=== PATIENT | female | born 1965 | race Caucasian/White ===

== ENCOUNTER → 2018-02-07 19:22 | Outpatient (CLI) | payer OTHER, MEDICAID, SELFPAY ==
--- NOTE | 2018-02-07 19:27 | DI.RAD.S_ITS ---
PROCEDURE: XR ANKLE LT MIN 3V INDICATIONS: Left ankle pain TECHNIQUE: 3 views of the ankle were acquired. COMPARISON: None. FINDINGS: Bones: No fractures or dislocations. Ankle mortise is normally aligned. No suspicious bony lesions. Soft tissues: No tibiotalar joint effusion. Achilles tendon appears normal. IMPRESSION: No acute trauma found, source of current pain is not seen.. Dictated by: Dallas Baeza M.D. on 02/08/2018 at 8:51 Approved by: Dallas Baeza M.D. on 02/08/2018 at 8:54
== END ==
PROVIDERS: Family Provider Physician Assistant; PCP Physician Assistant; Visit Provider Physician Assistant
DX: M25.572 Pain in left ankle and joints of left foot (principal)
CPT/HCPCS: 73610

== ENCOUNTER → 2018-03-05 06:56 | Outpatient (CLI) | payer OTHER, MEDICAID, SELFPAY ==
[2018-03-05 08:00] LABS: Alanine Aminotransferase 38 IU/L (9-52); Albumin 4.6 g/dL (3.5-5.0); Albumin Globulin Ratio 1.5 (1.0-2.8); Alkaline Phosphatase 72 U/L (38-126); Aspartate Aminotransferase 34 IU/L (14-36); Bilirubin Total 0.7 mg/dL (0.2-1.3); Blood Urea Nitrogen 15 mg/dL (7-17); Calcium 9.9 mg/dL (8.4-10.2); Carbon Dioxide 30 mmol/L (22-32); Chloride 103 mmol/L (98-107); Cholesterol 208 mg/dL (140-199); Estimated Glomerular Filt Rate > 60.0 mL/min (>60); Glucose 88 mg/dL (70-100); HDL Cholesterol 68 mg/dL (40-60); HEMOLYSIS < 15 (0-50); LDL Cholesterol Calculated 129 mg/dL (<100); Potassium 4.7 mmol/L (3.4-5.1); Sodium 142 mmol/L (137-145); Total Protein 7.6 g/dL (6.3-8.2); Triglycerides 55 mg/dL (35-150)
[2018-03-05 09:22] LABS: Thyroid Stimulating Hormone 2.01 uIU/mL (0.47-4.68)
[2018-03-07 15:52] LABS: Progesterone < 0.5 ng/mL
== END ==
PROVIDERS: Family Provider Physician Assistant; PCP Physician Assistant; Visit Provider Physician Assistant
DX: E78.5 Hyperlipidemia, unspecified (principal); N91.2 Amenorrhea, unspecified
CPT/HCPCS: 36415; 80053; 80061; 82672; 83001; 84144; 84443

== ENCOUNTER 2018-05-30 11:15 | Outpatient (RCR) | payer OTHER, MEDICAID, SELFPAY ==
--- NOTE | 2018-03-07 17:30 | PT.OPPOC ---
Current Diagnoses Pain in left ankle and joints of left foot (03/07/18) Stiffness of left ankle, not elsewhere classified (03/07/18) Muscle weakness (generalized) (03/07/18) Sprain of other ligament of left ankle, subsequent encounter (03/07/18) Provider Visit Care Team Role Provider Type Mirian Feliciano PA-C Attending Provider Advanced Crew Clerk Family Provider Primary Care Provider Specialty: Medical Address: [address] [place] [address], [facility] Email: [email or web address] Plan Of Care PT-OP-T Assessment and Plan Start: 03/09/18 13:00 Freq: Status: Active Protocol: Document 03/07/18 17:30 [facility] (Rec: 03/09/18 13:41 [facility] [email or web address]) Physical Therapy Assessment Rehab Potential Rehabilitation Potential Good Evaluation Complexity Number of Personal Factors/Comorbidities 0 Number of Body Systems Impaired 3 Clinical Presentation at Evaluation Stable Impairments Impairments Activity Tolerance Gait Pain ROM Strength Other Impairments Recreational activities: hiking. Goals Four Impairment LE weakness Lining Printer Goal (LTG) with manual muscle testing: Left hip flexion and ER to at least 4+/5, ankle inversion and eversion to 5/5 LTG Duration 8 weeks Three Impairment Inability to hike. Longterm Goal (LTG) Return to prior level of hiking ability without increased L ankle pain prior to d/c. LTG Duration 8 weeks Two Impairment Impaired L ankle ROM Longterm Goal (LTG) L ankle AROM: DF 10 deg, PF 55 deg, inversion 30 deg, eversion 20 deg. LTG Duration 8 weeks One Impairment L ankle pain 7/10 Short Term Goal (STG) 5/10 L ankle pain STG Duration 4 weeks Longterm Goal (LTG) 2/10 or less L ankle pain LTG Duration 8 weeks Assessment Summary Assessment Pt presents with tenderness to palpation in the anterior talofibular and calcaneofibular ligaments on the L ankle, with positive anterior drawer testing of the L ankle but negative talar tilt testing. This indicates that pt has instability of the L ankle, possibly mild tear of the anterior talofibular ligament, however, although tender to palpation, the calcaneofibular ligament appears to be intact. Pt would greatly benefit from outpatient physical therapy to progress her L ankle ROM, improve her LE strength, decrease pain in the L ankle, and return to prior level recreational activities including hiking without restrictions. Pt may benefit from aquatic therapy as well, and progression of a home exercise program to continue to stabilize her L ankle. Physical Therapy Plan Frequency and Duration Frequency of Treatment 2x/Week Duration of Treatment 8 weeks Plan of Care Start Date 03/07/18 Plan of Care End Date 05/02/18 Therapeutic Interventions Therapeutic Interventions Aquatic Therapy Gait Training Home Exercise Program Joint Mobilizations Manual Therapy Neuromuscular Re-education Patient/Caregiver Education Self-Care/Home Management Sensory Integration Soft Tissue Mobilization Taping Therapeutic Activities Therapeutic Exercises Modalities Cold Pack/Ice Massage Electric Stimulation Hot Packs Infrared Therapy Ultrasound Next Visit Focus/Plan Next Note Type Treatment Note Next Visit Plan L ankle resisted strengthening , SL balance, toe curls, BAPS board. Plan of Care Dates Plan of Care Start Date 03/07/18 Plan of Care End Date 05/02/18 Please Sign and Return: I have reviewed this Plan of Care and certify that the skilled therapy services above are required to meet the patient?s needs. Physician Signature Date Printed Name and Credentials Clinical Instructor Signature Printed Name and Credentials
--- NOTE | 2018-03-07 17:30 | PT.OIE ---
Current Diagnoses Pain in left ankle and joints of left foot (03/07/18) Stiffness of left ankle, not elsewhere classified (03/07/18) Muscle weakness (generalized) (03/07/18) Sprain of other ligament of left ankle, subsequent encounter (03/07/18) Past Medical History (Last Reviewed 02/26/18 @ 21:55 by Mary Ellen Epstein PA-C) Spinal stenosis, lumbar region without neurogenic claudication (Chronic) DDD (degenerative disc disease), lumbosacral (Chronic) Lumbar back pain (Chronic) Low back pain (Chronic Unknown) Spinal stenosis of lumbar region (Chronic Unknown) Varicose veins of both lower extremities (Chronic Unknown) Vitamin D deficiency (Chronic ~2013) Cysts (Resolved Unknown) Past Surgical History (Last Reviewed 02/26/18 @ 21:55 by Mary Ellen Epstein PA-C) History of surgical removal of ganglion cyst (Resolved 07/2017) Hx of tonsillectomy (Resolved Unknown) Status post endovenous radiofrequency ablation of saphenous vein (Resolved 2007) Provider Visit Care Team Role Provider Type Mirian Feliciano PA-C Attending Provider Advanced Primer Assembler Family Provider Primary Care Provider Specialty: Medical Address: [address] [place] [address], [facility] Email: [email or web address] Physical Therapy Initial Evaluation PT-OP-A Visit Information Start: 03/09/18 13:00 Freq: Status: Active Protocol: Document 03/07/18 17:30 RCC (Rec: 03/09/18 13:41 RCC [email or web address]) Out-Patient Physical Therapy Visit Information Visit Information Visit Type Initial Evaluation Visit Note 22 total visits for 2018. Visit Start Time 16:45 Visit Stop Time 17:30 Total Visit Minutes 45 Visit Number 1 Number of SENIOR MARKET INTELLIGENCE CONSULTANT Visits 0 Evaluation Information Evaluation Date 03/07/18 PT-OP-B Current Condition Start: 03/09/18 13:00 Freq: Status: Active Protocol: Document 03/07/18 17:30 RCC (Rec: 03/09/18 13:41 RCC [email or web address]) Current Condition History of Current Condition Onset Date 02/04/18 Current Complaints L lateral ankle pain History of Current Condition Pt is a 52 y/o female presenting to physical therapy with a c/o L lateral ankle pain. Onset date: 02/04/2018 stepping off of a curb and landing on a small street cone , causing inversion of the L ankle. Pt notes swelling initially, no excessive bruising. Pain is decreased with cryotherapy and wearing a brace (OTC strapped brace). Pain is increased with hiking, prolonged walking. 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 Radiographs of the L ankle were negative for fracture. Pt notes that it feels better when she wears her brace but she is still having pain and is well below her functional ability. Treatment Goals Patient/Caregiver Goals Return to hiking without restrictions. Prior Functional Status Baseline Function- ADL's Independent Baseline Function- Mobility Independent Baseline Function- Recreation/Hobbies Hiking multiple times per week . Current Functional Impairments (Reported) Functional Limitations- Recreation/ Unable to hike without Hobbies increased pain and difficulty. PT-OP-C Subjective Start: 03/09/18 13:00 Freq: Status: Active Protocol: Document 03/07/18 17:30 [facility] (Rec: 03/09/18 13:41 [facility] [email or web address]) OP-PT Subjective Patient Comments Patient Comments Pt is unable to take clients on hikes due to increased pain in L ankle. Patient Questionnaires Lower Extremity Functional Scale LEFS Score 71.25 OP-PT Pain Assessment Location Left Lateral Ankle Intensity 7 Scale Used Numeric (1 - 10) Pain Aggravating Factors Activity Walking Pain Alleviating Factors Cold PT-OP-D Balance Start: 03/09/18 13:00 Freq: Status: Active Protocol: Document 03/07/18 17:30 RCC (Rec: 03/09/18 13:41 [facility] [email or web address]) OP-PT Balance Assessment Standing Balance Static Standing Balance Ability Good Dynamic Standing Balance Ability Good Carroll Fall Scale Copyright Permission Carly EASTON, Carly RM, Jonas S[place]. Development of a scale to identify the fall- prone patient. Can J Aging 1989;8;366-7. Jolie Carroll (2009). Preventing patient falls. (2nd ed). [place]: Veras. PT-OP-F Manual Assessment Start: 03/09/18 13:00 Freq: Status: Active Protocol: Document 03/07/18 17:30 [facility] (Rec: 03/09/18 13:41 RCC [email or web address]) Manual Assessments Soft Tissue Assessment Soft Tissue Mobility Assessment TTP: L anterior talofibular and calcaneofibular ligaments. PT-OP-G Mobility & Gait Start: 03/09/18 13:00 Freq: Status: Active Protocol: Document 03/07/18 17:30 RCC (Rec: 03/09/18 13:41 [facility] [email or web address]) OP Gait Assessment Gait Gait Assistance Required: Independent Assistive Devices Assistive Device None Comments Gait Comments Mild decreased step length on the R, slight ER of the L foot during stance phase PT-OP-H Neuro Start: 03/09/18 13:00 Freq: Status: Active Protocol: Document 03/07/18 17:30 RCC (Rec: 03/09/18 13:41 [facility] [email or web address]) Sensation Evaluation Gross Sensation Gross Sensation WNL PT-OP-K Range of Motion Start: 03/09/18 13:00 Freq: Status: Active Protocol: Document 03/07/18 17:30 [facility] (Rec: 03/09/18 13:41 [facility] [email or web address]) Ankle and Foot Goniometric Range of Motion Ankle and Foot Measured in Degrees Left Active Testing Position Supine Dorsiflexion with Knee Extended 6 Plantarflexion 48 Inversion 25 Eversion 12 Right Active Testing Position Supine Dorsiflexion with Knee Extended 8 Plantarflexion 60 Inversion 30 Eversion 20 PT-OP-L Special Tests Start: 03/09/18 13:00 Freq: Status: Active Protocol: Document 03/07/18 17:30 RCC (Rec: 03/09/18 13:41 [facility] [email or web address]) Special Tests Foot/Ankle Special Tests Syndesmosis squeeze test Test Results Negative bilaterally Baumann Test Results Negative bilaterally Talor Tilt Test Results Negative bilaterally Anterior Draw Test Results Positive Left, negative Right PT-OP-M Strength Start: 03/09/18 13:00 Freq: Status: Active Protocol: Document 03/07/18 17:30 RCC (Rec: 03/09/18 13:41 RCC [email or web address]) Hip Strength Hip Manual Muscle Testing Left Flexion (L2) 4 Good Adduction 5 Normal External Rotation 4 Good Internal Rotation 4+ Good+ Right Flexion (L2) 4+ Good+ Adduction 5 Normal External Rotation 4+ Good+ Internal Rotation 4+ Good+ Knee Strength Knee Manual Muscle Testing Left Flexion (S2) 5 Normal Extension (L3) 5 Normal Right Flexion (S2) 5 Normal Extension (L3) 5 Normal Ankle/Foot Strength Ankle and Foot Manual Muscle Testing Left Dorsiflexion (L4) 5 Normal Plantarflexion (S1) 5 Normal Inversion 4+ Good+ Eversion (S1) 4+ Good+ Comments 25 reps SL heel raise Right Dorsiflexion (L4) 5 Normal Plantarflexion (S1) 5 Normal Inversion 5 Normal Eversion (S1) 5 Normal Comments 25 reps SL heel raise PT-OP-Q Treatments Start: 03/09/18 13:00 Freq: Status: Active Protocol: Document 03/07/18 17:30 [facility] (Rec: 03/09/18 13:41 [facility] [email or web address]) Therapeutic Exercises Sitting Exercises 1 Sitting Exercise Name ankle eversion Side left Resistance L2 band Reps/Minutes 1x12 Standing Exercises 1 Standing Exercise Name SL heel raise Side left Reps/Minutes 1x10 Manual Therapy Treatment Taping 1 Body Location L ankle Type of Tape Kinesio Tape Skin Inspection clean Comments Y strip lateral forefoot to lower leg around lateral malleolus, I strip arch support. PT-OP-R Modalities Start: 03/09/18 13:00 Freq: Status: Active Protocol: Document 03/07/18 17:30 [facility] (Rec: 03/09/18 13:41 [facility] [email or web address]) Ultrasound Therapy Treatment Left Lateral Ankle Treatment Duration (minutes) 8 Patient Position Sidelying Coupling Medium Ultrasound Gel Applicator Size (cm2) 2 Frequency Setting (mHz) 1 Mode Setting Continuous Intensity Setting (w/cm2) 1.0 PT-OP-T Assessment and Plan Start: 03/09/18 13:00 Freq: Status: Active Protocol: Document 03/07/18 17:30 [facility] (Rec: 03/09/18 13:41 [facility] [email or web address]) Physical Therapy Assessment Rehab Potential Rehabilitation Potential Good Evaluation Complexity Number of Personal Factors/Comorbidities 0 Number of Body Systems Impaired 3 Clinical Presentation at Evaluation Stable Impairments Impairments Activity Tolerance Gait Pain ROM Strength Other Impairments Recreational activities: hiking. Goals Four Impairment LE weakness Residential Goal (LTG) with manual muscle testing: Left hip flexion and ER to at least 4+/5, ankle inversion and eversion to 5/5 LTG Duration 8 weeks Three Impairment Inability to hike. Washroom Cleaner Goal (LTG) Return to prior level of hiking ability without increased L ankle pain prior to d/c. LTG Duration 8 weeks Two Impairment Impaired L ankle ROM Washroom Cleaner Goal (LTG) L ankle AROM: DF 10 deg, PF 55 deg, inversion 30 deg, eversion 20 deg. LTG Duration 8 weeks One Impairment L ankle pain 7/10 Short Term Goal (STG) 5/10 L ankle pain STG Duration 4 weeks Washroom Cleaner Goal (LTG) 2/10 or less L ankle pain LTG Duration 8 weeks Assessment Summary Assessment Pt presents with tenderness to palpation in the anterior talofibular and calcaneofibular ligaments on the L ankle, with positive anterior drawer testing of the L ankle but negative talar tilt testing. This indicates that pt has instability of the L ankle, possibly mild tear of the anterior talofibular ligament, however, although tender to palpation, the calcaneofibular ligament appears to be intact. Pt would greatly benefit from outpatient physical therapy to progress her L ankle ROM, improve her LE strength, decrease pain in the L ankle, and return to prior level recreational activities including hiking without restrictions. Pt may benefit from aquatic therapy as well, and progression of a home exercise program to continue to stabilize her L ankle. Physical Therapy Plan Frequency and Duration Frequency of Treatment 2x/Week Duration of Treatment 8 weeks Plan of Care Start Date 03/07/18 Plan of Care End Date 05/02/18 Therapeutic Interventions Therapeutic Interventions Aquatic Therapy Gait Training Home Exercise Program Joint Mobilizations Manual Therapy Neuromuscular Re-education Patient/Caregiver Education Self-Care/Home Management Sensory Integration Soft Tissue Mobilization Taping Therapeutic Activities Therapeutic Exercises Modalities Cold Pack/Ice Massage Electric Stimulation Hot Packs Infrared Therapy Ultrasound Next Visit Focus/Plan Next Note Type Treatment Note Next Visit Plan L ankle resisted strengthening , SL balance, toe curls, BAPS board.
--- NOTE | 2018-03-15 16:35 | PT.OTN ---
Current Diagnoses Sprain of other ligament of left ankle, subsequent encounter (03/15/18) Physical Therapy Treatment Note PT-OP-A Visit Information Start: 03/09/18 13:00 Freq: Status: Active Protocol: Document 03/15/18 16:35 RCC (Rec: 03/15/18 16:46 [facility] [email or web address]) Out-Patient Physical Therapy Visit Information Visit Information Visit Type Treatment Note Visit Start Time 15:55 Visit Stop Time 16:35 Total Visit Minutes 40 Visit Number 2 Number of RENEWABLE ENERGY TRADER Visits 0 Evaluation Information Evaluation Date 03/07/18 PT-OP-B Current Condition Start: 03/09/18 13:00 Freq: Status: Active Protocol: Document 03/07/18 17:30 [facility] (Rec: 03/09/18 13:41 RCC [email or web address]) Current Condition History of Current Condition Onset Date 02/04/18 Current Complaints L lateral ankle pain History of Current Condition Pt is a 52 y/o female presenting to physical therapy with a c/o L lateral ankle pain. Onset date: 02/04/2018 stepping off of a curb and landing on a small street cone , causing inversion of the L ankle. Pt notes swelling initially, no excessive bruising. Pain is decreased with cryotherapy and wearing a brace (OTC strapped brace). Pain is increased with hiking, prolonged walking. 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 Radiographs of the L ankle were negative for fracture. Pt notes that it feels better when she wears her brace but she is still having pain and is well below her functional ability. Treatment Goals Patient/Caregiver Goals Return to hiking without restrictions. Prior Functional Status Baseline Function- ADL's Independent Baseline Function- Mobility Independent Baseline Function- Recreation/Hobbies Hiking multiple times per week . Current Functional Impairments (Reported) Functional Limitations- Recreation/ Unable to hike without Hobbies increased pain and difficulty. PT-OP-C Subjective Start: 03/09/18 13:00 Freq: Status: Active Protocol: Document 03/15/18 16:35 RCC (Rec: 03/15/18 16:46 RCC [email or web address]) OP-PT Subjective Patient Comments Patient Comments Pt notes that her L ankle feels better, she did not go hiking this past week. PT-OP-D Balance Start: 03/09/18 13:00 Freq: Status: Active Protocol: Document 03/07/18 17:30 RCC (Rec: 03/09/18 13:41 RCC [email or web address]) OP-PT Balance Assessment Standing Balance Static Standing Balance Ability Good Dynamic Standing Balance Ability Good Carroll Fall Scale Copyright Permission Carly EASTON, Carly RM, Jonas SJ. Development of a scale to identify the fall- prone patient. Can J Aging 1989;8;366-7. Jolie Carroll (2009). Preventing patient falls. (2nd ed). [place]: Veras. PT-OP-F Manual Assessment Start: 03/09/18 13:00 Freq: Status: Active Protocol: Document 03/07/18 17:30 [facility] (Rec: 03/09/18 13:41 RCC [email or web address]) Manual Assessments Soft Tissue Assessment Soft Tissue Mobility Assessment TTP: L anterior talofibular and calcaneofibular ligaments. PT-OP-G Mobility & Gait Start: 03/09/18 13:00 Freq: Status: Active Protocol: Document 03/07/18 17:30 [facility] (Rec: 03/09/18 13:41 [facility] [email or web address]) OP Gait Assessment Gait Gait Assistance Required: Independent Assistive Devices Assistive Device None Comments Gait Comments Mild decreased step length on the R, slight ER of the L foot during stance phase PT-OP-H Neuro Start: 03/09/18 13:00 Freq: Status: Active Protocol: Document 03/07/18 17:30 [facility] (Rec: 03/09/18 13:41 [facility] [email or web address]) Sensation Evaluation Gross Sensation Gross Sensation WNL PT-OP-K Range of Motion Start: 03/09/18 13:00 Freq: Status: Active Protocol: Document 03/07/18 17:30 [facility] (Rec: 03/09/18 13:41 [facility] [email or web address]) Ankle and Foot Goniometric Range of Motion Ankle and Foot Measured in Degrees Left Active Testing Position Supine Dorsiflexion with Knee Extended 6 Plantarflexion 48 Inversion 25 Eversion 12 Right Active Testing Position Supine Dorsiflexion with Knee Extended 8 Plantarflexion 60 Inversion 30 Eversion 20 PT-OP-L Special Tests Start: 03/09/18 13:00 Freq: Status: Active Protocol: Document 03/07/18 17:30 RCC (Rec: 03/09/18 13:41 [facility] [email or web address]) Special Tests Foot/Ankle Special Tests Syndesmosis squeeze test Test Results Negative bilaterally Baumann Test Results Negative bilaterally Talor Tilt Test Results Negative bilaterally Anterior Draw Test Results Positive Left, negative Right PT-OP-M Strength Start: 03/09/18 13:00 Freq: Status: Active Protocol: Document 03/07/18 17:30 RCC (Rec: 03/09/18 13:41 RCC [email or web address]) Hip Strength Hip Manual Muscle Testing Left Flexion (L2) 4 Good Adduction 5 Normal External Rotation 4 Good Internal Rotation 4+ Good+ Right Flexion (L2) 4+ Good+ Adduction 5 Normal External Rotation 4+ Good+ Internal Rotation 4+ Good+ Knee Strength Knee Manual Muscle Testing Left Flexion (S2) 5 Normal Extension (L3) 5 Normal Right Flexion (S2) 5 Normal Extension (L3) 5 Normal Ankle/Foot Strength Ankle and Foot Manual Muscle Testing Left Dorsiflexion (L4) 5 Normal Plantarflexion (S1) 5 Normal Inversion 4+ Good+ Eversion (S1) 4+ Good+ Comments 25 reps SL heel raise Right Dorsiflexion (L4) 5 Normal Plantarflexion (S1) 5 Normal Inversion 5 Normal Eversion (S1) 5 Normal Comments 25 reps SL heel raise PT-OP-Q Treatments Start: 03/09/18 13:00 Freq: Status: Active Protocol: Document 03/15/18 16:35 [facility] (Rec: 03/15/18 16:46 [facility] [email or web address]) Manual Therapy Treatment Soft Tissue Mobilization 1 Body Location L peroneals Mobilization Type Myofascial Release Intensity/Depth Moderate Body Position Supine Joint Mobilizations 1 Joint L talocrural Direction AP, PA Grade III Body Position Supine Taping 1 Body Location L ankle Type of Tape Kinesio Tape Skin Inspection clean Comments Y strip lateral forefoot to lower leg around lateral malleolus, I strip arch support. Neuro Re-Education Treatment Balance Activities 1 Details SL balance (left) Surface firm, unstable (black Tband pod) Other Activities 1 Details BAPS Comments Level 4- AP, Lateral, CW, CCW PT-OP-R Modalities Start: 03/09/18 13:00 Freq: Status: Active Protocol: Document 03/15/18 16:35 RCC (Rec: 03/15/18 16:46 RCC [email or web address]) Ultrasound Therapy Treatment Left Lateral Ankle Treatment Duration (minutes) 8 Patient Position Sidelying Coupling Medium Ultrasound Gel Applicator Size (cm2) 2 Frequency Setting (mHz) 1 Mode Setting Continuous Intensity Setting (w/cm2) 1.0 PT-OP-T Assessment and Plan Start: 03/09/18 13:00 Freq: Status: Active Protocol: Document 03/15/18 16:35 [facility] (Rec: 03/15/18 16:46 RCC [email or web address]) Physical Therapy Assessment Assessment Summary Assessment Pt likely improved condition due to not stressing the L ankle with hiking over the past week. Pt appears to have some joint hypomobility of the talocrural joint. Pt tolerated increased ROM of L ankle without pain. Physical Therapy Plan Frequency and Duration Frequency of Treatment 2x/Week Duration of Treatment 8 weeks Plan of Care Start Date 03/07/18 Plan of Care End Date 05/02/18 Next Visit Focus/Plan Next Note Type Treatment Note Next Visit Plan L ankle resisted strengthening , toe curls
--- NOTE | 2018-03-20 17:33 | PT.OTN ---
Current Diagnoses Sprain of other ligament of left ankle, subsequent encounter (03/20/18) Physical Therapy Treatment Note PT-OP-A Visit Information Start: 03/09/18 13:00 Freq: Status: Active Protocol: Document 03/20/18 17:33 RCC (Rec: 03/20/18 17:43 [facility] [email or web address]) Out-Patient Physical Therapy Visit Information Visit Information Visit Type Treatment Note Visit Start Time 16:45 Visit Stop Time 17:33 Total Visit Minutes 48 Visit Number 3 Number of PROCESS CAMERA OPERATOR Visits 0 Evaluation Information Evaluation Date 03/07/18 PT-OP-B Current Condition Start: 03/09/18 13:00 Freq: Status: Active Protocol: Document 03/07/18 17:30 RCC (Rec: 03/09/18 13:41 RCC [email or web address]) Current Condition History of Current Condition Onset Date 02/04/18 Current Complaints L lateral ankle pain History of Current Condition Pt is a 52 y/o female presenting to physical therapy with a c/o L lateral ankle pain. Onset date: 02/04/2018 stepping off of a curb and landing on a small street cone , causing inversion of the L ankle. Pt notes swelling initially, no excessive bruising. Pain is decreased with cryotherapy and wearing a brace (OTC strapped brace). Pain is increased with hiking, prolonged walking. 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 Radiographs of the L ankle were negative for fracture. Pt notes that it feels better when she wears her brace but she is still having pain and is well below her functional ability. Treatment Goals Patient/Caregiver Goals Return to hiking without restrictions. Prior Functional Status Baseline Function- ADL's Independent Baseline Function- Mobility Independent Baseline Function- Recreation/Hobbies Hiking multiple times per week . Current Functional Impairments (Reported) Functional Limitations- Recreation/ Unable to hike without Hobbies increased pain and difficulty. PT-OP-C Subjective Start: 03/09/18 13:00 Freq: Status: Active Protocol: Document 03/20/18 17:33 RCC (Rec: 03/20/18 17:43 RCC [email or web address]) OP-PT Subjective Patient Comments Patient Comments Pt notes that she mildly re- injured her L ankle with a flat hike on a rock. No increased pain but looks a little more swollen. PT-OP-D Balance Start: 03/09/18 13:00 Freq: Status: Active Protocol: Document 03/07/18 17:30 RCC (Rec: 03/09/18 13:41 RCC [email or web address]) OP-PT Balance Assessment Standing Balance Static Standing Balance Ability Good Dynamic Standing Balance Ability Good Carroll Fall Scale Copyright Permission Carly EASTON, Carly RM, Jonas SJ. Development of a scale to identify the fall- prone patient. Can J Aging 1989;8;366-7. Jolie Carroll (2009). Preventing patient falls. (2nd ed). [place]: [place]. PT-OP-F Manual Assessment Start: 03/09/18 13:00 Freq: Status: Active Protocol: Document 03/07/18 17:30 RCC (Rec: 03/09/18 13:41 RCC [email or web address]) Manual Assessments Soft Tissue Assessment Soft Tissue Mobility Assessment TTP: L anterior talofibular and calcaneofibular ligaments. PT-OP-G Mobility & Gait Start: 03/09/18 13:00 Freq: Status: Active Protocol: Document 03/07/18 17:30 RCC (Rec: 03/09/18 13:41 RCC [email or web address]) OP Gait Assessment Gait Gait Assistance Required: Independent Assistive Devices Assistive Device None Comments Gait Comments Mild decreased step length on the R, slight ER of the L foot during stance phase PT-OP-H Neuro Start: 03/09/18 13:00 Freq: Status: Active Protocol: Document 03/07/18 17:30 RCC (Rec: 03/09/18 13:41 RCC [email or web address]) Sensation Evaluation Gross Sensation Gross Sensation WNL PT-OP-K Range of Motion Start: 03/09/18 13:00 Freq: Status: Active Protocol: Document 03/07/18 17:30 RCC (Rec: 03/09/18 13:41 RCC [email or web address]) Ankle and Foot Goniometric Range of Motion Ankle and Foot Measured in Degrees Left Active Testing Position Supine Dorsiflexion with Knee Extended 6 Plantarflexion 48 Inversion 25 Eversion 12 Right Active Testing Position Supine Dorsiflexion with Knee Extended 8 Plantarflexion 60 Inversion 30 Eversion 20 PT-OP-L Special Tests Start: 03/09/18 13:00 Freq: Status: Active Protocol: Document 03/07/18 17:30 RCC (Rec: 03/09/18 13:41 RCC [email or web address]) Special Tests Foot/Ankle Special Tests Syndesmosis squeeze test Test Results Negative bilaterally Baumann Test Results Negative bilaterally Talor Tilt Test Results Negative bilaterally Anterior Draw Test Results Positive Left, negative Right PT-OP-M Strength Start: 03/09/18 13:00 Freq: Status: Active Protocol: Document 03/07/18 17:30 RCC (Rec: 03/09/18 13:41 RCC [email or web address]) Hip Strength Hip Manual Muscle Testing Left Flexion (L2) 4 Good Adduction 5 Normal External Rotation 4 Good Internal Rotation 4+ Good+ Right Flexion (L2) 4+ Good+ Adduction 5 Normal External Rotation 4+ Good+ Internal Rotation 4+ Good+ Knee Strength Knee Manual Muscle Testing Left Flexion (S2) 5 Normal Extension (L3) 5 Normal Right Flexion (S2) 5 Normal Extension (L3) 5 Normal Ankle/Foot Strength Ankle and Foot Manual Muscle Testing Left Dorsiflexion (L4) 5 Normal Plantarflexion (S1) 5 Normal Inversion 4+ Good+ Eversion (S1) 4+ Good+ Comments 25 reps SL heel raise Right Dorsiflexion (L4) 5 Normal Plantarflexion (S1) 5 Normal Inversion 5 Normal Eversion (S1) 5 Normal Comments 25 reps SL heel raise PT-OP-Q Treatments Start: 03/09/18 13:00 Freq: Status: Active Protocol: Document 03/20/18 17:33 [facility] (Rec: 03/20/18 17:43 [facility] [email or web address]) Therapeutic Exercises Sitting Exercises 2 Sitting Exercise Name toe scrunches Side left Equipment Used towel Reps/Minutes 2x30 1 Sitting Exercise Name ankle eversion and inversion Side left Resistance L2 band Reps/Minutes 3x10 Manual Therapy Treatment Soft Tissue Mobilization 1 Body Location L peroneals Mobilization Type Myofascial Release Intensity/Depth Moderate Body Position Supine Joint Mobilizations 1 Joint L talocrural Direction AP, PA Grade III Body Position Supine Neuro Re-Education Treatment Other Activities 1 Details BAPS Comments Level 4- AP, Lateral, CW, CCW PT-OP-R Modalities Start: 03/09/18 13:00 Freq: Status: Active Protocol: Document 03/20/18 17:33 RCC (Rec: 03/20/18 17:43 RCC [email or web address]) Hot Pack/Cold Pack Treatment Cold Pack Location L ankle Patient Position Hooklying Treatment Duration (minutes) 10 Patient Tolerance Good Ultrasound Therapy Treatment Left Lateral Ankle Treatment Duration (minutes) 8 Patient Position Sidelying Coupling Medium Ultrasound Gel Applicator Size (cm2) 2 Frequency Setting (mHz) 1 Mode Setting Continuous Intensity Setting (w/cm2) 1.0 PT-OP-T Assessment and Plan Start: 03/09/18 13:00 Freq: Status: Active Protocol: Document 03/20/18 17:33 RCC (Rec: 03/20/18 17:43 RCC [email or web address]) Physical Therapy Assessment Assessment Summary Assessment Pt with mild increase in swelling, but responded well to ultrasound and no pain in anterior gutter with joint mobilizations. Physical Therapy Plan Frequency and Duration Frequency of Treatment 2x/Week Duration of Treatment 8 weeks Plan of Care Start Date 03/07/18 Plan of Care End Date 05/02/18 Next Visit Focus/Plan Next Note Type Treatment Note Next Visit Plan cont. to progress strength, ROM of L ankle.
--- NOTE | 2018-03-27 16:45 | PT.OTN ---
Current Diagnoses Sprain of other ligament of left ankle, subsequent encounter (03/27/18) Physical Therapy Treatment Note PT-OP-A Visit Information Start: 03/09/18 13:00 Freq: Status: Active Protocol: Document 03/27/18 16:45 RCC (Rec: 03/27/18 17:49 RCC [email or web address]) Out-Patient Physical Therapy Visit Information Visit Information Visit Type Treatment Note Visit Start Time 16:00 Visit Stop Time 16:46 Total Visit Minutes 46 Visit Number 4 Number of CONTINUOUS ABSORPTION PROCESS OPERATOR Visits 0 Evaluation Information Evaluation Date 03/07/18 PT-OP-B Current Condition Start: 03/09/18 13:00 Freq: Status: Active Protocol: Document 03/07/18 17:30 RCC (Rec: 03/09/18 13:41 RCC [email or web address]) Current Condition History of Current Condition Onset Date 02/04/18 Current Complaints L lateral ankle pain History of Current Condition Pt is a 52 y/o female presenting to physical therapy with a c/o L lateral ankle pain. Onset date: 02/04/2018 stepping off of a curb and landing on a small street cone , causing inversion of the L ankle. Pt notes swelling initially, no excessive bruising. Pain is decreased with cryotherapy and wearing a brace (OTC strapped brace). Pain is increased with hiking, prolonged walking. 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 Radiographs of the L ankle were negative for fracture. Pt notes that it feels better when she wears her brace but she is still having pain and is well below her functional ability. Treatment Goals Patient/Caregiver Goals Return to hiking without restrictions. Prior Functional Status Baseline Function- ADL's Independent Baseline Function- Mobility Independent Baseline Function- Recreation/Hobbies Hiking multiple times per week . Current Functional Impairments (Reported) Functional Limitations- Recreation/ Unable to hike without Hobbies increased pain and difficulty. PT-OP-C Subjective Start: 03/09/18 13:00 Freq: Status: Active Protocol: Document 03/27/18 16:45 RCC (Rec: 03/27/18 17:49 RCC [email or web address]) OP-PT Subjective Patient Comments Patient Comments Pt was able to hike for 2.5 miles without pain 2 days ago. She noted she had some increased swelling today, she spent a lot of the day sitting on the computer. PT-OP-D Balance Start: 03/09/18 13:00 Freq: Status: Active Protocol: Document 03/07/18 17:30 RCC (Rec: 03/09/18 13:41 RCC [email or web address]) OP-PT Balance Assessment Standing Balance Static Standing Balance Ability Good Dynamic Standing Balance Ability Good Carroll Fall Scale Copyright Permission Carly JM, Carly RM, Jonas SJ. Development of a scale to identify the fall- prone patient. Can J Aging 1989;8;366-7. Jolie Carroll (2009). Preventing patient falls. (2nd ed). [place]: Veras. PT-OP-F Manual Assessment Start: 03/09/18 13:00 Freq: Status: Active Protocol: Document 03/07/18 17:30 RCC (Rec: 03/09/18 13:41 RCC [email or web address]) Manual Assessments Soft Tissue Assessment Soft Tissue Mobility Assessment TTP: L anterior talofibular and calcaneofibular ligaments. PT-OP-G Mobility & Gait Start: 03/09/18 13:00 Freq: Status: Active Protocol: Document 03/07/18 17:30 RCC (Rec: 03/09/18 13:41 RCC [email or web address]) OP Gait Assessment Gait Gait Assistance Required: Independent Assistive Devices Assistive Device None Comments Gait Comments Mild decreased step length on the R, slight ER of the L foot during stance phase PT-OP-H Neuro Start: 03/09/18 13:00 Freq: Status: Active Protocol: Document 03/07/18 17:30 RCC (Rec: 03/09/18 13:41 RCC [email or web address]) Sensation Evaluation Gross Sensation Gross Sensation WNL PT-OP-J Posture/Palpation/Skin Start: 03/09/18 13:00 Freq: Status: Active Protocol: Document 03/27/18 16:45 RCC (Rec: 03/27/18 17:49 RCC [email or web address]) Skin Assessment Edema Assessment Left Ankle Comments mild edema lateral L ankle. PT-OP-K Range of Motion Start: 03/09/18 13:00 Freq: Status: Active Protocol: Document 03/07/18 17:30 RCC (Rec: 03/09/18 13:41 RCC [email or web address]) Ankle and Foot Goniometric Range of Motion Ankle and Foot Measured in Degrees Left Active Testing Position Supine Dorsiflexion with Knee Extended 6 Plantarflexion 48 Inversion 25 Eversion 12 Right Active Testing Position Supine Dorsiflexion with Knee Extended 8 Plantarflexion 60 Inversion 30 Eversion 20 PT-OP-L Special Tests Start: 03/09/18 13:00 Freq: Status: Active Protocol: Document 03/07/18 17:30 RCC (Rec: 03/09/18 13:41 RCC [email or web address]) Special Tests Foot/Ankle Special Tests Syndesmosis squeeze test Test Results Negative bilaterally Baumann Test Results Negative bilaterally Talor Tilt Test Results Negative bilaterally Anterior Draw Test Results Positive Left, negative Right PT-OP-M Strength Start: 03/09/18 13:00 Freq: Status: Active Protocol: Document 03/07/18 17:30 RCC (Rec: 03/09/18 13:41 RCC [email or web address]) Hip Strength Hip Manual Muscle Testing Left Flexion (L2) 4 Good Adduction 5 Normal External Rotation 4 Good Internal Rotation 4+ Good+ Right Flexion (L2) 4+ Good+ Adduction 5 Normal External Rotation 4+ Good+ Internal Rotation 4+ Good+ Knee Strength Knee Manual Muscle Testing Left Flexion (S2) 5 Normal Extension (L3) 5 Normal Right Flexion (S2) 5 Normal Extension (L3) 5 Normal Ankle/Foot Strength Ankle and Foot Manual Muscle Testing Left Dorsiflexion (L4) 5 Normal Plantarflexion (S1) 5 Normal Inversion 4+ Good+ Eversion (S1) 4+ Good+ Comments 25 reps SL heel raise Right Dorsiflexion (L4) 5 Normal Plantarflexion (S1) 5 Normal Inversion 5 Normal Eversion (S1) 5 Normal Comments 25 reps SL heel raise PT-OP-Q Treatments Start: 03/09/18 13:00 Freq: Status: Active Protocol: Document 03/27/18 16:45 RCC (Rec: 03/27/18 17:49 RCC [email or web address]) Manual Therapy Treatment Soft Tissue Mobilization 1 Body Location L peroneals Mobilization Type Myofascial Release Intensity/Depth Moderate Body Position Supine Joint Mobilizations 2 Joint L subtalar joint Direction inversion, eversion Grade III Body Position Supine 1 Joint L talocrural Direction AP, PA Grade III Body Position Supine Other Other Manual Treatments manual stretch into eversion, inversion, PF, and DF of the L ankle- 8 min. Neuro Re-Education Treatment Other Activities 1 Details BAPS Comments Level 4- AP, Lateral, CW, CCW PT-OP-R Modalities Start: 03/09/18 13:00 Freq: Status: Active Protocol: Document 03/27/18 16:45 RCC (Rec: 03/27/18 17:49 RCC [email or web address]) Hot Pack/Cold Pack Treatment Cold Pack Location L ankle Patient Position Hooklying Treatment Duration (minutes) 10 Patient Tolerance Good Ultrasound Therapy Treatment Left Lateral Ankle Treatment Duration (minutes) 8 Patient Position Sidelying Coupling Medium Ultrasound Gel Applicator Size (cm2) 2 Frequency Setting (mHz) 1 Mode Setting Continuous Intensity Setting (w/cm2) 1.0 PT-OP-T Assessment and Plan Start: 03/09/18 13:00 Freq: Status: Active Protocol: Document 03/27/18 16:45 [facility] (Rec: 03/27/18 17:49 RCC [email or web address]) Physical Therapy Assessment Assessment Summary Assessment Pt again with mild increase in swelling, likely a combination of increased hiking intensity and distance, as well as seated in dependent position for most of the day. Pt without anterior gutter pain with ROM this session, which demonstrates progression of joint mobility, although still stiff in all directions of subtalar and talocrural joint. Physical Therapy Plan Frequency and Duration Frequency of Treatment 2x/Week Duration of Treatment 8 weeks Plan of Care Start Date 03/07/18 Plan of Care End Date 05/02/18 Next Visit Focus/Plan Next Note Type Treatment Note Next Visit Plan prog. toward WB ankle ROM and proprioception activities.
--- NOTE | 2018-03-29 16:45 | PT.OTN ---
Current Diagnoses Sprain of other ligament of left ankle, subsequent encounter (03/29/18) Physical Therapy Treatment Note PT-OP-A Visit Information Start: 03/09/18 13:00 Freq: Status: Active Protocol: Document 03/29/18 16:45 RCC (Rec: 03/31/18 16:53 RCC [email or web address]) Out-Patient Physical Therapy Visit Information Visit Information Visit Type Treatment Note Visit Start Time 16:00 Visit Stop Time 16:45 Total Visit Minutes 45 Visit Number 5 Number of SOFTWARE VALIDATION TECHNICIAN Visits 0 Evaluation Information Evaluation Date 03/07/18 PT-OP-B Current Condition Start: 03/09/18 13:00 Freq: Status: Active Protocol: Document 03/07/18 17:30 RCC (Rec: 03/09/18 13:41 RCC [email or web address]) Current Condition History of Current Condition Onset Date 02/04/18 Current Complaints L lateral ankle pain History of Current Condition Pt is a 52 y/o female presenting to physical therapy with a c/o L lateral ankle pain. Onset date: 02/04/2018 stepping off of a curb and landing on a small street cone , causing inversion of the L ankle. Pt notes swelling initially, no excessive bruising. Pain is decreased with cryotherapy and wearing a brace (OTC strapped brace). Pain is increased with hiking, prolonged walking. 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 Radiographs of the L ankle were negative for fracture. Pt notes that it feels better when she wears her brace but she is still having pain and is well below her functional ability. Treatment Goals Patient/Caregiver Goals Return to hiking without restrictions. Prior Functional Status Baseline Function- ADL's Independent Baseline Function- Mobility Independent Baseline Function- Recreation/Hobbies Hiking multiple times per week . Current Functional Impairments (Reported) Functional Limitations- Recreation/ Unable to hike without Hobbies increased pain and difficulty. PT-OP-C Subjective Start: 03/09/18 13:00 Freq: Status: Active Protocol: Document 03/29/18 16:45 RCC (Rec: 03/31/18 16:53 RCC [email or web address]) OP-PT Subjective Patient Comments Patient Comments Pt notes swelling a little less today. PT-OP-D Balance Start: 03/09/18 13:00 Freq: Status: Active Protocol: Document 03/07/18 17:30 RCC (Rec: 03/09/18 13:41 RCC [email or web address]) OP-PT Balance Assessment Standing Balance Static Standing Balance Ability Good Dynamic Standing Balance Ability Good Carroll Fall Scale Copyright Permission Carly JM, Carly RM, Jonsa SJ. Development of a scale to identify the fall- prone patient. Can J Aging 1989;8;366-7. Jolie Carroll (2009). Preventing patient falls. (2nd ed). [place]: Veras. PT-OP-F Manual Assessment Start: 03/09/18 13:00 Freq: Status: Active Protocol: Document 03/07/18 17:30 RCC (Rec: 03/09/18 13:41 RCC [email or web address]) Manual Assessments Soft Tissue Assessment Soft Tissue Mobility Assessment TTP: L anterior talofibular and calcaneofibular ligaments. PT-OP-G Mobility & Gait Start: 03/09/18 13:00 Freq: Status: Active Protocol: Document 03/07/18 17:30 RCC (Rec: 03/09/18 13:41 RCC [email or web address]) OP Gait Assessment Gait Gait Assistance Required: Independent Assistive Devices Assistive Device None Comments Gait Comments Mild decreased step length on the R, slight ER of the L foot during stance phase PT-OP-H Neuro Start: 03/09/18 13:00 Freq: Status: Active Protocol: Document 03/07/18 17:30 RCC (Rec: 03/09/18 13:41 RCC [email or web address]) Sensation Evaluation Gross Sensation Gross Sensation WNL PT-OP-J Posture/Palpation/Skin Start: 03/09/18 13:00 Freq: Status: Active Protocol: Document 03/27/18 16:45 RCC (Rec: 03/27/18 17:49 RCC [email or web address]) Skin Assessment Edema Assessment Left Ankle Comments mild edema lateral L ankle. PT-OP-K Range of Motion Start: 03/09/18 13:00 Freq: Status: Active Protocol: Document 03/07/18 17:30 RCC (Rec: 03/09/18 13:41 RCC [email or web address]) Ankle and Foot Goniometric Range of Motion Ankle and Foot Measured in Degrees Left Active Testing Position Supine Dorsiflexion with Knee Extended 6 Plantarflexion 48 Inversion 25 Eversion 12 Right Active Testing Position Supine Dorsiflexion with Knee Extended 8 Plantarflexion 60 Inversion 30 Eversion 20 PT-OP-L Special Tests Start: 03/09/18 13:00 Freq: Status: Active Protocol: Document 03/07/18 17:30 RCC (Rec: 03/09/18 13:41 RCC [email or web address]) Special Tests Foot/Ankle Special Tests Syndesmosis squeeze test Test Results Negative bilaterally Baumann Test Results Negative bilaterally Talor Tilt Test Results Negative bilaterally Anterior Draw Test Results Positive Left, negative Right PT-OP-M Strength Start: 03/09/18 13:00 Freq: Status: Active Protocol: Document 03/07/18 17:30 RCC (Rec: 03/09/18 13:41 RCC [email or web address]) Hip Strength Hip Manual Muscle Testing Left Flexion (L2) 4 Good Adduction 5 Normal External Rotation 4 Good Internal Rotation 4+ Good+ Right Flexion (L2) 4+ Good+ Adduction 5 Normal External Rotation 4+ Good+ Internal Rotation 4+ Good+ Knee Strength Knee Manual Muscle Testing Left Flexion (S2) 5 Normal Extension (L3) 5 Normal Right Flexion (S2) 5 Normal Extension (L3) 5 Normal Ankle/Foot Strength Ankle and Foot Manual Muscle Testing Left Dorsiflexion (L4) 5 Normal Plantarflexion (S1) 5 Normal Inversion 4+ Good+ Eversion (S1) 4+ Good+ Comments 25 reps SL heel raise Right Dorsiflexion (L4) 5 Normal Plantarflexion (S1) 5 Normal Inversion 5 Normal Eversion (S1) 5 Normal Comments 25 reps SL heel raise PT-OP-Q Treatments Start: 03/09/18 13:00 Freq: Status: Active Protocol: Document 03/29/18 16:45 RCC (Rec: 03/31/18 16:53 RCC [email or web address]) Therapeutic Exercises Sitting Exercises 1 Sitting Exercise Name ankle eversion and inversion Side left Resistance L2 band Reps/Minutes 3x10 Manual Therapy Treatment Soft Tissue Mobilization 1 Body Location L peroneals Mobilization Type Myofascial Release Intensity/Depth Moderate Body Position Supine Joint Mobilizations 2 Joint L subtalar joint Direction inversion, eversion Grade IV Body Position Supine 1 Joint L talocrural Direction AP, PA Grade IV Body Position Supine PT-OP-R Modalities Start: 03/09/18 13:00 Freq: Status: Active Protocol: Document 03/29/18 16:45 RCC (Rec: 03/31/18 16:53 [facility] [email or web address]) Hot Pack/Cold Pack Treatment Cold Pack Location L ankle Patient Position Hooklying Treatment Duration (minutes) 10 Patient Tolerance Good PT-OP-T Assessment and Plan Start: 03/09/18 13:00 Freq: Status: Active Protocol: Document 03/29/18 16:45 [facility] (Rec: 03/31/18 16:53 [facility] [email or web address]) Physical Therapy Assessment Assessment Summary Assessment Pt tender in the peroneal region of the L ankle, but less swelling today compared to Sunday. Pt tolerated resisted training of the L ankle without pain. She is limited in all planes of motion, with joint hypomobility limiting her passive and active ROM of the L ankle and is not yet back to prior level of recreational activity tolerance. Physical Therapy Plan Frequency and Duration Frequency of Treatment 2x/Week Duration of Treatment 8 weeks Plan of Care Start Date 03/07/18 Plan of Care End Date 05/02/18 Next Visit Focus/Plan Next Note Type Treatment Note Next Visit Plan SL heel raise, Shuttle balance
--- NOTE | 2018-04-17 16:10 | PT.OTN ---
Current Diagnoses Sprain of other ligament of left ankle, subsequent encounter (04/17/18) Physical Therapy Treatment Note PT-OP-A Visit Information Start: 03/09/18 13:00 Freq: Status: Active Protocol: Document 04/17/18 16:10 [facility] (Rec: 04/17/18 16:15 [facility] [email or web address]) Out-Patient Physical Therapy Visit Information Visit Information Visit Type Treatment Note Visit Start Time 15:15 Visit Stop Time 16:10 Total Visit Minutes 55 Visit Number 6 Number of SOLAR ENERGY SALES SPECIALIST Visits 0 Evaluation Information Evaluation Date 03/07/18 PT-OP-B Current Condition Start: 03/09/18 13:00 Freq: Status: Active Protocol: Document 03/07/18 17:30 [facility] (Rec: 03/09/18 13:41 [facility] [email or web address]) Current Condition History of Current Condition Onset Date 02/04/18 Current Complaints L lateral ankle pain History of Current Condition Pt is a 52 y/o female presenting to physical therapy with a c/o L lateral ankle pain. Onset date: 02/04/2018 stepping off of a curb and landing on a small street cone , causing inversion of the L ankle. Pt notes swelling initially, no excessive bruising. Pain is decreased with cryotherapy and wearing a brace (OTC strapped brace). Pain is increased with hiking, prolonged walking. 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 Radiographs of the L ankle were negative for fracture. Pt notes that it feels better when she wears her brace but she is still having pain and is well below her functional ability. Treatment Goals Patient/Caregiver Goals Return to hiking without restrictions. Prior Functional Status Baseline Function- ADL's Independent Baseline Function- Mobility Independent Baseline Function- Recreation/Hobbies Hiking multiple times per week . Current Functional Impairments (Reported) Functional Limitations- Recreation/ Unable to hike without Hobbies increased pain and difficulty. PT-OP-C Subjective Start: 03/09/18 13:00 Freq: Status: Active Protocol: Document 04/17/18 16:10 [facility] (Rec: 04/17/18 16:15 [facility] [email or web address]) OP-PT Subjective Patient Comments Patient Comments Pt states that compression has helped her swelling after longer hikes, she was able to hike for 2 hrs on an easy trail without pain, but mild swelling 2 days post-hike. PT-OP-D Balance Start: 03/09/18 13:00 Freq: Status: Active Protocol: Document 03/07/18 17:30 [facility] (Rec: 03/09/18 13:41 [facility] [email or web address]) OP-PT Balance Assessment Standing Balance Static Standing Balance Ability Good Dynamic Standing Balance Ability Good Carroll Fall Scale Copyright Permission Carly JM, Carly RM, Jonas SJ. Development of a scale to identify the fall- prone patient. Can J Aging 1989;8;366-7. Jolie Carroll (2009). Preventing patient falls. (2nd ed). [place]: [place]. PT-OP-F Manual Assessment Start: 03/09/18 13:00 Freq: Status: Active Protocol: Document 03/07/18 17:30 [facility] (Rec: 03/09/18 13:41 [facility] [email or web address]) Manual Assessments Soft Tissue Assessment Soft Tissue Mobility Assessment TTP: L anterior talofibular and calcaneofibular ligaments. PT-OP-G Mobility & Gait Start: 03/09/18 13:00 Freq: Status: Active Protocol: Document 03/07/18 17:30 [facility] (Rec: 03/09/18 13:41 [facility] [email or web address]) OP Gait Assessment Gait Gait Assistance Required: Independent Assistive Devices Assistive Device None Comments Gait Comments Mild decreased step length on the R, slight ER of the L foot during stance phase PT-OP-H Neuro Start: 03/09/18 13:00 Freq: Status: Active Protocol: Document 03/07/18 17:30 [facility] (Rec: 03/09/18 13:41 [facility] [email or web address]) Sensation Evaluation Gross Sensation Gross Sensation WNL PT-OP-J Posture/Palpation/Skin Start: 03/09/18 13:00 Freq: Status: Active Protocol: Document 03/27/18 16:45 [facility] (Rec: 03/27/18 17:49 [facility] [email or web address]) Skin Assessment Edema Assessment Left Ankle Comments mild edema lateral L ankle. PT-OP-K Range of Motion Start: 03/09/18 13:00 Freq: Status: Active Protocol: Document 03/07/18 17:30 [facility] (Rec: 03/09/18 13:41 [facility] [email or web address]) Ankle and Foot Goniometric Range of Motion Ankle and Foot Measured in Degrees Left Active Testing Position Supine Dorsiflexion with Knee Extended 6 Plantarflexion 48 Inversion 25 Eversion 12 Right Active Testing Position Supine Dorsiflexion with Knee Extended 8 Plantarflexion 60 Inversion 30 Eversion 20 PT-OP-L Special Tests Start: 03/09/18 13:00 Freq: Status: Active Protocol: Document 03/07/18 17:30 [facility] (Rec: 03/09/18 13:41 RCC [email or web address]) Special Tests Foot/Ankle Special Tests Syndesmosis squeeze test Test Results Negative bilaterally Baumann Test Results Negative bilaterally Talor Tilt Test Results Negative bilaterally Anterior Draw Test Results Positive Left, negative Right PT-OP-M Strength Start: 03/09/18 13:00 Freq: Status: Active Protocol: Document 03/07/18 17:30 [facility] (Rec: 03/09/18 13:41 [facility] [email or web address]) Hip Strength Hip Manual Muscle Testing Left Flexion (L2) 4 Good Adduction 5 Normal External Rotation 4 Good Internal Rotation 4+ Good+ Right Flexion (L2) 4+ Good+ Adduction 5 Normal External Rotation 4+ Good+ Internal Rotation 4+ Good+ Knee Strength Knee Manual Muscle Testing Left Flexion (S2) 5 Normal Extension (L3) 5 Normal Right Flexion (S2) 5 Normal Extension (L3) 5 Normal Ankle/Foot Strength Ankle and Foot Manual Muscle Testing Left Dorsiflexion (L4) 5 Normal Plantarflexion (S1) 5 Normal Inversion 4+ Good+ Eversion (S1) 4+ Good+ Comments 25 reps SL heel raise Right Dorsiflexion (L4) 5 Normal Plantarflexion (S1) 5 Normal Inversion 5 Normal Eversion (S1) 5 Normal Comments 25 reps SL heel raise PT-OP-Q Treatments Start: 03/09/18 13:00 Freq: Status: Active Protocol: Document 04/17/18 16:10 [facility] (Rec: 04/17/18 16:17 RCC [email or web address]) Gym Equipment Shuttle Balance 1 Details DL A/P and lateral, SL A/P Reps/Duration 6 min Therapeutic Exercises Sitting Exercises 1 Sitting Exercise Name ankle eversion and inversion Side left Resistance L2 band Reps/Minutes 2x10 Standing Exercises 1 Standing Exercise Name gastroc/soleus stretch Side bilateral Equipment Used ORQUIDEA Manual Therapy Treatment Soft Tissue Mobilization 1 Body Location L peroneals Mobilization Type Myofascial Release Intensity/Depth Moderate Body Position Supine Joint Mobilizations 2 Joint L subtalar joint Direction inversion, eversion Grade IV Body Position Supine 1 Joint L talocrural Direction AP, PA Grade IV Body Position Supine PT-OP-R Modalities Start: 03/09/18 13:00 Freq: Status: Active Protocol: Document 04/17/18 16:10 [facility] (Rec: 04/17/18 16:15 RCC [email or web address]) Hot Pack/Cold Pack Treatment Cold Pack Location L ankle Patient Position Hooklying Treatment Duration (minutes) 10 Patient Tolerance Good Ultrasound Therapy Treatment Left Lateral Ankle Treatment Duration (minutes) 8 Patient Position Sidelying Coupling Medium Ultrasound Gel Applicator Size (cm2) 2 Frequency Setting (mHz) 1 Mode Setting Continuous Intensity Setting (w/cm2) 1.0 PT-OP-T Assessment and Plan Start: 03/09/18 13:00 Freq: Status: Active Protocol: Document 04/17/18 16:10 [facility] (Rec: 04/17/18 16:15 [facility] [email or web address]) Physical Therapy Assessment Assessment Summary Assessment Pt tolerated increased unstable surfaces this date without pain, and is progressing with strength and activity tolerance as expected post-inversion sprain of the L ankle. Physical Therapy Plan Frequency and Duration Frequency of Treatment 2x/Week Duration of Treatment 8 weeks Plan of Care Start Date 03/07/18 Plan of Care End Date 05/02/18 Next Visit Focus/Plan Next Note Type Progress Note Next Visit Plan SL heel raise, Shuttle balance
--- NOTE | 2018-04-24 15:15 | PT.OTN ---
Current Diagnoses Sprain of other ligament of left ankle, subsequent encounter (04/24/18) Physical Therapy Treatment Note PT-OP-A Visit Information Start: 03/09/18 13:00 Freq: Status: Active Protocol: Document 04/24/18 15:15 [facility] (Rec: 04/24/18 17:31 RCC [email or web address]) Out-Patient Physical Therapy Visit Information Visit Information Visit Type Treatment Note Visit Start Time 14:30 Visit Stop Time 15:20 Total Visit Minutes 50 Visit Number 7 Number of DEICER FINISHER Visits 0 Evaluation Information Evaluation Date 03/07/18 PT-OP-B Current Condition Start: 03/09/18 13:00 Freq: Status: Active Protocol: Document 03/07/18 17:30 [facility] (Rec: 03/09/18 13:41 RCC [email or web address]) Current Condition History of Current Condition Onset Date 02/04/18 Current Complaints L lateral ankle pain History of Current Condition Pt is a 52 y/o female presenting to physical therapy with a c/o L lateral ankle pain. Onset date: 02/04/2018 stepping off of a curb and landing on a small street cone , causing inversion of the L ankle. Pt notes swelling initially, no excessive bruising. Pain is decreased with cryotherapy and wearing a brace (OTC strapped brace). Pain is increased with hiking, prolonged walking. 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 Radiographs of the L ankle were negative for fracture. Pt notes that it feels better when she wears her brace but she is still having pain and is well below her functional ability. Treatment Goals Patient/Caregiver Goals Return to hiking without restrictions. Prior Functional Status Baseline Function- ADL's Independent Baseline Function- Mobility Independent Baseline Function- Recreation/Hobbies Hiking multiple times per week . Current Functional Impairments (Reported) Functional Limitations- Recreation/ Unable to hike without Hobbies increased pain and difficulty. PT-OP-C Subjective Start: 03/09/18 13:00 Freq: Status: Active Protocol: Document 04/24/18 15:15 [facility] (Rec: 04/24/18 17:31 RCC [email or web address]) OP-PT Subjective Patient Comments Patient Comments Pt notes that the L ankle still swells mildly, but pain has decreased. She is not yet able to hike as long or on difficult trails like she had before her L ankle injury. OP-PT Pain Assessment Location Left Lateral Ankle Intensity 5 Scale Used Numeric (1 - 10) Pain Aggravating Factors Activity Walking Pain Alleviating Factors Cold PT-OP-D Balance Start: 03/09/18 13:00 Freq: Status: Active Protocol: Document 03/07/18 17:30 [facility] (Rec: 03/09/18 13:41 RCC [email or web address]) OP-PT Balance Assessment Standing Balance Static Standing Balance Ability Good Dynamic Standing Balance Ability Good Carroll Fall Scale Copyright Permission Carly JM, Carly RM, Jonas SJ. Development of a scale to identify the fall- prone patient. Can J Aging 1989;8;366-7. Jolie Carroll (2009). Preventing patient falls. (2nd ed). [place]: [place]. PT-OP-F Manual Assessment Start: 03/09/18 13:00 Freq: Status: Active Protocol: Document 03/07/18 17:30 [facility] (Rec: 03/09/18 13:41 RCC [email or web address]) Manual Assessments Soft Tissue Assessment Soft Tissue Mobility Assessment TTP: L anterior talofibular and calcaneofibular ligaments. PT-OP-G Mobility & Gait Start: 03/09/18 13:00 Freq: Status: Active Protocol: Document 03/07/18 17:30 [facility] (Rec: 03/09/18 13:41 RCC [email or web address]) OP Gait Assessment Gait Gait Assistance Required: Independent Assistive Devices Assistive Device None Comments Gait Comments Mild decreased step length on the R, slight ER of the L foot during stance phase PT-OP-H Neuro Start: 03/09/18 13:00 Freq: Status: Active Protocol: Document 03/07/18 17:30 [facility] (Rec: 03/09/18 13:41 RCC [email or web address]) Sensation Evaluation Gross Sensation Gross Sensation WNL PT-OP-J Posture/Palpation/Skin Start: 03/09/18 13:00 Freq: Status: Active Protocol: Document 03/27/18 16:45 [facility] (Rec: 03/27/18 17:49 RCC [email or web address]) Skin Assessment Edema Assessment Left Ankle Comments mild edema lateral L ankle. PT-OP-K Range of Motion Start: 03/09/18 13:00 Freq: Status: Active Protocol: Document 08/22/18 15:15 [facility] (Rec: 04/24/18 17:31 RCC [email or web address]) Ankle and Foot Goniometric Range of Motion Ankle and Foot Measured in Degrees Left Active Testing Position Supine Dorsiflexion with Knee Extended 8 Plantarflexion 60 Inversion 35 Eversion 22 PT-OP-L Special Tests Start: 03/09/18 13:00 Freq: Status: Active Protocol: Document 03/07/18 17:30 [facility] (Rec: 03/09/18 13:41 RCC [email or web address]) Special Tests Foot/Ankle Special Tests Syndesmosis squeeze test Test Results Negative bilaterally Baumann Test Results Negative bilaterally Talor Tilt Test Results Negative bilaterally Anterior Draw Test Results Positive Left, negative Right PT-OP-M Strength Start: 03/09/18 13:00 Freq: Status: Active Protocol: Document 04/24/18 15:15 [facility] (Rec: 04/24/18 17:31 RCC [email or web address]) Ankle/Foot Strength Ankle and Foot Manual Muscle Testing Left Dorsiflexion (L4) 5 Normal Plantarflexion (S1) 5 Normal Inversion 5 Normal Eversion (S1) 4+ Good+ Comments 25 reps SL heel raise PT-OP-Q Treatments Start: 03/09/18 13:00 Freq: Status: Active Protocol: Document 04/24/18 15:15 [facility] (Rec: 04/24/18 17:31 RCC [email or web address]) Gym Equipment Shuttle Balance 1 Details DL A/P and lateral (WBOS), tandem stance A/P Reps/Duration 12 min Manual Therapy Treatment Soft Tissue Mobilization 1 Body Location L peroneals Mobilization Type Myofascial Release Intensity/Depth Moderate Body Position Supine Joint Mobilizations 2 Joint L subtalar joint Direction inversion, eversion Grade IV Body Position Supine 1 Joint L talocrural Direction AP, PA Grade IV Body Position Supine Manual Techniques 1 Type ROM and MMT- L ankle PT-OP-R Modalities Start: 03/09/18 13:00 Freq: Status: Active Protocol: Document 04/24/18 15:15 [facility] (Rec: 04/24/18 17:31 RCC [email or web address]) Hot Pack/Cold Pack Treatment Cold Pack Location L ankle Patient Position Hooklying Treatment Duration (minutes) 10 Patient Tolerance Good Ultrasound Therapy Treatment Left Lateral Ankle Treatment Duration (minutes) 8 Patient Position Sidelying Coupling Medium Ultrasound Gel Applicator Size (cm2) 2 Frequency Setting (mHz) 1 Mode Setting Continuous Intensity Setting (w/cm2) 1.0 PT-OP-T Assessment and Plan Start: 03/09/18 13:00 Freq: Status: Active Protocol: Document 04/24/18 15:15 [facility] (Rec: 04/24/18 17:31 RCC [email or web address]) Physical Therapy Assessment Goals Four Impairment LE weakness Valve Machine Operator Goal (LTG) with manual muscle testing: Left hip flexion and ER to at least 4+/5, ankle inversion and eversion to 5/5 LTG Duration 4 weeks Three Impairment Inability to hike. Valve Machine Operator Goal (LTG) Return to prior level of hiking ability without increased L ankle pain prior to d/c. LTG Duration 4 weeks Two Impairment Impaired L ankle ROM Valve Machine Operator Goal (LTG) L ankle AROM: DF 10 deg, PF 55 deg, inversion 30 deg, eversion 20 deg. LTG Duration 4 weeks One Impairment L ankle pain 7/10 Short Term Goal (STG) 5/10 L ankle pain *achieved 04/24/18 Valve Machine Operator Goal (LTG) 2/10 or less L ankle pain LTG Duration 4 weeks Progress Towards Goals Progress Towards Goals Progressing Toward Goals Progress Comments good progress Assessment Summary Assessment Pt is with pain 5/10 or less during activity, but not back to her prior level of hiking. Her ROM is improving but still <10 deg DF of the L ankle due to joint hypomobility and soft tissue restriction. Pt would greatly benefit from trial of performing HEP for the next 1-2 weeks, and then report back of her condition. Pt likely would need 4 more weeks of rehabilitation with 2 visits per week to improve with her ROM, strength, and stability of the L ankle to return to prior level of function. Physical Therapy Plan Frequency and Duration Frequency of Treatment 2x/Week Duration of Treatment 4 weeks Plan of Care Start Date 04/24/18 Plan of Care End Date 05/22/18 Therapeutic Interventions Therapeutic Interventions Aquatic Therapy Balance Training Gait Training Home Exercise Program Joint Mobilizations Manual Therapy Neuromuscular Re-education Patient/Caregiver Education Self-Care/Home Management Soft Tissue Mobilization Taping Therapeutic Activities Therapeutic Exercises Modalities Cold Pack/Ice Massage Electric Stimulation Hot Packs Ultrasound Next Visit Focus/Plan Next Note Type Treatment Note Next Visit Plan follow up in 1-2 weeks, if progressing well can discuss d /c with pt. If she is not improving, she would benefit from continued skilled physical therapy to skillfully progress HEP and eliminate impairments.
--- NOTE | 2018-04-24 15:15 | PT.OPPOC ---
Current Diagnoses Sprain of other ligament of left ankle, subsequent encounter (04/24/18) Provider Visit Care Team Role Provider Type Mirina Feliciano PA-C Attending Provider Advanced Tracing Lathe Set Up Operator Family Provider Primary Care Provider Specialty: Medical Address: [address] [place] [address], [id number] Email: [email or web address] Plan Of Care PT-OP-T Assessment and Plan Start: 03/09/18 13:00 Freq: Status: Active Protocol: Document 04/24/18 15:15 [facility] (Rec: 04/24/18 17:31 RCC [email or web address]) Physical Therapy Assessment Goals Four Impairment LE weakness Halfway Goal (LTG) with manual muscle testing: Left hip flexion and ER to at least 4+/5, ankle inversion and eversion to 5/5 LTG Duration 4 weeks Three Impairment Inability to hike. Halfway Goal (LTG) Return to prior level of hiking ability without increased L ankle pain prior to d/c. LTG Duration 4 weeks Two Impairment Impaired L ankle ROM Halfway Goal (LTG) L ankle AROM: DF 10 deg, PF 55 deg, inversion 30 deg, eversion 20 deg. LTG Duration 4 weeks One Impairment L ankle pain 7/10 Short Term Goal (STG) 5/10 L ankle pain *achieved 04/24/18 Swimming Pool Maintenance Supervisor Goal (LTG) 2/10 or less L ankle pain LTG Duration 4 weeks Progress Towards Goals Progress Towards Goals Progressing Toward Goals Progress Comments good progress Assessment Summary Assessment Pt is with pain 5/10 or less during activity, but not back to her prior level of hiking. Her ROM is improving but still <10 deg DF of the L ankle due to joint hypomobility and soft tissue restriction. Pt would greatly benefit from trial of performing HEP for the next 1-2 weeks, and then report back of her condition. Pt likely would need 4 more weeks of rehabilitation with 2 visits per week to improve with her ROM, strength, and stability of the L ankle to return to prior level of function. Physical Therapy Plan Frequency and Duration Frequency of Treatment 2x/Week Duration of Treatment 4 weeks Plan of Care Start Date 04/24/18 Plan of Care End Date 05/22/18 Therapeutic Interventions Therapeutic Interventions Aquatic Therapy Balance Training Gait Training Home Exercise Program Joint Mobilizations Manual Therapy Neuromuscular Re-education Patient/Caregiver Education Self-Care/Home Management Soft Tissue Mobilization Taping Therapeutic Activities Therapeutic Exercises Modalities Cold Pack/Ice Massage Electric Stimulation Hot Packs Ultrasound Next Visit Focus/Plan Next Note Type Treatment Note Next Visit Plan follow up in 1-2 weeks, if progressing well can discuss d /c with pt. If she is not improving, she would benefit from continued skilled physical therapy to skillfully progress HEP and eliminate impairments. Plan of Care Dates Plan of Care Start Date 04/24/18 Plan of Care End Date 05/22/18 Please Sign and Return: I have reviewed this Plan of Care and certify that the skilled therapy services above are required to meet the patient?s needs. Physician Signature Date Printed Name and Credentials Clinical Instructor Signature Printed Name and Credentials
--- NOTE | 2018-05-30 12:00 | PT.OTN ---
Current Diagnoses Sprain of other ligament of left ankle, subsequent encounter (05/30/18) Physical Therapy Treatment Note PT-OP-A Visit Information Start: 03/09/18 13:00 Freq: Status: Active Protocol: Document 05/30/18 12:00 RCC (Rec: 05/30/18 13:39 [facility] [email or web address]) Out-Patient Physical Therapy Visit Information Visit Information Visit Type Treatment Note Visit Start Time 11:17 Visit Stop Time 12:10 Total Visit Minutes 53 Visit Number 8 Number of SLEEVER Visits 0 Evaluation Information Evaluation Date 03/07/18 PT-OP-B Current Condition Start: 03/09/18 13:00 Freq: Status: Active Protocol: Document 03/07/18 17:30 RCC (Rec: 03/09/18 13:41 [facility] [email or web address]) Current Condition History of Current Condition Onset Date 02/04/18 Current Complaints L lateral ankle pain History of Current Condition Pt is a 52 y/o female presenting to physical therapy with a c/o L lateral ankle pain. Onset date: 02/04/2018 stepping off of a curb and landing on a small street cone , causing inversion of the L ankle. Pt notes swelling initially, no excessive bruising. Pain is decreased with cryotherapy and wearing a brace (OTC strapped brace). Pain is increased with hiking, prolonged walking. 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 Radiographs of the L ankle were negative for fracture. Pt notes that it feels better when she wears her brace but she is still having pain and is well below her functional ability. Treatment Goals Patient/Caregiver Goals Return to hiking without restrictions. Prior Functional Status Baseline Function- ADL's Independent Baseline Function- Mobility Independent Baseline Function- Recreation/Hobbies Hiking multiple times per week . Current Functional Impairments (Reported) Functional Limitations- Recreation/ Unable to hike without Hobbies increased pain and difficulty. PT-OP-C Subjective Start: 03/09/18 13:00 Freq: Status: Active Protocol: Document 05/30/18 12:00 RCC (Rec: 05/30/18 13:39 [facility] [email or web address]) OP-PT Subjective Patient Comments Patient Comments Pt states that her pain was lessening, going on short hikes when she rolled her ankle on a rock without her brace on the L ankle. She had some swelling and increased pain. Re-injury occured 10 days ago. OP-PT Pain Assessment Location Left Lateral Ankle Intensity 5 Scale Used Numeric (1 - 10) Other Pain Aggravating Factors inversion Pain Alleviating Factors Cold PT-OP-D Balance Start: 03/09/18 13:00 Freq: Status: Active Protocol: Document 05/30/18 12:00 RCC (Rec: 05/30/18 13:39 [facility] [email or web address]) Balance Tests Single Limb Standing Single Limb- Left 10 sec with increased sway PT-OP-F Manual Assessment Start: 03/09/18 13:00 Freq: Status: Active Protocol: Document 05/30/18 12:00 RCC (Rec: 05/30/18 13:39 [facility] [email or web address]) Manual Assessments Soft Tissue Assessment Soft Tissue Mobility Assessment TTP: L ATFL, peroneals PT-OP-G Mobility & Gait Start: 03/09/18 13:00 Freq: Status: Active Protocol: Document 03/07/18 17:30 RCC (Rec: 03/09/18 13:41 [facility] [email or web address]) OP Gait Assessment Gait Gait Assistance Required: Independent Assistive Devices Assistive Device None Comments Gait Comments Mild decreased step length on the R, slight ER of the L foot during stance phase PT-OP-H Neuro Start: 03/09/18 13:00 Freq: Status: Active Protocol: Document 03/07/18 17:30 RCC (Rec: 03/09/18 13:41 [facility] [email or web address]) Sensation Evaluation Gross Sensation Gross Sensation WNL PT-OP-J Posture/Palpation/Skin Start: 03/09/18 13:00 Freq: Status: Active Protocol: Document 05/30/18 12:00 RCC (Rec: 05/30/18 13:39 [facility] [email or web address]) Skin Assessment Edema Assessment Left Ankle Comments mild edema anterolateral L ankle. PT-OP-K Range of Motion Start: 03/09/18 13:00 Freq: Status: Active Protocol: Document 05/30/18 12:00 RCC (Rec: 05/30/18 13:39 [facility] [email or web address]) Ankle and Foot Goniometric Range of Motion Ankle and Foot Measured in Degrees Left Active Testing Position Supine Dorsiflexion with Knee Extended 6 Plantarflexion 60 Inversion 25 Eversion 20 PT-OP-L Special Tests Start: 03/09/18 13:00 Freq: Status: Active Protocol: Document 05/30/18 12:00 [facility] (Rec: 05/30/18 13:39 [facility] [email or web address]) Special Tests Foot/Ankle Special Tests Syndesmosis squeeze test Test Results negative Anterior Draw Test Results positive L PT-OP-M Strength Start: 03/09/18 13:00 Freq: Status: Active Protocol: Document 05/30/18 12:00 [facility] (Rec: 05/30/18 13:39 [facility] [email or web address]) Ankle/Foot Strength Ankle and Foot Manual Muscle Testing Left Dorsiflexion (L4) 5 Normal Inversion 5 Normal Eversion (S1) 4+ Good+ PT-OP-Q Treatments Start: 03/09/18 13:00 Freq: Status: Active Protocol: Document 05/30/18 12:00 RCC (Rec: 05/30/18 13:39 [facility] [email or web address]) Therapeutic Exercises Sitting Exercises ankle inversion Sitting Exercise Name isometric ankle inversion Side left Reps/Minutes 10 ABCs Sitting Exercise Name ABCs for ankle ROM Side left Standing Exercises 1 Standing Exercise Name gastroc/soleus stretch Side bilateral Equipment Used ORQUIDEA Manual Therapy Treatment Soft Tissue Mobilization 1 Body Location L peroneals Mobilization Type Myofascial Release Intensity/Depth Moderate Body Position Supine Joint Mobilizations 1 Joint L talocrural Direction AP, PA Grade II Body Position Supine Taping 1 Body Location L ankle Type of Tape Kinesio Tape Skin Inspection clean Comments Y strip lateral forefoot to lower leg around lateral malleolus, I strip arch support. PT-OP-R Modalities Start: 03/09/18 13:00 Freq: Status: Active Protocol: Document 05/30/18 12:00 [facility] (Rec: 05/30/18 13:39 [facility] [email or web address]) Ultrasound Therapy Treatment Left Lateral Ankle Treatment Duration (minutes) 8 Patient Position Sidelying Coupling Medium Ultrasound Gel Applicator Size (cm2) 2 Frequency Setting (mHz) 1 Mode Setting Pulsed Duty Cycle 50% Intensity Setting (w/cm2) 1.0 PT-OP-T Assessment and Plan Start: 03/09/18 13:00 Freq: Status: Active Protocol: Document 05/30/18 12:00 RCC (Rec: 05/30/18 13:39 [facility] [email or web address]) Physical Therapy Assessment Goals Four Impairment LE weakness [employer] Goal (LTG) with manual muscle testing: Left hip flexion and ER to at least 4+/5, ankle inversion and eversion to 5/5 LTG Duration 4 weeks Progress Towards Goals Progress Comments pain still at 5/10 but was less prior to re-injury. Ankle ROM still limited in DF and inversion, and not back to prior hiking level at this time. Assessment Summary Assessment Pt reportedly doing well but had a re-injury of L ankle when not bracing during a hike around a beach area. She still has increased sway with SL balance, and more restriction in ankle DF and inversion today compared to (last assessment). Pt would benefit from skilled physical therapy to progress strength of the L ankle, ROM, and improvements with balance and stability to tolerate uneven terrain and return to prior hiking level. Laxity noted in the L ATFL, but CFL appears to be stable and not painful to palpation. Physical Therapy Plan Frequency and Duration Frequency of Treatment 2x/Week Duration of Treatment 4 weeks Plan of Care Start Date 05/30/18 Plan of Care End Date 06/27/18 Therapeutic Interventions Therapeutic Interventions Aquatic Therapy Balance Training Gait Training Home Exercise Program Joint Mobilizations Manual Therapy Neuromuscular Re-education Patient/Caregiver Education Self-Care/Home Management Soft Tissue Mobilization Taping Therapeutic Activities Therapeutic Exercises Modalities Cold Pack/Ice Massage Electric Stimulation Hot Packs Ultrasound Next Visit Focus/Plan Next Note Type Treatment Note Next Visit Plan progress from isometric to isotonic inversion/eversion strengthening, LE balance and ROM of the L ankle.
--- NOTE | 2018-05-30 12:00 | PT.OPPOC ---
Current Diagnoses Sprain of other ligament of left ankle, subsequent encounter (05/30/18) Provider Visit Care Team Role Provider Type Mirian Feliciano PA-C Attending Provider Advanced Chemical Processing Supervisor Family Provider Primary Care Provider Specialty: Medical Address: [address] [place] [address], [id number] Email: [email or web address] Plan Of Care PT-OP-T Assessment and Plan Start: 03/09/18 13:00 Freq: Status: Active Protocol: Document 05/30/18 12:00 RCC (Rec: 05/30/18 13:39 [facility] [email or web address]) Physical Therapy Assessment Goals Four Impairment LE weakness [facility] Goal (LTG) with manual muscle testing: Left hip flexion and ER to at least 4+/5, ankle inversion and eversion to 5/5 LTG Duration 4 weeks Progress Towards Goals Progress Comments pain still at 5/10 but was less prior to re-injury. Ankle ROM still limited in DF and inversion, and not back to prior hiking level at this time. Assessment Summary Assessment Pt reportedly doing well but had a re-injury of L ankle when not bracing during a hike around a beach area. She still has increased sway with SL balance, and more restriction in ankle DF and inversion today compared to (last assessment). Pt would benefit from skilled physical therapy to progress strength of the L ankle, ROM, and improvements with balance and stability to tolerate uneven terrain and return to prior hiking level. Laxity noted in the L ATFL, but CFL appears to be stable and not painful to palpation. Physical Therapy Plan Frequency and Duration Frequency of Treatment 2x/Week Duration of Treatment 4 weeks Plan of Care Start Date 05/30/18 Plan of Care End Date 06/27/18 Therapeutic Interventions Therapeutic Interventions Aquatic Therapy Balance Training Gait Training Home Exercise Program Joint Mobilizations Manual Therapy Neuromuscular Re-education Patient/Caregiver Education Self-Care/Home Management Soft Tissue Mobilization Taping Therapeutic Activities Therapeutic Exercises Modalities Cold Pack/Ice Massage Electric Stimulation Hot Packs Ultrasound Next Visit Focus/Plan Next Note Type Treatment Note Next Visit Plan progress from isometric to isotonic inversion/eversion strengthening, LE balance and ROM of the L ankle. Plan of Care Dates Plan of Care Start Date 05/30/18 Plan of Care End Date 06/27/18 Please Sign and Return: I have reviewed this Plan of Care and certify that the skilled therapy services above are required to meet the patient?s needs. Physician Signature Date Printed Name and Credentials Clinical Instructor Signature Printed Name and Credentials
--- NOTE | 2018-10-16 09:59 | PT.OPDS ---
Current Diagnoses Sprain of other ligament of left ankle, subsequent encounter (05/30/18) Provider Visit Care Team Role Provider Type Mirian Feliciano PA-C Attending Provider Advanced Pit Clerk Family Provider Primary Care Provider Specialty: Medical Address: [address] [place] [address], [id number] Email: [email or web address] Visit Number Visit Number 8 Discharge Summary PT-OP-B Current Condition Start: 03/09/18 13:00 Freq: Status: Active Protocol: Document 03/07/18 17:30 RCC (Rec: 03/09/18 13:41 [facility] [email or web address]) Current Condition History of Current Condition Onset Date 02/04/18 Current Complaints L lateral ankle pain History of Current Condition Pt is a 52 y/o female presenting to physical therapy with a c/o L lateral ankle pain. Onset date: 02/04/2018 stepping off of a curb and landing on a small street cone , causing inversion of the L ankle. Pt notes swelling initially, no excessive bruising. Pain is decreased with cryotherapy and wearing a brace (C strapped brace). Pain is increased with hiking, prolonged walking. 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 Radiographs of the L ankle were negative for fracture. Pt notes that it feels better when she wears her brace but she is still having pain and is well below her functional ability. Treatment Goals Patient/Caregiver Goals Return to hiking without restrictions. Prior Functional Status Baseline Function- ADL's Independent Baseline Function- Mobility Independent Baseline Function- Recreation/Hobbies Hiking multiple times per week . Current Functional Impairments (Reported) Functional Limitations- Recreation/ Unable to hike without Hobbies increased pain and difficulty. PT-OP-C Subjective Start: 03/09/18 13:00 Freq: Status: Active Protocol: Document 10/16/18 09:55 RCC (Rec: 10/16/18 09:59 [facility] [email or web address]) OP-PT Subjective Patient Comments Patient Comments pt canceled her final 2 PT appointments, and did not schedule further sessions at time of this discharge summary . PT-OP-D Balance Start: 03/09/18 13:00 Freq: Status: Active Protocol: Document 05/30/18 12:00 RCC (Rec: 05/30/18 13:39 [facility] [email or web address]) Balance Tests Single Limb Standing Single Limb- Left 10 sec with increased sway PT-OP-F Manual Assessment Start: 03/09/18 13:00 Freq: Status: Active Protocol: Document 05/30/18 12:00 RCC (Rec: 05/30/18 13:39 [facility] [email or web address]) Manual Assessments Soft Tissue Assessment Soft Tissue Mobility Assessment TTP: L ATFL, peroneals PT-OP-G Mobility & Gait Start: 03/09/18 13:00 Freq: Status: Active Protocol: Document 03/07/18 17:30 RCC (Rec: 03/09/18 13:41 RCC [email or web address]) OP Gait Assessment Gait Gait Assistance Required: Independent Assistive Devices Assistive Device None Comments Gait Comments Mild decreased step length on the R, slight ER of the L foot during stance phase PT-OP-H Neuro Start: 03/09/18 13:00 Freq: Status: Active Protocol: Document 03/07/18 17:30 RCC (Rec: 03/09/18 13:41 [facility] [email or web address]) Sensation Evaluation Gross Sensation Gross Sensation WNL PT-OP-J Posture/Palpation/Skin Start: 03/09/18 13:00 Freq: Status: Active Protocol: Document 05/30/18 12:00 RCC (Rec: 05/30/18 13:39 [facility] [email or web address]) Skin Assessment Edema Assessment Left Ankle Comments mild edema anterolateral L ankle. PT-OP-K Range of Motion Start: 03/09/18 13:00 Freq: Status: Active Protocol: Document 05/30/18 12:00 [facility] (Rec: 05/30/18 13:39 [facility] [email or web address]) Ankle and Foot Goniometric Range of Motion Ankle and Foot Measured in Degrees Left Active Testing Position Supine Dorsiflexion with Knee Extended 6 Plantarflexion 60 Inversion 25 Eversion 20 PT-OP-L Special Tests Start: 03/09/18 13:00 Freq: Status: Active Protocol: Document 05/30/18 12:00 [facility] (Rec: 05/30/18 13:39 [facility] [email or web address]) Special Tests Foot/Ankle Special Tests Syndesmosis squeeze test Test Results negative Anterior Draw Test Results positive L PT-OP-M Strength Start: 03/09/18 13:00 Freq: Status: Active Protocol: Document 05/30/18 12:00 [facility] (Rec: 05/30/18 13:39 RCC [email or web address]) Ankle/Foot Strength Ankle and Foot Manual Muscle Testing Left Dorsiflexion (L4) 5 Normal Inversion 5 Normal Eversion (S1) 4+ Good+ PT-OP-T Assessment and Plan Start: 03/09/18 13:00 Freq: Status: Active Protocol: Document 10/16/18 09:55 [facility] (Rec: 10/16/18 09:59 [facility] [email or web address]) Physical Therapy Assessment Assessment Summary Assessment Upon the pt's final PT appointment, a new plan of care was established for the pt to continue PT at that time . However, the pt did not complete the most recent plan of care, and canceled her final 2 physical therapy sessions. Pt has an established HEP and was educated extensively on how to protect her ankle should re- aggravation occur. At this time due to the prolonged amount of time that has passed since the pt's past PT appointment, and she failed to complete her most recent plan of care, she will be d/c from outpatient PT services at this time. Objective measures updated on her previous session, but due to pt not returning, no goals could be updated at the time of this d/ c summary. Physical Therapy Plan Discharge Physical Therapy Discharge Reasons No Longer Attending PT Discharge Comments failure to complete most recent POC
== END 2018-11-19 12:47 ==
LOC: PHYS 11:15
PROVIDERS: Family Provider Physician Assistant; PCP Physician Assistant; Visit Provider Physician Assistant
DX: S93.492D Sprain of other ligament of left ankle, subsequent encounter (principal)
CPT/HCPCS: 97010; 97035; 97110; 97112; 97140; 97161

== ENCOUNTER → 2018-09-24 09:12 | Outpatient (CLI) | payer OTHER, MEDICAID, SELFPAY ==
[2018-09-26 18:17] LABS: Estrogen 77.3 pg/mL
[2018-09-26 19:35] LABS: Estradiol < 15 pg/mL
[2018-09-26 19:48] LABS: Progesterone < 0.5 ng/mL
== END ==
PROVIDERS: Family Provider Physician Assistant; PCP Physician Assistant; Visit Provider Physician Assistant
DX: N95.1 Menopausal and female climacteric states (principal)
CPT/HCPCS: 36415; 82670; 82672; 84144

== ENCOUNTER → 2018-10-11 16:57 | Outpatient (CLI) | payer OTHER, MEDICAID, SELFPAY | PROVIDERS: Family Provider Physician Assistant; PCP Physician Assistant; Visit Provider Physician Assistant | DX: R10.9 Unspecified abdominal pain (principal); R19.05 Periumbilic swelling, mass or lump; Z53.9 Procedure and treatment not carried out, unspecified reason ==

== ENCOUNTER → 2018-10-14 12:18 | Outpatient (CLI) | payer OTHER, MEDICAID, SELFPAY ==
--- NOTE | 2018-10-14 | DI.US.S_ITS ---
PROCEDURE: US ABDOMEN COMPLETE INDICATIONS: UNSPECIFIED ABDOMINAL PAIN TECHNIQUE: Real-time scanning was performed of the abdominal and retroperitoneal organs, with image documentation. COMPARISON: None. FINDINGS: Liver: Liver is normal in size and homogeneous in echotexture. Gallbladder: The gallbladder appears normal Biliary ducts: Intrahepatic bile ducts are non-dilated. Extrahepatic bile duct caliber measures 2.3 mm. Normal is 6-7 mm or less in diameter, or 10 mm or less post-cholecystectomy. Pancreas: Visualized portions of the pancreas are sonographically normal. Spleen: Spleen is normal in size and homogeneous in echotexture. Kidneys: Kidneys are normal in size and echotexture. Right kidney measures 10.9 cm long; left kidney measures 12.5 cm long. No hydronephrosis or nephrolithiasis. No solid masses. Aorta: Visualized aorta is normal in caliber at less than 3 cm. Iliacs: Proximal common iliac arteries are normal in caliber at less than 2.5 cm. IVC: Intrahepatic inferior vena cava is patent. Miscellaneous: No free abdominal fluid. IMPRESSION: In the area of current clinical concern in the left lower quadrant periumbilical region no hernia was found. Through the abdomen and pelvis visualized a source of intermittent postprandial periumbilical pain is not seen. Dictated by: Dallas Baeza M.D. on 10/14/2018 at 16:10 Approved by: Dallas Baeza M.D. on 10/14/2018 at 16:11
== END ==
PROVIDERS: Family Provider Physician Assistant; PCP Physician Assistant; Visit Provider Physician Assistant
DX: R10.32 Left lower quadrant pain (principal)
CPT/HCPCS: 76700

== ENCOUNTER → 2019-01-09 10:01 | Outpatient (CLI) | payer OTHER, MEDICAID, SELFPAY ==
--- NOTE | 2019-01-09 | DI.MG.S_ITS ---
BILATERAL DIGITAL SCREENING MAMMOGRAM 3D/2D WITH CAD: 01/09/2019 CLINICAL: Routine screening. Comparison is made to exams dated: 01/05/2018 mammogram, 12/25/2016 mammogram, 12/11/2016 mammogram, and 10/18/2015 mammogram - [facility]. The tissue of both breasts is extremely dense, which lowers the sensitivity of mammography. Current study was also evaluated with a Computer Aided Detection (CAD) system. There are benign calcifications in both breasts. No significant masses, calcifications, or other findings are seen in either breast. There has been no significant interval change. IMPRESSION: There is no mammographic evidence of malignancy. A 1 year screening mammogram is recommended. This exam was interpreted at Station ID: [id number]. NOTE: For mammograms, a report in lay terms will be sent to the patient. Approximately 15% of breast malignancies will not be visualized mammographically. In the management of a palpable breast mass, a negative mammogram must not discourage biopsy of a clinically suspicious lesion. Electronically Signed By: Carlitos guaman/loy:01/09/2019 10:31:47 letter sent: Normal Exam ACR BI-RADS Category 2: Benign Finding(s) 3342F
== END ==
PROVIDERS: Family Provider Physician Assistant; PCP Physician Assistant; Visit Provider Physician Assistant
DX: Z12.31 Encounter for screening mammogram for malignant neoplasm of breast (principal)
CPT/HCPCS: 77063; 77067

== ENCOUNTER → 2019-03-10 07:00 | Outpatient (CLI) | payer OTHER, MEDICAID, SELFPAY ==
[2019-03-10 08:23] LABS: Add Manual Diff / Slide Review NO; Basophils Absolute Auto 0 /uL (0-100); Basophils Percent Auto 0.7 % (0-2); Eosinophils Absolute Auto 100 /uL (0-450); Eosinophils Percent Auto 1.9 % (2-4); Hematocrit 44.2 % (36-46); Hemoglobin 14.6 g/dL (12.0-16.0); Lymphocytes Absolute Auto 3000 /uL (1100-4500); Lymphocytes Percent Auto 51.7 % (25-40); Mean Corpuscular Hemoglobin 30.4 PG (26-34); Monocytes Absolute Auto 500 /uL (0-900); Monocytes Percent Auto 7.9 % (3-14); Neutrophils Absolute Auto 2200 /uL (1500-7000); Neutrophils Percent Auto 37.8 % (50-75); Platelet Count 206 X10^3/uL (150-400); White Blood Cell Count 5.8 X10^3/uL (4.5-11.0)
[2019-03-10 08:44] LABS: Alanine Aminotransferase 36 IU/L (9-52); Albumin 4.3 g/dL (3.5-5.0); Albumin Globulin Ratio 1.7 (1.0-2.8); Alkaline Phosphatase 73 U/L (38-126); Aspartate Aminotransferase 23 IU/L (14-36); Bilirubin Total 0.4 mg/dL (0.2-1.3); Blood Urea Nitrogen 18 mg/dL (7-17); Calcium 9.9 mg/dL (8.4-10.2); Carbon Dioxide 31 mmol/L (22-32); Chloride 104 mmol/L (98-107); Cholesterol 220 mg/dL (140-199); Estimated Glomerular Filt Rate > 60.0 mL/min (>60); Globulin 2.5 g/dL (1.7-4.1); Glucose 87 mg/dL (70-100); HDL Cholesterol 69 mg/dL (40-60); HEMOLYSIS < 15 (0-50); LDL Cholesterol Calculated 139 mg/dL (<100); Sodium 141 mmol/L (137-145); Total Protein 6.8 g/dL (6.3-8.2); Triglycerides 59 mg/dL (35-150)
== END ==
PROVIDERS: PCP Physician Assistant; Visit Provider Physician Assistant
DX: N95.1 Menopausal and female climacteric states (principal); R53.83 Other fatigue; Z13.220 Encounter for screening for lipoid disorders; Z13.6 Encounter for screening for cardiovascular disorders
CPT/HCPCS: 36415; 80053; 80061; 85025

== ENCOUNTER → 2019-04-25 16:15 | Outpatient (CLI) | payer OTHER, MEDICAID, SELFPAY ==
--- NOTE | 2019-04-25 16:17 | DI.US.S_ITS ---
PROCEDURE: US PELVIC COMPLETE INDICATIONS: PELVIC PAIN TECHNIQUE: Real-time scanning was performed of the pelvic organs, with image documentation. Additional endovaginal scanning was necessary due to incomplete visualization of the adnexal and endometrial structures by transabdominal scanning. COMPARISON: None. FINDINGS: Transabdominal scanning: Limited scanning through the kidneys shows no hydronephrosis. No pathologic free abdominal or pelvic fluid. Endovaginal scanning: Uterus: Uterus is normal in size at 7.5 x 3.1 x 4.5 cm. The endometrium measures 1.9 mm in combined thickness. 1.8 x 1.5 x 2.0 cm midline intramural fibroid. Ovaries: Ovaries are normal bilaterally measuring 2.1 x 1.2 x 1.3 cm on the right and 2.2 x 0.9 x 1.6 cm on the left. IMPRESSION: Small intramural fibroid; otherwise no source for pelvic pain identified. Dictated by: Christopher BINGHAM Interpreted: Dallas Baeza MD on 04/25/2019 at 16:58 Approved by: Dallas Baeza M.D. on 04/28/2019 at 8:37
== END ==
PROVIDERS: PCP Physician Assistant; Visit Provider Physician Assistant
DX: D25.1 Intramural leiomyoma of uterus (principal)
CPT/HCPCS: 76830; 76856

== ENCOUNTER → 2019-05-01 10:01 | Outpatient (CLI) | payer OTHER, MEDICAID, SELFPAY ==
[2019-05-03 13:45] LABS: Fecal Immunochemical Test NOT DETECTED (NOT DETECTED)
== END ==
PROVIDERS: PCP Physician Assistant; Visit Provider Physician Assistant
DX: Z12.11 Encounter for screening for malignant neoplasm of colon (principal)
CPT/HCPCS: 82274

== ENCOUNTER → 2019-06-05 10:59 | Outpatient (CLI) | payer OTHER, MEDICAID, SELFPAY ==
--- NOTE | 2019-06-05 11:09 | DIET.PN ---
Dietary Progress Note Assessment: 54y F presenting c bloating, belching, and flatulence for past 2months. Bloating may be slightly better now that she is drinking mint tea. Has been eating broccoli bread for 6mo. 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 Usual intake: wakes: 6-7am 30-60am B: broccoli bread c caprese salad, warmed cold brew coffee c half and half, fermín, flaxseed meal, cinnamon, cardamom, cocoa nibs, coconut flakes or broccoli bread lox, or olive cibatta bread c brie and fig jam c salad Sn: mint tea L noon: while cooking snacks on berries, apple, celeriac root, sprouted walnuts sometimes a few brazil nuts eggs c veggie scramble, 1-2 crocker, turkey slices c cheese and salami c asparagus or green beans, canned lentils c kale, hot dogs, hibiscus and chacha tea or tamarind water Sn: coffee c half and half c cinnamon and cardamom, yam brownies, quinoa carrot muffin, lemon scones D: smoked conklin, kale, lettuce, lemon, balsamic, raw acv, baked salmon kohlrabi, 2 types of kale, spinach, quinoa, lemon and coconut aminos, or chicken c veggies HT: 64 WT: 147# BMI: 25.2 Labs: TC 220 (H), LDL 125 (H), HDL 69 (H) Nutrition Diagnosis: Excessive intake of fiber r/t experimenting with whole food based, low carb diet aeb pt consuming >40g fiber/d, experiencing bloating and gas, intake of high volume of raw cruciferous vegetables known to be gas causing. Interventions: Educated pt on role of fiber in diet, forms including soluble, insoluble, and retrograde starch. Collaborated c patient on ways to limit total fiber to 40g/d and exchanging some cruciferous veggies to other non-starchy versions. Educated on too high fiber diet causing reduced ability of body to absorb nutrients. Discussed role of probiotic foods in proper digestion. Pt will experiment with miso and refrigerated saurkraut. Monitoring/Evaluations: f/u before end of 2018 to see how pts sx are responding to dietary modifications
== END ==
PROVIDERS: PCP Physician Assistant; Visit Provider Physician Assistant
DX: R14.0 Abdominal distension (gaseous) (principal)
CPT/HCPCS: 97802

== ENCOUNTER → 2019-07-17 10:01 | Outpatient (CLI) | payer OTHER, MEDICAID, SELFPAY ==
[2019-07-17 11:17] LABS: Add Manual Diff / Slide Review NO; Basophils Absolute Auto 0 /uL (0-100); Basophils Percent Auto 0.4 % (0-2); Eosinophils Absolute Auto 100 /uL (0-450); Eosinophils Percent Auto 1.2 % (2-4); Hematocrit 42.7 % (36-46); Hemoglobin 14.5 g/dL (12.0-16.0); Lymphocytes Absolute Auto 2400 /uL (1100-4500); Lymphocytes Percent Auto 37.1 % (25-40); Mean Corpuscular HGB Conc 33.9 % (30-36); Mean Corpuscular Hemoglobin 30.9 PG (26-34); Monocytes Absolute Auto 500 /uL (0-900); Monocytes Percent Auto 7.9 % (3-14); Neutrophils Absolute Auto 3400 /uL (1500-7000); Neutrophils Percent Auto 53.4 % (50-75); Platelet Count 238 X10^3/uL (150-400); Red Blood Cell Count 4.69 X10^6/uL (4.0-5.2); White Blood Cell Count 6.4 X10^3/uL (4.5-11.0)
== END ==
PROVIDERS: PCP Physician Assistant; Visit Provider Physician Assistant
DX: R79.89 Other specified abnormal findings of blood chemistry (principal)
CPT/HCPCS: 36415; 85025

== ENCOUNTER → 2019-08-20 19:13 | Outpatient (CLI) | payer OTHER, MEDICAID, SELFPAY ==
--- NOTE | 2019-08-20 19:20 | DI.MRI.S_ITS ---
PROCEDURE: MR LUMBAR SPINE WO CON INDICATIONS: Persistant R buttock pain - worse at night TECHNIQUE: Noncontrast sagittal T1 spin echo and T2 fast echo, sagittal STIR, axial T1 and T2 fast spin echo through the lumbar spine. In cases with scoliosis, additional coronal T2 fast spin echo may be performed. COMPARISON: [facility], CR, L-SPINE 2-3 VIEWS, 11/29/2016, 12:47. [facility], MR, L-SPINE WITHOUT CONTRAST, 01/18/2016, 9:00. FINDINGS: Image quality: Excellent. Alignment and Curvature: 5 lumbar type vertebral bodies are present by plain film. There is mild grade 1 retrolisthesis of L2 on L3 and L4 on L5. Bone Marrow: Marrow is of normal overall signal. No acute vertebral body compression fractures. Mild reactive signal within the endplates adjacent to the L2-L3, L3-L4, and L4-L5 intervertebral discs. Spinal Cord: Conus medullaris terminates at the mid L1 level. Visualized cord demonstrates normal signal and size. Paraspinous Soft Tissues: No paravertebral masses. L1-L2: Normal appearance. L2-L3: Moderate disc height loss and desiccation. Moderate diffuse disc bulge. Mild facet and ligamentum flavum hypertrophy. Mild epidural lipomatosis. Mild canal stenosis. Mild bilateral foraminal stenosis. No change. L3-L4: Moderate disc height loss and desiccation. Mild diffuse disc bulge with superimposed broad-based right far lateral broad-based protrusion. Mild facet and ligament flavum hypertrophy. Mild epidural lipomatosis. Mild canal stenosis. Moderate right and mild left foraminal stenosis. No change. L4-L5: Moderate disc height loss and desiccation. Mild diffuse disc bulge with superimposed right posterolateral protrusion. Mild facet and ligamentum flavum hypertrophy. Mild canal stenosis. Mild right greater than left foraminal stenosis. No change. L5-S1: Mild disc height loss and desiccation. Mild diffuse disc bulge. Mild bilateral facet hypertrophy. No significant canal stenosis. There is increased, moderate to severe left foraminal stenosis. No change in mild right foraminal stenosis. Possible mild flattening deformity of the left L5 nerve root within the neural foramen. IMPRESSION: 1. Multilevel degenerative disc and facet disease, as well as ligamentum flavum hypertrophy and epidural lipomatosis. 2. Mild multilevel canal stenoses. 3. Multilevel foraminal stenoses, worse on the left L5-S1 where there is possible intraforaminal nerve root flattening. Recommend correlation with clinical symptoms to ascertain relevance of this finding. Dictated by: Juan Falcon M.D. on 08/21/2019 at 8:56 Approved by: Juan Falcon M.D. on 08/21/2019 at 9:06
== END ==
PROVIDERS: Family Provider Physician Assistant; PCP Physician Assistant; Visit Provider Physician Assistant
DX: M79.18 Myalgia, other site (principal); M51.16 Intervertebral disc disorders with radiculopathy, lumbar region; M51.17 Intervertebral disc disorders with radiculopathy, lumbosacral region; M48.061 Spinal stenosis, lumbar region without neurogenic claudication; M48.07 Spinal stenosis, lumbosacral region; E88.2 Lipomatosis, not elsewhere classified
CPT/HCPCS: 72148

== ENCOUNTER → 2019-09-22 13:50 | Outpatient (CLI) | payer OTHER, MEDICAID, SELFPAY ==
--- NOTE | 2019-09-22 15:04 | DIET.PN ---
Dietary Progress Note Assessment: 54y F f/u for HLD, overweight, and GERD/bloating. Pt reduced fiber in diet and has eliminated sx of GERD/bloating. Is having difficulty with weight loss and has new MRI showing epidural lipomatosis in spine. HT: 65 WT: 150# UBW: BMI: 25.6 desires 5# wt loss to start, feels like menopause is making this more difficult. 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 PA: 2hr zuly per week, 1 hike (hour long) per week 10 min arm exercises (2x/wk) Pt eats lower carb diet which is higher in fats and protein. She often feels like her stomach is not full enough so snacks on cheese and crackers in evening. Labs: 33.6% body fat Interventions: 1. Discussed increasing PA intensity with HIIT workout or increasing intensity of hike, also adding 2 days per week of weight training with light weights and high reps. 2. Pt will stop snacking on cheese and crackers, will choose hummus c cucumbers or half an avocado with salsa instead. 3. Pt will try 13hr intermittent fasting several days per week Monitoring/Evaluations: f/u in 3mo
== END ==
PROVIDERS: PCP Physician Assistant; Visit Provider Physician Assistant
DX: E78.5 Hyperlipidemia, unspecified (principal); K21.9 Gastro-esophageal reflux disease without esophagitis; E66.3 Overweight; Z68.25 Body mass index [BMI] 25.0-25.9, adult; Z71.3 Dietary counseling and surveillance
CPT/HCPCS: 97802

== ENCOUNTER → 2020-03-17 16:35 | Outpatient (CLI) | payer OTHER, MEDICAID, SELFPAY ==
--- NOTE | 2020-03-17 | DI.MG.S_ITS ---
BILATERAL DIGITAL SCREENING MAMMOGRAM 3D/2D WITH CAD: 03/17/2020 CLINICAL: Routine screening. Comparison is made to exams dated: 01/09/2019 mammogram, 01/05/2018 mammogram, 12/25/2016 mammogram, and 12/11/2016 mammogram - [facility]. The tissue of both breasts is heterogeneously dense. This may lower the sensitivity of mammography. Current study was also evaluated with a Computer Aided Detection (CAD) system. There are benign calcifications in both breasts. No significant masses, calcifications, or other findings are seen in either breast. There has been no significant interval change. IMPRESSION: There is no mammographic evidence of malignancy. A 1 year screening mammogram is recommended. This exam was interpreted at Station ID: [id number]. NOTE: For mammograms, a report in lay terms will be sent to the patient. Approximately 15% of breast malignancies will not be visualized mammographically. In the management of a palpable breast mass, a negative mammogram must not discourage biopsy of a clinically suspicious lesion. Electronically Signed By: Katiuska loaiza/loy:03/17/2020 17:54:08 letter sent: Normal Exam ACR BI-RADS Category 2: Benign Finding(s) 3342F
== END ==
PROVIDERS: PCP Nurse Practitioner Family; Referring Provider Nurse Practitioner Family; Visit Provider Nurse Practitioner Family
DX: Z12.31 Encounter for screening mammogram for malignant neoplasm of breast (principal)
CPT/HCPCS: 77063; 77067

== ENCOUNTER → 2020-04-13 14:19 | Outpatient (CLI) | payer OTHER, MEDICAID, SELFPAY ==
[2020-04-13 14:26] LABS: Bacteria Urine None Seen; RBC Urine None Seen (0-5/HPF)
[2020-04-13 15:19] LABS: Appearance Urine UA CLEAR; Bilirubin Urine UA NEGATIVE (NEGATIVE); Color Urine UA YELLOW; Glucose Urine UA NEGATIVE (Negative); Ketones Urine UA NEGATIVE (NEGATIVE); Leukocyte Esterase Urine UA NEGATIVE (NEGATIVE); Nitrite Urine UA NEGATIVE (Negative); Occult Blood Urine UA NEGATIVE (Negative); Protein Urine UA NEGATIVE (Negative); Specific Gravity Urine UA 1.015 (1.000-1.035); Urobilinogen Urine UA 0.2 E.U./dL (0.2)
[2020-04-13 15:21] LABS: Hemoglobin 14.3 g/dL (12.0-16.0); Mean Corpuscular HGB Conc 34.1 % (30-36); Mean Corpuscular Hemoglobin 31.6 PG (26-34); Mean Corpuscular Volume 92.7 fL (80-100); Platelet Count 220 X10^3/uL (150-400); Red Blood Cell Count 4.52 X10^6/uL (4.0-5.2); Red Cell Distribution Width 13.6 % (11.6-14.8)
[2020-04-13 15:29] LABS: Amorphous Sediment Urine 1+; Culture Indicated Urine Cult Not Indicated; Squamous Epithelial Cell Urine 0-1 /HPF (0-5/HPF); WBC Urine 0-1/HPF (0-5/HPF)
[2020-04-13 15:38] LABS: Alanine Aminotransferase 40 IU/L (<35); Albumin 4.6 g/dL (3.5-5.0); Albumin Globulin Ratio 1.6 (1.0-2.8); Alkaline Phosphatase 89 U/L (38-126); Aspartate Aminotransferase 32 IU/L (14-36); BUN Creatinine Ratio 36.8 (6-22); Bilirubin Total 0.5 mg/dL (0.2-1.3); Blood Urea Nitrogen 21 mg/dL (7-17); Carbon Dioxide 30 mmol/L (22-32); Chloride 104 mmol/L (98-107); Creatine Kinase 33 U/L (30-135); Estimated Glomerular Filt Rate > 60.0 mL/min (>60); Globulin 2.9 g/dL (1.7-4.1); Glucose 95 mg/dL (70-100); HEMOLYSIS < 15 (0-50); Potassium 3.9 mmol/L (3.4-5.1); Sodium 139 mmol/L (137-145); Total Protein 7.5 g/dL (6.3-8.2)
[2020-04-13 15:41] LABS: Erythrocyte Sedimentation Rate 2 MM/HR (0-20)
[2020-04-13 16:06] LABS: TSH w/ Reflex to FT4 1.14 uIU/mL (0.47-4.68)
[2020-04-13 16:43] LABS: Folate > 20.0 ng/mL (2.76-20.0); Vitamin B12 684 pg/mL (239-931)
== END ==
PROVIDERS: PCP Nurse Practitioner Family; Referring Provider Nurse Practitioner Family; Visit Provider Nurse Practitioner Family
DX: M79.10 Myalgia, unspecified site (principal); R53.83 Other fatigue
CPT/HCPCS: 36415; 80053; 81001; 82550; 82607; 82746; 84443; 85027; 85651

== ENCOUNTER → 2020-04-29 07:42 | Outpatient (CLI) | payer OTHER, MEDICAID, SELFPAY ==
[2020-04-29 09:07] LABS: Cholesterol 242 mg/dL (140-199); HDL Cholesterol 75 mg/dL (40-60); LDL Cholesterol Calculated 153 mg/dL (<100); Triglycerides 69 mg/dL (35-150)
[2020-04-30 14:36] LABS: Fecal Immunochemical Test Negative (Negative)
== END ==
PROVIDERS: PCP Registered Nurse Diabetes Educator; Referring Provider Registered Nurse Diabetes Educator; Visit Provider Registered Nurse Diabetes Educator
DX: Z00.00 Encounter for general adult medical examination without abnormal findings (principal)
CPT/HCPCS: 36415; 80061; 82274

== ENCOUNTER → 2020-05-17 09:07 | Outpatient (CLI) | payer OTHER, MEDICAID, SELFPAY ==
--- NOTE | 2020-05-17 09:08 | DI.MRI.S_ITS ---
PROCEDURE: MR HEAD/BRAIN WO/W CON INDICATIONS: 1 year hx facial paresthesias, bilateral TECHNIQUE: Noncontrast axial T1 spin echo, axial T2 fast spin echo, sagittal and axial FLAIR, coronal T2 fast spin echo, axial gradient echo, axial diffusion and ADC through the brain. After the administration of contrast, axial and coronal 3D VIBE or T1 spin echo with fat saturation through the brain. COMPARISON: None. FINDINGS: Image quality: Excellent. CSF Spaces: Basal cisterns are patent. No extra-axial fluid collections. Ventricles are normal in size and shape. Brain: No midline shift. No intracranial bleeds or masses. There are scattered subcentimeter bilateral white matter signal changes. No associated enhancement The brainstem appears normal. Diffusion-weighted images demonstrate no acute ischemic insults. No chronic ischemic insults. Normal intravascular flow voids are present. Skull and face: Calvarial marrow is normal in signal. Orbits appear normal. Sinuses: Sinuses and mastoids appear clear. IMPRESSION: Diffuse small white matter changes, which are technically nonspecific . Differential includes chronic microvascular ischemic disease, demyelination or other infectious, inflammatory, neurodegenerative etiology. No associated enhancement. Dictated by: Thang Hodges M.D. on 05/17/2020 at 10:23 Approved by: Thang Hodges M.D. on 05/17/2020 at 10:33
== END ==
PROVIDERS: PCP Registered Nurse Diabetes Educator; Referring Provider Registered Nurse Diabetes Educator; Visit Provider Registered Nurse Diabetes Educator
DX: R20.2 Paresthesia of skin (principal)
CPT/HCPCS: 70553

== ENCOUNTER 2020-06-21 11:15 | Outpatient (RCR) | payer OTHER, MEDICAID, SELFPAY ==
--- NOTE | 2020-06-09 17:06 | PT.OIE ---
Current Diagnoses Other chronic pain (06/09/20) Other muscle spasm (06/09/20) Abnormal posture (06/09/20) Weakness (06/09/20) Past Medical History (Last Reviewed 05/31/20 @ 15:27 by Papo Schofield MD) Cysts (Resolved Unknown) DDD (degenerative disc disease), lumbosacral (Chronic) Facial paresthesia (Acute) Fatigue (Acute) Low back pain (Chronic Unknown) Myalgia (Acute) Sebaceous hyperplasia (Acute) Spinal stenosis of lumbar region (Chronic Unknown) Spinal stenosis, lumbar region without neurogenic claudication (Chronic) Varicose veins of both lower extremities (Chronic Unknown) Vitamin D deficiency (Chronic ~2013) Past Surgical History (Last Reviewed 05/31/20 @ 15:27 by Papo Schofield MD) History of surgical removal of ganglion cyst (Resolved 07/2017) Hx of tonsillectomy (Resolved Unknown) Status post endovenous radiofrequency ablation of saphenous vein (Resolved 2007) Visit Care Team Role Provider Type EVONNE Rico Primary Care Provider Advanced Terrazzo Layer Helper Specialty: Medical Address: [address] [place] [address], [facility] Email: [email or web address] Papo Schofield MD Attending Provider Physician Referring Provider Specialty: Family Practice Address: [address] [place] [address], [facility] Email: [email or web address] Physical Therapy Initial Evaluation PT-OP-A Visit Information Start: 06/09/20 08:13 Freq: Status: Active Protocol: Document 06/09/20 14:35 SAK (Rec: 06/09/20 16:35 SAK [id number]) Out-Patient Physical Therapy Visit Information Visit Information Visit Type Initial Evaluation Visit Start Time 14:35 Visit Stop Time 15:40 Total Visit Minutes 65 Visit Number 1 Evaluation Information Evaluation Date 06/09/20 PT-OP-B Current Condition Start: 06/09/20 08:13 Freq: Status: Active Protocol: Document 06/09/20 14:35 SAK (Rec: 06/09/20 16:16 SAK [id number]) Current Condition History of Current Condition Onset Date 3 months Current Complaints Thinks she was carrying a clipboard and a phone too long History of Current Condition Also carrying bag working for the [employer]. Gradual onset of neck pain. Saw chiropractor 5x , not helpful. Massage therapy not helpful. Now trying physical therapy and accupuncture. Neck movements all hurt, as well as sleeping, comes and goes. Uses heat, especially in the am. Also has history of left sided face numbness. Patient is right handed. PT-OP-C Subjective Start: 06/09/20 08:13 Freq: Status: Active Protocol: Document 06/09/20 14:35 [facility] (Rec: 06/09/20 16:59 [facility] [id number]) Patient Questionnaires Neck Disability Index NDI Score 18% OP-PT Pain Assessment Pain Assessment Grid Paper Pain Assessment Grid Completed Yes Location Left Neck Description Aching,Tightness,With Movement Pain Aggravating Factors Changing Position Pain Alleviating Factors Inactivity Comments Pain Comments pain variable from -03/12 PT-OP-F Manual Assessment Start: 06/09/20 08:13 Freq: Status: Active Protocol: Document 06/09/20 14:35 [facility] (Rec: 06/09/20 16:59 [facility] [id number]) Manual Assessments Joint Mobility Assessment Joint Mobility Assessment decreased AP movement with pain C4-T1, hypomobile T1-T8 PT-OP-H Neuro Start: 06/09/20 08:13 Freq: Status: Active Protocol: Document 06/09/20 14:35 [facility] (Rec: 06/09/20 16:59 [facility] [id number]) Sensation Evaluation Gross Sensation Gross Sensation WNL PT-OP-J Posture/Palpation/Skin Start: 06/09/20 08:13 Freq: Status: Active Protocol: Document 06/09/20 14:35 [facility] (Rec: 06/09/20 16:59 [facility] [id number]) Posture Evaluation Position Sitting Head/C-Spine Posture Forward Head T-Spine Posture Flattened Shoulder Posture (L) Rounded,(R) Rounded Arm Posture (L) Internally Rotated,(R) Internally Rotated PT-OP-K Range of Motion Start: 06/09/20 08:13 Freq: Status: Active Protocol: Document 06/09/20 14:35 [facility] (Rec: 06/09/20 16:59 [facility] [id number]) Cervical Spine Range of Motion Cervical Spine Active Testing Position Sitting Flexion 54 Extension 51 Rotation Left 64 Rotation Right 54 Lateral Flexion Left 35 Lateral Flexion Right 32 ROM Limitations Pain PT-OP-L Special Tests Start: 06/09/20 08:13 Freq: Status: Active Protocol: Document 06/09/20 14:35 [facility] (Rec: 06/09/20 16:59 [facility] [id number]) Special Tests Cervical Spine Special Tests Passive Neck Flexion Test Results positive for pain Traction Test Results positive decrease pain Foraminal Compression Test Results negative PT-OP-M Strength Start: 06/09/20 08:13 Freq: Status: Active Protocol: Document 06/09/20 14:35 [facility]AK (Rec: 06/09/20 16:59 [facility] [id number]) Cervical Spine Strength Cervical Spine Manual Muscle Testing Testing Position Sitting Flexion (C1-2) 5 Normal Extension 5 Normal Rotation Left 5 Normal Rotation Right 5 Normal Lateral Flexion Left (C3) 4 Good Lateral Flexion Right (C3) 5 Normal PT-OP-Q Treatments Start: 06/09/20 08:13 Freq: Status: Active Protocol: Document 06/09/20 14:35 [facility] (Rec: 06/09/20 16:59 [facility] [id number]) Self-Care/Home Management Treatment Education Patient Education Home Exercise Program,Posture Other Education issued written instruction PT-OP-R Modalities Start: 06/09/20 08:13 Freq: Status: Active Protocol: Document 06/09/20 14:35 [facility] (Rec: 06/09/20 16:59 [facility] [id number]) Hot Pack/Cold Pack Treatment Hot Pack Location cervical spine Patient Position Hooklying Treatment Duration (minutes) 15 Patient Tolerance Good Ultrasound Therapy Treatment Left Neck Treatment Duration (minutes) 8 Patient Position Sitting Coupling Medium Ultrasound Gel Mode Setting Continuous Duty Cycle 100% Intensity Setting (w/cm2) 1.2 PT-OP-T Assessment and Plan Start: 06/09/20 08:13 Freq: Status: Active Protocol: Document 06/09/20 14:35 [facility] (Rec: 06/09/20 16:59 [facility] [id number]) Physical Therapy Assessment Rehab Potential Rehabilitation Potential Good Evaluation Complexity Number of Personal Factors/Comorbidities 1-2 Number of Body Systems Impaired 3 Clinical Presentation at Evaluation Evolving Impairments Impairments Pain,Posture,ROM,Strength Goals Four Impairment postural dysfunction Director Of Recruitment And Admissions Goal (LTG) Patient to demonstrate good understanding of neutral postural alignment and be able to self-correct independently . She will be independent with HEP to address postural dysfunction LTG Duration 06/30/20 Three Impairment weakness left cervical sidebending 4/5, and painful neck ROM Director Of Recruitment And Admissions Goal (LTG) improve cervical sidebending strength to 5/5, cervical ROM WNL with minimal to no pain. She will be independent with HEP to address weakness and ROM LTG Duration 06/30/20 Two Impairment Neck disability index score 18 % Director Of Recruitment And Admissions Goal (LTG) Decrease neck disability index score to no greater than 8%, with patient able to do all prior activities. 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 Has experienced minimal improvement with chiropractor and massage therapy. Patient impairments include postural dysfunction with forward head, rounded shoulders, decreased left cervical sidebending strength, tenderness with anterior/posterior mobilization C3-T1 as well as hypomobility throughout upper thoracic spine. With cervical extension she hinges at C5/C6 level. She would benefit from PT to improve her posture , strength, spinal mobility and help return her to her prior level of function. Physical Therapy Plan Frequency and Duration Frequency of Treatment 3x/Week Duration of Treatment 3 wks Plan of Care Start Date 06/09/20 Plan of Care End Date 06/30/20 Therapeutic Interventions Therapeutic Interventions Home Exercise Program,Joint Mobilizations,Manual Therapy, Neuromuscular Re-education, Patient/Caregiver Education, Self-Care/Home Management,Soft Tissue Mobilization,Taping, Therapeutic Activities, Therapeutic Exercises Modalities Electric Stimulation,Hot Packs ,Ultrasound Next Visit Focus/Plan Next Note Type Treatment Note Next Visit Plan Review HEP, gentle joint mobilization cervical spine and thoracic spine. Continue postural correction and strengthening exercises, cat/ cow for mobility. Consider kinesiotape for postural correction and pain management .
--- NOTE | 2020-06-09 17:06 | PT.OPPOC ---
Physical, Occupational & Speech Therapy At [facility] Current Diagnoses Other chronic pain (06/09/20) Other muscle spasm (06/09/20) Abnormal posture (06/09/20) Weakness (06/09/20) Visit Care Team Role Provider Type EVONNE Rico Primary Care Provider Advanced Area Director Of Home Health Sales Specialty: Medical Address: [address] [place] [address], [address] Email: [email or web address] Papo Schofield MD Attending Provider Physician Referring Provider Specialty: Family Practice Address: [address] [place] [address], [address] Email: [email or web address] Plan Of Care PT-OP-T Assessment and Plan Start: 06/09/20 08:13 Freq: Status: Active Protocol: Document 06/09/20 14:35 [facility]AK (Rec: 06/09/20 16:59 [facility] [id number]) Physical Therapy Assessment Rehab Potential Rehabilitation Potential Good Evaluation Complexity Number of Personal Factors/Comorbidities 1-2 Number of Body Systems Impaired 3 Clinical Presentation at Evaluation Evolving Impairments Impairments Pain,Posture,ROM,Strength Goals Four Impairment postural dysfunction Skilled Nursing Goal (LTG) Patient to demonstrate good understanding of neutral postural alignment and be able to self-correct independently . She will be independent with HEP to address postural dysfunction LTG Duration 06/30/20 Three Impairment weakness left cervical sidebending 4/5, and painful neck ROM Machine Design Teacher Goal (LTG) improve cervical sidebending strength to 5/5, cervical ROM WNL with minimal to no pain. She will be independent with HEP to address weakness and ROM LTG Duration 06/30/20 Two Impairment Neck disability index score 18 % Skilled Nursing Goal (LTG) Decrease neck disability index score to no greater than 8%, with patient able to do all prior activities. 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 Has experienced minimal improvement with chiropractor and massage therapy. Patient impairments include postural dysfunction with forward head, rounded shoulders, decreased left cervical sidebending strength, tenderness with anterior/posterior mobilization C3-T1 as well as hypomobility throughout upper thoracic spine. With cervical extension she hinges at C5/C6 level. She would benefit from PT to improve her posture , strength, spinal mobility and help return her to her prior level of function. Physical Therapy Plan Frequency and Duration Frequency of Treatment 3x/Week Duration of Treatment 3 wks Plan of Care Start Date 06/09/20 Plan of Care End Date 06/30/20 Therapeutic Interventions Therapeutic Interventions Home Exercise Program,Joint Mobilizations,Manual Therapy, Neuromuscular Re-education, Patient/Caregiver Education, Self-Care/Home Management,Soft Tissue Mobilization,Taping, Therapeutic Activities, Therapeutic Exercises Modalities Electric Stimulation,Hot Packs ,Ultrasound Next Visit Focus/Plan Next Note Type Treatment Note Next Visit Plan Review HEP, gentle joint mobilization cervical spine and thoracic spine. Continue postural correction and strengthening exercises, cat/ cow for mobility. Consider kinesiotape for postural correction and pain management . Plan of Care Dates Plan of Care Start Date 06/09/20 Plan of Care End Date 06/30/20 Electronically Signed by: Nimisha Winchester, PT 06/09/20 [id number] Please Sign and Return: I have reviewed this Plan of Care and certify that the skilled therapy services above are required to meet the patient?s needs. Physician Signature Date Printed Name and Credentials Clinical Instructor Signature Printed Name and Credentials
--- NOTE | 2020-06-10 16:34 | PT.OTN ---
Current Diagnoses Other chronic pain (06/10/20) Other muscle spasm (06/10/20) Abnormal posture (06/10/20) Weakness (06/10/20) Physical Therapy Treatment Note PT-OP-A Visit Information Start: 06/09/20 08:13 Freq: Status: Active Protocol: Document 06/10/20 15:16 SAK (Rec: 06/10/20 16:20 SAK [id number]) Out-Patient Physical Therapy Visit Information Visit Information Visit Type Treatment Note Visit Start Time 15:17 Visit Stop Time 16:20 Total Visit Minutes 63 Visit Number 2 Evaluation Information Evaluation Date 06/09/20 PT-OP-B Current Condition Start: 06/09/20 08:13 Freq: Status: Active Protocol: Document 06/09/20 14:35 SAK (Rec: 06/09/20 16:16 SAK [id number]) Current Condition History of Current Condition Onset Date 3 months Current Complaints Thinks she was carrying a clipboard and a phone too long History of Current Condition 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 Gradual onset of neck pain. Saw chiropractor 5x , not helpful. Massage therapy not helpful. Now trying physical therapy and accupuncture. Neck movements all hurt, as well as sleeping, comes and goes. Uses heat, especially in the am. Also has history of left sided face numbness. Patient is right handed. PT-OP-C Subjective Start: 06/09/20 08:13 Freq: Status: Active Protocol: Document 06/10/20 15:16 SAK (Rec: 06/10/20 16:20 SAK [id number]) OP-PT Subjective Patient Comments Patient Comments Thinks she feels a little better today, thinks ultrasound was helpful. Liked moist heat. Hasn't done any of her exercises; just seen in PT yesterday. PT-OP-F Manual Assessment Start: 06/09/20 08:13 Freq: Status: Active Protocol: Document 06/09/20 14:35 SAK (Rec: 06/09/20 16:59 SAK [id number]) Manual Assessments Joint Mobility Assessment Joint Mobility Assessment decreased AP movement with pain C4-T1, hypomobile T1-T8 PT-OP-H Neuro Start: 06/09/20 08:13 Freq: Status: Active Protocol: Document 06/09/20 14:35 SAK (Rec: 06/09/20 16:59 [facility] [id number]) Sensation Evaluation Gross Sensation Gross Sensation WNL PT-OP-J Posture/Palpation/Skin Start: 06/09/20 08:13 Freq: Status: Active Protocol: Document 06/09/20 14:35 [facility] (Rec: 06/09/20 16:59 [facility] [id number]) Posture Evaluation Position Sitting Head/C-Spine Posture Forward Head T-Spine Posture Flattened Shoulder Posture (L) Rounded,(R) Rounded Arm Posture (L) Internally Rotated,(R) Internally Rotated PT-OP-K Range of Motion Start: 06/09/20 08:13 Freq: Status: Active Protocol: Document 06/09/20 14:35 [facility] (Rec: 06/09/20 16:59 [facility] [id number]) Cervical Spine Range of Motion Cervical Spine Active Testing Position Sitting Flexion 54 Extension 51 Rotation Left 64 Rotation Right 54 Lateral Flexion Left 35 Lateral Flexion Right 32 ROM Limitations Pain PT-OP-L Special Tests Start: 06/09/20 08:13 Freq: Status: Active Protocol: Document 06/09/20 14:35 [facility] (Rec: 06/09/20 16:59 [facility] [id number]) Special Tests Cervical Spine Special Tests Passive Neck Flexion Test Results positive for pain Traction Test Results positive decrease pain Foraminal Compression Test Results negative PT-OP-M Strength Start: 06/09/20 08:13 Freq: Status: Active Protocol: Document 06/09/20 14:35 [facility] (Rec: 06/09/20 16:59 [facility] [id number]) Cervical Spine Strength Cervical Spine Manual Muscle Testing Testing Position Sitting Flexion (C1-2) 5 Normal Extension 5 Normal Rotation Left 5 Normal Rotation Right 5 Normal Lateral Flexion Left (C3) 4 Good Lateral Flexion Right (C3) 5 Normal PT-OP-Q Treatments Start: 06/09/20 08:13 Freq: Status: Active Protocol: Document 06/10/20 15:16 SAK (Rec: 06/10/20 16:20 [facility] [id number]) Cardio Equipment Upper Body Ergometer (UBE) Duration (Minutes) 4 RPM 90 Seat Position 7 Height 2 Other vertical towel roll at thoracic spine Therapeutic Exercises Sidelying Exercises open book Reps/Minutes 5x ea Comments verbal and manual cues for segmental movement Sitting Exercises shoulder rolls Reps/Minutes 5x Standing Exercises pec stretch Comments arms behind back shoulder extension Reps/Minutes 10x row Reps/Minutes 10x wall posture Reps/Minutes 5x chin tuck Reps/Minutes 5x Other Exercises cat/cow Reps/Minutes 10x Comments verbal and manual cues Manual Therapy Treatment Soft Tissue Mobilization c/s, UT, scalenes Mobilization Type Myofascial Release,Rolling, Sustained Pressure Intensity/Depth Moderate Body Position Hooklying Self-Care/Home Management Treatment Education Patient Education Home Exercise Program,Posture Other Education updated written handout need for stretching during rest breaks with road trip. shown [employer]ane for self- massage PT-OP-R Modalities Start: 06/09/20 08:13 Freq: Status: Active Protocol: Document 06/09/20 14:35 SAK (Rec: 06/09/20 16:59 SAK [id number]) Hot Pack/Cold Pack Treatment Hot Pack Location cervical spine Patient Position Hooklying Treatment Duration (minutes) 15 Patient Tolerance Good Ultrasound Therapy Treatment Left Neck Treatment Duration (minutes) 8 Patient Position Sitting Coupling Medium Ultrasound Gel Mode Setting Continuous Duty Cycle 100% Intensity Setting (w/cm2) 1.2 PT-OP-T Assessment and Plan Start: 06/09/20 08:13 Freq: Status: Active Protocol: Document 06/10/20 15:16 SAK (Rec: 06/10/20 16:20 SAK [id number]) Physical Therapy Assessment Goals Four Impairment postural dysfunction Intermediate Goal (LTG) Patient to demonstrate good understanding of neutral postural alignment and be able to self-correct independently . She will be independent with HEP to address postural dysfunction LTG Duration 06/30/20 Three Impairment weakness left cervical sidebending 4/5, and painful neck ROM Intermediate Goal (LTG) improve cervical sidebending strength to 5/5, cervical ROM WNL with minimal to no pain. She will be independent with HEP to address weakness and ROM LTG Duration 06/30/20 Two Impairment Neck disability index score 18 % Double Bottom Driver Goal (LTG) Decrease neck disability index score to no greater than 8%, with patient able to do all prior activities. LTG Duration 06/30/20 One Impairment pain left side of neck as high as 7/10 on pain scale Double Bottom Driver Goal (LTG) Decrease pain to no greater than 2/10 with all usual activities LTG Duration 06/30/20 Assessment Summary Assessment Pain decreased, improving postural awareness. Needed manual cues for thoracic rotation with open book, noted improved cervical rotation. Left first rib not elevated today. Physical Therapy Plan Frequency and Duration Frequency of Treatment 3x/Week Duration of Treatment 3 wks Plan of Care Start Date 06/09/20 Plan of Care End Date 06/30/20 Therapeutic Interventions Therapeutic Interventions Home Exercise Program,Joint Mobilizations,Manual Therapy, Neuromuscular Re-education, Patient/Caregiver Education, Self-Care/Home Management,Soft Tissue Mobilization,Taping, Therapeutic Activities, Therapeutic Exercises Modalities Electric Stimulation,Hot Packs ,Ultrasound Next Visit Focus/Plan Next Note Type Treatment Note Next Visit Plan Review HEP, emphasis on postural corection with all ther ex. Consider kinesiotape if appears needed. Continue ultrasound, manual therapy, and heat for symptom management as needed.
--- NOTE | 2020-06-14 17:11 | PT.OTN ---
Current Diagnoses Other chronic pain (06/14/20) Other muscle spasm (06/14/20) Abnormal posture (06/14/20) Weakness (06/14/20) Physical Therapy Treatment Note PT-OP-A Visit Information Start: 06/09/20 08:13 Freq: Status: Active Protocol: Document 06/14/20 16:00 MA (Rec: 06/14/20 17:11 MA [email or web address]) Out-Patient Physical Therapy Visit Information Visit Information Visit Type Treatment Note Visit Start Time 16:00 Visit Stop Time 17:05 Total Visit Minutes 65 Visit Number 3 Number of ACTIVITIES DIRECTOR Visits 1 PT-OP-B Current Condition Start: 06/09/20 08:13 Freq: Status: Active Protocol: Document 06/09/20 14:35 SAK (Rec: 06/09/20 16:16 SAK [id number]) Current Condition History of Current Condition Onset Date 3 months Current Complaints Thinks she was carrying a clipboard and a phone too long History of Current Condition 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 Gradual onset of neck pain. Saw chiropractor 5x , not helpful. Massage therapy not helpful. Now trying physical therapy and accupuncture. Neck movements all hurt, as well as sleeping, comes and goes. Uses heat, especially in the am. Also has history of left sided face numbness. Patient is right handed. PT-OP-C Subjective Start: 06/09/20 08:13 Freq: Status: Active Protocol: Document 06/14/20 16:00 MA (Rec: 06/14/20 17:11 MA [email or web address]) OP-PT Subjective Patient Comments Patient Comments Pt reports she has been doing her exercises. Still has pain 6/10 on left shoulder into her neck. says the ultrasound and hot pack worked well after last tx PT-OP-F Manual Assessment Start: 06/09/20 08:13 Freq: Status: Active Protocol: Document 06/09/20 14:35 SAK (Rec: 06/09/20 16:59 SAK [id number]) Manual Assessments Joint Mobility Assessment Joint Mobility Assessment decreased AP movement with pain C4-T1, hypomobile T1-T8 PT-OP-H Neuro Start: 06/09/20 08:13 Freq: Status: Active Protocol: Document 06/09/20 14:35 SAK (Rec: 06/09/20 16:59 SAK [id number]) Sensation Evaluation Gross Sensation Gross Sensation WNL PT-OP-J Posture/Palpation/Skin Start: 06/09/20 08:13 Freq: Status: Active Protocol: Document 06/09/20 14:35 [facility] (Rec: 06/09/20 16:59 [facility] [id number]) Posture Evaluation Position Sitting Head/C-Spine Posture Forward Head T-Spine Posture Flattened Shoulder Posture (L) Rounded,(R) Rounded Arm Posture (L) Internally Rotated,(R) Internally Rotated PT-OP-K Range of Motion Start: 06/09/20 08:13 Freq: Status: Active Protocol: Document 06/09/20 14:35 [facility] (Rec: 06/09/20 16:59 [facility] [id number]) Cervical Spine Range of Motion Cervical Spine Active Testing Position Sitting Flexion 54 Extension 51 Rotation Left 64 Rotation Right 54 Lateral Flexion Left 35 Lateral Flexion Right 32 ROM Limitations Pain PT-OP-L Special Tests Start: 06/09/20 08:13 Freq: Status: Active Protocol: Document 06/09/20 14:35 [facility] (Rec: 06/09/20 16:59 [facility] [id number]) Special Tests Cervical Spine Special Tests Passive Neck Flexion Test Results positive for pain Traction Test Results positive decrease pain Foraminal Compression Test Results negative PT-OP-M Strength Start: 06/09/20 08:13 Freq: Status: Active Protocol: Document 06/09/20 14:35 [facility] (Rec: 06/09/20 16:59 [facility] [id number]) Cervical Spine Strength Cervical Spine Manual Muscle Testing Testing Position Sitting Flexion (C1-2) 5 Normal Extension 5 Normal Rotation Left 5 Normal Rotation Right 5 Normal Lateral Flexion Left (C3) 4 Good Lateral Flexion Right (C3) 5 Normal PT-OP-Q Treatments Start: 06/09/20 08:13 Freq: Status: Active Protocol: Document 06/14/20 16:00 MA (Rec: 06/14/20 17:11 MA [email or web address]) Therapeutic Exercises Sidelying Exercises open book Reps/Minutes 10x each Comments VC for increased thoracic movement Sitting Exercises UT stretch Reps/Minutes 2x30 bilateral Standing Exercises shoulder extension Reps/Minutes 2x10 Comments vc to bring cervical spine to neutral row Reps/Minutes 2x10 Comments manual cues for shd retraction as pt fatigues wall posture Reps/Minutes 3x chin tuck Reps/Minutes 3x Other Exercises cat/cow Reps/Minutes 1x10 Comments verbal and manual cues to avoid shoulder shrug Manual Therapy Treatment Soft Tissue Mobilization c/s, UT, scalenes Body Location UT Mobilization Type Myofascial Release,Sustained Pressure Intensity/Depth Moderate Body Position Hooklying Comments UT STM while hooklying; UT raking with pt seated in chair PT-OP-R Modalities Start: 06/09/20 08:13 Freq: Status: Active Protocol: Document 06/14/20 16:00 MA (Rec: 06/14/20 17:11 MA [email or web address]) Hot Pack/Cold Pack Treatment Hot Pack Location cervical spine & posterior L shoulder Patient Position Hooklying Treatment Duration (minutes) 15 Patient Tolerance Good Ultrasound Therapy Treatment Left Neck Treatment Duration (minutes) 8 Patient Position Sitting Coupling Medium Ultrasound Gel Mode Setting Continuous Duty Cycle 100% Intensity Setting (w/cm2) 1.2 PT-OP-T Assessment and Plan Start: 06/09/20 08:13 Freq: Status: Active Protocol: Document 06/14/20 16:00 MA (Rec: 06/14/20 17:11 MA [email or web address]) Physical Therapy Assessment Goals Four Impairment postural dysfunction Fpc Goal (LTG) Patient to demonstrate good understanding of neutral postural alignment and be able to self-correct independently . She will be independent with HEP to address postural dysfunction LTG Duration 06/30/20 Three Impairment weakness left cervical sidebending 4/5, and painful neck ROM Fpc Goal (LTG) improve cervical sidebending strength to 5/5, cervical ROM WNL with minimal to no pain. She will be independent with HEP to address weakness and ROM LTG Duration 06/30/20 Two Impairment Neck disability index score 18 % Fpc Goal (LTG) Decrease neck disability index score to no greater than 8%, with patient able to do all prior activities. LTG Duration 06/30/20 One Impairment pain left side of neck as high as 7/10 on pain scale Fpc Goal (LTG) Decrease pain to no greater than 2/10 with all usual activities LTG Duration 06/30/20 Assessment Summary Assessment Pt showed good postural awareness during wall posture and needed minimal cues during standing exercises to maintain neutral spine. Pt still needing cues for thoracic rotation during open book exercise. Pain decreased at end of session Physical Therapy Plan Frequency and Duration Frequency of Treatment 3x/Week Duration of Treatment 3 wks Plan of Care Start Date 06/09/20 Plan of Care End Date 06/30/20 Next Visit Focus/Plan Next Note Type Treatment Note Next Visit Plan Review HEP and give new HEP for seated UT stretch. Continue ultrasound, manual therapy, and heat for symptom management as needed.
--- NOTE | 2020-06-16 16:32 | PT.OTN ---
Current Diagnoses Other chronic pain (06/16/20) Other muscle spasm (06/16/20) Abnormal posture (06/16/20) Weakness (06/16/20) Physical Therapy Treatment Note PT-OP-A Visit Information Start: 06/09/20 08:13 Freq: Status: Active Protocol: Document 06/16/20 16:25 MA (Rec: 06/16/20 16:32 MA [email or web address]) Out-Patient Physical Therapy Visit Information Visit Information Visit Type Treatment Note Visit Start Time 15:22 Visit Stop Time 16:20 Total Visit Minutes 58 Visit Number 4 Number of COMMUNICATION ARTS LECTURER Visits 2 PT-OP-B Current Condition Start: 06/09/20 08:13 Freq: Status: Active Protocol: Document 06/09/20 14:35 SAK (Rec: 06/09/20 16:16 SAK [id number]) Current Condition History of Current Condition Onset Date 3 months Current Complaints Thinks she was carrying a clipboard and a phone too long History of Current Condition 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 Gradual onset of neck pain. Saw chiropractor 5x , not helpful. Massage therapy not helpful. Now trying physical therapy and accupuncture. Neck movements all hurt, as well as sleeping, comes and goes. Uses heat, especially in the am. Also has history of left sided face numbness. Patient is right handed. PT-OP-C Subjective Start: 06/09/20 08:13 Freq: Status: Active Protocol: Document 06/16/20 16:25 MA (Rec: 06/16/20 16:32 MA [email or web address]) OP-PT Subjective Patient Comments Patient Comments Pt states she has been having no pain except for when she sleeps. PT-OP-F Manual Assessment Start: 06/09/20 08:13 Freq: Status: Active Protocol: Document 06/09/20 14:35 SAK (Rec: 06/09/20 16:59 SAK [id number]) Manual Assessments Joint Mobility Assessment Joint Mobility Assessment decreased AP movement with pain C4-T1, hypomobile T1-T8 PT-OP-H Neuro Start: 06/09/20 08:13 Freq: Status: Active Protocol: Document 06/09/20 14:35 SAK (Rec: 06/09/20 16:59 SAK [id number]) Sensation Evaluation Gross Sensation Gross Sensation WNL PT-OP-J Posture/Palpation/Skin Start: 06/09/20 08:13 Freq: Status: Active Protocol: Document 06/09/20 14:35 SAK (Rec: 06/09/20 16:59 [facility] [id number]) Posture Evaluation Position Sitting Head/C-Spine Posture Forward Head T-Spine Posture Flattened Shoulder Posture (L) Rounded,(R) Rounded Arm Posture (L) Internally Rotated,(R) Internally Rotated PT-OP-K Range of Motion Start: 06/09/20 08:13 Freq: Status: Active Protocol: Document 06/09/20 14:35 SAK (Rec: 06/09/20 16:59 [facility] [id number]) Cervical Spine Range of Motion Cervical Spine Active Testing Position Sitting Flexion 54 Extension 51 Rotation Left 64 Rotation Right 54 Lateral Flexion Left 35 Lateral Flexion Right 32 ROM Limitations Pain PT-OP-L Special Tests Start: 06/09/20 08:13 Freq: Status: Active Protocol: Document 06/09/20 14:35 SAK (Rec: 06/09/20 16:59 [facility] [id number]) Special Tests Cervical Spine Special Tests Passive Neck Flexion Test Results positive for pain Traction Test Results positive decrease pain Foraminal Compression Test Results negative PT-OP-M Strength Start: 06/09/20 08:13 Freq: Status: Active Protocol: Document 06/09/20 14:35 [facility] (Rec: 06/09/20 16:59 [facility] [id number]) Cervical Spine Strength Cervical Spine Manual Muscle Testing Testing Position Sitting Flexion (C1-2) 5 Normal Extension 5 Normal Rotation Left 5 Normal Rotation Right 5 Normal Lateral Flexion Left (C3) 4 Good Lateral Flexion Right (C3) 5 Normal PT-OP-Q Treatments Start: 06/09/20 08:13 Freq: Status: Active Protocol: Document 06/16/20 16:25 MA (Rec: 06/16/20 16:32 MA [email or web address]) Cardio Equipment Upper Body Ergometer (UBE) Duration (Minutes) 8 RPM 70 Seat Position 9 Height 2 Therapeutic Exercises Sitting Exercises UT stretch Sitting Exercise Name UT chair stretch Side bilateral Reps/Minutes 2x30 bilateral Standing Exercises wall posture Reps/Minutes 3x chin tuck Equipment Used ball behind head Reps/Minutes 4x31uio Manual Therapy Treatment Soft Tissue Mobilization c/s, UT, scalenes Body Location UT Mobilization Type Myofascial Release,Sustained Pressure Intensity/Depth Moderate Body Position Hooklying Comments UT STM while hooklying Manual Techniques UT stretch Type Passive stretch Body Location UT Body Position Hooklying Reps/Duration 60 sec hold mateo Self-Care/Home Management Treatment Education Patient Education Home Exercise Program,Posture Other Education New HEP added for seated UT stretch and chin tuck using car headrest instead of ball to push into. Educated pt on importance of adjusting review mirror before her long road trip to ensure correct posture PT-OP-R Modalities Start: 06/09/20 08:13 Freq: Status: Active Protocol: Document 06/16/20 16:25 MA (Rec: 06/16/20 16:32 MA [email or web address]) Hot Pack/Cold Pack Treatment Hot Pack Location cervical spine & posterior mateo shoulder Patient Position Hooklying Treatment Duration (minutes) 15 Patient Tolerance Good Ultrasound Therapy Treatment Right Neck Treatment Duration (minutes) 4 Patient Position Sitting Coupling Medium Ultrasound Gel Mode Setting Continuous Duty Cycle 100% Intensity Setting (w/cm2) 1.5 Left Neck Treatment Duration (minutes) 4 Patient Position Sitting Coupling Medium Ultrasound Gel Mode Setting Continuous Duty Cycle 100% Intensity Setting (w/cm2) 1.5 PT-OP-T Assessment and Plan Start: 06/09/20 08:13 Freq: Status: Active Protocol: Document 06/16/20 16:25 MA (Rec: 06/16/20 16:32 MA [email or web address]) Physical Therapy Assessment Goals Four Impairment postural dysfunction Chief Privacy Officer Goal (LTG) Patient to demonstrate good understanding of neutral postural alignment and be able to self-correct independently . She will be independent with HEP to address postural dysfunction LTG Duration 06/30/20 Three Impairment weakness left cervical sidebending 4/5, and painful neck ROM Chief Privacy Officer Goal (LTG) improve cervical sidebending strength to 5/5, cervical ROM WNL with minimal to no pain. She will be independent with HEP to address weakness and ROM LTG Duration 06/30/20 Two Impairment Neck disability index score 18 % Chief Privacy Officer Goal (LTG) Decrease neck disability index score to no greater than 8%, with patient able to do all prior activities. LTG Duration 06/30/20 One Impairment pain left side of neck as high as 7/10 on pain scale Chief Privacy Officer Goal (LTG) Decrease pain to no greater than 2/10 with all usual activities LTG Duration 06/30/20 Assessment Summary Assessment Pt was able to self correct posture throughout session showing good postural awareness. Needed verbal cues to use abdominals to sit up and not throw head forward straining neck Physical Therapy Plan Frequency and Duration Frequency of Treatment 3x/Week Duration of Treatment 3 wks Plan of Care Start Date 06/09/20 Plan of Care End Date 06/30/20 Next Visit Focus/Plan Next Note Type Treatment Note Next Visit Plan Review new HEP and work on scapular retraction exercises. Continue ultrasound, manual therapy, and heat for symptom management as needed. [ End ]
--- NOTE | 2020-06-18 16:17 | PT.OTN ---
Current Diagnoses Other chronic pain (06/18/20) Other muscle spasm (06/18/20) Abnormal posture (06/18/20) Weakness (06/18/20) Physical Therapy Treatment Note PT-OP-A Visit Information Start: 06/09/20 08:13 Freq: Status: Active Protocol: Document 06/18/20 16:03 MA (Rec: 06/18/20 16:17 MA [id number]) Out-Patient Physical Therapy Visit Information Visit Information Visit Type Treatment Note Visit Start Time 15:15 Visit Stop Time 16:15 Total Visit Minutes 60 Visit Number 5 Number of BOAT PULLER Visits 3 PT-OP-B Current Condition Start: 06/09/20 08:13 Freq: Status: Active Protocol: Document 06/09/20 14:35 SAK (Rec: 06/09/20 16:16 SAK [id number]) Current Condition History of Current Condition Onset Date 3 months Current Complaints Thinks she was carrying a clipboard and a phone too long History of Current Condition Also carrying bag working for the [employer]. Gradual onset of neck pain. Saw chiropractor 5x , not helpful. Massage therapy not helpful. Now trying physical therapy and accupuncture. Neck movements all hurt, as well as sleeping, comes and goes. Uses heat, especially in the am. Also has history of left sided face numbness. Patient is right handed. PT-OP-C Subjective Start: 06/09/20 08:13 Freq: Status: Active Protocol: Document 06/18/20 16:03 MA (Rec: 06/18/20 16:17 MA [id number]) OP-PT Subjective Patient Comments Patient Comments Pt had MRI and acupunture yesterday. Said she felt fine last night but after packing her car today, has some neck pain. MRI shows cervical spinal stenosis and two bulging discs in CS. Will talk with dr about results next week. PT-OP-F Manual Assessment Start: 06/09/20 08:13 Freq: Status: Active Protocol: Document 06/09/20 14:35 SAK (Rec: 06/09/20 16:59 SAK [id number]) Manual Assessments Joint Mobility Assessment Joint Mobility Assessment decreased AP movement with pain C4-T1, hypomobile T1-T8 PT-OP-H Neuro Start: 06/09/20 08:13 Freq: Status: Active Protocol: Document 06/09/20 14:35 SAK (Rec: 10/07/20 16:59 [facility] [id number]) Sensation Evaluation Gross Sensation Gross Sensation WNL PT-OP-J Posture/Palpation/Skin Start: 06/09/20 08:13 Freq: Status: Active Protocol: Document 06/09/20 14:35 [facility] (Rec: 06/09/20 16:59 [facility] [id number]) Posture Evaluation Position Sitting Head/C-Spine Posture Forward Head T-Spine Posture Flattened Shoulder Posture (L) Rounded,(R) Rounded Arm Posture (L) Internally Rotated,(R) Internally Rotated PT-OP-K Range of Motion Start: 06/09/20 08:13 Freq: Status: Active Protocol: Document 06/09/20 14:35 [facility] (Rec: 06/09/20 16:59 [facility] [id number]) Cervical Spine Range of Motion Cervical Spine Active Testing Position Sitting Flexion 54 Extension 51 Rotation Left 64 Rotation Right 54 Lateral Flexion Left 35 Lateral Flexion Right 32 ROM Limitations Pain PT-OP-L Special Tests Start: 06/09/20 08:13 Freq: Status: Active Protocol: Document 06/09/20 14:35 [facility] (Rec: 06/09/20 16:59 [facility] [id number]) Special Tests Cervical Spine Special Tests Passive Neck Flexion Test Results positive for pain Traction Test Results positive decrease pain Foraminal Compression Test Results negative PT-OP-M Strength Start: 06/09/20 08:13 Freq: Status: Active Protocol: Document 06/09/20 14:35 [facility] (Rec: 06/09/20 16:59 [facility] [id number]) Cervical Spine Strength Cervical Spine Manual Muscle Testing Testing Position Sitting Flexion (C1-2) 5 Normal Extension 5 Normal Rotation Left 5 Normal Rotation Right 5 Normal Lateral Flexion Left (C3) 4 Good Lateral Flexion Right (C3) 5 Normal PT-OP-Q Treatments Start: 06/09/20 08:13 Freq: Status: Active Protocol: Document 06/18/20 16:03 MA (Rec: 06/18/20 16:17 MA [email or web address]) Cardio Equipment Upper Body Ergometer (UBE) Duration (Minutes) 8 RPM 75 Seat Position 9 Height 3 Therapeutic Exercises Sidelying Exercises open book Reps/Minutes 10x each Sitting Exercises UT stretch Sitting Exercise Name UT chair stretch Side bilateral Reps/Minutes 2x30 bilateral Standing Exercises shoulder extension Reps/Minutes 2x10 Comments vcs for renata core to avoid over extending spine row Reps/Minutes 2x10 Comments vcs for renata core to avoid over extending spine wall posture Reps/Minutes 3x chin tuck Equipment Used ball behind head Reps/Minutes [id number] Other Exercises cat/cow Reps/Minutes 1x10 Comments educated pt on lessening cervical ROM if it bothers CS Manual Therapy Treatment Soft Tissue Mobilization c/s, UT, scalenes Body Location UT Mobilization Type Myofascial Release,Sustained Pressure Intensity/Depth Moderate Body Position Hooklying Comments UT STM while hooklying PT-OP-R Modalities Start: 06/09/20 08:13 Freq: Status: Active Protocol: Document 06/18/20 16:03 MA (Rec: 06/18/20 16:17 MA [email or web address]) Hot Pack/Cold Pack Treatment Hot Pack Location cervical spine Patient Position Hooklying Treatment Duration (minutes) 15 Patient Tolerance Good PT-OP-T Assessment and Plan Start: 06/09/20 08:13 Freq: Status: Active Protocol: Document 06/18/20 16:03 MA (Rec: 06/18/20 16:17 MA [email or web address]) Physical Therapy Assessment Goals Four Impairment postural dysfunction Halfway Goal (LTG) Patient to demonstrate good understanding of neutral postural alignment and be able to self-correct independently . She will be independent with HEP to address postural dysfunction 06/18 - Goal Met LTG Duration 06/30/20 Three Impairment weakness left cervical sidebending 4/5, and painful neck ROM Commercial Development Manager Goal (LTG) improve cervical sidebending strength to 5/5, cervical ROM WNL with minimal to no pain. She will be independent with HEP to address weakness and ROM LTG Duration 06/30/20 Two Impairment Neck disability index score 18 % Halfway Goal (LTG) Decrease neck disability index score to no greater than 8%, with patient able to do all prior activities. LTG Duration 06/30/20 One Impairment pain left side of neck as high as 7/10 on pain scale Halfway Goal (LTG) Decrease pain to no greater than 2/10 with all usual activities LTG Duration 06/30/20 Assessment Summary Assessment Pt was able to self correct posture throughout session showing good postural awareness. She sat up from supine without straining neck and no verbal cues today. Needed verbal cues for abdominal contraction during shoulder extension to avoid excessive thoracic extension. Physical Therapy Plan Frequency and Duration Frequency of Treatment 3x/Week Duration of Treatment 3 wks Plan of Care Start Date 06/09/20 Plan of Care End Date 06/30/20 Next Visit Focus/Plan Next Note Type Treatment Note Next Visit Plan Reassess goals. Continue ther. ex., ultrasound, manual therapy, and heat for symptom management as needed.
--- NOTE | 2020-06-21 13:13 | PT.OTN ---
Current Diagnoses Other chronic pain (06/21/20) Other muscle spasm (06/21/20) Abnormal posture (06/21/20) Weakness (06/21/20) Physical Therapy Treatment Note PT-OP-A Visit Information Start: 06/09/20 08:13 Freq: Status: Active Protocol: Document 06/21/20 11:15 SAK (Rec: 06/21/20 11:37 SAK [id number]) Out-Patient Physical Therapy Visit Information Visit Information Visit Type Treatment Note Visit Start Time 11:15 Visit Stop Time 12:13 Total Visit Minutes 58 Visit Number 6 Number of CREW FOREMAN Visits 0 PT-OP-B Current Condition Start: 06/09/20 08:13 Freq: Status: Active Protocol: Document 06/09/20 14:35 SAK (Rec: 06/09/20 16:16 SAK [id number]) Current Condition History of Current Condition Onset Date 3 months Current Complaints Thinks she was carrying a clipboard and a phone too long History of Current Condition Also carrying bag working for the [employer]. Gradual onset of neck pain. Saw chiropractor 5x , not helpful. Massage therapy not helpful. Now trying physical therapy and accupuncture. Neck movements all hurt, as well as sleeping, comes and goes. Uses heat, especially in the am. Also has history of left sided face numbness. Patient is right handed. PT-OP-C Subjective Start: 06/09/20 08:13 Freq: Status: Active Protocol: Document 06/21/20 11:15 SAK (Rec: 06/21/20 11:37 SAK [id number]) OP-PT Subjective Patient Comments Patient Comments Increased pain after doing a lot of housecleaning, awkward positions. Had been feeling pretty good with pain at about 4/10, now increased to a 7/10 . Went to 3 sessions of accupuncture and found it really helpful. Leaving on a road trip for several months so today is last day of PT. PT-OP-F Manual Assessment Start: 06/09/20 08:13 Freq: Status: Active Protocol: Document 06/09/20 14:35 SAK (Rec: 06/09/20 16:59 SAK [id number]) Manual Assessments Joint Mobility Assessment Joint Mobility Assessment decreased AP movement with pain C4-T1, hypomobile T1-T8 PT-OP-H Neuro Start: 06/09/20 08:13 Freq: Status: Active Protocol: Document 06/09/20 14:35 SAK (Rec: 06/09/20 16:59 SAK [id number]) Sensation Evaluation Gross Sensation Gross Sensation WNL PT-OP-J Posture/Palpation/Skin Start: 06/09/20 08:13 Freq: Status: Active Protocol: Document 06/09/20 14:35 SAK (Rec: 06/09/20 16:59 SAK [id number]) Posture Evaluation Position Sitting Head/C-Spine Posture Forward Head T-Spine Posture Flattened Shoulder Posture (L) Rounded,(R) Rounded Arm Posture (L) Internally Rotated,(R) Internally Rotated PT-OP-K Range of Motion Start: 06/09/20 08:13 Freq: Status: Active Protocol: Document 06/09/20 14:35 SAK (Rec: 06/09/20 16:59 [facility] [id number]) Cervical Spine Range of Motion Cervical Spine Active Testing Position Sitting Flexion 54 Extension 51 Rotation Left 64 Rotation Right 54 Lateral Flexion Left 35 Lateral Flexion Right 32 ROM Limitations Pain PT-OP-L Special Tests Start: 06/09/20 08:13 Freq: Status: Active Protocol: Document 06/09/20 14:35 SAK (Rec: 06/09/20 16:59 [facility] [id number]) Special Tests Cervical Spine Special Tests Passive Neck Flexion Test Results positive for pain Traction Test Results positive decrease pain Foraminal Compression Test Results negative PT-OP-M Strength Start: 06/09/20 08:13 Freq: Status: Active Protocol: Document 06/09/20 14:35 SAK (Rec: 06/09/20 16:59 [facility] [id number]) Cervical Spine Strength Cervical Spine Manual Muscle Testing Testing Position Sitting Flexion (C1-2) 5 Normal Extension 5 Normal Rotation Left 5 Normal Rotation Right 5 Normal Lateral Flexion Left (C3) 4 Good Lateral Flexion Right (C3) 5 Normal PT-OP-Q Treatments Start: 06/09/20 08:13 Freq: Status: Active Protocol: Document 06/21/20 11:15 SAK (Rec: 06/21/20 11:37 SAK [id number]) Cardio Equipment Upper Body Ergometer (UBE) Duration (Minutes) 8 RPM 75 Seat Position 9 Height 3 Manual Therapy Treatment Soft Tissue Mobilization c/s, UT, scalenes Body Location UT Mobilization Type Myofascial Release,Sustained Pressure Intensity/Depth Moderate Body Position Hooklying Comments UT STM while hooklying Taping 2 Body Location left UT Treatment Focus inhibition Type of Tape kinesiotape Skin Inspection intact Comments Patient instructed to remove after 5 days. Given extra kinesiotape for self-taping if she finds helpful. Demonstrated good understanding. Self-Care/Home Management Treatment Education Patient Education Body Mechanics,Home Exercise Program,Pain Management, Posture Other Education Importance of frequent ROM of neck and shoulders, pin and stretch, deep breathing for pain management during road trip. Discussed options for ROM and stretching, postural correction PT-OP-R Modalities Start: 06/09/20 08:13 Freq: Status: Active Protocol: Document 06/18/20 16:03 MA (Rec: 06/18/20 16:17 MA [id number]) Hot Pack/Cold Pack Treatment Hot Pack Location cervical spine Patient Position Hooklying Treatment Duration (minutes) 15 Patient Tolerance Good PT-OP-T Assessment and Plan Start: 06/09/20 08:13 Freq: Status: Active Protocol: Document 06/21/20 11:15 SAK (Rec: 06/21/20 11:37 SAK [id number]) Physical Therapy Assessment Goals Four Impairment postural dysfunction Jail Goal (LTG) Patient to demonstrate good understanding of neutral postural alignment and be able to self-correct independently . She will be independent with HEP to address postural dysfunction 06/18 - Goal Met LTG Duration 06/30/20 Three Impairment weakness left cervical sidebending 4/5, and painful neck ROM Jail Goal (LTG) improve cervical sidebending strength to 5/5, cervical ROM WNL with minimal to no pain. She will be independent with HEP to address weakness and ROM 06/20/20: achieved LTG Duration 06/30/20 Two Impairment Neck disability index score 18 % Jail Goal (LTG) Decrease neck disability index score to no greater than 8%, with patient able to do all prior activities. 06/20/20: goal progress LTG Duration 06/30/20 One Impairment pain left side of neck as high as 7/10 on pain scale Office Admin Goal (LTG) Decrease pain to no greater than 2/10 with all usual activities 06/20/20: had decreased to 4/ 10 until recent housecleaning LTG Duration 06/30/20 Assessment Summary Assessment Patient has been making good progress, though experienced exacerbation with recent house cleaning. Will not be able to continue with PT due to leaving on road trip. May seek PT when she returns from trip depending on pain and function. Physical Therapy Plan Discharge Physical Therapy Discharge Reasons Patient Request Discharge Comments leaving town
--- NOTE | 2020-06-21 13:13 | PT.OPDS ---
Current Diagnoses Other chronic pain (06/21/20) Other muscle spasm (06/21/20) Abnormal posture (06/21/20) Weakness (06/21/20) Visit Care Team Role Provider Type EVONNE Rico Primary Care Provider Advanced Electrode Cleaning Machine Operator Specialty: Medical Address: [address] [place] [address], [facility] Email: [email or web address] Papo Schofield MD Attending Provider Physician Referring Provider Specialty: Family Practice Address: [address] [place] [address], [facility] Email: [email or web address] Visit Number Visit Number 6 Discharge Summary PT-OP-B Current Condition Start: 06/09/20 08:13 Freq: Status: Active Protocol: Document 06/09/20 14:35 SAK (Rec: 06/09/20 16:16 SAK [id number]) Current Condition History of Current Condition Onset Date 3 months Current Complaints Thinks she was carrying a clipboard and a phone too long History of Current Condition Also carrying bag working for the [employer]. Gradual onset of neck pain. Saw chiropractor 5x , not helpful. Massage therapy not helpful. Now trying physical therapy and accupuncture. Neck movements all hurt, as well as sleeping, comes and goes. Uses heat, especially in the am. Also has history of left sided face numbness. Patient is right handed. PT-OP-C Subjective Start: 06/09/20 08:13 Freq: Status: Active Protocol: Document 06/21/20 11:15 SAK (Rec: 06/21/20 11:37 SAK [id number]) OP-PT Subjective Patient Comments Patient Comments Increased pain after doing a lot of housecleaning, awkward positions. Had been feeling pretty good with pain at about 4/10, now increased to a 7/10 . Went to 3 sessions of accupuncture and found it really helpful. Leaving on a road trip for several months so today is last day of PT. PT-OP-F Manual Assessment Start: 06/09/20 08:13 Freq: Status: Active Protocol: Document 06/09/20 14:35 SAK (Rec: 06/09/20 16:59 SAK [id number]) Manual Assessments Joint Mobility Assessment Joint Mobility Assessment decreased AP movement with pain C4-T1, hypomobile T1-T8 PT-OP-H Neuro Start: 06/09/20 08:13 Freq: Status: Active Protocol: Document 06/09/20 14:35 SAK (Rec: 06/09/20 16:59 SAK [id number]) Sensation Evaluation Gross Sensation Gross Sensation WNL PT-OP-J Posture/Palpation/Skin Start: 06/09/20 08:13 Freq: Status: Active Protocol: Document 06/09/20 14:35 SAK (Rec: 06/09/20 16:59 SAK [id number]) Posture Evaluation Position Sitting Head/C-Spine Posture Forward Head T-Spine Posture Flattened Shoulder Posture (L) Rounded,(R) Rounded Arm Posture (L) Internally Rotated,(R) Internally Rotated PT-OP-K Range of Motion Start: 06/09/20 08:13 Freq: Status: Active Protocol: Document 06/09/20 14:35 SAK (Rec: 06/09/20 16:59 [facility] [id number]) Cervical Spine Range of Motion Cervical Spine Active Testing Position Sitting Flexion 54 Extension 51 Rotation Left 64 Rotation Right 54 Lateral Flexion Left 35 Lateral Flexion Right 32 ROM Limitations Pain PT-OP-L Special Tests Start: 06/09/20 08:13 Freq: Status: Active Protocol: Document 06/09/20 14:35 SAK (Rec: 06/09/20 16:59 [facility] [id number]) Special Tests Cervical Spine Special Tests Passive Neck Flexion Test Results positive for pain Traction Test Results positive decrease pain Foraminal Compression Test Results negative PT-OP-M Strength Start: 06/09/20 08:13 Freq: Status: Active Protocol: Document 06/09/20 14:35 SAK (Rec: 06/09/20 16:59 SAK [id number]) Cervical Spine Strength Cervical Spine Manual Muscle Testing Testing Position Sitting Flexion (C1-2) 5 Normal Extension 5 Normal Rotation Left 5 Normal Rotation Right 5 Normal Lateral Flexion Left (C3) 4 Good Lateral Flexion Right (C3) 5 Normal PT-OP-T Assessment and Plan Start: 06/09/20 08:13 Freq: Status: Active Protocol: Document 06/21/20 11:15 SAK (Rec: 06/21/20 11:37 SAK [id number]) Physical Therapy Assessment Goals Four Impairment postural dysfunction Snf Goal (LTG) Patient to demonstrate good understanding of neutral postural alignment and be able to self-correct independently . She will be independent with HEP to address postural dysfunction 06/18 - Goal Met LTG Duration 06/30/20 Three Impairment weakness left cervical sidebending 4/5, and painful neck ROM Collections Curator Goal (LTG) improve cervical sidebending strength to 5/5, cervical ROM WNL with minimal to no pain. She will be independent with HEP to address weakness and ROM 06/20/20: achieved LTG Duration 06/30/20 Two Impairment Neck disability index score 18 % Collections Curator Goal (LTG) Decrease neck disability index score to no greater than 8%, with patient able to do all prior activities. 06/20/20: goal progress LTG Duration 06/30/20 One Impairment pain left side of neck as high as 7/10 on pain scale Snf Goal (LTG) Decrease pain to no greater than 2/10 with all usual activities 06/20/20: had decreased to 4/ 10 until recent housecleaning LTG Duration 06/30/20 Assessment Summary Assessment Patient has been making good progress, though experienced exacerbation with recent house cleaning. Will not be able to continue with PT due to leaving on road trip. May seek PT when she returns from trip depending on pain and function. Physical Therapy Plan Discharge Physical Therapy Discharge Reasons Patient Request Discharge Comments leaving [facility]
--- NOTE | 2020-08-05 14:54 | PT.OPDS ---
Current Diagnoses Other chronic pain (06/21/20) Other muscle spasm (06/21/20) Abnormal posture (06/21/20) Weakness (06/21/20) Visit Care Team Role Provider Type EVONNE Rico Primary Care Provider Advanced Medical Office Receptionist Specialty: Medical Address: [address] [place] [address], [facility] Email: [email or web address] Papo Schofield MD Attending Provider Physician Referring Provider Specialty: Family Practice Address: [address] [place] [address], [facility] Email: [email or web address] Visit Number Visit Number 6 Discharge Summary PT-OP-B Current Condition Start: 06/09/20 08:13 Freq: Status: Active Protocol: Document 06/09/20 14:35 SAK (Rec: 06/09/20 16:16 SAK [id number]) Current Condition History of Current Condition Onset Date 3 months Current Complaints Thinks she was carrying a clipboard and a phone too long History of Current Condition Also carrying bag working for the [employer]. Gradual onset of neck pain. Saw chiropractor 5x , not helpful. Massage therapy not helpful. Now trying physical therapy and accupuncture. Neck movements all hurt, as well as sleeping, comes and goes. Uses heat, especially in the am. Also has history of left sided face numbness. Patient is right handed. PT-OP-C Subjective Start: 06/09/20 08:13 Freq: Status: Active Protocol: Document 06/21/20 11:15 SAK (Rec: 06/21/20 11:37 SAK [id number]) OP-PT Subjective Patient Comments Patient Comments Increased pain after doing a lot of housecleaning, awkward positions. Had been feeling pretty good with pain at about 4/10, now increased to a 7/10 . Went to 3 sessions of accupuncture and found it really helpful. Leaving on a road trip for several months so today is last day of PT. PT-OP-F Manual Assessment Start: 06/09/20 08:13 Freq: Status: Active Protocol: Document 06/09/20 14:35 SAK (Rec: 06/09/20 16:59 SAK [id number]) Manual Assessments Joint Mobility Assessment Joint Mobility Assessment decreased AP movement with pain C4-T1, hypomobile T1-T8 PT-OP-H Neuro Start: 06/09/20 08:13 Freq: Status: Active Protocol: Document 06/09/20 14:35 SAK (Rec: 06/09/20 16:59 SAK [id number]) Sensation Evaluation Gross Sensation Gross Sensation WNL PT-OP-J Posture/Palpation/Skin Start: 06/09/20 08:13 Freq: Status: Active Protocol: Document 06/09/20 14:35 SAK (Rec: 06/09/20 16:59 SAK [id number]) Posture Evaluation Position Sitting Head/C-Spine Posture Forward Head T-Spine Posture Flattened Shoulder Posture (L) Rounded,(R) Rounded Arm Posture (L) Internally Rotated,(R) Internally Rotated PT-OP-K Range of Motion Start: 06/09/20 08:13 Freq: Status: Active Protocol: Document 06/09/20 14:35 SAK (Rec: 06/09/20 16:59 [facility] [id number]) Cervical Spine Range of Motion Cervical Spine Active Testing Position Sitting Flexion 54 Extension 51 Rotation Left 64 Rotation Right 54 Lateral Flexion Left 35 Lateral Flexion Right 32 ROM Limitations Pain PT-OP-L Special Tests Start: 06/09/20 08:13 Freq: Status: Active Protocol: Document 06/09/20 14:35 SAK (Rec: 06/09/20 16:59 [facility] [id number]) Special Tests Cervical Spine Special Tests Passive Neck Flexion Test Results positive for pain Traction Test Results positive decrease pain Foraminal Compression Test Results negative PT-OP-M Strength Start: 06/09/20 08:13 Freq: Status: Active Protocol: Document 06/09/20 14:35 SAK (Rec: 06/09/20 16:59 SAK [id number]) Cervical Spine Strength Cervical Spine Manual Muscle Testing Testing Position Sitting Flexion (C1-2) 5 Normal Extension 5 Normal Rotation Left 5 Normal Rotation Right 5 Normal Lateral Flexion Left (C3) 4 Good Lateral Flexion Right (C3) 5 Normal PT-OP-T Assessment and Plan Start: 06/09/20 08:13 Freq: Status: Active Protocol: Document 06/21/20 11:15 SAK (Rec: 06/21/20 11:37 SAK [id number]) Physical Therapy Assessment Goals Four Impairment postural dysfunction [facility] Goal (LTG) Patient to demonstrate good understanding of neutral postural alignment and be able to self-correct independently . She will be independent with HEP to address postural dysfunction 06/18 - Goal Met LTG Duration 06/30/20 Three Impairment weakness left cervical sidebending 4/5, and painful neck ROM [employer] Goal (LTG) improve cervical sidebending strength to 5/5, cervical ROM WNL with minimal to no pain. She will be independent with HEP to address weakness and ROM 06/20/20: achieved LTG Duration 06/30/20 Two Impairment Neck disability index score 18 % [employer] Goal (LTG) Decrease neck disability index score to no greater than 8%, with patient able to do all prior activities. 06/20/20: goal progress LTG Duration 06/30/20 One Impairment pain left side of neck as high as 7/10 on pain scale [facility] Goal (LTG) Decrease pain to no greater than 2/10 with all usual activities 06/20/20: had decreased to 4/ 10 until recent housecleaning LTG Duration 06/30/20 Assessment Summary Assessment Patient has been making good progress, though experienced exacerbation with recent house cleaning. Will not be able to continue with PT due to leaving on road trip. May seek PT when she returns from trip depending on pain and function. Physical Therapy Plan Discharge Physical Therapy Discharge Reasons Patient Request Discharge Comments leaving [facility]
== END 2020-10-29 08:53 ==
LOC: PHYS 11:15
PROVIDERS: PCP Registered Nurse Diabetes Educator; Referring Provider Family Medicine; Visit Provider Family Medicine
DX: M62.838 Other muscle spasm (principal); G89.29 Other chronic pain; R29.3 Abnormal posture; R53.1 Weakness
CPT/HCPCS: 97010; 97035; 97110; 97140; 97161; 97535

== ENCOUNTER → 2020-10-04 09:08 | Outpatient (CLI) | payer OTHER, MEDICAID, SELFPAY ==
[2020-10-04 09:58] LABS: Add Manual Diff / Slide Review NO; Basophils Absolute Auto 0 /uL (0-100); Basophils Percent Auto 0.4 % (0-2); Eosinophils Absolute Auto 100 /uL (0-450); Eosinophils Percent Auto 1.1 % (2-4); Hematocrit 43.8 % (36-46); Hemoglobin 14.6 g/dL (12.0-16.0); Lymphocytes Absolute Auto 1700 /uL (1100-4500); Lymphocytes Percent Auto 37.4 % (25-40); Mean Corpuscular HGB Conc 33.2 % (30-36); Mean Corpuscular Hemoglobin 30.7 PG (26-34); Mean Corpuscular Volume 92.3 fL (80-100); Monocytes Absolute Auto 500 /uL (0-900); Neutrophils Absolute Auto 2200 /uL (1500-7000); Neutrophils Percent Auto 50.1 % (50-75); Platelet Count 218 X10^3/uL (150-400); Red Blood Cell Count 4.75 X10^6/uL (4.0-5.2); Red Cell Distribution Width 13.7 % (11.6-14.8); White Blood Cell Count 4.5 X10^3/uL (4.5-11.0)
[2020-10-04 10:15] LABS: Alanine Aminotransferase 36 IU/L (<35); Albumin 4.3 g/dL (3.5-5.0); Albumin Globulin Ratio 1.7 (1.0-2.8); Alkaline Phosphatase 72 U/L (38-126); Aspartate Aminotransferase 26 IU/L (14-36); BUN Creatinine Ratio 32.8 (6-22); Bilirubin Total 0.3 mg/dL (0.2-1.3); Blood Urea Nitrogen 21 mg/dL (7-17); Calcium 9.7 mg/dL (8.4-10.2); Carbon Dioxide 31 mmol/L (22-32); Chloride 103 mmol/L (98-107); Estimated Glomerular Filt Rate > 60.0 mL/min (>60); Globulin 2.6 g/dL (1.7-4.1); Glucose 58 mg/dL (70-100); HEMOLYSIS < 15 (0-50); Lactate Dehydrogenase 316 U/L (313-618); Potassium 4.5 mmol/L (3.4-5.1); Sodium 138 mmol/L (137-145); Total Protein 6.9 g/dL (6.3-8.2)
[2020-10-04 11:04] LABS: Vitamin B12 Reflex MMA if <400 696 pg/mL (239-931)
[2020-10-06 12:06] LABS: ANA Screen, IFA Negative (.)
[2020-10-08 16:48] LABS: Vitamin D 25 Hydroxy (D3) 52.6 ng/mL (30.0-100.0)
== END ==
PROVIDERS: Nurse Practitioner; PCP Family Medicine; Referring Provider Family Medicine; Visit Provider Family Medicine
DX: R14.0 Abdominal distension (gaseous) (principal); R68.2 Dry mouth, unspecified; K58.9 Irritable bowel syndrome, unspecified
CPT/HCPCS: 36415; 80053; 82306; 82607; 83615; 85025; 86038

== ENCOUNTER → 2020-10-19 10:55 | Outpatient (CLI) | payer OTHER, MEDICAID, SELFPAY ==
--- NOTE | 2020-10-19 11:00 | DIET.PN ---
Dietary Progress Note Assessment: 55y F attending f/u for nutrition rec for ongoing bloating. Pt also has questions about phytoestrogen intake to support post-menapause, and is curious about why she was asymptomatic with random BG of 54 during her last set of labs. Pt recently returned from a road trip to [place] and a trip to [place]. Pt was sitting more during road trip and in [place] was drinking 1/2 strength sugar lemonades from street vendors and eating more tortillas than usual. Pt was drinking Kombucha regularly, stopped for a month, then started again (chacha lemon) drinks a few sips, 10-11am, bloating doesn't happen right away, but after eating a meal, it shows up. Has eaten same meals without bloating. Ham, strawberries, mod pizza (cauliflower crust), goat cheese, carrot muffin, coffee c half and half, green drink c lemon, chacha, cayenne, kale, spinach, pineapple had really uncomfortable bloating. Is eating a mix of 50/50 cooked veg to raw. Isn't eating as much broccoli bread, instead eating more ciabatta. Is still eating quite a bit of cheese right now. Has had this bloating which is painful usually about 2x/w. No etoh intake, is drinking good water intake, less dry mouth symptoms not usually eating garlic, tolerates and eats onions regularly. Blood draw shows BG 54, pt was asymptomatic. Pt wakes up occasionally and needs to eat something, curious if these are due to low blood sugar. RD Impression: Pt had recent travels on top of strange global pandemic year which caused 10# weight gain as well as some GI upset. Pt will avoid Kombucha at this time, get her nutrition back to usual and test kobucha 1-2oz no more than 1x/w until she can again tolerate it. Pt has glucometer and will test her BG randomly (fasting, 2hPP) and will call RD if any of the readings are under 70. Pt will test her BG if she wakes at night. Pt will incorporate whole soy foods to her diet as well as tahini to support phytoestrogen intake. Pt will switch to low-fat yogurt and cottage cheese during the winter to support weight management. Pt will intentionally include strength training to her routine to support metabolism and LBM. WT: 157# UBW: 146# Labs: random BG 54 L
== END ==
PROVIDERS: PCP Family Medicine; Referring Provider Family Medicine; Visit Provider Family Medicine
DX: E16.2 Hypoglycemia, unspecified (principal); R14.0 Abdominal distension (gaseous); Z71.3 Dietary counseling and surveillance
CPT/HCPCS: 97803

== ENCOUNTER → 2020-10-26 10:37 | Outpatient (CLI) | payer OTHER, MEDICAID, SELFPAY ==
[2020-10-26 12:35] LABS: Free T4, Direct Thyroxine 1.03 ng/dL (0.78-2.19)
== END ==
PROVIDERS: PCP Family Medicine; Referring Provider Family Medicine; Visit Provider Family Medicine
DX: E16.2 Hypoglycemia, unspecified (principal); R53.82 Chronic fatigue, unspecified; R63.2 Polyphagia
CPT/HCPCS: 36415; 84439; 84443; 84481

== ENCOUNTER 2020-12-10 08:57 | Emergency (ER) | payer OTHER, MEDICAID, SELFPAY ==
[2020-12-10 09:04] VITALS: BP 140/74; PULSE 69; RESP 12; TEMP 36.6; O2SAT 99; BMI 26.6
--- NOTE | 2020-12-10 09:17 | ED.LOWEXIN ---
HPI - Extremity Injury (Lower) General Chief Complaint: Extremity Injury, Lower Stated Complaint: right knee pain/swelling Time Seen by Provider: 12/10/20 09:04 Source: patient Mode of arrival: Ambulatory Limitations: no limitations History of Present Illness HPI Narrative: Patient is a 55-year-old female who is sent over from the walk-in clinic for evaluation of a potential right lower extremity DVT. Patient states that for the past couple weeks she has had swelling in her right knee and also pain behind her knee. She has never had a blood clot the past. She denies any falls. She states she does hike quite a bit but does not remember hurting it. Has never had any injury to the knee in the past. Is afebrile. No chest pain. No shortness of breath Related Data Home Medications Medication Instructions Recorded Confirmed hydrocodone 5 mg-acetaminophen 300 1 tab PO .Q6HP PRN tab 09/24/18 11/25/20 mg tablet Vitamin D3 See Rx Instructions PO DAILY 04/22/19 11/25/20 Black Cohosh 80 mg See Rx Instructions PO .COMPLEX 10/06/20 11/25/20 Previous Rx's Medication Instructions Recorded ibuprofen 800 mg tablet 800 mg PO TID PRN #90 tab 12/01/20 Allergies Allergy/AdvReac Type Severity Reaction Status Date / Time No Known Drug Allergies Allergy Verified 12/10/20 09:08 Review of Systems Constitutional Constitutional: Denies fever(s) and Denies headache(s) ENT Ears, Nose, Mouth, and Throat: Denies headache(s) Cardiovascular Cardiovascular: Denies chest pain and Denies dyspnea Respiratory Respiratory: Denies dyspnea Gastrointestinal Gastrointestinal: Denies abdominal pain, Denies nausea and Denies vomiting Genitourinary Genitourinary: Denies dysuria Genitourinary: Denies dysuria Musculoskeletal Musculoskeletal: Reports arthralgias (Right knee) Integumentary/Breasts Skin/Breast: Denies lesions and Denies rash Neurologic Neurologic: Denies behavioral changes and Denies headache(s) Psychiatric Psychiatric: Denies behavioral changes Hematologic/Lymphatic On Anticoagulants: No Allergic/Immunologic Allergic/Immunologic: Denies urticaria Patient History Medical History Cysts (Unknown) DDD (degenerative disc disease), lumbosacral Fatigue Hypoglycemia Increased appetite Low back pain (Unknown) Lumbar radiculopathy, right Myalgia Sebaceous hyperplasia Spinal stenosis of lumbar region (Unknown) Spinal stenosis, lumbar region without neurogenic claudication Varicose veins of both lower extremities (Unknown) Vitamin D deficiency (~2013) Surgical History History of surgical removal of ganglion cyst (07/2017) Hx of tonsillectomy (Unknown) Status post endovenous radiofrequency ablation of saphenous vein (2007) Family History (Updated 10/26/20 @ 10:30 by Ralph Gotti DO) Mother Uterine cancer Father No problems noted. Social History Smoking Status: Never smoker second hand exposure: Yes (growing up my dad was a chain smoker for the first 18 years of my life) alcohol intake: former substance use type: does not use and former substance user Smoking Status: Never smoker Substance Use Type: does not use Exam Initial Vital Signs Initial Vital Signs: Vital Signs Temperature 97.8 F 12/10/20 09:04 Pulse Rate 69 12/10/20 09:04 Respiratory Rate 12 12/10/20 09:04 Blood Pressure 140/74 12/10/20 09:04 Pulse Oximetry 99 12/10/20 09:04 Const General: cooperative, comfortable and well developed Limitations: mental status not altered HENMT Head: normal to inspection and normocephalic Resp Effort & Inspection: normal respiratory effort Cardio Rate: regular rate Skin Lesions: no lesions Rashes: no rashes Neuro General: patient alert and patient awake Cognition: normal cognition Speech: speech normal Extrem General: normal to inspection and capillary refill normal Other: ACL MCL PCL and LCL all intact with functional testing. Quadriceps tendon and patellar tendon intact. Does have some fullness in the posterior aspect of the knee without much discomfort. No tenderness along the mediolateral joint line. Psych Appearance: grossly normal and well kempt Course Orders Ordered: ED Orders 12/10/20 09:17 US periph venous low extrem rt Stat Vital Signs Vital signs: Vital Signs - 8 hr 12/10/20 09:04 Temperature 97.8 F Pulse Rate 69 Respiratory Rate 12 Blood Pressure 140/74 Pulse Oximetry 99 MDM - Extremity Injury (Lower) Imaging Data US - DVT: Radiologist's Impression: [address] [id number] ReportSigned Patient: Karen Gallardo PMR#: [id number]: 1965Acct:[id number]/Sex: 55 / FDate of Service: 12/10/20Loc: EDAccession Number: [id number] Procedure: US periph venous low extrem rt Ordering Provider: Eduardo Pickett D.O. PROCEDURE: US PERIPH VENOUS LOW EXTREM RT INDICATIONS: Eval for DVT TECHNIQUE: Real-time imaging, as well as color and pulse Doppler interrogation, were performed of the lower extremity deep veins from the inguinal ligament to the popliteal fossa. COMPARISON: None. FINDINGS: The common femoral, femoral and popliteal veins are normally compressible, and free of intraluminal thrombus. Color and pulse Doppler demonstrate normal phasic intraluminal flow. There is normal augmentation response to distal compression maneuver. There is a deep soft tissue collection anterior to patella measures 7 cm in craniocaudal dimension, and 0.7 cm in AP dimension. IMPRESSION: 1. No evidence of DVT in visualized right lower extremity veins. 2. Fluid collection anterior to patella which may represent fluid distension of patella bursa secondary to bursitis, suggest clinical correlation. Dictated by: Perez Vazquez M.D. on 12/10/2020 at 9:40 Approved by: Perez Vazquez M.D. on 12/10/2020 at 9:41 MDM Narrative Medical decision making narrative: Physical exam is not consistent with cellulitis. No DVT nor Hardy cyst seen on the ultrasound. I suspect that her symptoms are either bursitis/arthritis/tendinitis. I did discuss this with her. Discussed elevation and ice and resting. She was given return precautions and follow-up instructions. She expressed understanding and agreement. Discharge Plan Departure Patient Disposition: Home Clinical Impression: Effusion of knee joint right, Arthritis Instructions: How To Perform RICE (Rest, Ice, Compress, Elevate), DI for Knee Effusion Activity Restrictions/Additional Instructions: Recommend that you elevate and ice your knee as much as possible. You can also take anti inflammatories such as Motrin/Naprosyn. Contact your primary provider for follow-up. Return to the emergency department for any new or worsening symptoms Prescriptions: No Action hydrocodone-acetaminophen [Vicodin] 5-300 mg tablet 1 tab PO .Q6HP PRNRF: 0 ibuprofen 800 mg tablet 800 mg PO TID PRN (Reason: pain) Qty: 90 RF: 0 Vitamin D3 See Rx Instructions PO DAILY RF: 0 Black Cohosh 80 mg See Rx Instructions PO .COMPLEX RF: 0 Referrals: Ralph Gotti DO [Primary Care Provider] -
[2020-12-10 09:58] VITALS: BP 115/65; PULSE 63; RESP 15; O2SAT 100
== END 2020-12-10 10:02 | disposition home or self-care (01) ==
PROVIDERS: Emergency Provider Emergency Medicine; PCP Family Medicine
DX: M25.461 Effusion, right knee (principal); M17.11 Unilateral primary osteoarthritis, right knee
CPT/HCPCS: 93971; 99282; 99283

== ENCOUNTER → 2021-01-12 09:24 | Outpatient (CLI) | payer OTHER, MEDICAID, SELFPAY ==
--- NOTE | 2021-01-12 09:26 | DIET.PN ---
Dietary Progress Note 55y F attending f/u for help with optimizing diet and exercise to lose weight and take some pressure off of her knee joint. Pt is attending regular PT at , eats a very healthy diet, and participates in regular physical activity but on a weight plateau. Pts bloating and abd pain have resolved since last visit. Interventions: 1. Cut back slightly on portion sizes of high carb and high fat foods. Pt is not creating enough of a calorie deficit to move the scale. Though pt eats very healthy whole foods diet, she consumes beans, nuts, and seeds multiple times per day. Pt brought in several food items she normally eats. Discussed and problem solved these food items to optimize nutrition. 2. Pt does Jer, hikes, and some weight training (3x/w) however is not creating big enough calorie deficit to move scale. Educated pt on role of muscle mass development on speeding up metabolism. Encouraged pt to sign up for a 21 day HIIT workout plan and assess progress once she has completed the plan cycle. Pt appreciative of consult and will call RD in a month to report progress.
== END ==
PROVIDERS: Family Provider Family Medicine; PCP Family Medicine; Referring Provider Family Medicine; Visit Provider Family Medicine
DX: E11.9 Type 2 diabetes mellitus without complications (principal)
CPT/HCPCS: 97803

== ENCOUNTER → 2021-10-10 07:14 | Outpatient (CLI) | payer OTHER, MEDICAID, SELFPAY ==
[2021-10-10 08:26] LABS: Add Manual Diff / Slide Review NO; Basophils Absolute Auto 0 /uL (0-100); Basophils Percent Auto 0.5 % (0-2); Eosinophils Absolute Auto 0 /uL (0-450); Eosinophils Percent Auto 0.6 % (2-4); Hematocrit 40.9 % (36-46); Hemoglobin 13.9 g/dL (12.0-16.0); Lymphocytes Absolute Auto 2000 /uL (1100-4500); Mean Corpuscular HGB Conc 33.8 % (30-36); Mean Corpuscular Volume 94.5 fL (80-100); Monocytes Absolute Auto 300 /uL (0-900); Monocytes Percent Auto 7.8 % (3-14); Neutrophils Absolute Auto 1300 /uL (1500-7000); Neutrophils Percent Auto 37.1 % (50-75); Platelet Count 211 X10^3/uL (150-400); Red Blood Cell Count 4.33 X10^6/uL (4.0-5.2); White Blood Cell Count 3.6 X10^3/uL (4.5-11.0)
[2021-10-10 08:36] LABS: Alanine Aminotransferase 32 IU/L (<35); Albumin 4.4 g/dL (3.5-5.0); Albumin Globulin Ratio 1.5 (1.0-2.8); Alkaline Phosphatase 65 U/L (38-126); Aspartate Aminotransferase 25 IU/L (14-36); BUN Creatinine Ratio 28.1 (6-22); Bilirubin Total 0.6 mg/dL (0.2-1.3); Blood Urea Nitrogen 18 mg/dL (7-17); Calcium 9.8 mg/dL (8.4-10.2); Carbon Dioxide 30 mmol/L (22-32); Chloride 105 mmol/L (98-107); Cholesterol 226 mg/dL (140-199); Estimated Glomerular Filt Rate > 60.0 mL/min (>60); Glucose 92 mg/dL (70-100); HDL Cholesterol 71 mg/dL (40-60); HEMOLYSIS < 15 (0-50); LDL Cholesterol Calculated 140 mg/dL (<100); Potassium 4.5 mmol/L (3.4-5.1); Sodium 140 mmol/L (137-145); Total Protein 7.4 g/dL (6.3-8.2); Triglycerides 76 mg/dL (35-150)
[2021-10-10 09:28] LABS: TSH w/ Reflex to FT4 1.69 uIU/mL (0.47-4.68)
== END ==
PROVIDERS: Family Provider Family Medicine; PCP Family Medicine; Referring Provider Family Medicine; Visit Provider Family Medicine
DX: F41.9 Anxiety disorder, unspecified (principal); R00.2 Palpitations
CPT/HCPCS: 36415; 80053; 80061; 84443; 85025

== ENCOUNTER → 2022-03-03 15:31 | Outpatient (CLI) | payer OTHER, MEDICAID, SELFPAY ==
--- NOTE | 2022-03-03 15:32 | DI.MG.S_ITS ---
BILATERAL DIGITAL SCREENING MAMMOGRAM 3D/2D WITH CAD: 03/03/2022 CLINICAL: Routine screening. Comparison is made to exams dated: 03/17/2020 mammogram, 01/09/2019 mammogram, and 01/05/2018 mammogram - [facility]. The tissue of both breasts is heterogeneously dense. This may lower the sensitivity of mammography. Current study was also evaluated with a Computer Aided Detection (CAD) system. No significant masses, calcifications, or other findings are seen in either breast. There has been no significant interval change. IMPRESSION: NEGATIVE There is no mammographic evidence of malignancy. A 1 year screening mammogram is recommended. Based on the Tyrer Cuzick model (a risk assessment model) the patient's lifetime risk is 9.8% and her 10 year risk is 3.4%. According to the ACR, ACS, and NCCN guidelines, an annual breast MRI exam along with mammogram is recommended if the patient's lifetime risk is 20% or greater. This exam was interpreted at Station ID: [id number]. NOTE: For mammograms, a report in lay terms will be sent to the patient. Approximately 15% of breast malignancies will not be visualized mammographically. In the management of a palpable breast mass, a negative mammogram must not discourage biopsy of a clinically suspicious lesion. Electronically Signed By: Dipti urias/loy:03/03/2022 17:18:56 letter sent: Normal Exam ACR BI-RADS Category 1: Negative [id number]
== END ==
PROVIDERS: Family Provider Family Medicine; PCP Family Medicine; Referring Provider Family Medicine; Visit Provider Family Medicine
DX: Z12.31 Encounter for screening mammogram for malignant neoplasm of breast (principal)
CPT/HCPCS: 77063; 77067

== ENCOUNTER → 2022-04-13 09:21 | Outpatient (CLI) | payer OTHER, MEDICAID, SELFPAY ==
[2022-04-13 12:18] LABS: Add Manual Diff / Slide Review NO; Basophils Absolute Auto 0 /uL (0-100); Basophils Percent Auto 0.3 % (0-2); Eosinophils Absolute Auto 0 /uL (0-450); Eosinophils Percent Auto 0.5 % (2-4); Hemoglobin 13.3 g/dL (12.0-16.0); Lymphocytes Absolute Auto 1900 /uL (1100-4500); Lymphocytes Percent Auto 52.6 % (25-40); Mean Corpuscular HGB Conc 34.3 % (30-36); Mean Corpuscular Hemoglobin 32.2 PG (26-34); Mean Corpuscular Volume 93.9 fL (80-100); Monocytes Absolute Auto 400 /uL (0-900); Neutrophils Absolute Auto 1300 /uL (1500-7000); Neutrophils Percent Auto 36.6 % (50-75); Platelet Count 190 X10^3/uL (150-400); Red Blood Cell Count 4.15 X10^6/uL (4.0-5.2); Red Cell Distribution Width 14.5 % (11.6-14.8); White Blood Cell Count 3.5 X10^3/uL (4.5-11.0)
== END ==
PROVIDERS: Family Provider Family Medicine; PCP Family Medicine; Referring Provider Family Medicine; Visit Provider Family Medicine
DX: D72.819 Decreased white blood cell count, unspecified (principal)
CPT/HCPCS: 36415; 85025

== ENCOUNTER 2022-07-04 09:45 | Outpatient (RCR) | payer OTHER, MEDICAID, SELFPAY ==
--- NOTE | 2022-02-21 17:10 | PT.OIE ---
Current Diagnoses Cervicalgia (02/21/22) Other muscle spasm (02/21/22) Lateral epicondylitis, left elbow (02/21/22) Past Medical History (Last Updated 02/02/22 @ 15:53 by Papo Schofield MD) Cysts (Unknown) DDD (degenerative disc disease), lumbosacral Fatigue Hypoglycemia Increased appetite Lateral epicondylitis of both elbows Left thigh pain Low back pain (Unknown) Lumbar radiculopathy, right Myalgia Right knee pain Sebaceous hyperplasia Spinal stenosis of lumbar region (Unknown) Spinal stenosis, lumbar region without neurogenic claudication Varicose veins of both lower extremities (Unknown) Vitamin D deficiency (~2013) Past Surgical History (Last Reviewed 03/28/21 @ 12:08 by Baldo Hernandez [facility]) History of surgical removal of ganglion cyst (07/2017) Hx of tonsillectomy (Unknown) Status post endovenous radiofrequency ablation of saphenous vein (2007) Visit Care Team Role Provider Type Papo Schofield MD Attending Provider Physician Family Provider Primary Care Provider Referring Provider Specialty: Family Practice Address: [address] [place] [address] Email: [email or web address] Physical Therapy Initial Evaluation PT-OP-A Visit Information Start: 02/21/22 08:11 Freq: Status: Active Protocol: Document 02/21/22 10:34 SAK (Rec: 02/21/22 11:20 SAK [id number]) Out-Patient Physical Therapy Visit Information Visit Information Visit Type Initial Evaluation Visit Start Time 10:34 Visit Stop Time 11:30 Total Visit Minutes 56 Visit Number 1 Evaluation Information Evaluation Date 02/21/22 PT-OP-B Current Condition Start: 02/21/22 08:11 Freq: Status: Active Protocol: Document 02/21/22 10:34 SAK (Rec: 02/21/22 11:20 SAK [id number]) Current Condition History of Current Condition Onset Date 9 months Current Complaints right sided neck pain History of Current Condition neck pain started 9 months ago , no known reason. Left elbow pain started December, possibly due to use of trekking pole; states tends to push instead of pull when using poles, has stopped using trekking pole on left. Also bilateral UE's hot at night, and go numb. Sleeps on side, working on bed positioning, working on posture. Elbow hurts with lifting, at night sleeping. No use of ice or heat on elbow. Uses heat on neck; worse in am. Tried chiropractic and accupuncture, not helpful on either area of pain. 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 (Rec: 02/22/22 17:08 [facility] [id number]) Patient Questionnaires Neck Disability Index NDI Score 22 Quick Dash- Upper Extremity Quick Dash UE Score 55 OP-PT Pain Assessment Pain Assessment Grid Paper Pain Assessment Grid Completed Yes Location right c/s, UT Intensity 6 Scale Used Numeric (0 - 10) Description Aching,Pinching,Pressure, Tender,Tightness Pain Aggravating Factors Activity,Exercise Pain Alleviating Factors Medication,Inactivity PT-OP-H Neuro Start: 02/21/22 08:11 Freq: Status: Active Protocol: Document 02/21/22 10:34 SAK (Rec: 02/22/22 17:08 [facility] [id number]) Sensation Evaluation Gross Sensation Gross Sensation WNL PT-OP-J Posture/Palpation/Skin Start: 02/21/22 08:11 Freq: Status: Active Protocol: Document 02/21/22 10:34 SAK (Rec: 02/22/22 17:08 [facility] [id number]) Posture Evaluation Position Sitting Head/C-Spine Posture Forward Head T-Spine Posture Increased Kyphosis Shoulder Posture (L) Rounded,(R) Rounded Scapula Posture (L) Protracted,(R) Protracted Arm Posture (L) Internally Rotated,(R) Internally Rotated Palpation Assessment Location left lateral epicondyle Palpation Findings Soft Tissue Tightness, Tenderness Palpation Details soft tissue tightness extensor tendons forearm right UT, c/s Palpation Findings Soft Tissue Tightness, Tenderness PT-OP-K Range of Motion Start: 02/21/22 08:11 Freq: Status: Active Protocol: Document 02/21/22 10:34 SAK (Rec: 02/22/22 17:08 [facility] [id number]) Cervical Spine Range of Motion Cervical Spine Active Testing Position Sitting Flexion 40 Extension 70 Rotation Left 60 Rotation Right 60 Lateral Flexion Left 25 Lateral Flexion Right 20 ROM Limitations Soft Tissue Tightness,Pain Shoulder Goniometric Range of Motion Shoulder mateo Shoulder ROM WFL Yes Elbow/Forearm Range of Motion Elbow/Forearm mateo Elbow/Forearm ROM WFL Yes Comments painful at end range left elbow extension and flexion, end-range pron. Elbow/Forearm ROM Limitations Elbow/Forearm ROM Limitations Pain Wrist Goniometric Range of Motion Wrist mateo Wrist ROM WFL Yes ROM Limitations Wrist Limitations of Range of Motion Soft Tissue Tightness,Pain Comments palpable tenderness and tightness left forearm extensor tendons, painful wrist flexion with elbow extension and fingers flexed into fist PT-OP-L Special Tests Start: 02/21/22 08:11 Freq: Status: Active Protocol: Document 02/21/22 10:34 [facility] (Rec: 02/22/22 17:08 [facility] [id number]) Special Tests Cervical Spine Special Tests Passive Neck Flexion Comments negative Traction Comments negative Foraminal Compression Comments negative Elbow Special Tests Lateral Epicondylitis Extended Test Results positive left PT-OP-M Strength Start: 02/21/22 08:11 Freq: Status: Active Protocol: Document 02/21/22 10:34 SAK (Rec: 02/22/22 17:08 [facility] [id number]) Cervical Spine Strength Cervical Spine Manual Muscle Testing Testing Position Sitting Flexion (C1-2) 5 Normal Extension 5 Normal Rotation Left 5 Normal Rotation Right 5 Normal Shoulder Strength Shoulder Manual Muscle Testing mateo Flexion 5 Normal Extension 5 Normal Elbow/Forearm Strength Elbow and Forearm Manual Muscle Testing Left Flexion (C6) 4 Good Extension (C7) 4 Good Pronation 4 Good Supination 4 Good Comments c/o pain left elbow Right Flexion (C6) 5 Normal Extension (C7) 5 Normal Pronation 5 Normal Supination 5 Normal Hand Print Line Tailer/Pinch Strength Hand Dominance Hand Dominance Right Hand Strength Left Comments painful, not done PT-OP-Q Treatments Start: 02/21/22 08:11 Freq: Status: Active Protocol: Document 02/21/22 10:34 SAK (Rec: 02/22/22 17:08 [facility] [id number]) Self-Care/Home Management Treatment Education Patient Education Home Exercise Program,Pain Management,Posture Activities Self-Care/Home Management Activities applied size E Tubigrip to elbow for trial compression- type sleeve. Compression strap has not been helpful. PT-OP-R Modalities Start: 02/21/22 08:11 Freq: Status: Active Protocol: Document 02/21/22 10:34 [facility] (Rec: 02/22/22 17:08 [facility] [id number]) Hot Pack/Cold Pack Treatment Hot Pack Location c/s Patient Position Hooklying Patient Tolerance Good Cold Pack Location left elbow Patient Position Hooklying Patient Tolerance Good Ultrasound Therapy Treatment Left Elbow Treatment Duration (minutes) 8 Patient Position Hooklying Coupling Medium Ultrasound Gel Applicator Size (cm2) 2 Frequency Setting (mHz) 3 Duty Cycle 50% Intensity Setting (w/cm2) 1.2 PT-OP-T Assessment and Plan Start: 02/21/22 08:11 Freq: Status: Active Protocol: Document 02/21/22 10:34 [facility] (Rec: 02/22/22 17:08 [facility] [id number]) Physical Therapy Assessment Goals Three Impairment Quickdash disability index score 55% Impairment decreased functional use and activity tolerance related to left elbow pain Short Term Goal (STG) decrease Quickdash score to no greater than 30% STG Duration 03/23/22 Post Form Remover Goal (LTG) Decrease Quickdash score to no greater than 10% as measure of improved functional activity tolerance left elbow. Patient to be able to kayak, lift, open jars, sleep, and use trekking pole without an increase in pain. LTG Duration 04/23/22 Two Impairment neck and shoulder disability index score 22% Impairment decreased functional use and activity tolerance related to neck/shoulder pain Care Home Goal (LTG) Imrove neck and shoulder disability index score to no greater than 5% as measure of improved function and activity tolerance LTG Duration 04/23/22 One Impairment pain right cervical region and left elbow 6/10 on pain scale Short Term Goal (STG) decrease pain to no greater than 3/10 with usual activities STG Duration 03/23/22 Post Form Remover Goal (LTG) decrease pain to no greater than 1/10 with all usual activities LTG Duration 04/23/22 Assessment Summary Assessment Patient presents to PT with function-limiting pain in right side of neck and upper trap region with no known cause. Additionally has left elbow pain which may be due to recreational activities including use of trekking pole ; she is currently unable to use the pole due to pain. Also unable to kayak, open jars, carry objects with left UE, and reports interrupted sleep. Signs and symptoms in left elbow are constent with lateral epicondylitis. Signs and symptoms of right neck pain appear due to muscle tightness likely resulting from postural dysfunction, habitual positioning. Feel she would benefit from skilled physical therapy to decrease her pain, improve her posture, decrease muscle tension, and help her return to her very active lifestyle. We discussed the POC and she is in agreement. Physical Therapy Plan Frequency and Duration Frequency of Treatment 2x/Week Duration of Treatment 8 weeks Plan of Care Start Date 02/21/22 Plan of Care End Date 04/23/22 Therapeutic Interventions Therapeutic Interventions Home Exercise Program,Manual Therapy,Patient/Caregiver Education,Self-Care/Home Management,Soft Tissue Mobilization,Taping, Therapeutic Activities, Therapeutic Exercises Modalities Cold Pack/Ice Massage,Electric Stimulation,Hot Packs, Infrared Therapy,Iontophoresis ,Ultrasound Next Visit Focus/Plan Next Note Type Treatment Note Next Visit Plan Assess response to eval, ultrasound, ice, and tubigrip to arm. Consider kinesiotape to UT right and left elbow, and/or iontophoresis left elbow.
--- NOTE | 2022-02-21 17:11 | PT.OPPOC ---
Physical, Occupational & Speech Therapy At [facility] Current Diagnoses Cervicalgia (02/21/22) Other muscle spasm (02/21/22) Lateral epicondylitis, left elbow (02/21/22) Visit Care Team Role Provider Type Papo Schofield MD Attending Provider Physician Family Provider Primary Care Provider Referring Provider Specialty: Family Practice Address: [address] [place] [address], [facility] Email: [email or web address] Plan Of Care PT-OP-T Assessment and Plan Start: 02/21/22 08:11 Freq: Status: Active Protocol: Document 02/21/22 10:34 SAK (Rec: 02/22/22 17:08 [facility] [id number]) Physical Therapy Assessment Goals Three Impairment Quickdash disability index score 55% Impairment decreased functional use and activity tolerance related to left elbow pain Short Term Goal (STG) decrease Quickdash score to no greater than 30% STG Duration 03/23/22 Longterm Goal (LTG) Decrease Quickdash score to no greater than 10% as measure of improved functional activity tolerance left elbow. Patient to be able to kayak, lift, open jars, sleep, and use trekking pole without an increase in pain. LTG Duration 04/23/22 Two Impairment neck and shoulder disability index score 22% Impairment decreased functional use and activity tolerance related to neck/shoulder pain Negative Checker Goal (LTG) Imrove neck and shoulder disability index score to no greater than 5% as measure of improved function and activity tolerance LTG Duration 04/23/22 One Impairment pain right cervical region and left elbow 6/10 on pain scale Short Term Goal (STG) decrease pain to no greater than 3/10 with usual activities STG Duration 03/23/22 Negative Checker Goal (LTG) decrease pain to no greater than 1/10 with all usual activities LTG Duration 04/23/22 Assessment Summary Assessment Patient presents to PT with function-limiting pain in right side of neck and upper trap region with no known cause. Additionally has left elbow pain which may be due to recreational activities including use of trekking pole ; she is currently unable to use the pole due to pain. Also unable to kayak, open jars, carry objects with left UE, and reports interrupted sleep. Signs and symptoms in left elbow are constent with lateral epicondylitis. Signs and symptoms of right neck pain appear due to muscle tightness likely resulting from postural dysfunction, habitual positioning. Feel she would benefit from skilled physical therapy to decrease her pain, improve her posture, decrease muscle tension, and help her return to her very active lifestyle. We discussed the POC and she is in agreement. Physical Therapy Plan Frequency and Duration Frequency of Treatment 2x/Week Duration of Treatment 8 weeks Plan of Care Start Date 02/21/22 Plan of Care End Date 04/23/22 Therapeutic Interventions Therapeutic Interventions Home Exercise Program,Manual Therapy,Patient/Caregiver Education,Self-Care/Home Management,Soft Tissue Mobilization,Taping, Therapeutic Activities, Therapeutic Exercises Modalities Cold Pack/Ice Massage,Electric Stimulation,Hot Packs, Infrared Therapy,Iontophoresis ,Ultrasound Next Visit Focus/Plan Next Note Type Treatment Note Next Visit Plan Assess response to eval, ultrasound, ice, and tubigrip to arm. Consider kinesiotape to UT right and left elbow, and/or iontophoresis left elbow. Plan of Care Dates Plan of Care Start Date 02/21/22 Plan of Care End Date 04/23/22 Electronically Signed by: Nimisha Winchester, PT 02/22/22 [id number] If you are in agreement with this Plan of Care, please return a signed and dated copy. I have reviewed this Plan of Care and certify that the skilled therapy services above are required to meet the patient?s needs. Physician Signature Date Printed Name and Credentials Clinical Instructor Signature Printed Name and Credentials
--- NOTE | 2022-02-23 16:00 | PT.OTN ---
Current Diagnoses Cervicalgia (02/23/22) Other muscle spasm (02/23/22) Lateral epicondylitis, left elbow (02/23/22) Physical Therapy Treatment Note PT-OP-A Visit Information Start: 02/21/22 08:11 Freq: Status: Active Protocol: Document 02/23/22 10:33 SAK (Rec: 02/23/22 11:18 [facility] [id number]) Out-Patient Physical Therapy Visit Information Visit Information Visit Type Initial Evaluation Visit Start Time 10:34 Visit Stop Time 11:30 Total Visit Minutes 56 Visit Number 2 PT-OP-B Current Condition Start: 02/21/22 08:11 Freq: Status: Active Protocol: Document 02/23/22 10:33 SAK (Rec: 02/23/22 11:18 [facility] [id number]) Current Condition History of Current Condition Onset Date 9 months Current Complaints right sided neck pain History of Current Condition neck pain started 9 months ago , no known reason. Left elbow pain started December, possibly due to use of trekking pole; states tends to push instead of pull when using poles, has stopped using trekking pole on left. Also bilateral UE's hot at night, and go numb. Sleeps on side, working on bed positioning, working on posture. Elbow hurts with lifting, at night sleeping. No use of ice or heat on elbow. Uses heat on neck; worse in am. Tried chiropractic and accupuncture, not helpful on either area of pain. PT-OP-C Subjective Start: 02/21/22 08:11 Freq: Status: Active Protocol: Document 02/23/22 10:33 SAK (Rec: 02/23/22 11:18 [facility] [id number]) OP-PT Subjective Patient Comments Patient Comments Went kayaking, wore Tubigrip. Having tignling in forearm. PT-OP-H Neuro Start: 02/21/22 08:11 Freq: Status: Active Protocol: Document 02/21/22 10:34 SAK (Rec: 02/22/22 17:08 [facility] [id number]) Sensation Evaluation Gross Sensation Gross Sensation WNL PT-OP-J Posture/Palpation/Skin Start: 02/21/22 08:11 Freq: Status: Active Protocol: Document 02/21/22 10:34 SAK (Rec: 02/22/22 17:08 [facility] [id number]) Posture Evaluation Position Sitting Head/C-Spine Posture Forward Head T-Spine Posture Increased Kyphosis Shoulder Posture (L) Rounded,(R) Rounded Scapula Posture (L) Protracted,(R) Protracted Arm Posture (L) Internally Rotated,(R) Internally Rotated Palpation Assessment Location left lateral epicondyle Palpation Findings Soft Tissue Tightness, Tenderness Palpation Details soft tissue tightness extensor tendons forearm right UT, c/s Palpation Findings Soft Tissue Tightness, Tenderness PT-OP-K Range of Motion Start: 02/21/22 08:11 Freq: Status: Active Protocol: Document 02/21/22 10:34 [facility] (Rec: 02/22/22 17:08 [facility] [id number]) Cervical Spine Range of Motion Cervical Spine Active Testing Position Sitting Flexion 40 Extension 70 Rotation Left 60 Rotation Right 60 Lateral Flexion Left 25 Lateral Flexion Right 20 ROM Limitations Soft Tissue Tightness,Pain Shoulder Goniometric Range of Motion Shoulder mateo Shoulder ROM WFL Yes Elbow/Forearm Range of Motion Elbow/Forearm mateo Elbow/Forearm ROM WFL Yes Comments painful at end range left elbow extension and flexion, end-range pron. Elbow/Forearm ROM Limitations Elbow/Forearm ROM Limitations Pain Wrist Goniometric Range of Motion Wrist mateo Wrist ROM WFL Yes ROM Limitations Wrist Limitations of Range of Motion Soft Tissue Tightness,Pain Comments palpable tenderness and tightness left forearm extensor tendons, painful wrist flexion with elbow extension and fingers flexed into fist PT-OP-L Special Tests Start: 02/21/22 08:11 Freq: Status: Active Protocol: Document 02/21/22 10:34 [facility] (Rec: 02/22/22 17:08 [facility] [id number]) Special Tests Cervical Spine Special Tests Passive Neck Flexion Comments negative Traction Comments negative Foraminal Compression Comments negative Elbow Special Tests Lateral Epicondylitis Extended Test Results positive left PT-OP-M Strength Start: 02/21/22 08:11 Freq: Status: Active Protocol: Document 02/21/22 10:34 [facility] (Rec: 02/22/22 17:08 [facility] [id number]) Cervical Spine Strength Cervical Spine Manual Muscle Testing Testing Position Sitting Flexion (C1-2) 5 Normal Extension 5 Normal Rotation Left 5 Normal Rotation Right 5 Normal Shoulder Strength Shoulder Manual Muscle Testing mateo Flexion 5 Normal Extension 5 Normal Elbow/Forearm Strength Elbow and Forearm Manual Muscle Testing Left Flexion (C6) 4 Good Extension (C7) 4 Good Pronation 4 Good Supination 4 Good Comments c/o pain left elbow Right Flexion (C6) 5 Normal Extension (C7) 5 Normal Pronation 5 Normal Supination 5 Normal 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 Strength Hand Dominance Hand Dominance Right Hand Strength Left Comments painful, not done PT-OP-Q Treatments Start: 02/21/22 08:11 Freq: Status: Active Protocol: Document 02/23/22 10:33 [facility] (Rec: 02/23/22 11:18 [facility] [id number]) Therapeutic Exercises Supine Exercises foam roller Supine Exercise Name pec major and minor stretch Reps/Minutes 2x30 Sidelying Exercises open book Comments next session Sitting Exercises UE, ls, scalene stretches Reps/Minutes 5 min: 10 sec holds Comments cues for deep breathing, relax into stretches Standing Exercises wall posture Reps/Minutes 5x static, 5x dynamic UE's overhead Manual Therapy Treatment Soft Tissue Mobilization forearm extensors Mobilization Type Myofascial Release Intensity/Depth 8 Body Position Supine Taping left forearm extensors Treatment Focus inhibition and pain control Type of Tape kinesiotape Skin Inspection intact Comments modfied to fit around iontophoresis patch Self-Care/Home Management Treatment Education Other Education activity modification Activities Self-Care/Home Management Activities patient not sure if helpful. PT-OP-R Modalities Start: 02/21/22 08:11 Freq: Status: Active Protocol: Document 02/23/22 10:33 [facility] (Rec: 02/23/22 11:18 [facility] [id number]) Hot Pack/Cold Pack Treatment Hot Pack Location c/s Patient Position Hooklying Patient Tolerance Good Cold Pack Comments patient to do at home Iontophoresis Treatment left elbow Treatment Medication Dexamethasone (-) Treatment Duration (minutes) 3 Ultrasound Therapy Treatment Left Elbow Treatment Duration (minutes) 8 Patient Position Hooklying Coupling Medium Ultrasound Gel Applicator Size (cm2) 2 Frequency Setting (mHz) 3 Duty Cycle 50% Intensity Setting (w/cm2) 1.2 PT-OP-T Assessment and Plan Start: 02/21/22 08:11 Freq: Status: Active Protocol: Document 02/23/22 10:33 [facility] (Rec: 02/23/22 11:18 [facility] [id number]) Physical Therapy Assessment Goals Three Impairment Quickdash disability index score 55% Impairment decreased functional use and activity tolerance related to left elbow pain Short Term Goal (STG) decrease Quickdash score to no greater than 30% STG Duration 03/23/22 [place] Goal (LTG) Decrease Quickdash score to no greater than 10% as measure of improved functional activity tolerance left elbow. Patient to be able to kayak, lift, open jars, sleep, and use trekking pole without an increase in pain. LTG Duration 04/23/22 Two Impairment neck and shoulder disability index score 22% Impairment decreased functional use and activity tolerance related to neck/shoulder pain [place] Goal (LTG) Imrove neck and shoulder disability index score to no greater than 5% as measure of improved function and activity tolerance LTG Duration 04/23/22 One Impairment pain right cervical region and left elbow 6/10 on pain scale Short Term Goal (STG) decrease pain to no greater than 3/10 with usual activities STG Duration 03/23/22 [facility] Goal (LTG) decrease pain to no greater than 1/10 with all usual activities LTG Duration 04/23/22 Assessment Summary Assessment Patient not sure of tubigrip compression helpful for elbow, today did trial iontophoresis and kinesiotape which was modified to fit around ionto patch. Moist heat only to neck; will address further next session; patient in agreement. Physical Therapy Plan Frequency and Duration Frequency of Treatment 2x/Week Duration of Treatment 8 weeks Plan of Care Start Date 02/21/22 Plan of Care End Date 04/23/22 Therapeutic Interventions Therapeutic Interventions Home Exercise Program,Manual Therapy,Patient/Caregiver Education,Self-Care/Home Management,Soft Tissue Mobilization,Taping, Therapeutic Activities, Therapeutic Exercises Modalities Cold Pack/Ice Massage,Electric Stimulation,Hot Packs, Infrared Therapy,Iontophoresis ,Ultrasound Next Visit Focus/Plan Next Note Type Treatment Note Next Visit Plan eval response to today's treatment, ROM and manual treatment to neck, consider kinesiotape right.
--- NOTE | 2022-02-27 17:37 | PT.OTN ---
Current Diagnoses Cervicalgia (02/27/22) Other muscle spasm (02/27/22) Lateral epicondylitis, left elbow (02/27/22) Physical Therapy Treatment Note PT-OP-A Visit Information Start: 02/21/22 08:11 Freq: Status: Active Protocol: Document 02/27/22 14:23 LRN (Rec: 02/27/22 17:36 LRN [id number]) Out-Patient Physical Therapy Visit Information Visit Information Visit Type Treatment Note Visit Start Time 14:23 Visit Stop Time 15:21 Total Visit Minutes 48 Visit Number 3 Evaluation Information Evaluation Date 02/21/22 PT-OP-B Current Condition Start: 02/21/22 08:11 Freq: Status: Active Protocol: Document 02/23/22 10:33 SAK (Rec: 02/23/22 11:18 SAK [id number]) Current Condition History of Current Condition Onset Date 9 months Current Complaints right sided neck pain History of Current Condition neck pain started 9 months ago , no known reason. Left elbow pain started December, possibly due to use of trekking pole; states tends to push instead of pull when using poles, has stopped using trekking pole on left. Also bilateral UE's hot at night, and go numb. Sleeps on side, working on bed positioning, working on posture. Elbow hurts with lifting, at night sleeping. No use of ice or heat on elbow. Uses heat on neck; worse in am. Tried chiropractic and accupuncture, not helpful on either area of pain. PT-OP-C Subjective Start: 02/21/22 08:11 Freq: Status: Active Protocol: Document 02/27/22 14:23 LRN (Rec: 02/27/22 17:36 LRN [id number]) OP-PT Subjective Patient Comments Patient Comments States she thinks the Ultrasound and Ionto patch was helpful. Didn't think the K- tape made any difference. PT-OP-H Neuro Start: 02/21/22 08:11 Freq: Status: Active Protocol: Document 02/21/22 10:34 SAK (Rec: 02/22/22 17:08 SAK [id number]) Sensation Evaluation Gross Sensation Gross Sensation WNL PT-OP-J Posture/Palpation/Skin Start: 02/21/22 08:11 Freq: Status: Active Protocol: Document 02/21/22 10:34 SAK (Rec: 02/22/22 17:08 [facility] [id number]) Posture Evaluation Position Sitting Head/C-Spine Posture Forward Head T-Spine Posture Increased Kyphosis Shoulder Posture (L) Rounded,(R) Rounded Scapula Posture (L) Protracted,(R) Protracted Arm Posture (L) Internally Rotated,(R) Internally Rotated Palpation Assessment Location left lateral epicondyle Palpation Findings Soft Tissue Tightness, Tenderness Palpation Details soft tissue tightness extensor tendons forearm right UT, c/s Palpation Findings Soft Tissue Tightness, Tenderness PT-OP-K Range of Motion Start: 02/21/22 08:11 Freq: Status: Active Protocol: Document 02/21/22 10:34 [facility] (Rec: 02/22/22 17:08 [facility] [id number]) Cervical Spine Range of Motion Cervical Spine Active Testing Position Sitting Flexion 40 Extension 70 Rotation Left 60 Rotation Right 60 Lateral Flexion Left 25 Lateral Flexion Right 20 ROM Limitations Soft Tissue Tightness,Pain Shoulder Goniometric Range of Motion Shoulder arya Shoulder ROM WFL Yes Elbow/Forearm Range of Motion Elbow/Forearm arya Elbow/Forearm ROM WFL Yes Comments painful at end range left elbow extension and flexion, end-range pron. Elbow/Forearm ROM Limitations Elbow/Forearm ROM Limitations Pain Wrist Goniometric Range of Motion Wrist arya Wrist ROM WFL Yes ROM Limitations Wrist Limitations of Range of Motion Soft Tissue Tightness,Pain Comments palpable tenderness and tightness left forearm extensor tendons, painful wrist flexion with elbow extension and fingers flexed into fist PT-OP-L Special Tests Start: 02/21/22 08:11 Freq: Status: Active Protocol: Document 02/21/22 10:34 [facility] (Rec: 02/22/22 17:08 [facility] [id number]) Special Tests Cervical Spine Special Tests Passive Neck Flexion Comments negative Traction Comments negative Foraminal Compression Comments negative Elbow Special Tests Lateral Epicondylitis Extended Test Results positive left PT-OP-M Strength Start: 02/21/22 08:11 Freq: Status: Active Protocol: Document 02/21/22 10:34 [facility] (Rec: 02/22/22 17:08 [facility] [id number]) Cervical Spine Strength Cervical Spine Manual Muscle Testing Testing Position Sitting Flexion (C1-2) 5 Normal Extension 5 Normal Rotation Left 5 Normal Rotation Right 5 Normal Shoulder Strength Shoulder Manual Muscle Testing arya Flexion 5 Normal Extension 5 Normal Elbow/Forearm Strength Elbow and Forearm Manual Muscle Testing Left Flexion (C6) 4 Good Extension (C7) 4 Good Pronation 4 Good Supination 4 Good Comments c/o pain left elbow Right Flexion (C6) 5 Normal Extension (C7) 5 Normal Pronation 5 Normal Supination 5 Normal Hand 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/Pinch Strength Hand Dominance Hand Dominance Right Hand Strength Left Comments painful, not done PT-OP-Q Treatments Start: 02/21/22 08:11 Freq: Status: Active Protocol: Document 02/27/22 14:23 LRN (Rec: 02/27/22 17:36 LR [id number]) Therapeutic Exercises Supine Exercises foam roller Supine Exercise Name 1/2 foam roller Reps/Minutes 2' Sitting Exercises UE, ls, scalene stretches Sitting Exercise Name Focus on Neck R rot & R SB Active stretch Reps/Minutes 4' Manual Therapy Treatment Soft Tissue Mobilization L Pecs Body Location L Pec Minor>Major Mobilization Type Myofascial Release,Sustained Pressure Intensity/Depth Superficial>Moderate Body Position Hooklying Posterior Scalenes Body Location R Posterior Scalenes Mobilization Type Myofascial Release Intensity/Depth Moderate Body Position Hooklying Comments R neck rot > L rot UT Body Location Arya UT Mobilization Type Myofascial Release,Sustained Pressure,Trigger Point Release Intensity/Depth Moderate Body Position Hooklying Comments Trigger Point Release at L UT. R SB > L SB forearm extensors Mobilization Type Myofascial Release Intensity/Depth 5 Body Position Supine Manual Traction Cervical Details Axial traction Body Position Hooklying Reps/Duration 3' Comments Before & after L elbow treatment Self-Care/Home Management Treatment Education Other Education Educated and discussed use of L wrist splint to limit L wrist flex during Kayaking. Activities Self-Care/Home Management Activities I/S pt to wear L wrist splint during Kayaking to protect L wrist extensors at Lateral Epicondyle. PT-OP-R Modalities Start: 02/21/22 08:11 Freq: Status: Active Protocol: Document 02/27/22 14:23 LRN (Rec: 02/27/22 17:36 LR [id number]) Iontophoresis Treatment left elbow Treatment Medication Dexamethasone (-) Treatment Duration (minutes) 3 Ultrasound Therapy Treatment Left Elbow Treatment Duration (minutes) 8 Patient Position Hooklying Coupling Medium Ultrasound Gel Applicator Size (cm2) 2 Frequency Setting (mHz) 3 Duty Cycle 50% Intensity Setting (w/cm2) 1.2 PT-OP-T Assessment and Plan Start: 02/21/22 08:11 Freq: Status: Active Protocol: Document 02/27/22 14:23 LRN (Rec: 02/27/22 17:36 LRN [id number]) Physical Therapy Assessment Goals Three Impairment Quickdash disability index score 55% Impairment decreased functional use and activity tolerance related to left elbow pain Short Term Goal (STG) decrease Quickdash score to no greater than 30% STG Duration 03/23/22 Last Model Department Supervisor Goal (LTG) Decrease Quickdash score to no greater than 10% as measure of improved functional activity tolerance left elbow. Patient to be able to kayak, lift, open jars, sleep, and use trekking pole without an increase in pain. LTG Duration 04/23/22 Two Impairment neck and shoulder disability index score 22% Impairment decreased functional use and activity tolerance related to neck/shoulder pain Last Model Department Supervisor Goal (LTG) Imrove neck and shoulder disability index score to no greater than 5% as measure of improved function and activity tolerance LTG Duration 04/23/22 One Impairment pain right cervical region and left elbow 6/10 on pain scale Short Term Goal (STG) decrease pain to no greater than 3/10 with usual activities STG Duration 03/23/22 Last Model Department Supervisor Goal (LTG) decrease pain to no greater than 1/10 with all usual activities LTG Duration 04/23/22 Assessment Summary Assessment Pt found previous use of US & Iontophoresis helpful, but no significant change with wearing of K-tape. Pt neck mobility limited greater with R rot & SB, and L UT trP more tender than R UT. Physical Therapy Plan Next Visit Focus/Plan Next Note Type Treatment Note Next Visit Plan eval response to treatment with pt wearing L wrist splint , ROM and manual treatment to neck, consider kinesiotape right.
--- NOTE | 2022-03-03 11:15 | PT.OTN ---
Current Diagnoses Cervicalgia (03/03/22) Other muscle spasm (03/03/22) Lateral epicondylitis, left elbow (03/03/22) Physical Therapy Treatment Note PT-OP-A Visit Information Start: 02/21/22 08:11 Freq: Status: Active Protocol: Document 03/03/22 10:31 SP (Rec: 03/03/22 11:47 SP [id number]) Out-Patient Physical Therapy Visit Information Visit Information Visit Type Treatment Note Visit Start Time 10:31 Visit Stop Time 11:15 Total Visit Minutes 44 Visit Number 4 Number of BROADCAST JOURNALIST Visits 1 Evaluation Information Evaluation Date 02/21/22 PT-OP-B Current Condition Start: 02/21/22 08:11 Freq: Status: Active Protocol: Document 02/23/22 10:33 SAK (Rec: 02/23/22 11:18 SAK [id number]) Current Condition History of Current Condition Onset Date 9 months Current Complaints right sided neck pain History of Current Condition neck pain started 9 months ago , no known reason. Left elbow pain started December, possibly due to use of trekking pole; states tends to push instead of pull when using poles, has stopped using trekking pole on left. Also bilateral UE's hot at night, and go numb. Sleeps on side, working on bed positioning, working on posture. Elbow hurts with lifting, at night sleeping. No use of ice or heat on elbow. Uses heat on neck; worse in am. Tried chiropractic and accupuncture, not helpful on either area of pain. PT-OP-C Subjective Start: 02/21/22 08:11 Freq: Status: Active Protocol: Document 03/03/22 10:31 SP (Rec: 03/03/22 11:47 SP [id number]) OP-PT Subjective Patient Comments Patient Comments Pt reports thinks hurt lateral L elbow with firm gripping while pushing down with trek poles going up/down inclined along with kayaking activities . She stated responded well to last tx, not significant gone but felt the patch, manual, US was helpful and wanting to repeat. She stated didnt have a wrist brace but thought about using her roller blade wrist brace but worried about it restricting her wrist movement. PT-OP-H Neuro Start: 02/21/22 08:11 Freq: Status: Active Protocol: Document 02/21/22 10:34 [facility] (Rec: 02/22/22 17:08 [facility] [id number]) Sensation Evaluation Gross Sensation Gross Sensation WNL PT-OP-J Posture/Palpation/Skin Start: 02/21/22 08:11 Freq: Status: Active Protocol: Document 02/21/22 10:34 [facility] (Rec: 02/22/22 17:08 [facility] [id number]) Posture Evaluation Position Sitting Head/C-Spine Posture Forward Head T-Spine Posture Increased Kyphosis Shoulder Posture (L) Rounded,(R) Rounded Scapula Posture (L) Protracted,(R) Protracted Arm Posture (L) Internally Rotated,(R) Internally Rotated Palpation Assessment Location left lateral epicondyle Palpation Findings Soft Tissue Tightness, Tenderness Palpation Details soft tissue tightness extensor tendons forearm right UT, c/s Palpation Findings Soft Tissue Tightness, Tenderness PT-OP-K Range of Motion Start: 02/21/22 08:11 Freq: Status: Active Protocol: Document 02/21/22 10:34 [facility] (Rec: 02/22/22 17:08 [facility] [id number]) Cervical Spine Range of Motion Cervical Spine Active Testing Position Sitting Flexion 40 Extension 70 Rotation Left 60 Rotation Right 60 Lateral Flexion Left 25 Lateral Flexion Right 20 ROM Limitations Soft Tissue Tightness,Pain Shoulder Goniometric Range of Motion Shoulder arya Shoulder ROM WFL Yes Elbow/Forearm Range of Motion Elbow/Forearm arya Elbow/Forearm ROM WFL Yes Comments painful at end range left elbow extension and flexion, end-range pron. Elbow/Forearm ROM Limitations Elbow/Forearm ROM Limitations Pain Wrist Goniometric Range of Motion Wrist arya Wrist ROM WFL Yes ROM Limitations Wrist Limitations of Range of Motion Soft Tissue Tightness,Pain Comments palpable tenderness and tightness left forearm extensor tendons, painful wrist flexion with elbow extension and fingers flexed into fist PT-OP-L Special Tests Start: 02/21/22 08:11 Freq: Status: Active Protocol: Document 02/21/22 10:34 [facility] (Rec: 02/22/22 17:08 [facility] [id number]) Special Tests Cervical Spine Special Tests Passive Neck Flexion Comments negative Traction Comments negative Foraminal Compression Comments negative Elbow Special Tests Lateral Epicondylitis Extended Test Results positive left PT-OP-M Strength Start: 02/21/22 08:11 Freq: Status: Active Protocol: Document 02/21/22 10:34 [facility] (Rec: 02/22/22 17:08 [facility] [id number]) Cervical Spine Strength Cervical Spine Manual Muscle Testing Testing Position Sitting Flexion (C1-2) 5 Normal Extension 5 Normal Rotation Left 5 Normal Rotation Right 5 Normal Shoulder Strength Shoulder Manual Muscle Testing arya Flexion 5 Normal Extension 5 Normal Elbow/Forearm Strength Elbow and Forearm Manual Muscle Testing Left Flexion (C6) 4 Good Extension (C7) 4 Good Pronation 4 Good Supination 4 Good Comments c/o pain left elbow Right Flexion (C6) 5 Normal Extension (C7) 5 Normal Pronation 5 Normal Supination 5 Normal Hand Continuity Manager/Pinch Strength Hand Dominance Hand Dominance Right Hand Strength Left Comments painful, not done PT-OP-Q Treatments Start: 02/21/22 08:11 Freq: Status: Active Protocol: Document 03/03/22 10:31 SP (Rec: 03/03/22 11:47 SP [id number]) Therapeutic Exercises Sidelying Exercises open book Sidelying Exercise Name R>L scapulothoracic ROM Comments please add next session Sitting Exercises UE, ls, scalene stretches Sitting Exercise Name UT, LS, scalene stretching- continue to review Side right Equipment Used cued can use opp UE for gentle over pressure Reps/Minutes 5 min: 10 sec holds Comments cues for deep breathing, relax into stretches Manual Therapy Treatment Soft Tissue Mobilization Posterior Scalenes Body Location R Posterior Scalenes Mobilization Type Myofascial Release Intensity/Depth Moderate Body Position Hooklying Comments R neck rot > L rot UT Body Location Arya UT Mobilization Type Myofascial Release,Sustained Pressure,Trigger Point Release Intensity/Depth Moderate Body Position Hooklying Comments Trigger Point Release at L UT. w/ MWM into R SB > L SB, rotation, flex small range. Discussed and pt performed use of theracane MWM over manualed in tx areas with good feedback response. forearm extensors Body Location L CET lateral ulna and humerus Mobilization Type Myofascial Release,Strumming, Sustained Pressure Intensity/Depth 5 Body Position Supine Comments also incorportated wrist flex/ ext, review next tx sustained pressure MWM self application. Taping edema taping Body Location L posterolateral CET to distal humerus Treatment Focus lymphedema return Type of Tape Kinesio Tape Skin Inspection normal intact and color Comments 1 anchor to 3 strands fluid return. Self-Care/Home Management Treatment Education Patient Education Body Mechanics,Joint Protection,Posture Other Education Reviewed ed use of L wrist splint to limit L wrist flex and lat epicondyle pillow strap L inferior CET during Kayaking. Education proper downward pressure on trek pole strap through palm hand lessons spinner operator needed for WB into RLE and use of tricep and not flexor tendons. Pt understanding use of CP and rest healing recommended, but she states challenging not performing her outdoor activities. Will take into account modifications. PT-OP-R Modalities Start: 02/21/22 08:11 Freq: Status: Active Protocol: Document 03/03/22 10:31 SP (Rec: 03/03/22 11:47 SP [id number]) Hot Pack/Cold Pack Treatment Cold Pack Location L Lateral Epicondyle during manual neck Patient Position Hooklying Treatment Duration (minutes) 8 Patient Tolerance Good Comments patient to continue at home for swelling and pain mgt. Iontophoresis Treatment left elbow Treatment Medication Dexamethasone (-) Medication Amount (mL) (ml) 1.0 Medication Dosage 4mg/mL Treatment Polarity Negative to Negative Active Electrode Placement L CET (4 hrs) Treatment Duration (minutes) 240 Patient Tolerance Good Ultrasound Therapy Treatment Left Elbow Treatment Duration (minutes) 8 Patient Position Hooklying Coupling Medium Ultrasound Gel Applicator Size (cm2) 2 Frequency Setting (mHz) 3 Duty Cycle 50% Intensity Setting (w/cm2) 1.2 Comments good response, L CET at proximal ulna and distal humerus PT-OP-T Assessment and Plan Start: 02/21/22 08:11 Freq: Status: Active Protocol: Document 03/03/22 10:31 SP (Rec: 03/03/22 11:47 SP [id number]) Physical Therapy Assessment Goals Three Impairment Quickdash disability index score 55% Impairment decreased functional use and activity tolerance related to left elbow pain Short Term Goal (STG) decrease Quickdash score to no greater than 30% STG Duration 03/23/22 Bookmobile Clerk Goal (LTG) Decrease Quickdash score to no greater than 10% as measure of improved functional activity tolerance left elbow. Patient to be able to kayak, lift, open jars, sleep, and use trekking pole without an increase in pain. LTG Duration 04/23/22 Two Impairment neck and shoulder disability index score 22% Impairment decreased functional use and activity tolerance related to neck/shoulder pain [facility] Goal (LTG) Imrove neck and shoulder disability index score to no greater than 5% as measure of improved function and activity tolerance LTG Duration 04/23/22 One Impairment pain right cervical region and left elbow 6/10 on pain scale Short Term Goal (STG) decrease pain to no greater than 3/10 with usual activities STG Duration 03/23/22 Bookmobile Clerk Goal (LTG) decrease pain to no greater than 1/10 with all usual activities LTG Duration 04/23/22 Assessment Summary Assessment Pt good feedback response to manual, modalities, ktaping edema today, HEP review neck stretching and time spent MWM self application manual with theracane and hold with trekpole to allow decrease CET recruitment, use of wrist and lat epicondyle strap to allow continue activity but understands may need to modify or take breaks/modifications with activity depending on response. pt Physical Therapy Plan Frequency and Duration Frequency of Treatment 2x/Week Duration of Treatment 8 weeks Plan of Care Start Date 02/21/22 Plan of Care End Date 04/23/22 Therapeutic Interventions Therapeutic Interventions Home Exercise Program,Manual Therapy,Patient/Caregiver Education,Self-Care/Home Management,Soft Tissue Mobilization,Taping, Therapeutic Activities, Therapeutic Exercises Modalities Cold Pack/Ice Massage,Electric Stimulation,Hot Packs, Infrared Therapy,Iontophoresis ,Ultrasound Next Visit Focus/Plan Next Note Type Treatment Note Next Visit Plan Response to edema kataping, if used lat epicondyle strap and wrist splint during outdoor activities. Next tx assess if can reapply ktaping inhibit CET recruitment vs strap. Assess if can add eccentric wrist flexion TB for tension elongation. POC: ROM and manual treatment to neck, consider kinesiotape right.
--- NOTE | 2022-03-14 11:22 | PT.OTN ---
Current Diagnoses Cervicalgia (03/14/22) Other muscle spasm (03/14/22) Lateral epicondylitis, left elbow (03/14/22) Physical Therapy Treatment Note PT-OP-A Visit Information Start: 02/21/22 08:11 Freq: Status: Active Protocol: Document 03/14/22 10:35 SP (Rec: 03/14/22 11:33 SP [id number]) Out-Patient Physical Therapy Visit Information Visit Information Visit Type Treatment Note Visit Start Time 10:35 Visit Stop Time 11:22 Total Visit Minutes 48 Visit Number 5 Number of PROGRAM MANAGEMENT SPECIALIST Visits 2 Evaluation Information Evaluation Date 02/21/22 PT-OP-B Current Condition Start: 02/21/22 08:11 Freq: Status: Active Protocol: Document 02/23/22 10:33 SAK (Rec: 02/23/22 11:18 SAK [id number]) Current Condition History of Current Condition Onset Date 9 months Current Complaints right sided neck pain History of Current Condition neck pain started 9 months ago , no known reason. Left elbow pain started December, possibly due to use of trekking pole; states tends to push instead of pull when using poles, has stopped using trekking pole on left. Also bilateral UE's hot at night, and go numb. Sleeps on side, working on bed positioning, working on posture. Elbow hurts with lifting, at night sleeping. No use of ice or heat on elbow. Uses heat on neck; worse in am. Tried chiropractic and accupuncture, not helpful on either area of pain. PT-OP-C Subjective Start: 02/21/22 08:11 Freq: Status: Active Protocol: Document 03/14/22 10:35 SP (Rec: 03/14/22 11:33 SP [id number]) OP-PT Subjective Patient Comments Patient Comments Pt reported not as much pain over L UE CET but more into mid forearm extensors now and weakness with wrist extension lifting objects, transformation lead strength not good. Pt stated modified LUE into supination during kayaking and not having pain to perform rowing. PT-OP-H Neuro Start: 02/21/22 08:11 Freq: Status: Active Protocol: Document 02/21/22 10:34 SAK (Rec: 02/22/22 17:08 SAK [id number]) Sensation Evaluation Gross Sensation Gross Sensation WNL PT-OP-J Posture/Palpation/Skin Start: 02/21/22 08:11 Freq: Status: Active Protocol: Document 02/21/22 10:34 [facility] (Rec: 02/22/22 17:08 [facility] [id number]) Posture Evaluation Position Sitting Head/C-Spine Posture Forward Head T-Spine Posture Increased Kyphosis Shoulder Posture (L) Rounded,(R) Rounded Scapula Posture (L) Protracted,(R) Protracted Arm Posture (L) Internally Rotated,(R) Internally Rotated Palpation Assessment Location left lateral epicondyle Palpation Findings Soft Tissue Tightness, Tenderness Palpation Details soft tissue tightness extensor tendons forearm right UT, c/s Palpation Findings Soft Tissue Tightness, Tenderness PT-OP-K Range of Motion Start: 02/21/22 08:11 Freq: Status: Active Protocol: Document 02/21/22 10:34 SAK (Rec: 02/22/22 17:08 [facility] [id number]) Cervical Spine Range of Motion Cervical Spine Active Testing Position Sitting Flexion 40 Extension 70 Rotation Left 60 Rotation Right 60 Lateral Flexion Left 25 Lateral Flexion Right 20 ROM Limitations Soft Tissue Tightness,Pain Shoulder Goniometric Range of Motion Shoulder mateo Shoulder ROM WFL Yes Elbow/Forearm Range of Motion Elbow/Forearm mateo Elbow/Forearm ROM WFL Yes Comments painful at end range left elbow extension and flexion, end-range pron. Elbow/Forearm ROM Limitations Elbow/Forearm ROM Limitations Pain Wrist Goniometric Range of Motion Wrist mateo Wrist ROM WFL Yes ROM Limitations Wrist Limitations of Range of Motion Soft Tissue Tightness,Pain Comments palpable tenderness and tightness left forearm extensor tendons, painful wrist flexion with elbow extension and fingers flexed into fist PT-OP-L Special Tests Start: 02/21/22 08:11 Freq: Status: Active Protocol: Document 02/21/22 10:34 [facility] (Rec: 02/22/22 17:08 [facility] [id number]) Special Tests Cervical Spine Special Tests Passive Neck Flexion Comments negative Traction Comments negative Foraminal Compression Comments negative Elbow Special Tests Lateral Epicondylitis Extended Test Results positive left PT-OP-M Strength Start: 02/21/22 08:11 Freq: Status: Active Protocol: Document 02/21/22 10:34 SAK (Rec: 02/22/22 17:08 [facility] [id number]) Cervical Spine Strength Cervical Spine Manual Muscle Testing Testing Position Sitting Flexion (C1-2) 5 Normal Extension 5 Normal Rotation Left 5 Normal Rotation Right 5 Normal Shoulder Strength Shoulder Manual Muscle Testing mateo Flexion 5 Normal Extension 5 Normal Elbow/Forearm Strength Elbow and Forearm Manual Muscle Testing Left Flexion (C6) 4 Good Extension (C7) 4 Good Pronation 4 Good Supination 4 Good Comments c/o pain left elbow Right Flexion (C6) 5 Normal Extension (C7) 5 Normal Pronation 5 Normal Supination 5 Normal Hand Synthetic Staple Extruder/Pinch Strength Hand Dominance Hand Dominance Right Hand Strength Left Comments painful, not done PT-OP-Q Treatments Start: 02/21/22 08:11 Freq: Status: Active Protocol: Document 03/14/22 10:35 SP (Rec: 03/14/22 11:33 SP [id number]) Therapeutic Exercises Sitting Exercises wrist strengthening Sitting Exercise Name L wrist eccentric flexion, pronation, supination- added to HEP Side left Resistance TB #1 Reps/Minutes x10 each direction Comments good response eccentric lengthening emphasis, little discomf 2/10 ecc pron UE, ls, scalene stretches Sitting Exercise Name UT, LS, scalene stretching- continue to review Side right Equipment Used cued can use opp UE for gentle over pressure Reps/Minutes 5 min: 10 sec holds Comments cues for deep breathing, relax into stretches Manual Therapy Treatment Soft Tissue Mobilization UT Body Location R UT, LS Mobilization Type Strumming,Sustained Pressure, Trigger Point Release Intensity/Depth Moderate Body Position Hooklying Comments Trigger Point Release at L UT & LS. w/ MWM into R SB > L SB, CS rotation/ head nod flex/ ext small range. Reviewed pt performed using her theracane MWM over tx areas with good feedback response/ understanding. forearm extensors Body Location L CET lateral ulna and humerus Mobilization Type Myofascial Release,Strumming, Sustained Pressure Intensity/Depth 5 Body Position Supine Comments also incorportated wrist flex/ ext, review next tx sustained pressure MWM self application. Joint Mobilizations L elbow Direction med, lat, inferior glides Grade II Body Position Hooklying Reps/Duration 3 min Comments good feedback little distraction painfree Self-Care/Home Management Treatment Education Patient Education Pain Management Other Education Discussed L elbow epicondyle strap below CET for comfort during activities with BUE only needed. Discussed ok to utilize supination with awareness of shld positioning for comfort alignment and not over use mechanics. PT-OP-R Modalities Start: 02/21/22 08:11 Freq: Status: Active Protocol: Document 03/14/22 10:35 SP (Rec: 03/14/22 11:33 SP [id number]) Hot Pack/Cold Pack Treatment ice cup Location L forearm extensors, CET Patient Position Sitting Treatment Duration (minutes) 3 Patient Tolerance Good Comments cold, numb- good feedback response Iontophoresis Treatment left elbow Treatment Medication Dexamethasone (-) Medication Amount (mL) (ml) 1.0 Medication Dosage 4mg/mL Treatment Polarity Negative to Negative Active Electrode Placement L CET (4 hrs) Treatment Duration (minutes) 240 Patient Tolerance Good PT-OP-T Assessment and Plan Start: 02/21/22 08:11 Freq: Status: Active Protocol: Document 03/14/22 10:35 SP (Rec: 03/14/22 11:33 SP [id number]) Physical Therapy Assessment Goals Three Impairment Quickdash disability index score 55% Impairment decreased functional use and activity tolerance related to left elbow pain Short Term Goal (STG) decrease Quickdash score to no greater than 30% STG Duration 03/23/22 Completions Engineer Goal (LTG) Decrease Quickdash score to no greater than 10% as measure of improved functional activity tolerance left elbow. Patient to be able to kayak, lift, open jars, sleep, and use trekking pole without an increase in pain. LTG Duration 04/23/22 Two Impairment neck and shoulder disability index score 22% Impairment decreased functional use and activity tolerance related to neck/shoulder pain Halfway Goal (LTG) Imrove neck and shoulder disability index score to no greater than 5% as measure of improved function and activity tolerance LTG Duration 04/23/22 One Impairment pain right cervical region and left elbow 6/10 on pain scale Short Term Goal (STG) decrease pain to no greater than 3/10 with usual activities STG Duration 03/23/22 Completions Engineer Goal (LTG) decrease pain to no greater than 1/10 with all usual activities LTG Duration 04/23/22 Assessment Summary Assessment Good feedback response to manual over R UT/LS and forearm extensors, able to add eccentric light strengthening to L forearms extensors without pain almost a stretch response. Good response to ice cup and wanted iontophoresis reapplied for comfort. Physical Therapy Plan Frequency and Duration Frequency of Treatment 2x/Week Duration of Treatment 8 weeks Plan of Care Start Date 02/21/22 Plan of Care End Date 04/23/22 Therapeutic Interventions Therapeutic Interventions Home Exercise Program,Manual Therapy,Patient/Caregiver Education,Self-Care/Home Management,Soft Tissue Mobilization,Taping, Therapeutic Activities, Therapeutic Exercises Modalities Cold Pack/Ice Massage,Electric Stimulation,Hot Packs, Infrared Therapy,Iontophoresis ,Ultrasound Next Visit Focus/Plan Next Note Type Treatment Note Next Visit Plan Response to edema kataping, if used lat epicondyle strap and wrist splint during outdoor activities. Next tx assess if can reapply ktaping inhibit CET recruitment vs strap. Assess if can add eccentric wrist flexion TB for tension elongation. POC: ROM and manual treatment to neck, consider kinesiotape right.
--- NOTE | 2022-03-21 17:52 | PT.OTN ---
Current Diagnoses Cervicalgia (03/21/22) Other muscle spasm (03/21/22) Lateral epicondylitis, left elbow (03/21/22) Physical Therapy Treatment Note PT-OP-A Visit Information Start: 02/21/22 08:11 Freq: Status: Active Protocol: Document 03/14/22 10:35 SP (Rec: 03/14/22 11:33 SP [id number]) Out-Patient Physical Therapy Visit Information Visit Information Visit Type Treatment Note Visit Start Time 10:35 Visit Stop Time 11:22 Total Visit Minutes 48 Visit Number 5 Number of [employer] Visits 2 Evaluation Information Evaluation Date 02/21/22 PT-OP-B Current Condition Start: 02/21/22 08:11 Freq: Status: Active Protocol: Document 02/23/22 10:33 SAK (Rec: 02/23/22 11:18 SAK [id number]) Current Condition History of Current Condition Onset Date 9 months Current Complaints right sided neck pain History of Current Condition neck pain started 9 months ago , no known reason. Left elbow pain started December, possibly due to use of trekking pole; states tends to push instead of pull when using poles, has stopped using trekking pole on left. Also bilateral UE's hot at night, and go numb. Sleeps on side, working on bed positioning, working on posture. Elbow hurts with lifting, at night sleeping. No use of ice or heat on elbow. Uses heat on neck; worse in am. Tried chiropractic and accupuncture, not helpful on either area of pain. PT-OP-C Subjective Start: 02/21/22 08:11 Freq: Status: Active Protocol: Document 03/21/22 10:33 SAK (Rec: 03/21/22 11:20 SAK [id number]) OP-PT Subjective Patient Comments Patient Comments Neck seems to be better, maybe somewhat due to pillow, elbow a little better, not using pole on left, modifying paddle stroke. PT-OP-H Neuro Start: 02/21/22 08:11 Freq: Status: Active Protocol: Document 02/21/22 10:34 SAK (Rec: 02/22/22 17:08 SAK [id number]) Sensation Evaluation Gross Sensation Gross Sensation WNL PT-OP-J Posture/Palpation/Skin Start: 02/21/22 08:11 Freq: Status: Active Protocol: Document 02/21/22 10:34 [facility] (Rec: 02/22/22 17:08 [facility] [id number]) Posture Evaluation Position Sitting Head/C-Spine Posture Forward Head T-Spine Posture Increased Kyphosis Shoulder Posture (L) Rounded,(R) Rounded Scapula Posture (L) Protracted,(R) Protracted Arm Posture (L) Internally Rotated,(R) Internally Rotated Palpation Assessment Location left lateral epicondyle Palpation Findings Soft Tissue Tightness, Tenderness Palpation Details soft tissue tightness extensor tendons forearm right UT, c/s Palpation Findings Soft Tissue Tightness, Tenderness PT-OP-K Range of Motion Start: 02/21/22 08:11 Freq: Status: Active Protocol: Document 02/21/22 10:34 [facility] (Rec: 02/22/22 17:08 [facility] [id number]) Cervical Spine Range of Motion Cervical Spine Active Testing Position Sitting Flexion 40 Extension 70 Rotation Left 60 Rotation Right 60 Lateral Flexion Left 25 Lateral Flexion Right 20 ROM Limitations Soft Tissue Tightness,Pain Shoulder Goniometric Range of Motion Shoulder mateo Shoulder ROM WFL Yes Elbow/Forearm Range of Motion Elbow/Forearm mateo Elbow/Forearm ROM WFL Yes Comments painful at end range left elbow extension and flexion, end-range pron. Elbow/Forearm ROM Limitations Elbow/Forearm ROM Limitations Pain Wrist Goniometric Range of Motion Wrist mateo Wrist ROM WFL Yes ROM Limitations Wrist Limitations of Range of Motion Soft Tissue Tightness,Pain Comments palpable tenderness and tightness left forearm extensor tendons, painful wrist flexion with elbow extension and fingers flexed into fist PT-OP-L Special Tests Start: 02/21/22 08:11 Freq: Status: Active Protocol: Document 02/21/22 10:34 [facility] (Rec: 02/22/22 17:08 [facility] [id number]) Special Tests Cervical Spine Special Tests Passive Neck Flexion Comments negative Traction Comments negative Foraminal Compression Comments negative Elbow Special Tests Lateral Epicondylitis Extended Test Results positive left PT-OP-M Strength Start: 02/21/22 08:11 Freq: Status: Active Protocol: Document 02/21/22 10:34 [facility] (Rec: 02/22/22 17:08 [facility] [id number]) Cervical Spine Strength Cervical Spine Manual Muscle Testing Testing Position Sitting Flexion (C1-2) 5 Normal Extension 5 Normal Rotation Left 5 Normal Rotation Right 5 Normal Shoulder Strength Shoulder Manual Muscle Testing mateo Flexion 5 Normal Extension 5 Normal Elbow/Forearm Strength Elbow and Forearm Manual Muscle Testing Left Flexion (C6) 4 Good Extension (C7) 4 Good Pronation 4 Good Supination 4 Good Comments c/o pain left elbow Right Flexion (C6) 5 Normal Extension (C7) 5 Normal Pronation 5 Normal Supination 5 Normal Hand Transportation Logistics Internship/Pinch Strength Hand Dominance Hand Dominance Right Hand Strength Left Comments painful, not done PT-OP-Q Treatments Start: 02/21/22 08:11 Freq: Status: Active Protocol: Document 03/21/22 10:33 [facility] (Rec: 03/21/22 17:52 [facility] [id number]) Therapeutic Exercises Sidelying Exercises open book Reps/Minutes 5 x Comments added to HEP, verbal and tactile cues Sitting Exercises wrist strengthening Sitting Exercise Name L wrist eccentric flexion, pronation, supination- added to HEP Side left Resistance TB #1 Reps/Minutes x10 each direction Comments good response eccentric lengthening emphasis, little discomf 2/10 ecc pron UE, ls, scalene stretches Sitting Exercise Name UT, LS, scalene stretching- continue to review Side right Equipment Used cued can use opp UE for gentle over pressure Reps/Minutes 5 min: 10 sec holds Comments cues for deep breathing, relax into stretches Manual Therapy Treatment Soft Tissue Mobilization UT Body Location R UT, LS Mobilization Type Strumming,Sustained Pressure, Trigger Point Release Intensity/Depth Moderate Body Position Hooklying Comments Trigger Point Release at L UT & LS. w/ MWM into R SB > L SB, CS rotation/ head nod flex/ ext small range. Reviewed pt performed using her theracane MWM over tx areas with good feedback response/ understanding. forearm extensors Body Location L CET lateral ulna and humerus Mobilization Type Instrument Assisted,Myofascial Release,Strumming Intensity/Depth 5 Body Position Supine Comments also incorportated wrist flex/ ext, review next tx sustained pressure MWM self application. PT-OP-R Modalities Start: 02/21/22 08:11 Freq: Status: Active Protocol: Document 03/21/22 10:33 [facility] (Rec: 03/21/22 17:52 [facility] [id number]) Hot Pack/Cold Pack Treatment Hot Pack Location c/s Patient Position Hooklying Patient Tolerance Good Iontophoresis Treatment left elbow Treatment Medication Dexamethasone (-) Medication Amount (mL) (ml) 1.0 Medication Dosage 4mg/mL Treatment Polarity Negative to Negative Active Electrode Placement L CET (4 hrs) Treatment Duration (minutes) 240 Patient Tolerance Good Ultrasound Therapy Treatment Left Elbow Treatment Duration (minutes) 8 Patient Position Hooklying Coupling Medium Ultrasound Gel Applicator Size (cm2) 2 Frequency Setting (mHz) 3 Duty Cycle 50% Intensity Setting (w/cm2) 1.2 Comments good response, L CET at proximal ulna and distal humerus PT-OP-T Assessment and Plan Start: 02/21/22 08:11 Freq: Status: Active Protocol: Document 03/21/22 10:33 [facility] (Rec: 03/21/22 17:52 [facility] [id number]) Physical Therapy Assessment Goals Three Impairment Quickdash disability index score 55% Impairment decreased functional use and activity tolerance related to left elbow pain Short Term Goal (STG) decrease Quickdash score to no greater than 30% STG Duration 03/23/22 Hydrotreater Operator Goal (LTG) Decrease Quickdash score to no greater than 10% as measure of improved functional activity tolerance left elbow. Patient to be able to kayak, lift, open jars, sleep, and use trekking pole without an increase in pain. LTG Duration 04/23/22 Two Impairment neck and shoulder disability index score 22% Impairment decreased functional use and activity tolerance related to neck/shoulder pain Hydrotreater Operator Goal (LTG) Imrove neck and shoulder disability index score to no greater than 5% as measure of improved function and activity tolerance LTG Duration 04/23/22 One Impairment pain right cervical region and left elbow 6/10 on pain scale Short Term Goal (STG) decrease pain to no greater than 3/10 with usual activities STG Duration 03/23/22 Hydrotreater Operator Goal (LTG) decrease pain to no greater than 1/10 with all usual activities LTG Duration 04/23/22 Assessment Summary Assessment Use of strap increased per [employer] recommendation with reported dec in pain. Good tolerance for ther ex. Requested ultrasound again today as found helpful previously. Icing at home, not done today as iontophoresis already applied. Physical Therapy Plan Frequency and Duration Frequency of Treatment 2x/Week Duration of Treatment 8 weeks Plan of Care Start Date 02/21/22 Plan of Care End Date 04/23/22 Therapeutic Interventions Therapeutic Interventions Home Exercise Program,Manual Therapy,Patient/Caregiver Education,Self-Care/Home Management,Soft Tissue Mobilization,Taping, Therapeutic Activities, Therapeutic Exercises Modalities Cold Pack/Ice Massage,Electric Stimulation,Hot Packs, Infrared Therapy,Iontophoresis ,Ultrasound Next Visit Focus/Plan Next Note Type Treatment Note Next Visit Plan Discuss prior response to kinesiotape and resume as indicated, gentle progression of ther ex. Eccentric wrist flexion, pron/sup gentle strengthening.
--- NOTE | 2022-03-23 16:26 | PT.OTN ---
Current Diagnoses Cervicalgia (03/23/22) Other muscle spasm (03/23/22) Lateral epicondylitis, left elbow (03/23/22) Physical Therapy Treatment Note PT-OP-A Visit Information Start: 02/21/22 08:11 Freq: Status: Active Protocol: Document 03/23/22 10:47 SAK (Rec: 03/23/22 11:20 [facility] [id number]) Out-Patient Physical Therapy Visit Information Visit Information Visit Type Treatment Note Visit Start Time 10:30 Visit Stop Time 11:30 Total Visit Minutes 60 Visit Number 6 PT-OP-B Current Condition Start: 02/21/22 08:11 Freq: Status: Active Protocol: Document 02/23/22 10:33 SAK (Rec: 02/23/22 11:18 [facility] [id number]) Current Condition History of Current Condition Onset Date 9 months Current Complaints right sided neck pain History of Current Condition neck pain started 9 months ago , no known reason. Left elbow pain started December, possibly due to use of trekking pole; states tends to push instead of pull when using poles, has stopped using trekking pole on left. Also bilateral UE's hot at night, and go numb. Sleeps on side, working on bed positioning, working on posture. Elbow hurts with lifting, at night sleeping. No use of ice or heat on elbow. Uses heat on neck; worse in am. Tried chiropractic and accupuncture, not helpful on either area of pain. PT-OP-C Subjective Start: 02/21/22 08:11 Freq: Status: Active Protocol: Document 03/23/22 10:47 SAK (Rec: 03/23/22 16:25 [facility] [id number]) OP-PT Subjective Patient Comments Patient Comments Reports neck irritated today with more difficulty turning her head to the right, uncertain cause, wants more emphasis on neck pain. PT-OP-H Neuro Start: 02/21/22 08:11 Freq: Status: Active Protocol: Document 02/21/22 10:34 SAK (Rec: 02/22/22 17:08 [facility] [id number]) Sensation Evaluation Gross Sensation Gross Sensation WNL PT-OP-J Posture/Palpation/Skin Start: 02/21/22 08:11 Freq: Status: Active Protocol: Document 02/21/22 10:34 SAK (Rec: 02/22/22 17:08 [facility] [id number]) Posture Evaluation Position Sitting Head/C-Spine Posture Forward Head T-Spine Posture Increased Kyphosis Shoulder Posture (L) Rounded,(R) Rounded Scapula Posture (L) Protracted,(R) Protracted Arm Posture (L) Internally Rotated,(R) Internally Rotated Palpation Assessment Location left lateral epicondyle Palpation Findings Soft Tissue Tightness, Tenderness Palpation Details soft tissue tightness extensor tendons forearm right UT, c/s Palpation Findings Soft Tissue Tightness, Tenderness PT-OP-K Range of Motion Start: 02/21/22 08:11 Freq: Status: Active Protocol: Document 02/21/22 10:34 [facility] (Rec: 02/22/22 17:08 [facility] [id number]) Cervical Spine Range of Motion Cervical Spine Active Testing Position Sitting Flexion 40 Extension 70 Rotation Left 60 Rotation Right 60 Lateral Flexion Left 25 Lateral Flexion Right 20 ROM Limitations Soft Tissue Tightness,Pain Shoulder Goniometric Range of Motion Shoulder mateo Shoulder ROM WFL Yes Elbow/Forearm Range of Motion Elbow/Forearm mateo Elbow/Forearm ROM WFL Yes Comments painful at end range left elbow extension and flexion, end-range pron. Elbow/Forearm ROM Limitations Elbow/Forearm ROM Limitations Pain Wrist Goniometric Range of Motion Wrist mateo Wrist ROM WFL Yes ROM Limitations Wrist Limitations of Range of Motion Soft Tissue Tightness,Pain Comments palpable tenderness and tightness left forearm extensor tendons, painful wrist flexion with elbow extension and fingers flexed into fist PT-OP-L Special Tests Start: 02/21/22 08:11 Freq: Status: Active Protocol: Document 02/21/22 10:34 [facility] (Rec: 02/22/22 17:08 [facility] [id number]) Special Tests Cervical Spine Special Tests Passive Neck Flexion Comments negative Traction Comments negative Foraminal Compression Comments negative Elbow Special Tests Lateral Epicondylitis Extended Test Results positive left PT-OP-M Strength Start: 02/21/22 08:11 Freq: Status: Active Protocol: Document 02/21/22 10:34 [facility] (Rec: 02/22/22 17:08 [facility] [id number]) Cervical Spine Strength Cervical Spine Manual Muscle Testing Testing Position Sitting Flexion (C1-2) 5 Normal Extension 5 Normal Rotation Left 5 Normal Rotation Right 5 Normal Shoulder Strength Shoulder Manual Muscle Testing mateo Flexion 5 Normal Extension 5 Normal Elbow/Forearm Strength Elbow and Forearm Manual Muscle Testing Left Flexion (C6) 4 Good Extension (C7) 4 Good Pronation 4 Good Supination 4 Good Comments c/o pain left elbow Right Flexion (C6) 5 Normal Extension (C7) 5 Normal Pronation 5 Normal Supination 5 Normal Hand It Risk Advisor/Pinch Strength Hand Dominance Hand Dominance Right Hand Strength Left Comments painful, not done PT-OP-Q Treatments Start: 02/21/22 08:11 Freq: Status: Active Protocol: Document 03/23/22 10:47 [facility] (Rec: 03/23/22 11:20 [facility] [id number]) Therapeutic Exercises Supine Exercises pec stretch Reps/Minutes 2x30 Sitting Exercises wrist strengthening Comments verbal review UE, ls, scalene stretches Sitting Exercise Name UT, LS, scalene stretching Side right Reps/Minutes 5 min: 10 sec holds Comments verbal review Standing Exercises row, shld ext, ER Equipment Used L1 Reps/Minutes 10 Manual Therapy Treatment Soft Tissue Mobilization UT Body Location R UT, LS Mobilization Type Strumming,Sustained Pressure, Trigger Point Release Intensity/Depth Moderate Body Position Hooklying Comments Trigger Point Release at L UT & LS. w/ MWM into R SB > L SB, CS rotation/ head nod flex/ ext small range. Reviewed pt performed using her theracane MWM over tx areas with good feedback response/ understanding. Manual Techniques cervical rotation contract/relax Type eye technique Body Position Hooklying Reps/Duration 3x2 Comments to improve right c/s rotation; rotate to end range, hold in position with left hand, look left x 5s, relax, look right and turn right as able. Educated patient for self- performance with good understanding dmeonstrated. Self-Care/Home Management Treatment Education Other Education self -massage with tennis ball UT, rhomboids PT-OP-R Modalities Start: 02/21/22 08:11 Freq: Status: Active Protocol: Document 03/23/22 10:47 [facility] (Rec: 03/23/22 16:25 [facility] [id number]) Hot Pack/Cold Pack Treatment Hot Pack Location c/s Patient Position Hooklying Patient Tolerance Good PT-OP-T Assessment and Plan Start: 02/21/22 08:11 Freq: Status: Active Protocol: Document 03/23/22 10:47 [facility] (Rec: 03/23/22 16:25 [facility] [id number]) Physical Therapy Assessment Goals Three Impairment Quickdash disability index score 55% Impairment decreased functional use and activity tolerance related to left elbow pain Short Term Goal (STG) decrease Quickdash score to no greater than 30% STG Duration 03/23/22 Halfway Goal (LTG) Decrease Quickdash score to no greater than 10% as measure of improved functional activity tolerance left elbow. Patient to be able to kayak, lift, open jars, sleep, and use trekking pole without an increase in pain. LTG Duration 04/23/22 Two Impairment neck and shoulder disability index score 22% Impairment decreased functional use and activity tolerance related to neck/shoulder pain Fabrication Department Supervisor Goal (LTG) Imrove neck and shoulder disability index score to no greater than 5% as measure of improved function and activity tolerance LTG Duration 04/23/22 One Impairment pain right cervical region and left elbow 6/10 on pain scale Short Term Goal (STG) decrease pain to no greater than 3/10 with usual activities STG Duration 03/23/22 Halfway Goal (LTG) decrease pain to no greater than 1/10 with all usual activities LTG Duration 04/23/22 Assessment Summary Assessment Trial strain/counterstrain, isometric c/s technique to inc right c/s rotation with improvement noted. Patient symptoms variable but persist, exacerbated by work activities. Physical Therapy Plan Frequency and Duration Frequency of Treatment 2x/Week Duration of Treatment 8 weeks Plan of Care Start Date 02/21/22 Plan of Care End Date 04/23/22 Therapeutic Interventions Therapeutic Interventions Home Exercise Program,Manual Therapy,Patient/Caregiver Education,Self-Care/Home Management,Soft Tissue Mobilization,Taping, Therapeutic Activities, Therapeutic Exercises Modalities Cold Pack/Ice Massage,Electric Stimulation,Hot Packs, Infrared Therapy,Iontophoresis ,Ultrasound Next Visit Focus/Plan Next Note Type Treatment Note Next Visit Plan ASsess response to strain, counterstrain today as well as self-massage, c/s Further work on elbow pain with ther extensor tendon stretch, wrist curls in sup and pron, elbow flex in sup and pron, forearm pron/sup supported with light weight as tolerated.
--- NOTE | 2022-03-28 15:02 | PT.OTN ---
Current Diagnoses Cervicalgia (03/28/22) Other muscle spasm (03/28/22) Lateral epicondylitis, left elbow (03/28/22) Physical Therapy Treatment Note PT-OP-A Visit Information Start: 02/21/22 08:11 Freq: Status: Active Protocol: Document 03/28/22 13:43 SAK (Rec: 03/28/22 14:35 SAK [id number]) Out-Patient Physical Therapy Visit Information Visit Information Visit Type Treatment Note Visit Start Time 13:45 Visit Stop Time 14:45 Total Visit Minutes 60 Visit Number 7 Evaluation Information Evaluation Date 02/21/22 PT-OP-B Current Condition Start: 02/21/22 08:11 Freq: Status: Active Protocol: Document 02/23/22 10:33 SAK (Rec: 02/23/22 11:18 [facility]AK [id number]) Current Condition History of Current Condition Onset Date 9 months Current Complaints right sided neck pain History of Current Condition neck pain started 9 months ago , no known reason. Left elbow pain started December, possibly due to use of trekking pole; states tends to push instead of pull when using poles, has stopped using trekking pole on left. Also bilateral UE's hot at night, and go numb. Sleeps on side, working on bed positioning, working on posture. Elbow hurts with lifting, at night sleeping. No use of ice or heat on elbow. Uses heat on neck; worse in am. Tried chiropractic and accupuncture, not helpful on either area of pain. PT-OP-C Subjective Start: 02/21/22 08:11 Freq: Status: Active Protocol: Document 03/23/22 10:47 SAK (Rec: 03/23/22 16:25 [facility] [id number]) OP-PT Subjective Patient Comments Patient Comments Reports neck irritated today with more difficulty turning her head to the right, uncertain cause, wants more emphasis on neck pain. PT-OP-H Neuro Start: 02/21/22 08:11 Freq: Status: Active Protocol: Document 02/21/22 10:34 SAK (Rec: 02/22/22 17:08 SAK [id number]) Sensation Evaluation Gross Sensation Gross Sensation WNL PT-OP-J Posture/Palpation/Skin Start: 02/21/22 08:11 Freq: Status: Active Protocol: Document 02/21/22 10:34 SAK (Rec: 02/22/22 17:08 [facility] [id number]) Posture Evaluation Position Sitting Head/C-Spine Posture Forward Head T-Spine Posture Increased Kyphosis Shoulder Posture (L) Rounded,(R) Rounded Scapula Posture (L) Protracted,(R) Protracted Arm Posture (L) Internally Rotated,(R) Internally Rotated Palpation Assessment Location left lateral epicondyle Palpation Findings Soft Tissue Tightness, Tenderness Palpation Details soft tissue tightness extensor tendons forearm right UT, c/s Palpation Findings Soft Tissue Tightness, Tenderness PT-OP-K Range of Motion Start: 02/21/22 08:11 Freq: Status: Active Protocol: Document 02/21/22 10:34 [facility] (Rec: 02/22/22 17:08 [facility] [id number]) Cervical Spine Range of Motion Cervical Spine Active Testing Position Sitting Flexion 40 Extension 70 Rotation Left 60 Rotation Right 60 Lateral Flexion Left 25 Lateral Flexion Right 20 ROM Limitations Soft Tissue Tightness,Pain Shoulder Goniometric Range of Motion Shoulder mateo Shoulder ROM WFL Yes Elbow/Forearm Range of Motion Elbow/Forearm mateo Elbow/Forearm ROM WFL Yes Comments painful at end range left elbow extension and flexion, end-range pron. Elbow/Forearm ROM Limitations Elbow/Forearm ROM Limitations Pain Wrist Goniometric Range of Motion Wrist mateo Wrist ROM WFL Yes ROM Limitations Wrist Limitations of Range of Motion Soft Tissue Tightness,Pain Comments palpable tenderness and tightness left forearm extensor tendons, painful wrist flexion with elbow extension and fingers flexed into fist PT-OP-L Special Tests Start: 02/21/22 08:11 Freq: Status: Active Protocol: Document 02/21/22 10:34 [facility] (Rec: 02/22/22 17:08 [facility] [id number]) Special Tests Cervical Spine Special Tests Passive Neck Flexion Comments negative Traction Comments negative Foraminal Compression Comments negative Elbow Special Tests Lateral Epicondylitis Extended Test Results positive left PT-OP-M Strength Start: 02/21/22 08:11 Freq: Status: Active Protocol: Document 02/21/22 10:34 [facility] (Rec: 02/22/22 17:08 [facility] [id number]) Cervical Spine Strength Cervical Spine Manual Muscle Testing Testing Position Sitting Flexion (C1-2) 5 Normal Extension 5 Normal Rotation Left 5 Normal Rotation Right 5 Normal Shoulder Strength Shoulder Manual Muscle Testing mateo Flexion 5 Normal Extension 5 Normal Elbow/Forearm Strength Elbow and Forearm Manual Muscle Testing Left Flexion (C6) 4 Good Extension (C7) 4 Good Pronation 4 Good Supination 4 Good Comments c/o pain left elbow Right Flexion (C6) 5 Normal Extension (C7) 5 Normal Pronation 5 Normal Supination 5 Normal Hand Almond Sorter/Pinch Strength Hand Dominance Hand Dominance Right Hand Strength Left Comments painful, not done PT-OP-Q Treatments Start: 02/21/22 08:11 Freq: Status: Active Protocol: Document 03/28/22 13:43 [facility] (Rec: 03/28/22 14:35 [facility] [id number]) Therapeutic Exercises Supine Exercises neck lengthening Reps/Minutes 5x5 Comments verbal and tactile cues Prone Exercises cat/cow Reps/Minutes 5x Comments cues for segmental movement Sitting Exercises cervical extension Equipment Used towel Reps/Minutes 5x ea Comments gentle, to decrease C4 hinging pron/sup Resistance hammer Reps/Minutes 10x Standing Exercises wrist flexor stretch Equipment Used table Reps/Minutes 2x30 Manual Therapy Treatment Soft Tissue Mobilization UT Body Location R UT, LS Mobilization Type Strumming,Sustained Pressure, Trigger Point Release Intensity/Depth Moderate Body Position Hooklying Comments Trigger Point Release at L UT & LS. Manual Traction Cervical Details Axial traction Body Position Hooklying Reps/Duration 5' Taping right UT Treatment Focus inhibition Type of Tape kinesiotape Skin Inspection intact left lateral epicondyle Treatment Focus pain relief Type of Tape kinesiotape Skin Inspection intact Comments 2 I strips, 75% stretch X PT-OP-R Modalities Start: 02/21/22 08:11 Freq: Status: Active Protocol: Document 03/28/22 13:43 [facility] (Rec: 03/28/22 15:02 [facility] [id number]) Hot Pack/Cold Pack Treatment Cold Pack Location L Lateral Epicondyle during manual neck Patient Position Hooklying Treatment Duration (minutes) 8 Patient Tolerance Good Comments patient to continue at home for swelling and pain mgt. Ultrasound Therapy Treatment Right Neck Treatment Duration (minutes) 8 Patient Position Sitting Coupling Medium Ultrasound Gel Frequency Setting (mHz) 1 Duty Cycle 100% Intensity Setting (w/cm2) 1.4 PT-OP-T Assessment and Plan Start: 02/21/22 08:11 Freq: Status: Active Protocol: Document 03/28/22 13:43 [facility] (Rec: 03/28/22 14:35 [facility] [id number]) Physical Therapy Assessment Goals Three Impairment Quickdash disability index score 55% Impairment decreased functional use and activity tolerance related to left elbow pain Short Term Goal (STG) decrease Quickdash score to no greater than 30% STG Duration 03/23/22 Mcc Goal (LTG) Decrease Quickdash score to no greater than 10% as measure of improved functional activity tolerance left elbow. Patient to be able to kayak, lift, open jars, sleep, and use trekking pole without an increase in pain. LTG Duration 04/23/22 Two Impairment neck and shoulder disability index score 22% Impairment decreased functional use and activity tolerance related to neck/shoulder pain Mcc Goal (LTG) Imrove neck and shoulder disability index score to no greater than 5% as measure of improved function and activity tolerance LTG Duration 04/23/22 One Impairment pain right cervical region and left elbow 6/10 on pain scale Short Term Goal (STG) decrease pain to no greater than 3/10 with usual activities STG Duration 03/23/22 Mcc Goal (LTG) decrease pain to no greater than 1/10 with all usual activities LTG Duration 04/23/22 Assessment Summary Assessment Elbow pain some reduced, neck pain more problematic still, noted to hinge at C4 with extension, instructed in supine neck lengthening, and cervical extension technique using towel. Also cat/cow as well as forearm pronation and supination with hammer for forearm strengthening. KT tape to left elbow for pain managment and right UT for inhibition. Physical Therapy Plan Frequency and Duration Frequency of Treatment 2x/Week Duration of Treatment 8 weeks Plan of Care Start Date 02/21/22 Plan of Care End Date 04/23/22 Therapeutic Interventions Therapeutic Interventions Home Exercise Program,Manual Therapy,Patient/Caregiver Education,Self-Care/Home Management,Soft Tissue Mobilization,Taping, Therapeutic Activities, Therapeutic Exercises Modalities Cold Pack/Ice Massage,Electric Stimulation,Hot Packs, Infrared Therapy,Iontophoresis ,Ultrasound Next Visit Focus/Plan Next Note Type Treatment Note Next Visit Plan evaluate response to today's treatment, continue postural and movement re-education, for neck and elbow, flexibility and strengthening of the kinetic chain for decreased pain and improved function at neck and elbow. Modalities and manual therapy as needed for pain.
--- NOTE | 2022-04-03 16:34 | PT.OTN ---
Current Diagnoses Cervicalgia (04/03/22) Other muscle spasm (04/03/22) Lateral epicondylitis, left elbow (04/03/22) Physical Therapy Treatment Note PT-OP-A Visit Information Start: 02/21/22 08:11 Freq: Status: Active Protocol: Document 04/03/22 14:28 [facility]AK (Rec: 04/03/22 15:18 [facility] [id number]) Out-Patient Physical Therapy Visit Information Visit Information Visit Type Treatment Note Visit Start Time 14:30 Visit Stop Time 15:17 Total Visit Minutes 47 Visit Number 8 Evaluation Information Evaluation Date 02/21/22 PT-OP-B Current Condition Start: 02/21/22 08:11 Freq: Status: Active Protocol: Document 02/23/22 10:33 SAK (Rec: 02/23/22 11:18 [facility] [id number]) Current Condition History of Current Condition Onset Date 9 months Current Complaints right sided neck pain History of Current Condition neck pain started 9 months ago , no known reason. Left elbow pain started December, possibly due to use of trekking pole; states tends to push instead of pull when using poles, has stopped using trekking pole on left. Also bilateral UE's hot at night, and go numb. Sleeps on side, working on bed positioning, working on posture. Elbow hurts with lifting, at night sleeping. No use of ice or heat on elbow. Uses heat on neck; worse in am. Tried chiropractic and accupuncture, not helpful on either area of pain. PT-OP-C Subjective Start: 02/21/22 08:11 Freq: Status: Active Protocol: Document 04/03/22 14:28 SAK (Rec: 04/03/22 15:18 [facility] [id number]) OP-PT Subjective Patient Comments Patient Comments Neck was doing pretty well until laying strangly on couch . Elbow not doing well even after not kayaking last week. Reports maybe she did hammer exercise too much. I'm a mess. PT-OP-H Neuro Start: 02/21/22 08:11 Freq: Status: Active Protocol: Document 02/21/22 10:34 SAK (Rec: 02/22/22 17:08 [facility] [id number]) Sensation Evaluation Gross Sensation Gross Sensation WNL PT-OP-J Posture/Palpation/Skin Start: 02/21/22 08:11 Freq: Status: Active Protocol: Document 02/21/22 10:34 [facility] (Rec: 02/22/22 17:08 [facility] [id number]) Posture Evaluation Position Sitting Head/C-Spine Posture Forward Head T-Spine Posture Increased Kyphosis Shoulder Posture (L) Rounded,(R) Rounded Scapula Posture (L) Protracted,(R) Protracted Arm Posture (L) Internally Rotated,(R) Internally Rotated Palpation Assessment Location left lateral epicondyle Palpation Findings Soft Tissue Tightness, Tenderness Palpation Details soft tissue tightness extensor tendons forearm right UT, c/s Palpation Findings Soft Tissue Tightness, Tenderness PT-OP-K Range of Motion Start: 02/21/22 08:11 Freq: Status: Active Protocol: Document 02/21/22 10:34 [facility] (Rec: 02/22/22 17:08 [facility] [id number]) Cervical Spine Range of Motion Cervical Spine Active Testing Position Sitting Flexion 40 Extension 70 Rotation Left 60 Rotation Right 60 Lateral Flexion Left 25 Lateral Flexion Right 20 ROM Limitations Soft Tissue Tightness,Pain Shoulder Goniometric Range of Motion Shoulder mateo Shoulder ROM WFL Yes Elbow/Forearm Range of Motion Elbow/Forearm mateo Elbow/Forearm ROM WFL Yes Comments painful at end range left elbow extension and flexion, end-range pron. Elbow/Forearm ROM Limitations Elbow/Forearm ROM Limitations Pain Wrist Goniometric Range of Motion Wrist mateo Wrist ROM WFL Yes ROM Limitations Wrist Limitations of Range of Motion Soft Tissue Tightness,Pain Comments palpable tenderness and tightness left forearm extensor tendons, painful wrist flexion with elbow extension and fingers flexed into fist PT-OP-L Special Tests Start: 02/21/22 08:11 Freq: Status: Active Protocol: Document 02/21/22 10:34 [facility] (Rec: 02/22/22 17:08 [facility] [id number]) Special Tests Cervical Spine Special Tests Passive Neck Flexion Comments negative Traction Comments negative Foraminal Compression Comments negative Elbow Special Tests Lateral Epicondylitis Extended Test Results positive left PT-OP-M Strength Start: 02/21/22 08:11 Freq: Status: Active Protocol: Document 02/21/22 10:34 [facility] (Rec: 02/22/22 17:08 [facility] [id number]) Cervical Spine Strength Cervical Spine Manual Muscle Testing Testing Position Sitting Flexion (C1-2) 5 Normal Extension 5 Normal Rotation Left 5 Normal Rotation Right 5 Normal Shoulder Strength Shoulder Manual Muscle Testing mateo Flexion 5 Normal Extension 5 Normal Elbow/Forearm Strength Elbow and Forearm Manual Muscle Testing Left Flexion (C6) 4 Good Extension (C7) 4 Good Pronation 4 Good Supination 4 Good Comments c/o pain left elbow Right Flexion (C6) 5 Normal Extension (C7) 5 Normal Pronation 5 Normal Supination 5 Normal Hand Sap Pi Developer/Pinch Strength Hand Dominance Hand Dominance Right Hand Strength Left Comments painful, not done PT-OP-Q Treatments Start: 02/21/22 08:11 Freq: Status: Active Protocol: Document 04/03/22 14:28 [facility] (Rec: 04/03/22 16:33 [facility] [id number]) Therapeutic Exercises Standing Exercises wrist flexor stretch Equipment Used table Reps/Minutes 2x30 row, shld ext, ER Equipment Used L1 Reps/Minutes 10 Comments cues for correct scapular movement, UT inhibition Manual Therapy Treatment Soft Tissue Mobilization UT Body Location R UT, LS Mobilization Type Strumming,Sustained Pressure, Trigger Point Release Intensity/Depth Moderate Body Position Sitting Comments pin and stretch, use of PT thumbs, elbow forearm extensors Mobilization Type Instrument Assisted Intensity/Depth Moderate Body Position 10 min Taping right UT Treatment Focus inhibition Type of Tape kinesiotape Skin Inspection intact left lateral epicondyle Comments didn't find helplful Self-Care/Home Management Treatment Education Other Education self massage PT-OP-R Modalities Start: 02/21/22 08:11 Freq: Status: Active Protocol: Document 04/03/22 14:28 [facility] (Rec: 04/03/22 16:33 [facility] [id number]) Iontophoresis Treatment left elbow Treatment Medication Dexamethasone (-) Medication Amount (mL) (ml) 1.0 Medication Dosage 4mg/mL Treatment Polarity Negative to Negative Active Electrode Placement L CET (6 hrs) Treatment Duration (minutes) 240 Patient Tolerance Good Ultrasound Therapy Treatment Right Neck Treatment Duration (minutes) 8 Patient Position Sitting Coupling Medium Ultrasound Gel Frequency Setting (mHz) 1 Duty Cycle 100% Intensity Setting (w/cm2) 1.4 Comments UT PT-OP-T Assessment and Plan Start: 02/21/22 08:11 Freq: Status: Active Protocol: Document 04/03/22 14:28 [facility] (Rec: 04/03/22 15:18 [facility] [id number]) Physical Therapy Assessment Goals Three Impairment Quickdash disability index score 55% Impairment decreased functional use and activity tolerance related to left elbow pain Short Term Goal (STG) decrease Quickdash score to no greater than 30% STG Duration 03/23/22 Security Messenger Goal (LTG) Decrease Quickdash score to no greater than 10% as measure of improved functional activity tolerance left elbow. Patient to be able to kayak, lift, open jars, sleep, and use trekking pole without an increase in pain. LTG Duration 04/23/22 Two Impairment neck and shoulder disability index score 22% Impairment decreased functional use and activity tolerance related to neck/shoulder pain Security Messenger Goal (LTG) Imrove neck and shoulder disability index score to no greater than 5% as measure of improved function and activity tolerance LTG Duration 04/23/22 One Impairment pain right cervical region and left elbow 6/10 on pain scale Short Term Goal (STG) decrease pain to no greater than 3/10 with usual activities STG Duration 03/23/22 Alf Goal (LTG) decrease pain to no greater than 1/10 with all usual activities LTG Duration 04/23/22 Assessment Summary Assessment Patient neck improved after last session, though irritated by unusual position she fell asleep in. Demonstrates good understanding of towel techniques; added MWM with towel for cervical rotation today. Extensive soft tissue mobilization of UT with pin and stretch and instrument assisted soft tissue mobilization left forearm extensors with good tolerance; patient instructed in use of tennis ball for self massage. Physical Therapy Plan Frequency and Duration Frequency of Treatment 2x/Week Duration of Treatment 8 weeks Plan of Care Start Date 02/21/22 Plan of Care End Date 04/23/22 Therapeutic Interventions Therapeutic Interventions Home Exercise Program,Manual Therapy,Patient/Caregiver Education,Self-Care/Home Management,Soft Tissue Mobilization,Taping, Therapeutic Activities, Therapeutic Exercises Modalities Cold Pack/Ice Massage,Electric Stimulation,Hot Packs, Infrared Therapy,Iontophoresis ,Ultrasound
--- NOTE | 2022-04-10 12:28 | PT.OTN ---
Current Diagnoses Cervicalgia (04/10/22) Other muscle spasm (04/10/22) Lateral epicondylitis, left elbow (04/10/22) Physical Therapy Treatment Note PT-OP-A Visit Information Start: 02/21/22 08:11 Freq: Status: Active Protocol: Document 04/10/22 08:59 SAK (Rec: 04/10/22 09:46 [facility] [id number]) Out-Patient Physical Therapy Visit Information Visit Information Visit Type Treatment Note Visit Start Time 09:00 Visit Stop Time 09:55 Total Visit Minutes 55 Visit Number 10 Evaluation Information Evaluation Date 02/21/22 PT-OP-B Current Condition Start: 02/21/22 08:11 Freq: Status: Active Protocol: Document 02/23/22 10:33 SAK (Rec: 02/23/22 11:18 [facility]AK [id number]) Current Condition History of Current Condition Onset Date 9 months Current Complaints right sided neck pain History of Current Condition neck pain started 9 months ago , no known reason. Left elbow pain started December, possibly due to use of trekking pole; states tends to push instead of pull when using poles, has stopped using trekking pole on left. Also bilateral UE's hot at night, and go numb. Sleeps on side, working on bed positioning, working on posture. Elbow hurts with lifting, at night sleeping. No use of ice or heat on elbow. Uses heat on neck; worse in am. Tried chiropractic and accupuncture, not helpful on either area of pain. PT-OP-C Subjective Start: 02/21/22 08:11 Freq: Status: Active Protocol: Document 04/10/22 08:59 SAK (Rec: 04/10/22 09:46 [facility] [id number]) OP-PT Subjective Patient Comments Patient Comments Rested her elbow for a few days. Feeling some improvement from treatment and rest PT-OP-H Neuro Start: 02/21/22 08:11 Freq: Status: Active Protocol: Document 02/21/22 10:34 SAK (Rec: 02/22/22 17:08 [facility] [id number]) Sensation Evaluation Gross Sensation Gross Sensation WNL PT-OP-J Posture/Palpation/Skin Start: 02/21/22 08:11 Freq: Status: Active Protocol: Document 02/21/22 10:34 SAK (Rec: 02/22/22 17:08 [facility] [id number]) Posture Evaluation Position Sitting Head/C-Spine Posture Forward Head T-Spine Posture Increased Kyphosis Shoulder Posture (L) Rounded,(R) Rounded Scapula Posture (L) Protracted,(R) Protracted Arm Posture (L) Internally Rotated,(R) Internally Rotated Palpation Assessment Location left lateral epicondyle Palpation Findings Soft Tissue Tightness, Tenderness Palpation Details soft tissue tightness extensor tendons forearm right UT, c/s Palpation Findings Soft Tissue Tightness, Tenderness PT-OP-K Range of Motion Start: 02/21/22 08:11 Freq: Status: Active Protocol: Document 02/21/22 10:34 [facility] (Rec: 02/22/22 17:08 [facility] [id number]) Cervical Spine Range of Motion Cervical Spine Active Testing Position Sitting Flexion 40 Extension 70 Rotation Left 60 Rotation Right 60 Lateral Flexion Left 25 Lateral Flexion Right 20 ROM Limitations Soft Tissue Tightness,Pain Shoulder Goniometric Range of Motion Shoulder mateo Shoulder ROM WFL Yes Elbow/Forearm Range of Motion Elbow/Forearm mateo Elbow/Forearm ROM WFL Yes Comments painful at end range left elbow extension and flexion, end-range pron. Elbow/Forearm ROM Limitations Elbow/Forearm ROM Limitations Pain Wrist Goniometric Range of Motion Wrist mateo Wrist ROM WFL Yes ROM Limitations Wrist Limitations of Range of Motion Soft Tissue Tightness,Pain Comments palpable tenderness and tightness left forearm extensor tendons, painful wrist flexion with elbow extension and fingers flexed into fist PT-OP-L Special Tests Start: 02/21/22 08:11 Freq: Status: Active Protocol: Document 02/21/22 10:34 [facility] (Rec: 02/22/22 17:08 [facility] [id number]) Special Tests Cervical Spine Special Tests Passive Neck Flexion Comments negative Traction Comments negative Foraminal Compression Comments negative Elbow Special Tests Lateral Epicondylitis Extended Test Results positive left PT-OP-M Strength Start: 02/21/22 08:11 Freq: Status: Active Protocol: Document 02/21/22 10:34 [facility] (Rec: 02/22/22 17:08 [facility] [id number]) Cervical Spine Strength Cervical Spine Manual Muscle Testing Testing Position Sitting Flexion (C1-2) 5 Normal Extension 5 Normal Rotation Left 5 Normal Rotation Right 5 Normal Shoulder Strength Shoulder Manual Muscle Testing mateo Flexion 5 Normal Extension 5 Normal Elbow/Forearm Strength Elbow and Forearm Manual Muscle Testing Left Flexion (C6) 4 Good Extension (C7) 4 Good Pronation 4 Good Supination 4 Good Comments c/o pain left elbow Right Flexion (C6) 5 Normal Extension (C7) 5 Normal Pronation 5 Normal Supination 5 Normal Hand Manufacturing Technician/Pinch Strength Hand Dominance Hand Dominance Right Hand Strength Left Comments painful, not done PT-OP-Q Treatments Start: 02/21/22 08:11 Freq: Status: Active Protocol: Document 04/10/22 08:59 [facility] (Rec: 04/10/22 09:46 [facility] [id number]) Therapeutic Exercises Prone Exercises I's, T's, Y's Reps/Minutes 10x ea Comments cues for correct scapular activation and movement Manual Therapy Treatment Soft Tissue Mobilization UT Body Location R UT, LS Mobilization Type Strumming,Sustained Pressure, Trigger Point Release Intensity/Depth Moderate Body Position Sitting, supine Comments pin and stretch, use of PT thumbs, elbow forearm extensors Mobilization Type Myofascial Release Intensity/Depth Moderate Body Position 10 min PT-OP-R Modalities Start: 02/21/22 08:11 Freq: Status: Active Protocol: Document 04/10/22 08:59 [facility] (Rec: 04/10/22 09:46 [facility] [id number]) Iontophoresis Treatment left elbow Treatment Medication Dexamethasone (-) Medication Amount (mL) (ml) 1.0 Medication Dosage 4mg/mL Treatment Polarity Negative to Negative Active Electrode Placement L CET (6 hrs) Treatment Duration (minutes) 240 Patient Tolerance Good Ultrasound Therapy Treatment Left Elbow Treatment Duration (minutes) 8 Patient Position Hooklying Coupling Medium Ultrasound Gel Applicator Size (cm2) 2 Frequency Setting (mHz) 3 Duty Cycle 50% Intensity Setting (w/cm2) 1.2 Comments good response, L CET at proximal ulna and distal humerus PT-OP-T Assessment and Plan Start: 02/21/22 08:11 Freq: Status: Active Protocol: Document 04/10/22 08:59 [facility] (Rec: 04/10/22 09:46 [facility] [id number]) Physical Therapy Assessment Goals Three Impairment Quickdash disability index score 55% Impairment decreased functional use and activity tolerance related to left elbow pain Short Term Goal (STG) decrease Quickdash score to no greater than 30% STG Duration 03/23/22 Cold Type Artist Goal (LTG) Decrease Quickdash score to no greater than 10% as measure of improved functional activity tolerance left elbow. Patient to be able to kayak, lift, open jars, sleep, and use trekking pole without an increase in pain. LTG Duration 04/23/22 Two Impairment neck and shoulder disability index score 22% Impairment decreased functional use and activity tolerance related to neck/shoulder pain Intermediate Goal (LTG) Imrove neck and shoulder disability index score to no greater than 5% as measure of improved function and activity tolerance LTG Duration 04/23/22 One Impairment pain right cervical region and left elbow 6/10 on pain scale Short Term Goal (STG) decrease pain to no greater than 3/10 with usual activities STG Duration 03/23/22 Cold Type Artist Goal (LTG) decrease pain to no greater than 1/10 with all usual activities LTG Duration 04/23/22 Assessment Summary Assessment Good response to treatment, rest. Progressed to prone posterior chain ex for neck stab and posterior shoulder strengthening with good tolerance. Physical Therapy Plan Frequency and Duration Frequency of Treatment 2x/Week Duration of Treatment 8 weeks Plan of Care Start Date 02/21/22 Plan of Care End Date 04/23/22 Therapeutic Interventions Therapeutic Interventions Home Exercise Program,Manual Therapy,Patient/Caregiver Education,Self-Care/Home Management,Soft Tissue Mobilization,Taping, Therapeutic Activities, Therapeutic Exercises Modalities Cold Pack/Ice Massage,Electric Stimulation,Hot Packs, Infrared Therapy,Iontophoresis ,Ultrasound Next Visit Focus/Plan Next Note Type Progress Note Next Visit Plan Patient rested elbow more, noting decrease inpain. Neck also improved, worst at night, cues for looking further at sleep postion.
--- NOTE | 2022-04-13 10:44 | PT.OTN ---
Current Diagnoses Cervicalgia (04/13/22) Other muscle spasm (04/13/22) Lateral epicondylitis, left elbow (04/13/22) Physical Therapy Treatment Note PT-OP-A Visit Information Start: 02/21/22 08:11 Freq: Status: Active Protocol: Document 04/13/22 09:46 SAK (Rec: 04/13/22 10:43 [facility] [id number]) Out-Patient Physical Therapy Visit Information Visit Information Visit Type Treatment Note Visit Start Time 09:47 Visit Stop Time 10:35 Total Visit Minutes 48 Visit Number 11 Evaluation Information Evaluation Date 02/21/22 PT-OP-B Current Condition Start: 02/21/22 08:11 Freq: Status: Active Protocol: Document 02/23/22 10:33 SAK (Rec: 02/23/22 11:18 SAK [id number]) Current Condition History of Current Condition Onset Date 9 months Current Complaints right sided neck pain History of Current Condition neck pain started 9 months ago , no known reason. Left elbow pain started December, possibly due to use of trekking pole; states tends to push instead of pull when using poles, has stopped using trekking pole on left. Also bilateral UE's hot at night, and go numb. Sleeps on side, working on bed positioning, working on posture. Elbow hurts with lifting, at night sleeping. No use of ice or heat on elbow. Uses heat on neck; worse in am. Tried chiropractic and accupuncture, not helpful on either area of pain. PT-OP-C Subjective Start: 02/21/22 08:11 Freq: Status: Active Protocol: Document 04/13/22 09:46 SAK (Rec: 04/13/22 10:43 [facility] [id number]) OP-PT Subjective Patient Comments Patient Comments both elbow and neck feel some better despite long kayak paddle 2 days ago. Having some knee pain PT-OP-H Neuro Start: 02/21/22 08:11 Freq: Status: Active Protocol: Document 02/21/22 10:34 SAK (Rec: 02/22/22 17:08 SAK [id number]) Sensation Evaluation Gross Sensation Gross Sensation WNL PT-OP-J Posture/Palpation/Skin Start: 02/21/22 08:11 Freq: Status: Active Protocol: Document 02/21/22 10:34 SAK (Rec: 02/22/22 17:08 [facility] [id number]) Posture Evaluation Position Sitting Head/C-Spine Posture Forward Head T-Spine Posture Increased Kyphosis Shoulder Posture (L) Rounded,(R) Rounded Scapula Posture (L) Protracted,(R) Protracted Arm Posture (L) Internally Rotated,(R) Internally Rotated Palpation Assessment Location left lateral epicondyle Palpation Findings Soft Tissue Tightness, Tenderness Palpation Details soft tissue tightness extensor tendons forearm right UT, c/s Palpation Findings Soft Tissue Tightness, Tenderness PT-OP-K Range of Motion Start: 02/21/22 08:11 Freq: Status: Active Protocol: Document 02/21/22 10:34 [facility] (Rec: 02/22/22 17:08 [facility] [id number]) Cervical Spine Range of Motion Cervical Spine Active Testing Position Sitting Flexion 40 Extension 70 Rotation Left 60 Rotation Right 60 Lateral Flexion Left 25 Lateral Flexion Right 20 ROM Limitations Soft Tissue Tightness,Pain Shoulder Goniometric Range of Motion Shoulder mateo Shoulder ROM WFL Yes Elbow/Forearm Range of Motion Elbow/Forearm mateo Elbow/Forearm ROM WFL Yes Comments painful at end range left elbow extension and flexion, end-range pron. Elbow/Forearm ROM Limitations Elbow/Forearm ROM Limitations Pain Wrist Goniometric Range of Motion Wrist mateo Wrist ROM WFL Yes ROM Limitations Wrist Limitations of Range of Motion Soft Tissue Tightness,Pain Comments palpable tenderness and tightness left forearm extensor tendons, painful wrist flexion with elbow extension and fingers flexed into fist PT-OP-L Special Tests Start: 02/21/22 08:11 Freq: Status: Active Protocol: Document 02/21/22 10:34 [facility] (Rec: 02/22/22 17:08 [facility] [id number]) Special Tests Cervical Spine Special Tests Passive Neck Flexion Comments negative Traction Comments negative Foraminal Compression Comments negative Elbow Special Tests Lateral Epicondylitis Extended Test Results positive left PT-OP-M Strength Start: 02/21/22 08:11 Freq: Status: Active Protocol: Document 02/21/22 10:34 [facility] (Rec: 02/22/22 17:08 [facility] [id number]) Cervical Spine Strength Cervical Spine Manual Muscle Testing Testing Position Sitting Flexion (C1-2) 5 Normal Extension 5 Normal Rotation Left 5 Normal Rotation Right 5 Normal Shoulder Strength Shoulder Manual Muscle Testing mateo Flexion 5 Normal Extension 5 Normal Elbow/Forearm Strength Elbow and Forearm Manual Muscle Testing Left Flexion (C6) 4 Good Extension (C7) 4 Good Pronation 4 Good Supination 4 Good Comments c/o pain left elbow Right Flexion (C6) 5 Normal Extension (C7) 5 Normal Pronation 5 Normal Supination 5 Normal Hand Administrative Aide/Pinch Strength Hand Dominance Hand Dominance Right Hand Strength Left Comments painful, not done PT-OP-Q Treatments Start: 02/21/22 08:11 Freq: Status: Active Protocol: Document 04/13/22 09:46 [facility] (Rec: 04/13/22 10:43 [facility] [id number]) Therapeutic Exercises Supine Exercises neck lengthening Reps/Minutes 5x5 Comments verbal and tactile cues pec stretch Reps/Minutes 2x30 Prone Exercises chin tuck Reps/Minutes 6x Comments cues for neck lengthening W Reps/Minutes 10x Comments cues for scapular activation I's, T's, Y's Resistance 1# Reps/Minutes 10x ea Comments cues for correct scapular activation and movement Standing Exercises wrist extensor stretch Reps/Minutes 2x30 Comments hand in fist Manual Therapy Treatment Soft Tissue Mobilization forearm extensors Body Location left Mobilization Type Instrument Assisted,Myofascial Release,Strumming Intensity/Depth Moderate Body Position 10 min Joint Mobilizations L elbow Direction med, lat, inferior glides Grade II Body Position Hooklying Reps/Duration 3 min Comments good feedback little distraction painfree PT-OP-R Modalities Start: 02/21/22 08:11 Freq: Status: Active Protocol: Document 04/13/22 09:46 [facility] (Rec: 04/13/22 10:43 [facility] [id number]) Hot Pack/Cold Pack Treatment Hot Pack Location c/s Patient Position Hooklying Patient Tolerance Good Cold Pack Location L Lateral Epicondyle Patient Position Hooklying Treatment Duration (minutes) 10 Patient Tolerance Good Iontophoresis Treatment left elbow Patient Tolerance not available today Ultrasound Therapy Treatment Left Elbow Treatment Duration (minutes) 8 Patient Position Hooklying Coupling Medium Ultrasound Gel Applicator Size (cm2) 2 Frequency Setting (mHz) 3 Duty Cycle 50% Intensity Setting (w/cm2) 1.2 Comments good response, L CET at proximal ulna and distal humerus PT-OP-T Assessment and Plan Start: 02/21/22 08:11 Freq: Status: Active Protocol: Document 04/13/22 09:46 [facility] (Rec: 04/13/22 10:43 [facility] [id number]) Physical Therapy Assessment Goals Three Impairment Quickdash disability index score 55% Impairment decreased functional use and activity tolerance related to left elbow pain Short Term Goal (STG) decrease Quickdash score to no greater than 30% STG Duration 03/23/22 Director Hris Goal (LTG) Decrease Quickdash score to no greater than 10% as measure of improved functional activity tolerance left elbow. Patient to be able to kayak, lift, open jars, sleep, and use trekking pole without an increase in pain. LTG Duration 04/23/22 Two Impairment neck and shoulder disability index score 22% Impairment decreased functional use and activity tolerance related to neck/shoulder pain Director Hris Goal (LTG) Imrove neck and shoulder disability index score to no greater than 5% as measure of improved function and activity tolerance LTG Duration 04/23/22 One Impairment pain right cervical region and left elbow 6/10 on pain scale Short Term Goal (STG) decrease pain to no greater than 3/10 with usual activities STG Duration 03/23/22 Director Hris Goal (LTG) decrease pain to no greater than 1/10 with all usual activities LTG Duration 04/23/22 Assessment Summary Assessment Decrease in neck and elbow pain, improving scapular activation and performance of prone posterior chain ex, added prone W and prone chin tuck with emphasis on neck lengthening with good tolerance. Physical Therapy Plan Frequency and Duration Frequency of Treatment 2x/Week Duration of Treatment 8 weeks Plan of Care Start Date 02/21/22 Plan of Care End Date 04/23/22 Therapeutic Interventions Therapeutic Interventions Home Exercise Program,Manual Therapy,Patient/Caregiver Education,Self-Care/Home Management,Soft Tissue Mobilization,Taping, Therapeutic Activities, Therapeutic Exercises Modalities Cold Pack/Ice Massage,Electric Stimulation,Hot Packs, Infrared Therapy,Iontophoresis ,Ultrasound Next Visit Focus/Plan Next Note Type Progress Note Next Visit Plan Continue strengthening posterior chain, postural correction exercises, flexibility anterior. Ultrasound and manual therapy to decrease muscle tension and pain.
--- NOTE | 2022-04-17 12:58 | PT.OTN ---
Current Diagnoses Cervicalgia (04/17/22) Other muscle spasm (04/17/22) Lateral epicondylitis, left elbow (04/17/22) Physical Therapy Treatment Note PT-OP-A Visit Information Start: 02/21/22 08:11 Freq: Status: Active Protocol: Document 04/17/22 09:03 SAK (Rec: 04/17/22 09:46 [facility] [id number]) Out-Patient Physical Therapy Visit Information Visit Information Visit Type Treatment Note Visit Start Time 09:02 Visit Stop Time 09:58 Total Visit Minutes 56 Visit Number 12 Evaluation Information Evaluation Date 02/21/22 PT-OP-B Current Condition Start: 02/21/22 08:11 Freq: Status: Active Protocol: Document 02/23/22 10:33 SAK (Rec: 02/23/22 11:18 SAK [id number]) Current Condition History of Current Condition Onset Date 9 months Current Complaints right sided neck pain History of Current Condition neck pain started 9 months ago , no known reason. Left elbow pain started December, possibly due to use of trekking pole; states tends to push instead of pull when using poles, has stopped using trekking pole on left. Also bilateral UE's hot at night, and go numb. Sleeps on side, working on bed positioning, working on posture. Elbow hurts with lifting, at night sleeping. No use of ice or heat on elbow. Uses heat on neck; worse in am. Tried chiropractic and accupuncture, not helpful on either area of pain. PT-OP-C Subjective Start: 02/21/22 08:11 Freq: Status: Active Protocol: Document 04/17/22 09:03 SAK (Rec: 04/17/22 09:46 [facility] [id number]) OP-PT Subjective Patient Comments Patient Comments pain 2-4/10, variable, fair compliance to HEP, elbow throbs sometimes PT-OP-H Neuro Start: 02/21/22 08:11 Freq: Status: Active Protocol: Document 02/21/22 10:34 SAK (Rec: 02/22/22 17:08 [facility] [id number]) Sensation Evaluation Gross Sensation Gross Sensation WNL PT-OP-J Posture/Palpation/Skin Start: 02/21/22 08:11 Freq: Status: Active Protocol: Document 02/21/22 10:34 SAK (Rec: 02/22/22 17:08 [facility] [id number]) Posture Evaluation Position Sitting Head/C-Spine Posture Forward Head T-Spine Posture Increased Kyphosis Shoulder Posture (L) Rounded,(R) Rounded Scapula Posture (L) Protracted,(R) Protracted Arm Posture (L) Internally Rotated,(R) Internally Rotated Palpation Assessment Location left lateral epicondyle Palpation Findings Soft Tissue Tightness, Tenderness Palpation Details soft tissue tightness extensor tendons forearm right UT, c/s Palpation Findings Soft Tissue Tightness, Tenderness PT-OP-K Range of Motion Start: 02/21/22 08:11 Freq: Status: Active Protocol: Document 02/21/22 10:34 [facility] (Rec: 02/22/22 17:08 [facility] [id number]) Cervical Spine Range of Motion Cervical Spine Active Testing Position Sitting Flexion 40 Extension 70 Rotation Left 60 Rotation Right 60 Lateral Flexion Left 25 Lateral Flexion Right 20 ROM Limitations Soft Tissue Tightness,Pain Shoulder Goniometric Range of Motion Shoulder mateo Shoulder ROM WFL Yes Elbow/Forearm Range of Motion Elbow/Forearm mateo Elbow/Forearm ROM WFL Yes Comments painful at end range left elbow extension and flexion, end-range pron. Elbow/Forearm ROM Limitations Elbow/Forearm ROM Limitations Pain Wrist Goniometric Range of Motion Wrist mateo Wrist ROM WFL Yes ROM Limitations Wrist Limitations of Range of Motion Soft Tissue Tightness,Pain Comments palpable tenderness and tightness left forearm extensor tendons, painful wrist flexion with elbow extension and fingers flexed into fist PT-OP-L Special Tests Start: 02/21/22 08:11 Freq: Status: Active Protocol: Document 02/21/22 10:34 [facility] (Rec: 02/22/22 17:08 [facility] [id number]) Special Tests Cervical Spine Special Tests Passive Neck Flexion Comments negative Traction Comments negative Foraminal Compression Comments negative Elbow Special Tests Lateral Epicondylitis Extended Test Results positive left PT-OP-M Strength Start: 02/21/22 08:11 Freq: Status: Active Protocol: Document 02/21/22 10:34 [facility] (Rec: 02/22/22 17:08 [facility] [id number]) Cervical Spine Strength Cervical Spine Manual Muscle Testing Testing Position Sitting Flexion (C1-2) 5 Normal Extension 5 Normal Rotation Left 5 Normal Rotation Right 5 Normal Shoulder Strength Shoulder Manual Muscle Testing mateo Flexion 5 Normal Extension 5 Normal Elbow/Forearm Strength Elbow and Forearm Manual Muscle Testing Left Flexion (C6) 4 Good Extension (C7) 4 Good Pronation 4 Good Supination 4 Good Comments c/o pain left elbow Right Flexion (C6) 5 Normal Extension (C7) 5 Normal Pronation 5 Normal Supination 5 Normal Hand Support Services Tech/Pinch Strength Hand Dominance Hand Dominance Right Hand Strength Left Comments painful, not done PT-OP-Q Treatments Start: 02/21/22 08:11 Freq: Status: Active Protocol: Document 04/17/22 09:03 [facility] (Rec: 04/17/22 09:46 [facility] [id number]) Therapeutic Exercises Prone Exercises chin tuck Reps/Minutes 6x Comments cues for neck lengthening W Reps/Minutes 10x Comments cues for scapular activation I's, T's, Y's Resistance 1# I, otherwise no weight due to gripping Reps/Minutes 10x ea Comments cues for correct scapular activation and movement Sitting Exercises cervical nan Equipment Used L1 TB Reps/Minutes 5x Comments cues for long neck, gentle pull hands forward Manual Therapy Treatment Soft Tissue Mobilization forearm extensors Body Location left Mobilization Type Instrument Assisted,Myofascial Release,Strumming Intensity/Depth Moderate Body Position 5min Comments self massage with tennis ball PT-OP-R Modalities Start: 02/21/22 08:11 Freq: Status: Active Protocol: Document 04/17/22 09:03 [facility] (Rec: 04/17/22 09:46 [facility] [id number]) Hot Pack/Cold Pack Treatment ice cup Location L forearm extensors, CET Patient Position Sitting Treatment Duration (minutes) 3 Patient Tolerance Good Comments cold, numb- good feedback response Iontophoresis Treatment left elbow Treatment Medication Dexamethasone (-) Medication Amount (mL) (ml) 4 Treatment Polarity negative Treatment Duration (minutes) 3 PT-OP-T Assessment and Plan Start: 02/21/22 08:11 Freq: Status: Active Protocol: Document 04/17/22 09:03 [facility] (Rec: 04/17/22 09:46 [facility] [id number]) Physical Therapy Assessment Goals Three Impairment Quickdash disability index score 55% Impairment decreased functional use and activity tolerance related to left elbow pain Short Term Goal (STG) decrease Quickdash score to no greater than 30% STG Duration 03/23/22 Geothermal Installer Goal (LTG) Decrease Quickdash score to no greater than 10% as measure of improved functional activity tolerance left elbow. Patient to be able to kayak, lift, open jars, sleep, and use trekking pole without an increase in pain. LTG Duration 04/23/22 Two Impairment neck and shoulder disability index score 22% Impairment decreased functional use and activity tolerance related to neck/shoulder pain Geothermal Installer Goal (LTG) Imrove neck and shoulder disability index score to no greater than 5% as measure of improved function and activity tolerance LTG Duration 04/23/22 One Impairment pain right cervical region and left elbow 6/10 on pain scale Short Term Goal (STG) decrease pain to no greater than 3/10 with usual activities STG Duration 03/23/22 Geothermal Installer Goal (LTG) decrease pain to no greater than 1/10 with all usual activities LTG Duration 04/23/22 Progress Towards Goals Progress Towards Goals Progressing Toward Goals Assessment Summary Assessment Mod verbal and tactile cues for prone ex but noting improvement in scapular activation. Persistent pain 2 -4/10 c/s and elbow. Physical Therapy Plan Frequency and Duration Frequency of Treatment 2x/Week Duration of Treatment 8 weeks Plan of Care Start Date 02/21/22 Plan of Care End Date 04/23/22 Therapeutic Interventions Therapeutic Interventions Home Exercise Program,Manual Therapy,Patient/Caregiver Education,Self-Care/Home Management,Soft Tissue Mobilization,Taping, Therapeutic Activities, Therapeutic Exercises Modalities Cold Pack/Ice Massage,Electric Stimulation,Hot Packs, Infrared Therapy,Iontophoresis ,Ultrasound Next Visit Focus/Plan Next Note Type Progress Note Next Visit Plan Continue strengthening posterior chain, postural correction exercises, flexibility anterior. Ultrasound as indicated, iontophoresis, and manual therapy to decrease muscle tension and pain.
--- NOTE | 2022-04-20 12:37 | PT.OTRE ---
Current Diagnoses Cervicalgia (04/20/22) Other muscle spasm (04/20/22) Lateral epicondylitis, left elbow (04/20/22) Past Medical History (Last Updated 02/02/22 @ 15:53 by Papo Schofield MD) Cysts (Unknown) DDD (degenerative disc disease), lumbosacral Fatigue Hypoglycemia Increased appetite Lateral epicondylitis of both elbows Left thigh pain Low back pain (Unknown) Lumbar radiculopathy, right Myalgia Right knee pain Sebaceous hyperplasia Spinal stenosis of lumbar region (Unknown) Spinal stenosis, lumbar region without neurogenic claudication Varicose veins of both lower extremities (Unknown) Vitamin D deficiency (~2013) Surgical History (Last Reviewed 03/28/21 @ 12:08 by Baldo Hernandez [facility]) History of surgical removal of ganglion cyst (07/2017) Hx of tonsillectomy (Unknown) Status post endovenous radiofrequency ablation of saphenous vein (2007) Visit Care Team Role Provider Type Papo Schofield MD Attending Provider Physician Family Provider Primary Care Provider Referring Provider Specialty: Family Practice Address: [address] [place] [address] Email: [email or web address] Physical Therapy Re-Evaluation PT-OP-A Visit Information Start: 02/21/22 08:11 Freq: Status: Active Protocol: Document 04/20/22 11:21 SAK (Rec: 04/20/22 12:06 [facility] [id number]) Out-Patient Physical Therapy Visit Information Visit Information Visit Type Treatment Note Visit Start Time 11:15 Visit Stop Time 12:02 Total Visit Minutes 47 Visit Number 13 Evaluation Information Evaluation Date 02/21/22 PT-OP-B Current Condition Start: 02/21/22 08:11 Freq: Status: Active Protocol: Document 02/23/22 10:33 SAK (Rec: 02/23/22 11:18 [facility] [id number]) Current Condition History of Current Condition Onset Date 9 months Current Complaints right sided neck pain History of Current Condition neck pain started 9 months ago , no known reason. Left elbow pain started December, possibly due to use of trekking pole; states tends to push instead of pull when using poles, has stopped using trekking pole on left. Also bilateral UE's hot at night, and go numb. Sleeps on side, working on bed positioning, working on posture. Elbow hurts with lifting, at night sleeping. No use of ice or heat on elbow. Uses heat on neck; worse in am. Tried chiropractic and accupuncture, not helpful on either area of pain. PT-OP-C Subjective Start: 02/21/22 08:11 Freq: Status: Active Protocol: Document 04/20/22 11:21 SAK (Rec: 04/20/22 12:06 [facility] [id number]) OP-PT Subjective Patient Comments Patient Comments Elbow not worse, not better. 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 Neck a little better, feeling prone exercises are helping her get stronger and she is understanding better . PT-OP-H Neuro Start: 02/21/22 08:11 Freq: Status: Active Protocol: Document 02/21/22 10:34 SAK (Rec: 02/22/22 17:08 [facility] [id number]) Sensation Evaluation Gross Sensation Gross Sensation WNL PT-OP-J Posture/Palpation/Skin Start: 02/21/22 08:11 Freq: Status: Active Protocol: Document 02/21/22 10:34 SAK (Rec: 02/22/22 17:08 [facility] [id number]) Posture Evaluation Position Sitting Head/C-Spine Posture Forward Head T-Spine Posture Increased Kyphosis Shoulder Posture (L) Rounded,(R) Rounded Scapula Posture (L) Protracted,(R) Protracted Arm Posture (L) Internally Rotated,(R) Internally Rotated Palpation Assessment Location left lateral epicondyle Palpation Findings Soft Tissue Tightness, Tenderness Palpation Details soft tissue tightness extensor tendons forearm right UT, c/s Palpation Findings Soft Tissue Tightness, Tenderness PT-OP-K Range of Motion Start: 02/21/22 08:11 Freq: Status: Active Protocol: Document 02/21/22 10:34 SAK (Rec: 02/22/22 17:08 [facility] [id number]) Cervical Spine Range of Motion Cervical Spine Active Testing Position Sitting Flexion 40 Extension 70 Rotation Left 60 Rotation Right 60 Lateral Flexion Left 25 Lateral Flexion Right 20 ROM Limitations Soft Tissue Tightness,Pain Shoulder Goniometric Range of Motion Shoulder Measured in Degrees mateo Shoulder ROM WFL Yes Elbow/Forearm Range of Motion Elbow/Forearm Measured in Degrees mateo Elbow/Forearm ROM WFL Yes Comments painful at end range left elbow extension and flexion, end-range pron. Elbow/Forearm ROM Limitations Elbow/Forearm ROM Limitations Pain Wrist Goniometric Range of Motion Wrist Measured in Degrees mateo Wrist ROM WFL Yes ROM Limitations Wrist Limitations of Range of Motion Soft Tissue Tightness,Pain Comments palpable tenderness and tightness left forearm extensor tendons, painful wrist flexion with elbow extension and fingers flexed into fist PT-OP-L Special Tests Start: 02/21/22 08:11 Freq: Status: Active Protocol: Document 02/21/22 10:34 [facility] (Rec: 02/22/22 17:08 [facility] [id number]) Special Tests Cervical Spine Special Tests Passive Neck Flexion Comments negative Traction Comments negative Foraminal Compression Comments negative Elbow Special Tests Lateral Epicondylitis Extended Test Results positive left PT-OP-M Strength Start: 02/21/22 08:11 Freq: Status: Active Protocol: Document 02/21/22 10:34 [facility] (Rec: 02/22/22 17:08 [facility] [id number]) Cervical Spine Strength Cervical Spine Manual Muscle Testing Testing Position Sitting Flexion (C1-2) 5 Normal Extension 5 Normal Rotation Left 5 Normal Rotation Right 5 Normal Shoulder Strength Shoulder Manual Muscle Testing mateo Flexion 5 Normal Extension 5 Normal Elbow/Forearm Strength Elbow and Forearm Manual Muscle Testing Left Flexion (C6) 4 Good Extension (C7) 4 Good Pronation 4 Good Supination 4 Good Comments c/o pain left elbow Right Flexion (C6) 5 Normal Extension (C7) 5 Normal Pronation 5 Normal Supination 5 Normal Hand Environmental Engineering Assistant/Pinch Strength Hand Dominance Hand Dominance Right Hand Strength Left Comments painful, not done PT-OP-Q Treatments Start: 02/21/22 08:11 Freq: Status: Active Protocol: Document 04/20/22 11:21 [facility] (Rec: 04/20/22 12:06 [facility] [id number]) Therapeutic Exercises Prone Exercises chin tuck Prone Exercise Name with head lift Reps/Minutes 10x Comments verbal and tactile cues for neck lengthening W Reps/Minutes 10x Comments cues for scapular activation I's, T's, Y's Resistance 1# I, otherwise no weight due to gripping Reps/Minutes 10x ea Comments cues for initiating with scapular activation and movement Sidelying Exercises open book Side bilateral Reps/Minutes 5 x Comments verbal cues for segmental movement, deep breath and relax into stretch Manual Therapy Treatment Soft Tissue Mobilization forearm extensors Body Location left Mobilization Type Myofascial Release,Strumming, Sustained Pressure Intensity/Depth Moderate Body Position 5min Joint Mobilizations L elbow Direction med, lat, inferior glides Grade II Body Position Hooklying Reps/Duration 3 min Comments good feedback little distraction painfree PT-OP-R Modalities Start: 02/21/22 08:11 Freq: Status: Active Protocol: Document 04/20/22 11:21 [facility] (Rec: 04/20/22 12:06 [facility] [id number]) Hot Pack/Cold Pack Treatment ice cup Location L forearm extensors, CET Patient Position Sitting Treatment Duration (minutes) 3 Patient Tolerance Good Comments cold, numb- good feedback response Iontophoresis Treatment left elbow Treatment Medication Dexamethasone (-) Medication Amount (mL) (ml) 4 Treatment Polarity negative Treatment Duration (minutes) 3 Ultrasound Therapy Treatment Left Elbow Treatment Duration (minutes) 8 Patient Position Hooklying Coupling Medium Ultrasound Gel Applicator Size (cm2) 2 Frequency Setting (mHz) 3 Duty Cycle 50% Intensity Setting (w/cm2) 1.2 Comments good response, L CET at proximal ulna and distal humerus PT-OP-T Assessment and Plan Start: 02/21/22 08:11 Freq: Status: Active Protocol: Document 04/20/22 11:21 [facility] (Rec: 04/20/22 12:06 [facility] [id number]) Physical Therapy Assessment Goals Three Impairment Quickdash disability index score 55% Impairment decreased functional use and activity tolerance related to left elbow pain Short Term Goal (STG) decrease Quickdash score to no greater than 30% STG Duration 03/23/22 Custodial Goal (LTG) Decrease Quickdash score to no greater than 10% as measure of improved functional activity tolerance left elbow. Patient to be able to kayak, lift, open jars, sleep, and use trekking pole without an increase in pain. 04/20/22: decreased to 42% LTG Duration 05/21/22 Two Impairment neck and shoulder disability index score 22% Impairment decreased functional use and activity tolerance related to neck/shoulder pain Custodial Goal (LTG) Imrove neck and shoulder disability index score to no greater than 5% as measure of improved function and activity tolerance 04/20/22: decreased to 15% LTG Duration 05/21/22 One Impairment pain right cervical region and left elbow 6/10 on pain scale Short Term Goal (STG) decrease pain to no greater than 3/10 with usual activities 04/30/22: pain decreased to 4/ 10 Custodial Goal (LTG) decrease pain to no greater than 1/10 with all usual activities LTG Duration 05/21/22 Assessment Summary Assessment Improving scapular activation and strength posterior chain muscles in prone with moderate verbal and tactile cues. Decreased neck pain. Decreased elbow pain after PT but patient job is very physical including kayaking which tends to flare up her epicondylitis. Patient demonstrating good understanding of postural dysfunction and overuse contributing to her pain. Would benefit from further PT to help her fully achieve her above goals. Physical Therapy Plan Frequency and Duration Frequency of Treatment 2x/Week Duration of Treatment 4 weeks Plan of Care Start Date 04/20/22 Plan of Care End Date 05/21/22 Therapeutic Interventions Therapeutic Interventions Home Exercise Program,Manual Therapy,Patient/Caregiver Education,Self-Care/Home Management,Soft Tissue Mobilization,Taping, Therapeutic Activities, Therapeutic Exercises Modalities Cold Pack/Ice Massage,Electric Stimulation,Hot Packs, Infrared Therapy,Iontophoresis ,Ultrasound Next Visit Focus/Plan Next Note Type Progress Note Next Visit Plan Continue strengthening posterior chain, postural correction exercises, flexibility anterior. Ultrasound as indicated, iontophoresis, and manual therapy to decrease muscle tension and pain.
--- NOTE | 2022-04-20 12:37 | PT.OPPOC ---
Physical, Occupational & Speech Therapy At [facility] Current Diagnoses Cervicalgia (04/20/22) Other muscle spasm (04/20/22) Lateral epicondylitis, left elbow (04/20/22) Visit Care Team Role Provider Type Papo Schofield MD Attending Provider Physician Family Provider Primary Care Provider Referring Provider Specialty: Family Practice Address: [address] [place] [address], [facility] Email: [email or web address] Plan Of Care PT-OP-T Assessment and Plan Start: 02/21/22 08:11 Freq: Status: Active Protocol: Document 04/20/22 11:21 SAK (Rec: 04/20/22 12:06 [facility] [id number]) Physical Therapy Assessment Goals Three Impairment Quickdash disability index score 55% Impairment decreased functional use and activity tolerance related to left elbow pain Short Term Goal (STG) decrease Quickdash score to no greater than 30% STG Duration 03/23/22 Custodial Goal (LTG) Decrease Quickdash score to no greater than 10% as measure of improved functional activity tolerance left elbow. Patient to be able to kayak, lift, open jars, sleep, and use trekking pole without an increase in pain. 04/20/22: decreased to 42% LTG Duration 05/21/22 Two Impairment neck and shoulder disability index score 22% Impairment decreased functional use and activity tolerance related to neck/shoulder pain Leak Hunter Goal (LTG) Imrove neck and shoulder disability index score to no greater than 5% as measure of improved function and activity tolerance 04/20/22: decreased to 15% LTG Duration 05/21/22 One Impairment pain right cervical region and left elbow 6/10 on pain scale Short Term Goal (STG) decrease pain to no greater than 3/10 with usual activities 04/30/22: pain decreased to 4/ 10 Custodial Goal (LTG) decrease pain to no greater than 1/10 with all usual activities LTG Duration 05/21/22 Assessment Summary Assessment Improving scapular activation and strength posterior chain muscles in prone with moderate verbal and tactile cues. Decreased neck pain. Decreased elbow pain after PT but patient job is very physical including kayaking which tends to flare up her epicondylitis. Patient demonstrating good understanding of postural dysfunction and overuse contributing to her pain. Would benefit from further PT to help her fully achieve her above goals. Physical Therapy Plan Frequency and Duration Frequency of Treatment 2x/Week Duration of Treatment 4 weeks Plan of Care Start Date 04/20/22 Plan of Care End Date 05/21/22 Therapeutic Interventions Therapeutic Interventions Home Exercise Program,Manual Therapy,Patient/Caregiver Education,Self-Care/Home Management,Soft Tissue Mobilization,Taping, Therapeutic Activities, Therapeutic Exercises Modalities Cold Pack/Ice Massage,Electric Stimulation,Hot Packs, Infrared Therapy,Iontophoresis ,Ultrasound Next Visit Focus/Plan Next Note Type Progress Note Next Visit Plan Continue strengthening posterior chain, postural correction exercises, flexibility anterior. Ultrasound as indicated, iontophoresis, and manual therapy to decrease muscle tension and pain. Plan of Care Dates Plan of Care Start Date 04/20/22 Plan of Care End Date 05/21/22 Electronically Signed by: Nimisha Winchester, PT 04/20/22 7187 If you are in agreement with this Plan of Care, please return a signed and dated copy. I have reviewed this Plan of Care and certify that the skilled therapy services above are required to meet the patient?s needs. Physician Signature Date Printed Name and Credentials Clinical Instructor Signature Printed Name and Credentials
--- NOTE | 2022-05-04 14:37 | PT.OTN ---
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 Left elbow pain started December, possibly due to use of trekking pole; states tends to push instead of pull when using poles, has stopped using trekking pole on left. Also bilateral UE's hot at night, and go numb. Sleeps on side, working on bed positioning, working on posture. Elbow hurts with lifting, at night sleeping. No use of ice or heat on elbow. Uses heat on neck; worse in am. Tried chiropractic and accupuncture, not helpful on either area of pain. PT-OP-C Subjective Start: 02/21/22 08:11 Freq: Status: Active Protocol: Document 05/04/22 13:47 SP (Rec: 05/04/22 14:37 SP [id number]) OP-PT Subjective Patient Comments Patient Comments Pt reports L elbow still discomfort but better, ableto lift pillow and jar palm face down, R neck still tight but able to sleep with out pain now. PT-OP-H Neuro Start: 02/21/22 08:11 Freq: Status: Active Protocol: Document 02/21/22 10:34 SAK (Rec: 02/22/22 17:08 SAK [id number]) Sensation Evaluation Gross Sensation Gross Sensation WNL PT-OP-J Posture/Palpation/Skin Start: 02/21/22 08:11 Freq: Status: Active Protocol: Document 02/21/22 10:34 [facility] (Rec: 02/22/22 17:08 [facility] [id number]) Posture Evaluation Position Sitting Head/C-Spine Posture Forward Head T-Spine Posture Increased Kyphosis Shoulder Posture (L) Rounded,(R) Rounded Scapula Posture (L) Protracted,(R) Protracted Arm Posture (L) Internally Rotated,(R) Internally Rotated Palpation Assessment Location left lateral epicondyle Palpation Findings Soft Tissue Tightness, Tenderness Palpation Details soft tissue tightness extensor tendons forearm right UT, c/s Palpation Findings Soft Tissue Tightness, Tenderness PT-OP-K Range of Motion Start: 02/21/22 08:11 Freq: Status: Active Protocol: Document 02/21/22 10:34 [facility] (Rec: 02/22/22 17:08 [facility] [id number]) Cervical Spine Range of Motion Cervical Spine Active Testing Position Sitting Flexion 40 Extension 70 Rotation Left 60 Rotation Right 60 Lateral Flexion Left 25 Lateral Flexion Right 20 ROM Limitations Soft Tissue Tightness,Pain Shoulder Goniometric Range of Motion Shoulder mateo Shoulder ROM WFL Yes Elbow/Forearm Range of Motion Elbow/Forearm mateo Elbow/Forearm ROM WFL Yes Comments painful at end range left elbow extension and flexion, end-range pron. Elbow/Forearm ROM Limitations Elbow/Forearm ROM Limitations Pain Wrist Goniometric Range of Motion Wrist mateo Wrist ROM WFL Yes ROM Limitations Wrist Limitations of Range of Motion Soft Tissue Tightness,Pain Comments palpable tenderness and tightness left forearm extensor tendons, painful wrist flexion with elbow extension and fingers flexed into fist PT-OP-L Special Tests Start: 02/21/22 08:11 Freq: Status: Active Protocol: Document 02/21/22 10:34 [facility] (Rec: 02/22/22 17:08 [facility] [id number]) Special Tests Cervical Spine Special Tests Passive Neck Flexion Comments negative Traction Comments negative Foraminal Compression Comments negative Elbow Special Tests Lateral Epicondylitis Extended Test Results positive left PT-OP-M Strength Start: 02/21/22 08:11 Freq: Status: Active Protocol: Document 02/21/22 10:34 [facility] (Rec: 02/22/22 17:08 [facility] [id number]) Cervical Spine Strength Cervical Spine Manual Muscle Testing Testing Position Sitting Flexion (C1-2) 5 Normal Extension 5 Normal Rotation Left 5 Normal Rotation Right 5 Normal Shoulder Strength Shoulder Manual Muscle Testing mateo Flexion 5 Normal Extension 5 Normal Elbow/Forearm Strength Elbow and Forearm Manual Muscle Testing Left Flexion (C6) 4 Good Extension (C7) 4 Good Pronation 4 Good Supination 4 Good Comments c/o pain left elbow Right Flexion (C6) 5 Normal Extension (C7) 5 Normal Pronation 5 Normal Supination 5 Normal Hand Pharmacy Specialist/Pinch Strength Hand Dominance Hand Dominance Right Hand Strength Left Comments painful, not done PT-OP-Q Treatments Start: 02/21/22 08:11 Freq: Status: Active Protocol: Document 05/04/22 13:47 SP (Rec: 05/04/22 14:37 SP [id number]) Therapeutic Exercises Sitting Exercises pron/sup Sitting Exercise Name HEP review (has been using hammer at home) Side right Resistance TB #1- provided today Reps/Minutes 10x each direction Comments good feedback work but painfree wrist strengthening Sitting Exercise Name flex, ext, RD, UD (has been usign hammer at home) Side right Resistance TB #1 provided today Reps/Minutes x10 each direction Comments good feedback work but painfree UE, ls, scalene stretches Sitting Exercise Name UT, LS, scalene/SCM stretching Side right Reps/Minutes 5 min: 10 sec holds Comments verbal review Standing Exercises Ys off wall Standing Exercise Name added toHEP Side bilateral Resistance TB #1 Reps/Minutes x8 reps Comments good LT fac row, shld ext, ER Standing Exercise Name verbalized performing at home Equipment Used L1 Reps/Minutes 10 Comments cues for correct scapular movement, UT inhibition Manual Therapy Treatment Soft Tissue Mobilization Posterior Scalenes Body Location R Posterior Scalenes Mobilization Type Myofascial Release Intensity/Depth Moderate Body Position Hooklying Comments R neck rot > L rot UT Body Location R UT, LS Mobilization Type Strumming,Sustained Pressure, Trigger Point Release Intensity/Depth Moderate Body Position Sitting, supine Comments pin and stretch, use of PT thumbs, elbow forearm extensors Body Location left Mobilization Type Myofascial Release,Strumming, Sustained Pressure Intensity/Depth Moderate Body Position 5min Manual Traction Cervical Details Axial traction Body Position Hooklying Reps/Duration 5' PT-OP-R Modalities Start: 02/21/22 08:11 Freq: Status: Active Protocol: Document 05/04/22 13:47 SP (Rec: 05/04/22 14:37 SP [id number]) Iontophoresis Treatment left elbow Treatment Medication Dexamethasone (-) Medication Amount (mL) (ml) 4 Treatment Polarity negative Treatment Duration (minutes) 3 Patient Tolerance Good Ultrasound Therapy Treatment Left Elbow Treatment Duration (minutes) 8 Patient Position Hooklying Coupling Medium Ultrasound Gel Applicator Size (cm2) 2 Frequency Setting (mHz) 3 Duty Cycle 50% Intensity Setting (w/cm2) 1.2 Comments good response, L CET at proximal ulna and distal humerus PT-OP-T Assessment and Plan Start: 02/21/22 08:11 Freq: Status: Active Protocol: Document 05/04/22 13:47 SP (Rec: 05/04/22 14:37 SP [id number]) Physical Therapy Assessment Goals Three Impairment Quickdash disability index score 55% Impairment decreased functional use and activity tolerance related to left elbow pain Short Term Goal (STG) decrease Quickdash score to no greater than 30% STG Duration 03/23/22 Detention Goal (LTG) Decrease Quickdash score to no greater than 10% as measure of improved functional activity tolerance left elbow. Patient to be able to kayak, lift, open jars, sleep, and use trekking pole without an increase in pain. 04/20/22: decreased to 42% LTG Duration 05/21/22 Two Impairment neck and shoulder disability index score 22% Impairment decreased functional use and activity tolerance related to neck/shoulder pain Detention Goal (LTG) Imrove neck and shoulder disability index score to no greater than 5% as measure of improved function and activity tolerance 04/20/22: decreased to 15% LTG Duration 05/21/22 One Impairment pain right cervical region and left elbow 6/10 on pain scale Short Term Goal (STG) decrease pain to no greater than 3/10 with usual activities 04/30/22: pain decreased to 4/ 10 Special Tester Goal (LTG) decrease pain to no greater than 1/10 with all usual activities LTG Duration 05/21/22 Assessment Summary Assessment Pt responded well to manual, modalities and HEP stretching review. 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 Pt requested continue US and Iontophoresis to L CET for relief post PT and understanding remove 4 hrs. Physical Therapy Plan Frequency and Duration Frequency of Treatment 2x/Week Duration of Treatment 4 weeks Plan of Care Start Date 04/20/22 Plan of Care End Date 05/21/22 Therapeutic Interventions Therapeutic Interventions Home Exercise Program,Manual Therapy,Patient/Caregiver Education,Self-Care/Home Management,Soft Tissue Mobilization,Taping, Therapeutic Activities, Therapeutic Exercises Modalities Cold Pack/Ice Massage,Electric Stimulation,Hot Packs, Infrared Therapy,Iontophoresis ,Ultrasound Next Visit Focus/Plan Next Note Type Treatment Note Next Visit Plan Assess added TB forearm. POC: Continue strengthening posterior chain, postural correction exercises, flexibility anterior. Ultrasound as indicated, iontophoresis, and manual therapy to decrease muscle tension and pain.
--- NOTE | 2022-05-12 11:15 | PT.OTN ---
Current Diagnoses Cervicalgia (05/12/22) Other muscle spasm (05/12/22) Lateral epicondylitis, left elbow (05/12/22) Physical Therapy Treatment Note PT-OP-A Visit Information Start: 02/21/22 08:11 Freq: Status: Active Protocol: Document 05/12/22 10:31 SP (Rec: 05/12/22 11:36 SP [id number]) Out-Patient Physical Therapy Visit Information Visit Information Visit Type Treatment Note Visit Note PN/POC Next tx. *Fill out Quick Dash for update POC progression. Visit Start Time 10:31 Visit Stop Time 11:15 Total Visit Minutes 44 Visit Number 15 Number of SPINNING DOFFER Visits 2 Evaluation Information Evaluation Date 02/21/22 PT-OP-B Current Condition Start: 02/21/22 08:11 Freq: Status: Active Protocol: Document 02/23/22 10:33 SAK (Rec: 02/23/22 11:18 SAK [id number]) Current Condition History of Current Condition Onset Date 9 months Current Complaints right sided neck pain History of Current Condition neck pain started 9 months ago , no known reason. Left elbow pain started December, possibly due to use of trekking pole; states tends to push instead of pull when using poles, has stopped using trekking pole on left. Also bilateral UE's hot at night, and go numb. Sleeps on side, working on bed positioning, working on posture. Elbow hurts with lifting, at night sleeping. No use of ice or heat on elbow. Uses heat on neck; worse in am. Tried chiropractic and accupuncture, not helpful on either area of pain. PT-OP-C Subjective Start: 02/21/22 08:11 Freq: Status: Active Protocol: Document 05/12/22 10:31 SP (Rec: 05/12/22 11:36 SP [id number]) OP-PT Subjective Patient Comments Patient Comments Pt reports R lateral neck to scap still tight. Has been focusing on mostly posture forgot about self massage instructed, will review today. L elbow same, able to lift heavy jars, still occasional get throbbing pain out of blue L UE CET region, wears strap during kayaking. Stated did the hammer (doesn't hurt) but not band as instructed last tx . Pt states will be less kayaking n next few weeks so hopefully with let muscles rest for while and seeing Dr Gotti for dry needling end Sept , appt got pushed back 2 weeks . PT-OP-H Neuro Start: 02/21/22 08:11 Freq: Status: Active Protocol: Document 02/21/22 10:34 SAK (Rec: 02/22/22 17:08 [facility] [id number]) Sensation Evaluation Gross Sensation Gross Sensation WNL PT-OP-J Posture/Palpation/Skin Start: 02/21/22 08:11 Freq: Status: Active Protocol: Document 02/21/22 10:34 SAK (Rec: 02/22/22 17:08 [facility] [id number]) Posture Evaluation Position Sitting Head/C-Spine Posture Forward Head T-Spine Posture Increased Kyphosis Shoulder Posture (L) Rounded,(R) Rounded Scapula Posture (L) Protracted,(R) Protracted Arm Posture (L) Internally Rotated,(R) Internally Rotated Palpation Assessment Location left lateral epicondyle Palpation Findings Soft Tissue Tightness, Tenderness Palpation Details soft tissue tightness extensor tendons forearm right UT, c/s Palpation Findings Soft Tissue Tightness, Tenderness PT-OP-K Range of Motion Start: 02/21/22 08:11 Freq: Status: Active Protocol: Document 02/21/22 10:34 SAK (Rec: 02/22/22 17:08 [facility] [id number]) Cervical Spine Range of Motion Cervical Spine Active Testing Position Sitting Flexion 40 Extension 70 Rotation Left 60 Rotation Right 60 Lateral Flexion Left 25 Lateral Flexion Right 20 ROM Limitations Soft Tissue Tightness,Pain Shoulder Goniometric Range of Motion Shoulder mateo Shoulder ROM WFL Yes Elbow/Forearm Range of Motion Elbow/Forearm mateo Elbow/Forearm ROM WFL Yes Comments painful at end range left elbow extension and flexion, end-range pron. Elbow/Forearm ROM Limitations Elbow/Forearm ROM Limitations Pain Wrist Goniometric Range of Motion Wrist mateo Wrist ROM WFL Yes ROM Limitations Wrist Limitations of Range of Motion Soft Tissue Tightness,Pain Comments palpable tenderness and tightness left forearm extensor tendons, painful wrist flexion with elbow extension and fingers flexed into fist PT-OP-L Special Tests Start: 02/21/22 08:11 Freq: Status: Active Protocol: Document 02/21/22 10:34 SAK (Rec: 02/22/22 17:08 [facility] [id number]) Special Tests Cervical Spine Special Tests Passive Neck Flexion Comments negative Traction Comments negative Foraminal Compression Comments negative Elbow Special Tests Lateral Epicondylitis Extended Test Results positive left PT-OP-M Strength Start: 02/21/22 08:11 Freq: Status: Active Protocol: Document 02/21/22 10:34 SAK (Rec: 02/22/22 17:08 SAK [id number]) Cervical Spine Strength Cervical Spine Manual Muscle Testing Testing Position Sitting Flexion (C1-2) 5 Normal Extension 5 Normal Rotation Left 5 Normal Rotation Right 5 Normal Shoulder Strength Shoulder Manual Muscle Testing mateo Flexion 5 Normal Extension 5 Normal Elbow/Forearm Strength Elbow and Forearm Manual Muscle Testing Left Flexion (C6) 4 Good Extension (C7) 4 Good Pronation 4 Good Supination 4 Good Comments c/o pain left elbow Right Flexion (C6) 5 Normal Extension (C7) 5 Normal Pronation 5 Normal Supination 5 Normal Hand Stope Miner/Pinch Strength Hand Dominance Hand Dominance Right Hand Strength Left Comments painful, not done PT-OP-Q Treatments Start: 02/21/22 08:11 Freq: Status: Active Protocol: Document 05/12/22 10:31 SP (Rec: 05/12/22 11:36 SP [id number]) Therapeutic Exercises Supine Exercises foam roller Supine Exercise Name pec stretch, scap retract, Ws> Ys Resistance AROM> TB #2 Equipment Used spine along noodle Reps/Minutes 3 min Comments good feedback and carryover standing w/ dowel behind neck to top shld MWM Standing Exercises self STMs Standing Exercise Name review past instructed theracane: lateral/post neck and scap, ball roll MWM Side right Resistance racquetball (firm) Equipment Used standing back wall and supine arm ROM Reps/Minutes good feedback response ( interscap/UT/infrasp/LS) 12 min Comments MWM head turns/nods, scap ROM Manual Therapy Treatment Soft Tissue Mobilization SA, Subscap, Lat Body Location R Mobilization Type Cross-Friction,Strumming, Sustained Pressure,Other Intensity/Depth Moderate Body Position Sidelying Comments Manual and instruction self use ball wall over these muscles with RUE bent elbow front across body lean into wall tolerant, can incorporate RUE IR/ ER/protraction/ retraction neutral- good response after manual. L Pecs Body Location R Pec Minor>Major Mobilization Type Myofascial Release,Sustained Pressure Intensity/Depth Superficial>Moderate Body Position Sidelying Posterior Scalenes Body Location R Posterior Scalenes Mobilization Type Myofascial Release Intensity/Depth Moderate Body Position Hooklying Comments R neck rot > L rot UT Body Location R UT, LS Mobilization Type Strumming,Sustained Pressure, Trigger Point Release Intensity/Depth Moderate Body Position Sitting, supine Comments pin and stretch, use of PT thumbs, elbow forearm extensors Body Location left Mobilization Type Myofascial Release,Strumming, Sustained Pressure Intensity/Depth Moderate Body Position 2min Comments manual and instruction self strumming vs sustained pressure w/ wrist flex/ext tolerant range effective benefits. Self-Care/Home Management Treatment Education Patient Education Home Exercise Program Other Education Verbally reviewed wrist perform wrist pron/sup/flex/ ext/RD/UD with TB vs hammer now. Continue self STMs PT-OP-R Modalities Start: 02/21/22 08:11 Freq: Status: Active Protocol: Document 05/04/22 13:47 SP (Rec: 05/04/22 14:37 SP [id number]) Iontophoresis Treatment left elbow Treatment Medication Dexamethasone (-) Medication Amount (mL) (ml) 4 Treatment Polarity negative Treatment Duration (minutes) 3 Patient Tolerance Good Ultrasound Therapy Treatment Left Elbow Treatment Duration (minutes) 8 Patient Position Hooklying Coupling Medium Ultrasound Gel Applicator Size (cm2) 2 Frequency Setting (mHz) 3 Duty Cycle 50% Intensity Setting (w/cm2) 1.2 Comments good response, L CET at proximal ulna and distal humerus PT-OP-T Assessment and Plan Start: 02/21/22 08:11 Freq: Status: Active Protocol: Document 05/12/22 10:31 SP (Rec: 05/12/22 11:36 SP [id number]) Physical Therapy Assessment Goals Three Impairment Quickdash disability index score 55% Impairment decreased functional use and activity tolerance related to left elbow pain Short Term Goal (STG) decrease Quickdash score to no greater than 30% STG Duration 03/23/22 Regional Wildlife Agent Goal (LTG) Decrease Quickdash score to no greater than 10% as measure of improved functional activity tolerance left elbow. Patient to be able to kayak, lift, open jars, sleep, and use trekking pole without an increase in pain. 04/20/22: decreased to 42% LTG Duration 05/21/22 Two Impairment neck and shoulder disability index score 22% Impairment decreased functional use and activity tolerance related to neck/shoulder pain Regional Wildlife Agent Goal (LTG) Imrove neck and shoulder disability index score to no greater than 5% as measure of improved function and activity tolerance 04/20/22: decreased to 15% LTG Duration 05/21/22 One Impairment pain right cervical region and left elbow 6/10 on pain scale Short Term Goal (STG) decrease pain to no greater than 3/10 with usual activities 04/30/22: pain decreased to 4/ 10 Halfway Goal (LTG) decrease pain to no greater than 1/10 with all usual activities LTG Duration 05/21/22 Assessment Summary Assessment Tx focused on manual and self application, discussed carryover HEP. Good tolerance to resistance and Ws to Ys with improvement in LT recruitment no popping with scapular strengthening. Pt declined iontophoresis L elbow due to going to swim at [employer] after PT. Pt reported less tightness/pain neck end tx. Physical Therapy Plan Frequency and Duration Frequency of Treatment 2x/Week Duration of Treatment 4 weeks Plan of Care Start Date 04/20/22 Plan of Care End Date 05/21/22 Therapeutic Interventions Therapeutic Interventions Home Exercise Program,Manual Therapy,Patient/Caregiver Education,Self-Care/Home Management,Soft Tissue Mobilization,Taping, Therapeutic Activities, Therapeutic Exercises Modalities Cold Pack/Ice Massage,Electric Stimulation,Hot Packs, Infrared Therapy,Iontophoresis ,Ultrasound Next Visit Focus/Plan Next Note Type Progress Note Next Visit Plan PN, POC next tx. Review TB forearm, added supine Ws>Ys TB , self STMs MWM. Ask compliant with HEP. POC: Continue strengthening posterior chain, postural correction exercises, flexibility anterior. Ultrasound as indicated, iontophoresis, and manual therapy to decrease muscle tension and pain.
--- NOTE | 2022-05-15 16:31 | PT.OTRE ---
Current Diagnoses Cervicalgia (05/15/22) Other muscle spasm (05/15/22) Lateral epicondylitis, left elbow (05/15/22) Past Medical History (Last Updated 02/02/22 @ 15:53 by Papo Schofield MD) Cysts (Unknown) DDD (degenerative disc disease), lumbosacral Fatigue Hypoglycemia Increased appetite Lateral epicondylitis of both elbows Left thigh pain Low back pain (Unknown) Lumbar radiculopathy, right Myalgia Right knee pain Sebaceous hyperplasia Spinal stenosis of lumbar region (Unknown) Spinal stenosis, lumbar region without neurogenic claudication Varicose veins of both lower extremities (Unknown) Vitamin D deficiency (~2013) Surgical History (Last Reviewed 03/28/21 @ 12:08 by Baldo Hernandez [facility]) History of surgical removal of ganglion cyst (07/2017) Hx of tonsillectomy (Unknown) Status post endovenous radiofrequency ablation of saphenous vein (2007) Visit Care Team Role Provider Type Papo Schofield MD Attending Provider Physician Family Provider Primary Care Provider Referring Provider Specialty: Family Practice Address: [address] [place] [address] Email: [email or web address] Physical Therapy Re-Evaluation PT-OP-A Visit Information Start: 02/21/22 08:11 Freq: Status: Active Protocol: Document 05/15/22 09:02 [facility] (Rec: 05/15/22 09:53 [facility] [id number]) Out-Patient Physical Therapy Visit Information Visit Information Visit Type Re-Evaluation Visit Start Time 09:00 Visit Stop Time 09:46 Total Visit Minutes 46 Visit Number 16 Number of SUPERVISOR [employer]SEMBLY Visits 0 Evaluation Information Evaluation Date 02/21/22 PT-OP-B Current Condition Start: 02/21/22 08:11 Freq: Status: Active Protocol: Document 02/23/22 10:33 SAK (Rec: 02/23/22 11:18 SAK [id number]) Current Condition History of Current Condition Onset Date 9 months Current Complaints right sided neck pain History of Current Condition neck pain started 9 months ago , no known reason. Left elbow pain started December, possibly due to use of trekking pole; states tends to push instead of pull when using poles, has stopped using trekking pole on left. Also bilateral UE's hot at night, and go numb. Sleeps on side, working on bed positioning, working on posture. Elbow hurts with lifting, at night sleeping. No use of ice or heat on elbow. Uses heat on neck; worse in am. Tried chiropractic and accupuncture, not helpful on either area of pain. PT-OP-C Subjective Start: 02/21/22 08:11 Freq: Status: Active Protocol: Document 05/15/22 09:02 SAK (Rec: 05/15/22 09:53 [facility] [id number]) OP-PT Subjective Patient Comments Patient Comments Less pain and throbbing of elbow as slowing down with paddling. Prefers using hammer for forearm exercises. Neck still feels tight but doesn't hurt as much as it used to, still feels most with sleeping . Hasn't gotten ball for self -massage yet. Manual work at scapula last session very helpful. PT-OP-H Neuro Start: 02/21/22 08:11 Freq: Status: Active Protocol: Document 02/21/22 10:34 SAK (Rec: 02/22/22 17:08 [facility] [id number]) Sensation Evaluation Gross Sensation Gross Sensation WNL PT-OP-J Posture/Palpation/Skin Start: 02/21/22 08:11 Freq: Status: Active Protocol: Document 02/21/22 10:34 SAK (Rec: 02/22/22 17:08 [facility] [id number]) Posture Evaluation Position Sitting Head/C-Spine Posture Forward Head T-Spine Posture Increased Kyphosis Shoulder Posture (L) Rounded,(R) Rounded Scapula Posture (L) Protracted,(R) Protracted Arm Posture (L) Internally Rotated,(R) Internally Rotated Palpation Assessment Location left lateral epicondyle Palpation Findings Soft Tissue Tightness, Tenderness Palpation Details soft tissue tightness extensor tendons forearm right UT, c/s Palpation Findings Soft Tissue Tightness, Tenderness PT-OP-K Range of Motion Start: 02/21/22 08:11 Freq: Status: Active Protocol: Document 02/21/22 10:34 SAK (Rec: 02/22/22 17:08 [facility] [id number]) Cervical Spine Range of Motion Cervical Spine Active Testing Position Sitting Flexion 40 Extension 70 Rotation Left 60 Rotation Right 60 Lateral Flexion Left 25 Lateral Flexion Right 20 ROM Limitations Soft Tissue Tightness,Pain Shoulder Goniometric Range of Motion Shoulder Measured in Degrees mateo Shoulder ROM WFL Yes Elbow/Forearm Range of Motion Elbow/Forearm Measured in Degrees mateo Elbow/Forearm ROM WFL Yes Comments painful at end range left elbow extension and flexion, end-range pron. Elbow/Forearm ROM Limitations Elbow/Forearm ROM Limitations Pain Wrist Goniometric Range of Motion Wrist Measured in Degrees mateo Wrist ROM WFL Yes ROM Limitations Wrist Limitations of Range of Motion Soft Tissue Tightness,Pain Comments palpable tenderness and tightness left forearm extensor tendons, painful wrist flexion with elbow extension and fingers flexed into fist PT-OP-L Special Tests Start: 02/21/22 08:11 Freq: Status: Active Protocol: Document 02/21/22 10:34 [facility] (Rec: 02/22/22 17:08 [facility] [id number]) Special Tests Cervical Spine Special Tests Passive Neck Flexion Comments negative Traction Comments negative Foraminal Compression Comments negative Elbow Special Tests Lateral Epicondylitis Extended Test Results positive left PT-OP-M Strength Start: 02/21/22 08:11 Freq: Status: Active Protocol: Document 02/21/22 10:34 [facility] (Rec: 02/22/22 17:08 [facility] [id number]) Cervical Spine Strength Cervical Spine Manual Muscle Testing Testing Position Sitting Flexion (C1-2) 5 Normal Extension 5 Normal Rotation Left 5 Normal Rotation Right 5 Normal Shoulder Strength Shoulder Manual Muscle Testing mateo Flexion 5 Normal Extension 5 Normal Elbow/Forearm Strength Elbow and Forearm Manual Muscle Testing Left Flexion (C6) 4 Good Extension (C7) 4 Good Pronation 4 Good Supination 4 Good Comments c/o pain left elbow Right Flexion (C6) 5 Normal Extension (C7) 5 Normal Pronation 5 Normal Supination 5 Normal Hand Loft Worker Head/Pinch Strength Hand Dominance Hand Dominance Right Hand Strength Left Comments painful, not done PT-OP-Q Treatments Start: 02/21/22 08:11 Freq: Status: Active Protocol: Document 05/15/22 09:02 SAK (Rec: 05/15/22 09:53 [facility] [id number]) Therapeutic Exercises Supine Exercises foam roller Supine Exercise Name pec stretch, scap retract, Ws> Ys Resistance AROM> TB #2 Equipment Used spine along noodle Reps/Minutes 5 min Comments pool noodle per patient preference Prone Exercises chin tuck Prone Exercise Name with head lift Reps/Minutes 2xx Comments verbal and tactile cues for neck lengthening W Reps/Minutes 10x Comments cues for scapular activation I's, T's, Y's Resistance 1# I, otherwise no weight due to gripping Reps/Minutes 10x ea Comments cues for initiating with scapular activation and movement Manual Therapy Treatment Soft Tissue Mobilization SA, Subscap, Lat Body Location R Mobilization Type Cross-Friction,Strumming, Sustained Pressure,Other Intensity/Depth Moderate Body Position Sidelying and supine Comments included pin and stretch subscap and teres gege Posterior Scalenes Body Location R Posterior Scalenes Mobilization Type Myofascial Release Intensity/Depth Moderate Body Position Hooklying Comments R neck rot > L rot UT Body Location R UT, LS Mobilization Type Strumming,Sustained Pressure, Trigger Point Release Intensity/Depth Moderate Body Position Sitting, supine Comments pin and stretch, use of PT thumbs, elbow forearm extensors Body Location left Mobilization Type Myofascial Release,Strumming, Sustained Pressure Intensity/Depth Moderate Body Position Sitting Comments manual Self-Care/Home Management Treatment Education Patient Education Home Exercise Program PT-OP-R Modalities Start: 02/21/22 08:11 Freq: Status: Active Protocol: Document 05/15/22 09:02 [facility] (Rec: 05/15/22 09:53 [facility] [id number]) Ultrasound Therapy Treatment Left Elbow Treatment Duration (minutes) 8 Patient Position Hooklying Coupling Medium Ultrasound Gel Applicator Size (cm2) 2 Frequency Setting (mHz) 3 Duty Cycle 50% Intensity Setting (w/cm2) 1.2 Comments good response, L CET at proximal ulna and distal humerus PT-OP-T Assessment and Plan Start: 02/21/22 08:11 Freq: Status: Active Protocol: Document 05/15/22 09:02 [facility] (Rec: 05/15/22 09:53 [facility] [id number]) Physical Therapy Assessment Goals Three Impairment Quickdash disability index score 55% Impairment decreased functional use and activity tolerance related to left elbow pain Short Term Goal (STG) decrease Quickdash score to no greater than 30% STG Duration goal met Retirement Goal (LTG) Decrease Quickdash score to no greater than 10% as measure of improved functional activity tolerance left elbow. Patient to be able to kayak, lift, open jars, sleep, and use trekking pole without an increase in pain. 04/20/22: decreased to 42% 05/15/22: decreased to 17% LTG Duration 06/14/22 Two Impairment neck and shoulder disability index score 22% Impairment decreased functional use and activity tolerance related to neck/shoulder pain Oracle Architect Goal (LTG) Imrove neck and shoulder disability index score to no greater than 5% as measure of improved function and activity tolerance 04/20/22: decreased to 15% 05/15/22: decrased to 14% LTG Duration 06/14/22 One Impairment pain right cervical region and left elbow 6/10 on pain scale Short Term Goal (STG) decrease pain to no greater than 3/10 with usual activities 04/30/22: pain decreased to 4/ 10 05/15/22: goal met STG Duration goal met. Retirement Goal (LTG) decrease pain to no greater than 1/10 with all usual activities LTG Duration 06/14/22 Assessment Summary Assessment Reporting improvement in all goal areas. Patient improved forearm extensor tone. Decreased scapular tightness after joint and soft tissue mob and pin and stretch with patient demonstrating good understanding of self- management. Pain and function gradually improving, good compliance to HEP. Would benefit from continued PT to help her fully achieve her PT goals as above and transition to independence with HEP and self-management program. Physical Therapy Plan Frequency and Duration Frequency of Treatment 2x/Week Duration of Treatment 4 weeks Plan of Care Start Date 05/15/22 Plan of Care End Date 06/14/22 Therapeutic Interventions Therapeutic Interventions Home Exercise Program,Manual Therapy,Patient/Caregiver Education,Self-Care/Home Management,Soft Tissue Mobilization,Taping, Therapeutic Activities, Therapeutic Exercises Modalities Cold Pack/Ice Massage,Electric Stimulation,Hot Packs, Infrared Therapy,Iontophoresis ,Ultrasound Next Visit Focus/Plan Next Note Type Progress Note Next Visit Plan POC: Continue strengthening posterior chain, postural correction exercises, flexibility anterior. Ultrasound as indicated, iontophoresis, and manual therapy to decrease muscle tension and pain.
--- NOTE | 2022-05-15 16:31 | PT.OPPOC ---
Physical, Occupational & Speech Therapy At [facility] Current Diagnoses Cervicalgia (05/15/22) Other muscle spasm (05/15/22) Lateral epicondylitis, left elbow (05/15/22) Visit Care Team Role Provider Type Papo Schofield MD Attending Provider Physician Family Provider Primary Care Provider Referring Provider Specialty: Family Practice Address: [address] [place] [address] Email: [email or web address] Plan Of Care PT-OP-T Assessment and Plan Start: 02/21/22 08:11 Freq: Status: Active Protocol: Document 05/15/22 09:02 EMMA (Rec: 05/15/22 09:53 SAK [id number]) Physical Therapy Assessment Goals Three Impairment Quickdash disability index score 55% Impairment decreased functional use and activity tolerance related to left elbow pain Short Term Goal (STG) decrease Quickdash score to no greater than 30% STG Duration goal met Longterm Goal (LTG) Decrease Quickdash score to no greater than 10% as measure of improved functional activity tolerance left elbow. Patient to be able to kayak, lift, open jars, sleep, and use trekking pole without an increase in pain. 04/20/22: decreased to 42% 05/15/22: decreased to 17% LTG Duration 06/14/22 Two Impairment neck and shoulder disability index score 22% Impairment decreased functional use and activity tolerance related to neck/shoulder pain Longterm Goal (LTG) Imrove neck and shoulder disability index score to no greater than 5% as measure of improved function and activity tolerance 04/20/22: decreased to 15% 05/15/22: decrased to 14% LTG Duration 06/14/22 One Impairment pain right cervical region and left elbow 6/10 on pain scale Short Term Goal (STG) decrease pain to no greater than 3/10 with usual activities 04/30/22: pain decreased to 4/ 10 05/15/22: goal met STG Duration goal met. Longterm Goal (LTG) decrease pain to no greater than 1/10 with all usual activities LTG Duration 06/14/22 Assessment Summary Assessment Reporting improvement in all goal areas. Patient improved forearm extensor tone. Decreased scapular tightness after joint and soft tissue mob and pin and stretch with patient demonstrating good understanding of self- management. Pain and function gradually improving, good compliance to HEP. Would benefit from continued PT to help her fully achieve her PT goals as above and transition to independence with HEP and self-management program. Physical Therapy Plan Frequency and Duration Frequency of Treatment 2x/Week Duration of Treatment 4 weeks Plan of Care Start Date 05/15/22 Plan of Care End Date 06/14/22 Therapeutic Interventions Therapeutic Interventions Home Exercise Program,Manual Therapy,Patient/Caregiver Education,Self-Care/Home Management,Soft Tissue Mobilization,Taping, Therapeutic Activities, Therapeutic Exercises Modalities Cold Pack/Ice Massage,Electric Stimulation,Hot Packs, Infrared Therapy,Iontophoresis ,Ultrasound Next Visit Focus/Plan Next Note Type Progress Note Next Visit Plan POC: Continue strengthening posterior chain, postural correction exercises, flexibility anterior. Ultrasound as indicated, iontophoresis, and manual therapy to decrease muscle tension and pain. Plan of Care Dates Plan of Care Start Date 05/15/22 Plan of Care End Date 06/14/22 Electronically Signed by: Nimisha Winchester, PT 05/15/22 3191 If you are in agreement with this Plan of Care, please return a signed and dated copy. I have reviewed this Plan of Care and certify that the skilled therapy services above are required to meet the patient?s needs. Physician Signature Date Printed Name and Credentials Clinical Instructor Signature Printed Name and Credentials
--- NOTE | 2022-05-18 13:52 | PT.OTN ---
Current Diagnoses Cervicalgia (05/18/22) Other muscle spasm (05/18/22) Lateral epicondylitis, left elbow (05/18/22) Physical Therapy Treatment Note PT-OP-A Visit Information Start: 02/21/22 08:11 Freq: Status: Active Protocol: Document 05/18/22 10:31 SAK (Rec: 05/18/22 11:13 [facility] [id number]) Out-Patient Physical Therapy Visit Information Visit Information Visit Type Treatment Note Visit Start Time 10:30 Visit Stop Time 11:25 Total Visit Minutes 55 Visit Number 17 Evaluation Information Evaluation Date 02/21/22 PT-OP-B Current Condition Start: 02/21/22 08:11 Freq: Status: Active Protocol: Document 02/23/22 10:33 SAK (Rec: 02/23/22 11:18 SAK [id number]) Current Condition History of Current Condition Onset Date 9 months Current Complaints right sided neck pain History of Current Condition neck pain started 9 months ago , no known reason. Left elbow pain started December, possibly due to use of trekking pole; states tends to push instead of pull when using poles, has stopped using trekking pole on left. Also bilateral UE's hot at night, and go numb. Sleeps on side, working on bed positioning, working on posture. Elbow hurts with lifting, at night sleeping. No use of ice or heat on elbow. Uses heat on neck; worse in am. Tried chiropractic and accupuncture, not helpful on either area of pain. PT-OP-C Subjective Start: 02/21/22 08:11 Freq: Status: Active Protocol: Document 05/18/22 10:31 SAK (Rec: 05/18/22 11:13 [facility] [id number]) OP-PT Subjective Patient Comments Patient Comments Minimal elbow pain, hasn't done any paddling recently. neck stiff and painful, unknown cause increased symptoms today PT-OP-H Neuro Start: 02/21/22 08:11 Freq: Status: Active Protocol: Document 02/21/22 10:34 SAK (Rec: 02/22/22 17:08 [facility] [id number]) Sensation Evaluation Gross Sensation Gross Sensation WNL PT-OP-J Posture/Palpation/Skin Start: 02/21/22 08:11 Freq: Status: Active Protocol: Document 02/21/22 10:34 SAK (Rec: 02/22/22 17:08 [facility] [id number]) Posture Evaluation Position Sitting Head/C-Spine Posture Forward Head T-Spine Posture Increased Kyphosis Shoulder Posture (L) Rounded,(R) Rounded Scapula Posture (L) Protracted,(R) Protracted Arm Posture (L) Internally Rotated,(R) Internally Rotated Palpation Assessment Location left lateral epicondyle Palpation Findings Soft Tissue Tightness, Tenderness Palpation Details soft tissue tightness extensor tendons forearm right UT, c/s Palpation Findings Soft Tissue Tightness, Tenderness PT-OP-K Range of Motion Start: 02/21/22 08:11 Freq: Status: Active Protocol: Document 02/21/22 10:34 [facility] (Rec: 02/22/22 17:08 [facility] [id number]) Cervical Spine Range of Motion Cervical Spine Active Testing Position Sitting Flexion 40 Extension 70 Rotation Left 60 Rotation Right 60 Lateral Flexion Left 25 Lateral Flexion Right 20 ROM Limitations Soft Tissue Tightness,Pain Shoulder Goniometric Range of Motion Shoulder mateo Shoulder ROM WFL Yes Elbow/Forearm Range of Motion Elbow/Forearm mateo Elbow/Forearm ROM WFL Yes Comments painful at end range left elbow extension and flexion, end-range pron. Elbow/Forearm ROM Limitations Elbow/Forearm ROM Limitations Pain Wrist Goniometric Range of Motion Wrist mateo Wrist ROM WFL Yes ROM Limitations Wrist Limitations of Range of Motion Soft Tissue Tightness,Pain Comments palpable tenderness and tightness left forearm extensor tendons, painful wrist flexion with elbow extension and fingers flexed into fist PT-OP-L Special Tests Start: 02/21/22 08:11 Freq: Status: Active Protocol: Document 02/21/22 10:34 [facility] (Rec: 02/22/22 17:08 [facility] [id number]) Special Tests Cervical Spine Special Tests Passive Neck Flexion Comments negative Traction Comments negative Foraminal Compression Comments negative Elbow Special Tests Lateral Epicondylitis Extended Test Results positive left PT-OP-M Strength Start: 02/21/22 08:11 Freq: Status: Active Protocol: Document 02/21/22 10:34 [facility] (Rec: 02/22/22 17:08 [facility] [id number]) Cervical Spine Strength Cervical Spine Manual Muscle Testing Testing Position Sitting Flexion (C1-2) 5 Normal Extension 5 Normal Rotation Left 5 Normal Rotation Right 5 Normal Shoulder Strength Shoulder Manual Muscle Testing mateo Flexion 5 Normal Extension 5 Normal Elbow/Forearm Strength Elbow and Forearm Manual Muscle Testing Left Flexion (C6) 4 Good Extension (C7) 4 Good Pronation 4 Good Supination 4 Good Comments c/o pain left elbow Right Flexion (C6) 5 Normal Extension (C7) 5 Normal Pronation 5 Normal Supination 5 Normal Hand Spiral Winding Machine Helper/Pinch Strength Hand Dominance Hand Dominance Right Hand Strength Left Comments painful, not done PT-OP-Q Treatments Start: 02/21/22 08:11 Freq: Status: Active Protocol: Document 05/18/22 10:31 [facility] (Rec: 05/18/22 13:52 [facility] [id number]) Therapeutic Exercises Supine Exercises neck lengthening Supine Exercise Name with chin tuck Reps/Minutes 5x5 Comments verbal and tactile cues Sidelying Exercises open book Side bilateral Reps/Minutes 5 x Comments verbal cues for segmental movement, deep breath and relax into stretch Standing Exercises wall posture Reps/Minutes 5x static, 5x dynamic UE's overhead Manual Therapy Treatment Soft Tissue Mobilization Posterior Scalenes Body Location R Posterior Scalenes Mobilization Type Myofascial Release Intensity/Depth Moderate Body Position Hooklying Comments R neck rot > L rot UT Body Location R UT, LS Mobilization Type Strumming,Sustained Pressure, Trigger Point Release Intensity/Depth Moderate Body Position Sitting, supine Comments pin and stretch, use of PT thumbs, elbow Manual Traction Cervical Details Axial traction Body Position Hooklying Reps/Duration 2 min PT-OP-R Modalities Start: 02/21/22 08:11 Freq: Status: Active Protocol: Document 05/18/22 10:31 [facility] (Rec: 05/18/22 13:52 [facility] [id number]) Hot Pack/Cold Pack Treatment Hot Pack Location c/s Patient Position Hooklying Treatment Duration (minutes) 15 Patient Tolerance Good PT-OP-T Assessment and Plan Start: 02/21/22 08:11 Freq: Status: Active Protocol: Document 05/18/22 10:31 [facility] (Rec: 05/18/22 11:13 [facility] [id number]) Physical Therapy Assessment Goals Three Impairment Quickdash disability index score 55% Impairment decreased functional use and activity tolerance related to left elbow pain Short Term Goal (STG) decrease Quickdash score to no greater than 30% STG Duration goal met Rn Family Practice Goal (LTG) Decrease Quickdash score to no greater than 10% as measure of improved functional activity tolerance left elbow. Patient to be able to kayak, lift, open jars, sleep, and use Efficient [employer] Conversion without an increase in pain. 04/20/22: decreased to 42% 05/15/22: decreased to 17% LTG Duration 06/14/22 Two Impairment neck and shoulder disability index score 22% Impairment decreased functional use and activity tolerance related to neck/shoulder pain [facility] Goal (LTG) Imrove neck and shoulder disability index score to no greater than 5% as measure of improved function and activity tolerance 04/20/22: decreased to 15% 05/15/22: decrased to 14% LTG Duration 06/14/22 One Impairment pain right cervical region and left elbow 6/10 on pain scale Short Term Goal (STG) decrease pain to no greater than 3/10 with usual activities 04/30/22: pain decreased to 4/ 10 05/15/22: goal met STG Duration goal met. [facility] Goal (LTG) decrease pain to no greater than 1/10 with all usual activities LTG Duration 06/14/22 Assessment Summary Assessment Improved neck mobility after treatment, with review of supine contract/relax eye exercise for cervical rotation as patient has not been performing as part of HEP. Improved elbow pain with decreased physical activity. Continues to benefit from postural exercises, strengthening of posterior chain for improved muscle balance and decreased pain in elbow and neck. Physical Therapy Plan Frequency and Duration Frequency of Treatment 2x/Week Duration of Treatment 4 weeks Plan of Care Start Date 05/15/22 Plan of Care End Date 06/14/22 Therapeutic Interventions Therapeutic Interventions Home Exercise Program,Manual Therapy,Patient/Caregiver Education,Self-Care/Home Management,Soft Tissue Mobilization,Taping, Therapeutic Activities, Therapeutic Exercises Modalities Cold Pack/Ice Massage,Electric Stimulation,Hot Packs, Infrared Therapy,Iontophoresis ,Ultrasound Next Visit Focus/Plan Next Note Type Treatment Note Next Visit Plan POC: Continue strengthening posterior chain, postural correction exercises, flexibility anterior. Ultrasound as indicated, iontophoresis, and manual therapy to decrease muscle tension and pain. Review contract/relax exercise to assure correct performance
--- NOTE | 2022-05-24 08:00 | PT-OP ANOTE ---
Addendum entered and electronically signed by Carri Mary, LAY OUT TECHNICIAN 05/24/22 08:02: No reason given to schedulers. Original Note: Pt called and cancelled appt on 05/23 @9038, unable to make appt 05/24.
--- NOTE | 2022-05-29 16:20 | PT.OTN ---
Current Diagnoses Cervicalgia (05/29/22) Other muscle spasm (05/29/22) Lateral epicondylitis, left elbow (05/29/22) Physical Therapy Treatment Note PT-OP-A Visit Information Start: 02/21/22 08:11 Freq: Status: Active Protocol: Document 05/29/22 15:25 SAK (Rec: 05/29/22 16:20 SAK [id number]) Out-Patient Physical Therapy Visit Information Visit Information Visit Type Treatment Note Visit Start Time 15:25 Visit Number 17 Evaluation Information Evaluation Date 02/21/22 PT-OP-B Current Condition Start: 02/21/22 08:11 Freq: Status: Active Protocol: Document 02/23/22 10:33 SAK (Rec: 02/23/22 11:18 SAK [id number]) Current Condition History of Current Condition Onset Date 9 months Current Complaints right sided neck pain History of Current Condition neck pain started 9 months ago , no known reason. Left elbow pain started December, possibly due to use of trekking pole; states tends to push instead of pull when using poles, has stopped using trekking pole on left. Also bilateral UE's hot at night, and go numb. Sleeps on side, working on bed positioning, working on posture. Elbow hurts with lifting, at night sleeping. No use of ice or heat on elbow. Uses heat on neck; worse in am. Tried chiropractic and accupuncture, not helpful on either area of pain. PT-OP-C Subjective Start: 02/21/22 08:11 Freq: Status: Active Protocol: Document 05/29/22 15:25 SAK (Rec: 05/29/22 16:20 [facility] [id number]) OP-PT Subjective Patient Comments Patient Comments Elbow doing well, just occasional jabs of pain. Continues with HEP. Neck better but pain and some limited ROM persists. Hasn't done eye exercise much lately. Sees Dr. Gotti on prior to PT appointment. PT-OP-H Neuro Start: 02/21/22 08:11 Freq: Status: Active Protocol: Document 02/21/22 10:34 SAK (Rec: 02/22/22 17:08 SAK [id number]) Sensation Evaluation Gross Sensation Gross Sensation WNL PT-OP-J Posture/Palpation/Skin Start: 02/21/22 08:11 Freq: Status: Active Protocol: Document 02/21/22 10:34 [facility] (Rec: 02/22/22 17:08 [facility] [id number]) Posture Evaluation Position Sitting Head/C-Spine Posture Forward Head T-Spine Posture Increased Kyphosis Shoulder Posture (L) Rounded,(R) Rounded Scapula Posture (L) Protracted,(R) Protracted Arm Posture (L) Internally Rotated,(R) Internally Rotated Palpation Assessment Location left lateral epicondyle Palpation Findings Soft Tissue Tightness, Tenderness Palpation Details soft tissue tightness extensor tendons forearm right UT, c/s Palpation Findings Soft Tissue Tightness, Tenderness PT-OP-K Range of Motion Start: 02/21/22 08:11 Freq: Status: Active Protocol: Document 02/21/22 10:34 [facility] (Rec: 02/22/22 17:08 [facility] [id number]) Cervical Spine Range of Motion Cervical Spine Active Testing Position Sitting Flexion 40 Extension 70 Rotation Left 60 Rotation Right 60 Lateral Flexion Left 25 Lateral Flexion Right 20 ROM Limitations Soft Tissue Tightness,Pain Shoulder Goniometric Range of Motion Shoulder mateo Shoulder ROM WFL Yes Elbow/Forearm Range of Motion Elbow/Forearm mateo Elbow/Forearm ROM WFL Yes Comments painful at end range left elbow extension and flexion, end-range pron. Elbow/Forearm ROM Limitations Elbow/Forearm ROM Limitations Pain Wrist Goniometric Range of Motion Wrist mateo Wrist ROM WFL Yes ROM Limitations Wrist Limitations of Range of Motion Soft Tissue Tightness,Pain Comments palpable tenderness and tightness left forearm extensor tendons, painful wrist flexion with elbow extension and fingers flexed into fist PT-OP-L Special Tests Start: 02/21/22 08:11 Freq: Status: Active Protocol: Document 02/21/22 10:34 [facility] (Rec: 02/22/22 17:08 [facility] [id number]) Special Tests Cervical Spine Special Tests Passive Neck Flexion Comments negative Traction Comments negative Foraminal Compression Comments negative Elbow Special Tests Lateral Epicondylitis Extended Test Results positive left PT-OP-M Strength Start: 02/21/22 08:11 Freq: Status: Active Protocol: Document 02/21/22 10:34 [facility] (Rec: 02/22/22 17:08 [facility] [id number]) Cervical Spine Strength Cervical Spine Manual Muscle Testing Testing Position Sitting Flexion (C1-2) 5 Normal Extension 5 Normal Rotation Left 5 Normal Rotation Right 5 Normal Shoulder Strength Shoulder Manual Muscle Testing mateo Flexion 5 Normal Extension 5 Normal Elbow/Forearm Strength Elbow and Forearm Manual Muscle Testing Left Flexion (C6) 4 Good Extension (C7) 4 Good Pronation 4 Good Supination 4 Good Comments c/o pain left elbow Right Flexion (C6) 5 Normal Extension (C7) 5 Normal Pronation 5 Normal Supination 5 Normal Hand Wetland Scientist/Pinch Strength Hand Dominance Hand Dominance Right Hand Strength Left Comments painful, not done PT-OP-Q Treatments Start: 02/21/22 08:11 Freq: Status: Active Protocol: Document 05/29/22 15:25 [facility] (Rec: 05/29/22 16:20 [facility] [id number]) Therapeutic Exercises Supine Exercises neck lengthening Supine Exercise Name with chin tuck Reps/Minutes 5x5 Comments verbal and tactile cues Manual Therapy Treatment Soft Tissue Mobilization LS Mobilization Type Myofascial Release,Sustained Pressure Intensity/Depth Moderate Body Position Supine Comments supne and sitting pin and stretch Posterior Scalenes Body Location R Posterior Scalenes Mobilization Type Myofascial Release Intensity/Depth Moderate Body Position Hooklying Comments R neck rot > L rot UT Body Location R UT, LS Mobilization Type Strumming,Sustained Pressure, Trigger Point Release Intensity/Depth Moderate Body Position Sitting, supine Comments pin and stretch, use of PT thumbs, elbow Self-Care/Home Management Treatment Education Patient Education Home Exercise Program PT-OP-R Modalities Start: 02/21/22 08:11 Freq: Status: Active Protocol: Document 05/29/22 15:25 [facility] (Rec: 05/29/22 16:20 [facility] [id number]) Hot Pack/Cold Pack Treatment Hot Pack Location c/s Patient Position Hooklying Treatment Duration (minutes) 15 Patient Tolerance Good Ultrasound Therapy Treatment Right Neck Treatment Duration (minutes) 8 Patient Position Sitting Coupling Medium Ultrasound Gel Frequency Setting (mHz) 1 Duty Cycle 100% Intensity Setting (w/cm2) 1.4 Comments UT, LS PT-OP-T Assessment and Plan Start: 02/21/22 08:11 Freq: Status: Active Protocol: Document 05/29/22 15:25 [facility] (Rec: 05/29/22 16:20 [facility] [id number]) Physical Therapy Assessment Goals Three Impairment Quickdash disability index score 55% Impairment decreased functional use and activity tolerance related to left elbow pain Short Term Goal (STG) decrease Quickdash score to no greater than 30% STG Duration goal met Medical Assistant Ob Gyn Goal (LTG) Decrease Quickdash score to no greater than 10% as measure of improved functional activity tolerance left elbow. Patient to be able to kayak, lift, open jars, sleep, and use trekking pole without an increase in pain. 04/20/22: decreased to 42% 05/15/22: decreased to 17% LTG Duration 06/14/22 Two Impairment neck and shoulder disability index score 22% Impairment decreased functional use and activity tolerance related to neck/shoulder pain Medical Assistant Ob Gyn Goal (LTG) Imrove neck and shoulder disability index score to no greater than 5% as measure of improved function and activity tolerance 04/20/22: decreased to 15% 05/15/22: decrased to 14% LTG Duration 06/14/22 One Impairment pain right cervical region and left elbow 6/10 on pain scale Short Term Goal (STG) decrease pain to no greater than 3/10 with usual activities 04/30/22: pain decreased to 4/ 10 05/15/22: goal met STG Duration goal met. Medical Assistant Ob Gyn Goal (LTG) decrease pain to no greater than 1/10 with all usual activities LTG Duration 06/14/22 Assessment Summary Assessment Achieved normal c/s ROM supine following isometric eye exercise. Significant trigger points persist right UT and LS. Sees Dr. Gotti on . Physical Therapy Plan Frequency and Duration Frequency of Treatment 2x/Week Duration of treatment (weeks) 4 Plan of Care Start Date 05/15/22 Plan of Care End Date 07/10/22 Therapeutic Interventions Therapeutic Interventions Home Exercise Program,Manual Therapy,Patient/Caregiver Education,Self-Care/Home Management,Soft Tissue Mobilization,Taping, Therapeutic Activities, Therapeutic Exercises Modalities Cold Pack/Ice Massage,Electric Stimulation,Hot Packs, Infrared Therapy,Iontophoresis ,Ultrasound Next Visit Focus/Plan Next Note Type Treatment Note Next Visit Plan Continue PT to decrease pain, improve ROM c/s, posterior chain and left elbow.
--- NOTE | 2022-06-01 16:28 | PT.OTN ---
Current Diagnoses Cervicalgia (06/01/22) Other muscle spasm (06/01/22) Lateral epicondylitis, left elbow (06/01/22) Physical Therapy Treatment Note PT-OP-A Visit Information Start: 02/21/22 08:11 Freq: Status: Active Protocol: Document 06/01/22 15:15 SAK (Rec: 06/01/22 16:27 [facility] [id number]) Out-Patient Physical Therapy Visit Information Visit Information Visit Type Treatment Note Visit Start Time 15:15 Visit Stop Time 16:10 Total Visit Minutes 55 Visit Number 18 Evaluation Information Evaluation Date 02/21/22 PT-OP-B Current Condition Start: 02/21/22 08:11 Freq: Status: Active Protocol: Document 02/23/22 10:33 SAK (Rec: 02/23/22 11:18 SAK [id number]) Current Condition History of Current Condition Onset Date 9 months Current Complaints right sided neck pain History of Current Condition neck pain started 9 months ago , no known reason. Left elbow pain started December, possibly due to use of trekking pole; states tends to push instead of pull when using poles, has stopped using trekking pole on left. Also bilateral UE's hot at night, and go numb. Sleeps on side, working on bed positioning, working on posture. Elbow hurts with lifting, at night sleeping. No use of ice or heat on elbow. Uses heat on neck; worse in am. Tried chiropractic and accupuncture, not helpful on either area of pain. PT-OP-C Subjective Start: 02/21/22 08:11 Freq: Status: Active Protocol: Document 06/01/22 15:15 SAK (Rec: 06/01/22 16:27 [facility] [id number]) OP-PT Subjective Patient Comments Patient Comments No c/o elbow pain. No pain in neck but very stiff and has tingling in hands in the middle of the night and when she wakes up in morning. Saw Dr. Gotti today; no dry needling but did OMT treatment and gave waterfall and cape exercise for posture and muscle relaxation. States he felt she was having first rib issues. PT-OP-H Neuro Start: 02/21/22 08:11 Freq: Status: Active Protocol: Document 02/21/22 10:34 SAK (Rec: 02/22/22 17:08 SAK [id number]) Sensation Evaluation Gross Sensation Gross Sensation WNL PT-OP-J Posture/Palpation/Skin Start: 02/21/22 08:11 Freq: Status: Active Protocol: Document 02/21/22 10:34 [facility] (Rec: 02/22/22 17:08 [facility] [id number]) Posture Evaluation Position Sitting Head/C-Spine Posture Forward Head T-Spine Posture Increased Kyphosis Shoulder Posture (L) Rounded,(R) Rounded Scapula Posture (L) Protracted,(R) Protracted Arm Posture (L) Internally Rotated,(R) Internally Rotated Palpation Assessment Location left lateral epicondyle Palpation Findings Soft Tissue Tightness, Tenderness Palpation Details soft tissue tightness extensor tendons forearm right UT, c/s Palpation Findings Soft Tissue Tightness, Tenderness PT-OP-K Range of Motion Start: 02/21/22 08:11 Freq: Status: Active Protocol: Document 02/21/22 10:34 [facility] (Rec: 02/22/22 17:08 [facility] [id number]) Cervical Spine Range of Motion Cervical Spine Active Testing Position Sitting Flexion 40 Extension 70 Rotation Left 60 Rotation Right 60 Lateral Flexion Left 25 Lateral Flexion Right 20 ROM Limitations Soft Tissue Tightness,Pain Shoulder Goniometric Range of Motion Shoulder mateo Shoulder ROM WFL Yes Elbow/Forearm Range of Motion Elbow/Forearm mateo Elbow/Forearm ROM WFL Yes Comments painful at end range left elbow extension and flexion, end-range pron. Elbow/Forearm ROM Limitations Elbow/Forearm ROM Limitations Pain Wrist Goniometric Range of Motion Wrist mateo Wrist ROM WFL Yes ROM Limitations Wrist Limitations of Range of Motion Soft Tissue Tightness,Pain Comments palpable tenderness and tightness left forearm extensor tendons, painful wrist flexion with elbow extension and fingers flexed into fist PT-OP-L Special Tests Start: 02/21/22 08:11 Freq: Status: Active Protocol: Document 02/21/22 10:34 [facility] (Rec: 02/22/22 17:08 [facility] [id number]) Special Tests Cervical Spine Special Tests Passive Neck Flexion Comments negative Traction Comments negative Foraminal Compression Comments negative Elbow Special Tests Lateral Epicondylitis Extended Test Results positive left PT-OP-M Strength Start: 02/21/22 08:11 Freq: Status: Active Protocol: Document 02/21/22 10:34 SAK (Rec: 02/22/22 17:08 [facility] [id number]) Cervical Spine Strength Cervical Spine Manual Muscle Testing Testing Position Sitting Flexion (C1-2) 5 Normal Extension 5 Normal Rotation Left 5 Normal Rotation Right 5 Normal Shoulder Strength Shoulder Manual Muscle Testing mateo Flexion 5 Normal Extension 5 Normal Elbow/Forearm Strength Elbow and Forearm Manual Muscle Testing Left Flexion (C6) 4 Good Extension (C7) 4 Good Pronation 4 Good Supination 4 Good Comments c/o pain left elbow Right Flexion (C6) 5 Normal Extension (C7) 5 Normal Pronation 5 Normal Supination 5 Normal Hand Methane Gas Collection System Operator/Pinch Strength Hand Dominance Hand Dominance Right Hand Strength Left Comments painful, not done PT-OP-Q Treatments Start: 02/21/22 08:11 Freq: Status: Active Protocol: Document 06/01/22 15:15 [facility] (Rec: 06/01/22 16:27 [facility] [id number]) Therapeutic Exercises Supine Exercises neck lengthening Supine Exercise Name with chin tuck Reps/Minutes 5x5 Comments verbal and tactile cues pec stretch Reps/Minutes 2x30 Comments manual Standing Exercises wall posture Reps/Minutes 5x static, 5x dynamic UE's overhead Manual Therapy Treatment Soft Tissue Mobilization LS Mobilization Type Myofascial Release,Sustained Pressure Intensity/Depth Moderate Body Position Supine Comments supine and sitting pin and stretch Posterior Scalenes Body Location R Posterior Scalenes Mobilization Type Myofascial Release Intensity/Depth Moderate Body Position Hooklying Comments R neck rot > L rot UT Body Location R UT, LS Mobilization Type Strumming,Sustained Pressure, Trigger Point Release Intensity/Depth Moderate Body Position Sitting, supine Comments pin and stretch, use of PT thumbs, elbow Joint Mobilizations right first rib Direction inferior Grade III Body Position Hooklying Comments encouraged deep breathing. Issued handout for self mob Manual Traction Cervical Details Axial traction Body Position Hooklying Reps/Duration 2 min PT-OP-R Modalities Start: 02/21/22 08:11 Freq: Status: Active Protocol: Document 06/01/22 15:15 [facility] (Rec: 06/01/22 16:27 [facility] [id number]) Hot Pack/Cold Pack Treatment Hot Pack Location c/s Patient Position Hooklying Treatment Duration (minutes) 15 Patient Tolerance Good Ultrasound Therapy Treatment Right Neck Treatment Duration (minutes) 8 Patient Position Sitting Coupling Medium Ultrasound Gel Frequency Setting (mHz) 1 Duty Cycle 100% Intensity Setting (w/cm2) 1.4 Comments UT, LS PT-OP-T Assessment and Plan Start: 02/21/22 08:11 Freq: Status: Active Protocol: Document 06/01/22 15:15 [facility]MA (Rec: 06/01/22 16:27 [facility] [id number]) Physical Therapy Assessment Goals Three Impairment Quickdash disability index score 55% Impairment decreased functional use and activity tolerance related to left elbow pain Short Term Goal (STG) decrease Quickdash score to no greater than 30% STG Duration goal met Senior Living Goal (LTG) Decrease Quickdash score to no greater than 10% as measure of improved functional activity tolerance left elbow. Patient to be able to kayak, lift, open jars, sleep, and use trekking pole without an increase in pain. 04/20/22: decreased to 42% 05/15/22: decreased to 17% LTG Duration 06/14/22 Two Impairment neck and shoulder disability index score 22% Impairment decreased functional use and activity tolerance related to neck/shoulder pain Senior Living Goal (LTG) Imrove neck and shoulder disability index score to no greater than 5% as measure of improved function and activity tolerance 04/20/22: decreased to 15% 05/15/22: decrased to 14% LTG Duration 06/14/22 One Impairment pain right cervical region and left elbow 6/10 on pain scale Short Term Goal (STG) decrease pain to no greater than 3/10 with usual activities 04/30/22: pain decreased to 4/ 10 05/15/22: goal met STG Duration goal met. Clean Room Operator Goal (LTG) decrease pain to no greater than 1/10 with all usual activities LTG Duration 06/14/22 Assessment Summary Assessment palpable elvated first rib, joint mobiliztion performed inf with improvement noted after treatment. Patient instructed in self-mob and was issuesd HO; demonstrated good understanding. Physical Therapy Plan Frequency and Duration Frequency of Treatment 2x/Week Duration of treatment (weeks) 4 Plan of Care Start Date 05/15/22 Plan of Care End Date 07/10/22 Therapeutic Interventions Therapeutic Interventions Home Exercise Program,Manual Therapy,Patient/Caregiver Education,Self-Care/Home Management,Soft Tissue Mobilization,Taping, Therapeutic Activities, Therapeutic Exercises Modalities Cold Pack/Ice Massage,Electric Stimulation,Hot Packs, Infrared Therapy,Iontophoresis ,Ultrasound Next Visit Focus/Plan Next Note Type Treatment Note Next Visit Plan Review prone strengthening, self-mob first rib, and eye exercise.
--- NOTE | 2022-06-07 11:22 | PT.OTN ---
Current Diagnoses Cervicalgia (06/07/22) Other muscle spasm (06/07/22) Lateral epicondylitis, left elbow (06/07/22) Physical Therapy Treatment Note PT-OP-A Visit Information Start: 02/21/22 08:11 Freq: Status: Active Protocol: Document 06/07/22 10:37 SP (Rec: 06/07/22 11:37 SP [id number]) Out-Patient Physical Therapy Visit Information Visit Information Visit Type Treatment Note Visit Note may need add more appts Visit Start Time 10:37 Visit Stop Time 11:22 Total Visit Minutes 45 Visit Number 19 Number of CLAIMS ADJUSTER SUPERVISOR Visits 1 Evaluation Information Evaluation Date 02/21/22 PT-OP-B Current Condition Start: 02/21/22 08:11 Freq: Status: Active Protocol: Document 02/23/22 10:33 SAK (Rec: 02/23/22 11:18 SAK [id number]) Current Condition History of Current Condition Onset Date 9 months Current Complaints right sided neck pain History of Current Condition neck pain started 9 months ago , no known reason. Left elbow pain started December, possibly due to use of trekking pole; states tends to push instead of pull when using poles, has stopped using trekking pole on left. Also bilateral UE's hot at night, and go numb. Sleeps on side, working on bed positioning, working on posture. Elbow hurts with lifting, at night sleeping. No use of ice or heat on elbow. Uses heat on neck; worse in am. Tried chiropractic and accupuncture, not helpful on either area of pain. PT-OP-C Subjective Start: 02/21/22 08:11 Freq: Status: Active Protocol: Document 06/07/22 10:37 SP (Rec: 06/07/22 11:37 SP [id number]) OP-PT Subjective Patient Comments Patient Comments Pt reports having L lateral neck tightness. Tries to massage self but not same, the theracane is helpful for her. COmpliant with HEP. PT-OP-H Neuro Start: 02/21/22 08:11 Freq: Status: Active Protocol: Document 02/21/22 10:34 SAK (Rec: 02/22/22 17:08 SAK [id number]) Sensation Evaluation Gross Sensation Gross Sensation WNL PT-OP-J Posture/Palpation/Skin Start: 02/21/22 08:11 Freq: Status: Active Protocol: Document 02/21/22 10:34 [facility] (Rec: 02/22/22 17:08 [facility] [id number]) Posture Evaluation Position Sitting Head/C-Spine Posture Forward Head T-Spine Posture Increased Kyphosis Shoulder Posture (L) Rounded,(R) Rounded Scapula Posture (L) Protracted,(R) Protracted Arm Posture (L) Internally Rotated,(R) Internally Rotated Palpation Assessment Location left lateral epicondyle Palpation Findings Soft Tissue Tightness, Tenderness Palpation Details soft tissue tightness extensor tendons forearm right UT, c/s Palpation Findings Soft Tissue Tightness, Tenderness PT-OP-K Range of Motion Start: 02/21/22 08:11 Freq: Status: Active Protocol: Document 02/21/22 10:34 [facility] (Rec: 02/22/22 17:08 [facility] [id number]) Cervical Spine Range of Motion Cervical Spine Active Testing Position Sitting Flexion 40 Extension 70 Rotation Left 60 Rotation Right 60 Lateral Flexion Left 25 Lateral Flexion Right 20 ROM Limitations Soft Tissue Tightness,Pain Shoulder Goniometric Range of Motion Shoulder mateo Shoulder ROM WFL Yes Elbow/Forearm Range of Motion Elbow/Forearm mateo Elbow/Forearm ROM WFL Yes Comments painful at end range left elbow extension and flexion, end-range pron. Elbow/Forearm ROM Limitations Elbow/Forearm ROM Limitations Pain Wrist Goniometric Range of Motion Wrist mateo Wrist ROM WFL Yes ROM Limitations Wrist Limitations of Range of Motion Soft Tissue Tightness,Pain Comments palpable tenderness and tightness left forearm extensor tendons, painful wrist flexion with elbow extension and fingers flexed into fist PT-OP-L Special Tests Start: 02/21/22 08:11 Freq: Status: Active Protocol: Document 02/21/22 10:34 [facility] (Rec: 02/22/22 17:08 [facility] [id number]) Special Tests Cervical Spine Special Tests Passive Neck Flexion Comments negative Traction Comments negative Foraminal Compression Comments negative Elbow Special Tests Lateral Epicondylitis Extended Test Results positive left PT-OP-M Strength Start: 02/21/22 08:11 Freq: Status: Active Protocol: Document 02/21/22 10:34 [facility] (Rec: 02/22/22 17:08 [facility] [id number]) Cervical Spine Strength Cervical Spine Manual Muscle Testing Testing Position Sitting Flexion (C1-2) 5 Normal Extension 5 Normal Rotation Left 5 Normal Rotation Right 5 Normal Shoulder Strength Shoulder Manual Muscle Testing mateo Flexion 5 Normal Extension 5 Normal Elbow/Forearm Strength Elbow and Forearm Manual Muscle Testing Left Flexion (C6) 4 Good Extension (C7) 4 Good Pronation 4 Good Supination 4 Good Comments c/o pain left elbow Right Flexion (C6) 5 Normal Extension (C7) 5 Normal Pronation 5 Normal Supination 5 Normal Hand Judge'S Clerk/Pinch Strength Hand Dominance Hand Dominance Right Hand Strength Left Comments painful, not done PT-OP-Q Treatments Start: 02/21/22 08:11 Freq: Status: Active Protocol: Document 06/07/22 10:37 SP (Rec: 06/07/22 11:37 SP [id number]) Therapeutic Exercises Supine Exercises neck lengthening Supine Exercise Name with chin tuck Reps/Minutes 5x5 Comments verbal and tactile cues foam roller Supine Exercise Name pec stretch, HABD, Ws w/ ER, Ws > Ys Resistance AROM, TB #2 Equipment Used spine along noodle Reps/Minutes 5 min Comments cued scap LT fac and shld ER strength posturing sacha W>Y Sidelying Exercises open book Side bilateral Reps/Minutes 5 x Comments verbal cues for segmental movement, deep breath and relax into stretch Sitting Exercises UE, ls, scalene stretches Sitting Exercise Name UT, LS, scalene/SCM stretching Side right Reps/Minutes 5x10 sec holds Comments cued anchor R rib/clavicle LUE turn R and look up Standing Exercises sit stand w/ OH FF Standing Exercise Name sit<> stand then air squat Comments improved scap posturing stability addition post manual /sup noodle wall pos Ys off wall Standing Exercise Name reviewed Side bilateral Resistance AROM Reps/Minutes x8 reps Comments good LT, rhomboid, TA and posture fac wall posture Equipment Used back to wall Reps/Minutes 5x static, 5x dynamic UE's ER ext, FF Comments cued TA neutral LS and chin nod neutral CS Manual Therapy Treatment Soft Tissue Mobilization Posterior Scalenes Body Location R Posterior Scalenes Mobilization Type Myofascial Release Intensity/Depth Moderate Body Position Hooklying Comments R neck rot > L rot UT Body Location R UT, LS Mobilization Type Strumming,Sustained Pressure, Trigger Point Release Intensity/Depth Moderate Body Position Sitting, supine Comments pin and stretch, use of PT thumbs Manual Traction Cervical Details Axial traction Body Position Hooklying Reps/Duration 2 min PT-OP-R Modalities Start: 02/21/22 08:11 Freq: Status: Active Protocol: Document 06/01/22 15:15 SAK (Rec: 06/01/22 16:27 SAK [id number]) Hot Pack/Cold Pack Treatment Hot Pack Location c/s Patient Position Hooklying Treatment Duration (minutes) 15 Patient Tolerance Good Ultrasound Therapy Treatment Right Neck Treatment Duration (minutes) 8 Patient Position Sitting Coupling Medium Ultrasound Gel Frequency Setting (mHz) 1 Duty Cycle 100% Intensity Setting (w/cm2) 1.4 Comments UT, LS PT-OP-T Assessment and Plan Start: 02/21/22 08:11 Freq: Status: Active Protocol: Document 06/07/22 10:37 SP (Rec: 06/07/22 11:37 SP [id number]) Physical Therapy Assessment Goals Three Impairment Quickdash disability index score 55% Impairment decreased functional use and activity tolerance related to left elbow pain Short Term Goal (STG) decrease Quickdash score to no greater than 30% STG Duration goal met Residential Goal (LTG) Decrease Quickdash score to no greater than 10% as measure of improved functional activity tolerance left elbow. Patient to be able to kayak, lift, open jars, sleep, and use trekking pole without an increase in pain. 04/20/22: decreased to 42% 05/15/22: decreased to 17% LTG Duration 06/14/22 Two Impairment neck and shoulder disability index score 22% Impairment decreased functional use and activity tolerance related to neck/shoulder pain Project Manager/Team Coach Goal (LTG) Imrove neck and shoulder disability index score to no greater than 5% as measure of improved function and activity tolerance 04/20/22: decreased to 15% 05/15/22: decrased to 14% LTG Duration 06/14/22 One Impairment pain right cervical region and left elbow 6/10 on pain scale Short Term Goal (STG) decrease pain to no greater than 3/10 with usual activities 04/30/22: pain decreased to 4/ 10 05/15/22: goal met STG Duration goal met. Residential Goal (LTG) decrease pain to no greater than 1/10 with all usual activities LTG Duration 06/14/22 Assessment Summary Assessment Pt good self R rib mob and LT/ Rhomboid facilitation post manual during ther ex with ability to reach OH and Ws>Ys with decrease and self correction no UT recruitment. Physical Therapy Plan Frequency and Duration Frequency of Treatment 2x/Week Duration of treatment (weeks) 4 Plan of Care Start Date 05/15/22 Plan of Care End Date 07/10/22 Therapeutic Interventions Therapeutic Interventions Home Exercise Program,Manual Therapy,Patient/Caregiver Education,Self-Care/Home Management,Soft Tissue Mobilization,Taping, Therapeutic Activities, Therapeutic Exercises Modalities Cold Pack/Ice Massage,Electric Stimulation,Hot Packs, Infrared Therapy,Iontophoresis ,Ultrasound Next Visit Focus/Plan Next Note Type Treatment Note Next Visit Plan Review prone strengthening, eye exercise.
--- NOTE | 2022-06-12 12:30 | PT.OTN ---
Current Diagnoses Cervicalgia (06/12/22) Other muscle spasm (06/12/22) Lateral epicondylitis, left elbow (06/12/22) Physical Therapy Treatment Note PT-OP-A Visit Information Start: 02/21/22 08:11 Freq: Status: Active Protocol: Document 06/12/22 10:54 NBM (Rec: 06/12/22 11:21 NBM [id number]) Out-Patient Physical Therapy Visit Information Visit Information Visit Type Treatment Note Visit Note ADULT EDUCATION TEACHER started appt late - ADULT EDUCATION TEACHER not notified pt was added to schedule <1 hr prior to appt. Visit Start Time 10:45 Visit Stop Time 11:18 Total Visit Minutes 33 Visit Number 20 Number of ADULT EDUCATION TEACHER Visits 2 PT-OP-B Current Condition Start: 02/21/22 08:11 Freq: Status: Active Protocol: Document 02/23/22 10:33 SAK (Rec: 02/23/22 11:18 SAK [id number]) Current Condition History of Current Condition Onset Date 9 months Current Complaints right sided neck pain History of Current Condition neck pain started 9 months ago , no known reason. Left elbow pain started December, possibly due to use of trekking pole; states tends to push instead of pull when using poles, has stopped using trekking pole on left. Also bilateral UE's hot at night, and go numb. Sleeps on side, working on bed positioning, working on posture. Elbow hurts with lifting, at night sleeping. No use of ice or heat on elbow. Uses heat on neck; worse in am. Tried chiropractic and accupuncture, not helpful on either area of pain. PT-OP-C Subjective Start: 02/21/22 08:11 Freq: Status: Active Protocol: Document 06/12/22 10:54 NBM (Rec: 06/12/22 11:21 NBM [id number]) OP-PT Subjective Patient Comments Patient Comments Pt reports she has been doing her self-mobilizations but sometimes she still seizes up in the neck and shoulder. The exercises on the ball are too painful. Her L elbow is fine now. PT-OP-H Neuro Start: 02/21/22 08:11 Freq: Status: Active Protocol: Document 02/21/22 10:34 SAK (Rec: 02/22/22 17:08 SAK [id number]) Sensation Evaluation Gross Sensation Gross Sensation WNL PT-OP-J Posture/Palpation/Skin Start: 02/21/22 08:11 Freq: Status: Active Protocol: Document 02/21/22 10:34 [facility] (Rec: 02/22/22 17:08 [facility] [id number]) Posture Evaluation Position Sitting Head/C-Spine Posture Forward Head T-Spine Posture Increased Kyphosis Shoulder Posture (L) Rounded,(R) Rounded Scapula Posture (L) Protracted,(R) Protracted Arm Posture (L) Internally Rotated,(R) Internally Rotated Palpation Assessment Location left lateral epicondyle Palpation Findings Soft Tissue Tightness, Tenderness Palpation Details soft tissue tightness extensor tendons forearm right UT, c/s Palpation Findings Soft Tissue Tightness, Tenderness PT-OP-K Range of Motion Start: 02/21/22 08:11 Freq: Status: Active Protocol: Document 02/21/22 10:34 [facility] (Rec: 02/22/22 17:08 [facility] [id number]) Cervical Spine Range of Motion Cervical Spine Active Testing Position Sitting Flexion 40 Extension 70 Rotation Left 60 Rotation Right 60 Lateral Flexion Left 25 Lateral Flexion Right 20 ROM Limitations Soft Tissue Tightness,Pain Shoulder Goniometric Range of Motion Shoulder mateo Shoulder ROM WFL Yes Elbow/Forearm Range of Motion Elbow/Forearm mateo Elbow/Forearm ROM WFL Yes Comments painful at end range left elbow extension and flexion, end-range pron. Elbow/Forearm ROM Limitations Elbow/Forearm ROM Limitations Pain Wrist Goniometric Range of Motion Wrist mateo Wrist ROM WFL Yes ROM Limitations Wrist Limitations of Range of Motion Soft Tissue Tightness,Pain Comments palpable tenderness and tightness left forearm extensor tendons, painful wrist flexion with elbow extension and fingers flexed into fist PT-OP-L Special Tests Start: 02/21/22 08:11 Freq: Status: Active Protocol: Document 02/21/22 10:34 [facility] (Rec: 02/22/22 17:08 [facility] [id number]) Special Tests Cervical Spine Special Tests Passive Neck Flexion Comments negative Traction Comments negative Foraminal Compression Comments negative Elbow Special Tests Lateral Epicondylitis Extended Test Results positive left PT-OP-M Strength Start: 02/21/22 08:11 Freq: Status: Active Protocol: Document 02/21/22 10:34 SAK (Rec: 02/22/22 17:08 [facility] [id number]) Cervical Spine Strength Cervical Spine Manual Muscle Testing Testing Position Sitting Flexion (C1-2) 5 Normal Extension 5 Normal Rotation Left 5 Normal Rotation Right 5 Normal Shoulder Strength Shoulder Manual Muscle Testing mateo Flexion 5 Normal Extension 5 Normal Elbow/Forearm Strength Elbow and Forearm Manual Muscle Testing Left Flexion (C6) 4 Good Extension (C7) 4 Good Pronation 4 Good Supination 4 Good Comments c/o pain left elbow Right Flexion (C6) 5 Normal Extension (C7) 5 Normal Pronation 5 Normal Supination 5 Normal Hand Green Chain Operator/Pinch Strength Hand Dominance Hand Dominance Right Hand Strength Left Comments painful, not done PT-OP-Q Treatments Start: 02/21/22 08:11 Freq: Status: Active Protocol: Document 06/12/22 10:54 NBM (Rec: 06/12/22 11:21 [facility] [id number]) Therapeutic Exercises Prone Exercises chin tuck Prone Exercise Name with head lift Reps/Minutes x10 Comments vc initially for neck lengthening W Reps/Minutes 10x Comments initial cues for scapular activation I's, T's, Y's Prone Exercise Name I only today Resistance no weight Reps/Minutes 10x ea Comments cues for initiating with scapular activation and movement cat/cow Prone Exercise Name discussed - pt forgot and will add to HEP Manual Therapy Treatment Soft Tissue Mobilization LS Body Location R LS Mobilization Type Myofascial Release,Sustained Pressure Intensity/Depth Moderate Body Position Supine Comments supine pin and stretch Posterior Scalenes Body Location R Posterior Scalenes Mobilization Type Myofascial Release Intensity/Depth Moderate Body Position Hooklying Comments R neck rot > L rot, palpable nodule consistent w/ pt's report of pain. UT Body Location R>L UT, LS Mobilization Type Strumming,Sustained Pressure, Trigger Point Release Intensity/Depth Moderate Body Position Supine Comments pin and stretch R, use of PT thumbs Manual Traction Cervical Details Axial traction Body Position Hooklying Reps/Duration 2 min PT-OP-R Modalities Start: 02/21/22 08:11 Freq: Status: Active Protocol: Document 06/12/22 10:54 NBM (Rec: 06/12/22 19:46 [facility] [id number]) Hot Pack/Cold Pack Treatment Hot Pack Location c/s, R shoulder Patient Position Hooklying Treatment Duration (minutes) 15 Patient Tolerance Good PT-OP-T Assessment and Plan Start: 02/21/22 08:11 Freq: Status: Active Protocol: Document 06/12/22 10:54 NBM (Rec: 06/12/22 11:21 [facility] [id number]) Physical Therapy Assessment Goals Three Impairment Quickdash disability index score 55% Impairment decreased functional use and activity tolerance related to left elbow pain Short Term Goal (STG) decrease Quickdash score to no greater than 30% STG Duration goal met Long-Term Goal (LTG) Decrease Quickdash score to no greater than 10% as measure of improved functional activity tolerance left elbow. Patient to be able to kayak, lift, open jars, sleep, and use trekking pole without an increase in pain. 04/20/22: decreased to 42% 05/15/22: decreased to 17% LTG Duration 06/14/22 Two Impairment neck and shoulder disability index score 22% Impairment decreased functional use and activity tolerance related to neck/shoulder pain Long-Term Goal (LTG) Imrove neck and shoulder disability index score to no greater than 5% as measure of improved function and activity tolerance 04/20/22: decreased to 15% 05/15/22: decrased to 14% LTG Duration 06/14/22 One Impairment pain right cervical region and left elbow 6/10 on pain scale Short Term Goal (STG) decrease pain to no greater than 3/10 with usual activities 04/30/22: pain decreased to 4/ 10 05/15/22: goal met STG Duration goal met. Long-Term Goal (LTG) decrease pain to no greater than 1/10 with all usual activities LTG Duration 06/14/22 Assessment Summary Assessment Short session d/t ADULT EDUCATION TEACHER not notified pt was added to schedule <1 hr prior to appt. Pt presents w/ R cervical and shoulder pain and tightness. Treatment focus on prone posterior chain strengthening, cervical lengthening, and manual therapy to cervical spine and R shoulder. Pt demonstrates good carryover of cervical lengthening in prone excercises w/ initial cueing only. Palpable tightness improves w/ manually therapy to shoulders bilaterally R>L: R Levator scapula, R>L Upper trapezius, R scalenes, SO release, and manual cervical traction - good feedback response from pt end of session. Physical Therapy Plan Frequency and Duration Frequency of Treatment 2x/Week Duration of treatment (weeks) 4 Plan of Care Start Date 05/15/22 Plan of Care End Date 07/10/22 Therapeutic Interventions Therapeutic Interventions Home Exercise Program,Manual Therapy,Patient/Caregiver Education,Self-Care/Home Management,Soft Tissue Mobilization,Taping, Therapeutic Activities, Therapeutic Exercises Modalities Cold Pack/Ice Massage,Electric Stimulation,Hot Packs, Infrared Therapy,Iontophoresis ,Ultrasound Next Visit Focus/Plan Next Note Type Treatment Note Next Visit Plan Assess response to last treatment and R shoulder hot pack. Review cat/cow. POC: Review prone strengthening, eye exercise; manual therapy as needed.
--- NOTE | 2022-06-28 15:15 | PT.OTN ---
Current Diagnoses Cervicalgia (06/28/22) Other muscle spasm (06/28/22) Lateral epicondylitis, left elbow (06/28/22) Physical Therapy Treatment Note PT-OP-A Visit Information Start: 02/21/22 08:11 Freq: Status: Active Protocol: Document 06/28/22 14:45 SP (Rec: 06/28/22 15:45 SP [id number]) Out-Patient Physical Therapy Visit Information Visit Information Visit Type Treatment Note Visit Note CHRISTINA Wiggins provided manual tx to pt under direct supervision and guidence of LOAN OFFICER ASSISTANT Luis Alberto Visit Start Time 14:30 Visit Stop Time 15:15 Total Visit Minutes 45 Visit Number 21 Number of LOAN OFFICER ASSISTANT Visits 3 Evaluation Information Evaluation Date 02/21/22 PT-OP-B Current Condition Start: 02/21/22 08:11 Freq: Status: Active Protocol: Document 02/23/22 10:33 SAK (Rec: 02/23/22 11:18 SAK [id number]) Current Condition History of Current Condition Onset Date 9 months Current Complaints right sided neck pain History of Current Condition neck pain started 9 months ago , no known reason. Left elbow pain started December, possibly due to use of trekking pole; states tends to push instead of pull when using poles, has stopped using trekking pole on left. Also bilateral UE's hot at night, and go numb. Sleeps on side, working on bed positioning, working on posture. Elbow hurts with lifting, at night sleeping. No use of ice or heat on elbow. Uses heat on neck; worse in am. Tried chiropractic and accupuncture, not helpful on either area of pain. PT-OP-C Subjective Start: 02/21/22 08:11 Freq: Status: Active Protocol: Document 06/28/22 14:45 SP (Rec: 06/28/22 15:45 SP [id number]) OP-PT Subjective Patient Comments Patient Comments Pt reported able to move better, L elbow sometimes reminds her tension when reaches [place] like into cupboard but not long lasting. Today R lateral neck tightness. Performs stretching and HEP and is making gains in mobiltiy. Not kayaking now with season change. PT-OP-H Neuro Start: 02/21/22 08:11 Freq: Status: Active Protocol: Document 02/21/22 10:34 SAK (Rec: 02/22/22 17:08 [facility] [id number]) Sensation Evaluation Gross Sensation Gross Sensation WNL PT-OP-J Posture/Palpation/Skin Start: 02/21/22 08:11 Freq: Status: Active Protocol: Document 02/21/22 10:34 [facility] (Rec: 02/22/22 17:08 [facility] [id number]) Posture Evaluation Position Sitting Head/C-Spine Posture Forward Head T-Spine Posture Increased Kyphosis Shoulder Posture (L) Rounded,(R) Rounded Scapula Posture (L) Protracted,(R) Protracted Arm Posture (L) Internally Rotated,(R) Internally Rotated Palpation Assessment Location left lateral epicondyle Palpation Findings Soft Tissue Tightness, Tenderness Palpation Details soft tissue tightness extensor tendons forearm right UT, c/s Palpation Findings Soft Tissue Tightness, Tenderness PT-OP-K Range of Motion Start: 02/21/22 08:11 Freq: Status: Active Protocol: Document 02/21/22 10:34 [facility] (Rec: 02/22/22 17:08 [facility] [id number]) Cervical Spine Range of Motion Cervical Spine Active Testing Position Sitting Flexion 40 Extension 70 Rotation Left 60 Rotation Right 60 Lateral Flexion Left 25 Lateral Flexion Right 20 ROM Limitations Soft Tissue Tightness,Pain Shoulder Goniometric Range of Motion Shoulder mateo Shoulder ROM WFL Yes Elbow/Forearm Range of Motion Elbow/Forearm mateo Elbow/Forearm ROM WFL Yes Comments painful at end range left elbow extension and flexion, end-range pron. Elbow/Forearm ROM Limitations Elbow/Forearm ROM Limitations Pain Wrist Goniometric Range of Motion Wrist mateo Wrist ROM WFL Yes ROM Limitations Wrist Limitations of Range of Motion Soft Tissue Tightness,Pain Comments palpable tenderness and tightness left forearm extensor tendons, painful wrist flexion with elbow extension and fingers flexed into fist PT-OP-L Special Tests Start: 02/21/22 08:11 Freq: Status: Active Protocol: Document 02/21/22 10:34 [facility] (Rec: 02/22/22 17:08 [facility] [id number]) Special Tests Cervical Spine Special Tests Passive Neck Flexion Comments negative Traction Comments negative Foraminal Compression Comments negative Elbow Special Tests Lateral Epicondylitis Extended Test Results positive left PT-OP-M Strength Start: 02/21/22 08:11 Freq: Status: Active Protocol: Document 02/21/22 10:34 [facility] (Rec: 02/22/22 17:08 [facility] [id number]) Cervical Spine Strength Cervical Spine Manual Muscle Testing Testing Position Sitting Flexion (C1-2) 5 Normal Extension 5 Normal Rotation Left 5 Normal Rotation Right 5 Normal Shoulder Strength Shoulder Manual Muscle Testing mateo Flexion 5 Normal Extension 5 Normal Elbow/Forearm Strength Elbow and Forearm Manual Muscle Testing Left Flexion (C6) 4 Good Extension (C7) 4 Good Pronation 4 Good Supination 4 Good Comments c/o pain left elbow Right Flexion (C6) 5 Normal Extension (C7) 5 Normal Pronation 5 Normal Supination 5 Normal Hand Machine Feeder Raw Stock/Pinch Strength Hand Dominance Hand Dominance Right Hand Strength Left Comments painful, not done PT-OP-Q Treatments Start: 02/21/22 08:11 Freq: Status: Active Protocol: Document 06/28/22 14:45 SP (Rec: 06/28/22 15:45 SP [id number]) Therapeutic Exercises Supine Exercises foam roller Supine Exercise Name pec stretch, HABD, Ws w/ ER, Ws > Ys Resistance AROM, TB #3 Equipment Used spine along noodle Reps/Minutes 5 min Comments cued scap LT fac and shld ER strength posturing sacha W>Y Prone Exercises W Prone Exercise Name elbow 90 deg Side bilateral Reps/Minutes 10x Comments cues for no UT recruit and scap retraction I's, T's, Y's Prone Exercise Name I only today Resistance AROM> #1 DB Reps/Minutes 10x ea Comments cues for chin tuck CS ext positioning Manual Therapy Treatment Soft Tissue Mobilization LS Body Location R. L LS, OSR Mobilization Type Myofascial Release, Oscillations Intensity/Depth Moderate Body Position Supine Comments supine pin and stretch. Palpable nodule L side. Posterior Scalenes Body Location R, L Posterior Scalenes Mobilization Type Myofascial Release Intensity/Depth Moderate Body Position Hooklying Comments No palpable nodule UT Body Location R>L UT, LS Mobilization Type Myofascial Release, Oscillations,Strumming Intensity/Depth Moderate Body Position Supine Comments manual and instruction self application Joint Mobilizations right first rib Comments Verbalized review of self mobilization with use of strap , pt good understanding. PT-OP-R Modalities Start: 02/21/22 08:11 Freq: Status: Active Protocol: Document 06/12/22 10:54 NBM (Rec: 06/12/22 19:46 NBM [id number]) Hot Pack/Cold Pack Treatment Hot Pack Location c/s, R shoulder Patient Position Hooklying Treatment Duration (minutes) 15 Patient Tolerance Good PT-OP-T Assessment and Plan Start: 02/21/22 08:11 Freq: Status: Active Protocol: Document 06/28/22 14:45 SP (Rec: 06/28/22 15:45 SP [id number]) Physical Therapy Assessment Goals Three Impairment Quickdash disability index score 55% Impairment decreased functional use and activity tolerance related to left elbow pain Short Term Goal (STG) decrease Quickdash score to no greater than 30% STG Duration goal met Dehydrator Tender Goal (LTG) Decrease Quickdash score to no greater than 10% as measure of improved functional activity tolerance left elbow. Patient to be able to kayak, lift, open jars, sleep, and use trekking pole without an increase in pain. 04/20/22: decreased to 42% 05/15/22: decreased to 17% LTG Duration 06/14/22 Two Impairment neck and shoulder disability index score 22% Impairment decreased functional use and activity tolerance related to neck/shoulder pain Dehydrator Tender Goal (LTG) Imrove neck and shoulder disability index score to no greater than 5% as measure of improved function and activity tolerance 04/20/22: decreased to 15% 05/15/22: decrased to 14% LTG Duration 06/14/22 One Impairment pain right cervical region and left elbow 6/10 on pain scale Short Term Goal (STG) decrease pain to no greater than 3/10 with usual activities 04/30/22: pain decreased to 4/ 10 05/15/22: goal met STG Duration goal met. Assisted Goal (LTG) decrease pain to no greater than 1/10 with all usual activities LTG Duration 06/14/22 Assessment Summary Assessment Pt continues to have some tightness on R neck but improved with manual therapy. She had good carry over of ex but requires verbal/tactile cues for form on W's ex. She responded well to session today with increase in weight with #3 dumbbells with I's Y's T's. Pt progressing well, reassess questionarres for improving back to prior level of function and independence in HEP to progress on own. Physical Therapy Plan Frequency and Duration Frequency of Treatment 2x/Week Duration of treatment (weeks) 4 Plan of Care Start Date 05/15/22 Plan of Care End Date 07/10/22 Therapeutic Interventions Therapeutic Interventions Home Exercise Program,Manual Therapy,Patient/Caregiver Education,Self-Care/Home Management,Soft Tissue Mobilization,Taping, Therapeutic Activities, Therapeutic Exercises Modalities Cold Pack/Ice Massage,Electric Stimulation,Hot Packs, Infrared Therapy,Iontophoresis ,Ultrasound Next Visit Focus/Plan Next Note Type Treatment Note Next Visit Plan Reassess goals and disabiity index, ready for progress to home?
--- NOTE | 2022-07-04 11:40 | PT.OTN ---
Current Diagnoses Cervicalgia (07/04/22) Other muscle spasm (07/04/22) Lateral epicondylitis, left elbow (07/04/22) Physical Therapy Treatment Note PT-OP-A Visit Information Start: 02/21/22 08:11 Freq: Status: Active Protocol: Document 07/04/22 09:51 SAK (Rec: 07/04/22 10:30 [facility] [id number]) Out-Patient Physical Therapy Visit Information Visit Information Visit Type Treatment Note Visit Start Time 09:45 Visit Stop Time 10:40 Total Visit Minutes 55 Visit Number 22 Number of MACHINE DESIGN TEACHER Visits 0 Evaluation Information Evaluation Date 02/21/22 PT-OP-B Current Condition Start: 02/21/22 08:11 Freq: Status: Active Protocol: Document 02/23/22 10:33 SAK (Rec: 02/23/22 11:18 SAK [id number]) Current Condition History of Current Condition Onset Date 9 months Current Complaints right sided neck pain History of Current Condition neck pain started 9 months ago , no known reason. Left elbow pain started December, possibly due to use of trekking pole; states tends to push instead of pull when using poles, has stopped using trekking pole on left. Also bilateral UE's hot at night, and go numb. Sleeps on side, working on bed positioning, working on posture. Elbow hurts with lifting, at night sleeping. No use of ice or heat on elbow. Uses heat on neck; worse in am. Tried chiropractic and accupuncture, not helpful on either area of pain. PT-OP-C Subjective Start: 02/21/22 08:11 Freq: Status: Active Protocol: Document 07/04/22 09:51 SAK (Rec: 07/04/22 10:30 [facility] [id number]) OP-PT Subjective Patient Comments Patient Comments 99% better. Still occasional elbow pain, mild neck pain and stiffness. doing HEP. Asking about massage therapist PT-OP-H Neuro Start: 02/21/22 08:11 Freq: Status: Active Protocol: Document 02/21/22 10:34 SAK (Rec: 02/22/22 17:08 [facility] [id number]) Sensation Evaluation Gross Sensation Gross Sensation WNL PT-OP-J Posture/Palpation/Skin Start: 02/21/22 08:11 Freq: Status: Active Protocol: Document 02/21/22 10:34 SAK (Rec: 02/22/22 17:08 [facility] [id number]) Posture Evaluation Position Sitting Head/C-Spine Posture Forward Head T-Spine Posture Increased Kyphosis Shoulder Posture (L) Rounded,(R) Rounded Scapula Posture (L) Protracted,(R) Protracted Arm Posture (L) Internally Rotated,(R) Internally Rotated Palpation Assessment Location left lateral epicondyle Palpation Findings Soft Tissue Tightness, Tenderness Palpation Details soft tissue tightness extensor tendons forearm right UT, c/s Palpation Findings Soft Tissue Tightness, Tenderness PT-OP-K Range of Motion Start: 02/21/22 08:11 Freq: Status: Active Protocol: Document 02/21/22 10:34 [facility] (Rec: 02/22/22 17:08 [facility] [id number]) Cervical Spine Range of Motion Cervical Spine Active Testing Position Sitting Flexion 40 Extension 70 Rotation Left 60 Rotation Right 60 Lateral Flexion Left 25 Lateral Flexion Right 20 ROM Limitations Soft Tissue Tightness,Pain Shoulder Goniometric Range of Motion Shoulder mateo Shoulder ROM WFL Yes Elbow/Forearm Range of Motion Elbow/Forearm mateo Elbow/Forearm ROM WFL Yes Comments painful at end range left elbow extension and flexion, end-range pron. Elbow/Forearm ROM Limitations Elbow/Forearm ROM Limitations Pain Wrist Goniometric Range of Motion Wrist mateo Wrist ROM WFL Yes ROM Limitations Wrist Limitations of Range of Motion Soft Tissue Tightness,Pain Comments palpable tenderness and tightness left forearm extensor tendons, painful wrist flexion with elbow extension and fingers flexed into fist PT-OP-L Special Tests Start: 02/21/22 08:11 Freq: Status: Active Protocol: Document 02/21/22 10:34 [facility] (Rec: 02/22/22 17:08 [facility] [id number]) Special Tests Cervical Spine Special Tests Passive Neck Flexion Comments negative Traction Comments negative Foraminal Compression Comments negative Elbow Special Tests Lateral Epicondylitis Extended Test Results positive left PT-OP-M Strength Start: 02/21/22 08:11 Freq: Status: Active Protocol: Document 02/21/22 10:34 [facility] (Rec: 02/22/22 17:08 [facility] [id number]) Cervical Spine Strength Cervical Spine Manual Muscle Testing Testing Position Sitting Flexion (C1-2) 5 Normal Extension 5 Normal Rotation Left 5 Normal Rotation Right 5 Normal Shoulder Strength Shoulder Manual Muscle Testing mateo Flexion 5 Normal Extension 5 Normal Elbow/Forearm Strength Elbow and Forearm Manual Muscle Testing Left Flexion (C6) 4 Good Extension (C7) 4 Good Pronation 4 Good Supination 4 Good Comments c/o pain left elbow Right Flexion (C6) 5 Normal Extension (C7) 5 Normal Pronation 5 Normal Supination 5 Normal Hand Flower Cutter/Pinch Strength Hand Dominance Hand Dominance Right Hand Strength Left Comments painful, not done PT-OP-Q Treatments Start: 02/21/22 08:11 Freq: Status: Active Protocol: Document 07/04/22 09:51 SAK (Rec: 07/04/22 10:30 SAK [id number]) Therapeutic Exercises Prone Exercises W Prone Exercise Name reviewed HEP I's, T's, Y's Prone Exercise Name reviewed HEP cat/cow Prone Exercise Name review HEP Sidelying Exercises open book Sidelying Exercise Name review HEP Manual Therapy Treatment Soft Tissue Mobilization LS Body Location R. L LS, OSR Mobilization Type Myofascial Release, Oscillations Intensity/Depth Moderate Body Position Supine Comments supine pin and stretch. Palpable nodule L side. SA, Subscap, Lat Body Location R Mobilization Type Cross-Friction,Strumming, Sustained Pressure,Other Intensity/Depth Moderate Body Position Sidelying and supine Comments included pin and stretch subscap and teres gege L Pecs Body Location R Pec Minor>Major Mobilization Type Myofascial Release,Sustained Pressure Intensity/Depth Superficial>Moderate Body Position Sidelying Posterior Scalenes Body Location R, L Posterior Scalenes Mobilization Type Myofascial Release Intensity/Depth Moderate Body Position Hooklying Comments No palpable nodule UT Body Location R>L UT, LS Mobilization Type Myofascial Release, Oscillations,Strumming Intensity/Depth Moderate Body Position Supine Comments manual and instruction self application Manual Traction Cervical Details Axial traction Body Position Hooklying Reps/Duration 5 min Self-Care/Home Management Treatment Education Patient Education Body Mechanics,Home Exercise Program,Pain Management, Posture PT-OP-R Modalities Start: 02/21/22 08:11 Freq: Status: Active Protocol: Document 06/12/22 10:54 NBM (Rec: 06/12/22 19:46 NB [id number]) Hot Pack/Cold Pack Treatment Hot Pack Location c/s, R shoulder Patient Position Hooklying Treatment Duration (minutes) 15 Patient Tolerance Good PT-OP-T Assessment and Plan Start: 02/21/22 08:11 Freq: Status: Active Protocol: Document 07/04/22 09:51 SAK (Rec: 07/04/22 10:30 [facility] [id number]) Physical Therapy Assessment Goals Three Impairment Quickdash disability index score 55% Impairment decreased functional use and activity tolerance related to left elbow pain Short Term Goal (STG) decrease Quickdash score to no greater than 30% STG Duration goal met Supervisor Transcribing Operators Goal (LTG) Decrease Quickdash score to no greater than 10% as measure of improved functional activity tolerance left elbow. Patient to be able to kayak, lift, open jars, sleep, and use trekking pole without an increase in pain. 04/20/22: decreased to 42% 05/15/22: decreased to 17% 07/04/22: goal met LTG Duration met Two Impairment neck and shoulder disability index score 22% Impairment decreased functional use and activity tolerance related to neck/shoulder pain Supervisor Transcribing Operators Goal (LTG) Imrove neck and shoulder disability index score to no greater than 5% as measure of improved function and activity tolerance 04/20/22: decreased to 15% 05/15/22: decrased to 14% 07/04/22: no further decrease LTG Duration partially met One Impairment pain right cervical region and left elbow 6/10 on pain scale Short Term Goal (STG) decrease pain to no greater than 3/10 with usual activities 04/30/22: pain decreased to 4/ 10 05/15/22: goal met STG Duration goal met. Supervisor Transcribing Operators Goal (LTG) decrease pain to no greater than 1/10 with all usual activities 07/04/22: ranges 1-3/10, partially met LTG Duration 06/14/22 Assessment Summary Assessment Patient has met most goals with decrease in pain and improved function noted as above. Recommended she seek out massage therapy and continue with HEP and self- management as instructed. Patient in agreement. No further PT indicated at this time Physical Therapy Plan Discharge Physical Therapy Discharge Comments Goals mostly met. Patient independent with HEP and self-care, to seek massage therapy for addition to long- term management of pain
== END 2022-07-05 13:47 | disposition home or self-care (01) ==
LOC: PHYS 09:45
PROVIDERS: Family Provider Family Medicine; PCP Family Medicine; Referring Provider Family Medicine; Visit Provider Family Medicine
DX: M62.838 Other muscle spasm (principal); M77.12 Lateral epicondylitis, left elbow; M54.2 Cervicalgia
CPT/HCPCS: 97010; 97035; 97110; 97140; 97162; 97535

== ENCOUNTER → 2022-07-13 10:49 | Outpatient (RCR) | payer OTHER, MEDICAID, SELFPAY ==
--- NOTE | 2021-01-05 16:34 | PT.OIE ---
Current Diagnoses Unspecified osteoarthritis, unspecified site (01/05/21) Effusion, right knee (01/05/21) Pain in unspecified knee (01/05/21) Difficulty in walking, not elsewhere classified (01/05/21) Past Medical History (Last Reviewed 12/27/20 @ 18:38 by EVONNE Roberson) Cysts (Unknown) DDD (degenerative disc disease), lumbosacral Fatigue Hypoglycemia Increased appetite Left thigh pain Low back pain (Unknown) Lumbar radiculopathy, right Myalgia Right knee pain Sebaceous hyperplasia Spinal stenosis of lumbar region (Unknown) Spinal stenosis, lumbar region without neurogenic claudication Varicose veins of both lower extremities (Unknown) Vitamin D deficiency (~2013) Past Surgical History (Last Reviewed 12/27/20 @ 18:38 by EVONNE Roberson) History of surgical removal of ganglion cyst (07/2017) Hx of tonsillectomy (Unknown) Status post endovenous radiofrequency ablation of saphenous vein (2007) Visit Care Team Role Provider Type Ralph Gotti DO Attending Provider Physician Family Provider Primary Care Provider Referring Provider Specialty: [facility] Address: [address] [place] [address] Email: Physical Therapy Initial Evaluation PT-OP-A Visit Information Start: 01/05/21 09:46 Freq: Status: Active Protocol: Document 01/05/21 11:15 AW (Rec: 01/05/21 11:15 AW [id number]) Out-Patient Physical Therapy Visit Information Visit Information Visit Type Initial Evaluation Visit Start Time 10:30 Visit Stop Time 11:15 Total Visit Minutes 45 Visit Number 1 Evaluation Information Evaluation Date 01/05/21 PT-OP-B Current Condition Start: 01/05/21 09:46 Freq: Status: Active Protocol: Document 01/05/21 11:15 AW (Rec: 01/05/21 11:15 AW [id number]) Current Condition History of Current Condition Onset Date six weeks Current Complaints right knee effusion, pain History of Current Condition Six weeks ago, pt started to notice swelling around her right knee which got quite large. She went to ED on 12/10/20 and had an ultrasound to rule out DVT. Swelling has largely resolved but pt continues to report limited ROM, swelling, and pain. She has warm up symptoms in the back of the knee but notices pain diminishes with increased distance, time, or activity. She has been using a compression knee wrap for hiking which she thinks has helped to reduce the swelling. Not taking pain medication. Used ice in the beginning but has not since. Prior Treatments and Tests ED 12/10/20 ruled out DVT. Ultrasound report notes: 1. No evidence of DVT in visualized right lower extremity veins. 2. Fluid collection anterior to patella which may represent fluid distension of patella bursa secondary to bursitis, suggest clinical correlation. 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 Mildly reduced knee extension in mid stance phase of gait. Functional Limitations- Work/School Pain during and after driving. Functional Limitations- Recreation/ Swelling limits functional Hobbies squat for voiding in the saavedra while hiking. Personal Factors Other Personal Factors That May Effect (+) positive association with Therapy/Recovery movement (+) active lifestyle PT-OP-C Subjective Start: 01/05/21 09:46 Freq: Status: Active Protocol: Document 01/05/21 11:15 AW (Rec: 01/05/21 12:57 AW [email or web address]) Patient Questionnaires Lower Extremity Functional Scale LEFS Score 74 LEFS Impairment 1 to 19% Impaired (Score 63-79 ) OP-PT Pain Assessment Pain Assessment Grid Paper Pain Assessment Grid Completed Yes: scanned to EMR; pt reports 3/10 pain at posterior and medial knee Home Pain Medication Use Pain Medications Used No PT-OP-J Posture/Palpation/Skin Start: 01/05/21 09:46 Freq: Status: Active Protocol: Document 01/05/21 11:15 AW (Rec: 01/05/21 14:16 AW [email or web address]) Posture Evaluation Position Standing Evaluation View Lateral Head/C-Spine Posture Neutral Position Thorax Posture Neutral L-Spine Posture Flattened Shoulder Posture Neutral Pelvis Posture (R) Iliac Crest Superior Weight Distribution Decreased Wt.Bear on (R) Knee Posture (L) Neutral,(R) Neutral Foot Arch (L) High Arch,(R) High Arch Skin Assessment Edema Assessment R knee Edema Type Non-Pitting Comments patella: L 35.9 R 36.5 5 cm above: L 36.7 R 37.3 10 cm above: L 39.1 R 42.5 5 cm below: L 33.1 R 33.3 10 cm below: L 34.3 R 34.7 PT-OP-K Range of Motion Start: 01/05/21 09:46 Freq: Status: Active Protocol: Document 01/05/21 11:15 AW (Rec: 01/05/21 15:52 AW [email or web address]) Hip Goniometric Range of Motion Hip bilateral Hip ROM WFL Yes Testing Position Supine Hip ROM Limitations Comments No limitations Knee Goniometric Range of Motion Knee Left Knee ROM WFL Yes Patient Position Supine Flexion Active (degrees) 150 Comments lacking 1 degree extension Right Knee ROM WFL Yes Patient Position Supine Flexion Active (degrees) 140 Comments lacking 4 degrees extension Knee ROM Limitations Knee ROM Limitations Pain Comments PROM limited by guarding Ankle and Foot Goniometric Range of Motion Ankle and Foot Left Active Ankle/Foot ROM WFL Yes Right Active Ankle/Foot ROM WFL Yes PT-OP-L Special Tests Start: 01/05/21 09:46 Freq: Status: Active Protocol: Document 01/05/21 11:15 AW (Rec: 01/05/21 15:52 AW [email or web address]) Special Tests Knee Special Tests Susan's Test Results negative bilaterally Alex's Test Test Results positive bilaterally Paul Test Results positive bilaterally for tight IT band Comments mildly positive on right for shortened quadriceps Thessaly Test 20 Degrees Test Results negative bilaterally Patellar Grind Test Test Results reproduces pain right side PT-OP-M Strength Start: 01/05/21 09:46 Freq: Status: Active Protocol: Document 01/05/21 11:15 AW (Rec: 01/05/21 15:52 AW [email or web address]) Hip Strength Hip Manual Muscle Testing bilateral Flexion (L2) 4 Good Extension (S1) 4+ Good+ Abduction 4 Good Adduction 4+ Good+ External Rotation 4+ Good+ Internal Rotation 4+ Good+ Knee Strength Knee Manual Muscle Testing Left Flexion (S2) 4+ Good+ Extension (L3) 5 Normal Right Flexion (S2) 4 Good Extension (L3) 4+ Good+ Comments with guarding Ankle/Foot Strength Ankle and Foot Manual Muscle Testing Left Dorsiflexion (L4) 5 Normal Plantarflexion (S1) 5 Normal Inversion 4+ Good+ Eversion (S1) 4+ Good+ Right Dorsiflexion (L4) 5 Normal Plantarflexion (S1) 5 Normal Inversion 4+ Good+ Eversion (S1) 4+ Good+ PT-OP-Q Treatments Start: 01/05/21 09:46 Freq: Status: Active Protocol: Document 01/05/21 11:15 AW (Rec: 01/05/21 15:57 AW [email or web address]) Therapeutic Exercises Supine Exercises quad stretch Supine Exercise Name quad stretch Side bilateral Reps/Minutes 2 min Comments paul test position Prone Exercises quad stretch Prone Exercise Name quad stretch Side right Equipment Used strap Comments prone stretch Self-Care/Home Management Treatment Education Patient Education Home Exercise Program,Joint Protection,Pain Management Other Education Educated pt on recommendation for increased time in compression, elevation. Gave pt quad stretches for HEP PT-OP-T Assessment and Plan Start: 01/05/21 09:46 Freq: Status: Active Protocol: Document 01/05/21 11:15 AW (Rec: 01/05/21 16:15 AW [email or web address]) Physical Therapy Assessment Rehab Potential Rehabilitation Potential Excellent Evaluation Complexity Number of Personal Factors/Comorbidities 0 Number of Body Systems Impaired 1-2 Clinical Presentation at Evaluation Stable Impairments Impairments Balance,Edema,Functional Activities,Functional Mobility ,Gait,Pain,Posture,ROM,Soft Tissue Mobility,Strength Other Concerns Fall Risk low Goals Three Impairment function-limiting pain Short Term Goal (STG) Pt will tolerate 90-degree squat without increase in baseline pain STG Duration 4 weeks - February 02, 2021 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 LTG Duration 2 months - March 07, 2021 Two Impairment ROM Intermediate Goal (LTG) Pt will increase AROM right knee to 0-150 for improved gait mechanics and return to prior level of function. LTG Duration 2 months - March 07, 2021 One Impairment edema Short Term Goal (STG) Circumferential measurements will be consistent side to side on two consecutive visits . STG Duration 4 weeks - February 02, 2021 Assessment Summary Assessment Karen is a 55 yo woman presenting to outpatient PT as a low complexity evaluation with complaints of right knee swelling and pain. Symptoms began around six weeks ago. Pt denies trauma. She was treated at the emergency department where DVT and Hardy 's cyst were ruled out. Swelling has gradually improved over time but pt remains swollen compared with left knee and has function- limiting pain which is interfering with her ability to participate in recreational activities including hiking, roller blading, and cycling. She uses a heel lift in her left shoe to address functional limb length discrepancy. Recent ultrasound is suggestive of pre-patellar bursitis and clinical exam is consistent with this diagnosis. Pt will benefit from skilled PT to address edema, strength, ROM, and to progress functional mobility. Physical Therapy Plan Frequency and Duration Frequency of Treatment 1-2x/week Duration of Treatment 2 months Plan of Care Start Date 01/05/21 Plan of Care End Date 03/07/21 Therapeutic Interventions Therapeutic Interventions Balance Training,Gait Training ,Home Exercise Program,Joint Mobilizations,Manual Therapy, Neuromuscular Re-education, Orthotic/Prosthetic Management ,Patient/Caregiver Education, Self-Care/Home Management,Soft Tissue Mobilization,Taping, Therapeutic Activities, Therapeutic Exercises Modalities Cold Pack/Ice Massage, Ultrasound Next Visit Focus/Plan Next Note Type Treatment Note Next Visit Plan Review supine and prone stretches; hamstring stretches ; assess response to increased time in compression/elevation ; manual therapy for edema management;
--- NOTE | 2021-01-07 10:32 | PT.OTN ---
Current Diagnoses Unspecified osteoarthritis, unspecified site (01/07/21) Effusion, right knee (01/07/21) Pain in unspecified knee (01/07/21) Difficulty in walking, not elsewhere classified (01/07/21) Physical Therapy Treatment Note PT-OP-A Visit Information Start: 01/05/21 09:46 Freq: Status: Active Protocol: Document 01/07/21 09:51 MA (Rec: 01/07/21 10:31 MA [id number]) Out-Patient Physical Therapy Visit Information Visit Information Visit Type Treatment Note Visit Start Time 09:45 Visit Stop Time 10:38 Total Visit Minutes 53 Visit Number 2 PT-OP-B Current Condition Start: 01/05/21 09:46 Freq: Status: Active Protocol: Document 01/05/21 11:15 AW (Rec: 01/05/21 11:15 AW [id number]) Current Condition History of Current Condition Onset Date six weeks Current Complaints right knee effusion, pain History of Current Condition Six weeks ago, pt started to notice swelling around her right knee which got quite large. She went to ED on 12/10/20 and had an ultrasound to rule out DVT. Swelling has largely resolved but pt continues to report limited ROM, swelling, and pain. She has warm up symptoms in the back of the knee but notices pain diminishes with increased distance, time, or activity. She has been using a compression knee wrap for hiking which she thinks has helped to reduce the swelling. Not taking pain medication. Used ice in the beginning but has not since. Prior Treatments and Tests ED 12/10/20 ruled out DVT. Ultrasound report notes: 1. No evidence of DVT in visualized right lower extremity veins. 2. Fluid collection anterior to patella which may represent fluid distension of patella bursa secondary to bursitis, suggest clinical correlation. 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 Mildly reduced knee extension in mid stance phase of gait. Functional Limitations- Work/School Pain during and after driving. Functional Limitations- Recreation/ Swelling limits functional Hobbies squat for voiding in the saavedra while hiking. Personal Factors Other Personal Factors That May Effect (+) positive association with Therapy/Recovery movement (+) active lifestyle PT-OP-C Subjective Start: 01/05/21 09:46 Freq: Status: Active Protocol: Document 01/07/21 09:51 MA (Rec: 01/07/21 10:31 MA [id number]) OP-PT Subjective Patient Comments Patient Comments Pt states swelling and pain have subsided. She has been hiking about 2-2.5 hours 2-3x/ wk PT-OP-J Posture/Palpation/Skin Start: 01/05/21 09:46 Freq: Status: Active Protocol: Document 01/05/21 11:15 AW (Rec: 01/05/21 14:16 AW [email or web address]) Posture Evaluation Position Standing Evaluation View Lateral Head/C-Spine Posture Neutral Position Thorax Posture Neutral L-Spine Posture Flattened Shoulder Posture Neutral Pelvis Posture (R) Iliac Crest Superior Weight Distribution Decreased Wt.Bear on (R) Knee Posture (L) Neutral,(R) Neutral Foot Arch (L) High Arch,(R) High Arch Skin Assessment Edema Assessment R knee Edema Type Non-Pitting Comments patella: L 35.9 R 36.5 5 cm above: L 36.7 R 37.3 10 cm above: L 39.1 R 42.5 5 cm below: L 33.1 R 33.3 10 cm below: L 34.3 R 34.7 PT-OP-K Range of Motion Start: 01/05/21 09:46 Freq: Status: Active Protocol: Document 01/05/21 11:15 AW (Rec: 01/05/21 15:52 AW [email or web address]) Hip Goniometric Range of Motion Hip bilateral Hip ROM WFL Yes Testing Position Supine Hip ROM Limitations Comments No limitations Knee Goniometric Range of Motion Knee Left Knee ROM WFL Yes Patient Position Supine Flexion Active (degrees) 150 Comments lacking 1 degree extension Right Knee ROM WFL Yes Patient Position Supine Flexion Active (degrees) 140 Comments lacking 4 degrees extension Knee ROM Limitations Knee ROM Limitations Pain Comments PROM limited by guarding Ankle and Foot Goniometric Range of Motion Ankle and Foot Left Active Ankle/Foot ROM WFL Yes Right Active Ankle/Foot ROM WFL Yes PT-OP-L Special Tests Start: 01/05/21 09:46 Freq: Status: Active Protocol: Document 01/05/21 11:15 AW (Rec: 01/05/21 15:52 AW [email or web address]) Special Tests Knee Special Tests Susan's Test Results negative bilaterally Alex's Test Test Results positive bilaterally Paul Test Results positive bilaterally for tight IT band Comments mildly positive on right for shortened quadriceps Thessaly Test 20 Degrees Test Results negative bilaterally Patellar Grind Test Test Results reproduces pain right side PT-OP-M Strength Start: 01/05/21 09:46 Freq: Status: Active Protocol: Document 01/05/21 11:15 AW (Rec: 01/05/21 15:52 AW [email or web address]) Hip Strength Hip Manual Muscle Testing bilateral Flexion (L2) 4 Good Extension (S1) 4+ Good+ Abduction 4 Good Adduction 4+ Good+ External Rotation 4+ Good+ Internal Rotation 4+ Good+ Knee Strength Knee Manual Muscle Testing Left Flexion (S2) 4+ Good+ Extension (L3) 5 Normal Right Flexion (S2) 4 Good Extension (L3) 4+ Good+ Comments with guarding Ankle/Foot Strength Ankle and Foot Manual Muscle Testing Left Dorsiflexion (L4) 5 Normal Plantarflexion (S1) 5 Normal Inversion 4+ Good+ Eversion (S1) 4+ Good+ Right Dorsiflexion (L4) 5 Normal Plantarflexion (S1) 5 Normal Inversion 4+ Good+ Eversion (S1) 4+ Good+ PT-OP-Q Treatments Start: 01/05/21 09:46 Freq: Status: Active Protocol: Document 01/07/21 09:51 MA (Rec: 01/07/21 10:31 MA [id number]) Therapeutic Exercises Supine Exercises HS stretch Side bilateral Reps/Minutes 30 sec ea Comments with belt quad stretch Supine Exercise Name quad stretch Side bilateral Reps/Minutes 2 min Comments paul test position Prone Exercises quad stretch Prone Exercise Name quad stretch Side right Equipment Used strap Comments prone stretch Sidelying Exercises clamshells Side bilateral Resistance lvl2 TB Reps/Minutes 2x10 Comments added to HEP Standing Exercises quad stretch Side bilateral Comments can get L heel to glute but R 1 from glute hip hike Side bilateral Equipment Used 4 box Reps/Minutes 2x10 Manual Therapy Treatment Joint Mobilizations Patella Joint R patella mobs Body Position Supine Reps/Duration 2 min Neuro Re-Education Treatment Balance Activities 1 Details SL balance Reps/Duration 30 Comments On RLE pt has a hard time leveling pelvis. Performed infront of mirror to help Self-Care/Home Management Treatment Education Patient Education Home Exercise Program Other Education Quad stretch standing, supine or prone, hip hikes, clamshell , supine HS stretch with towel PT-OP-R Modalities Start: 01/05/21 09:46 Freq: Status: Active Protocol: Document 01/07/21 10:31 MA (Rec: 01/07/21 10:32 MA [id number]) Hot Pack/Cold Pack Treatment Cold Pack Location R knee Patient Position Hooklying Treatment Duration (minutes) 15 Patient Tolerance Good Comments cryocuff PT-OP-T Assessment and Plan Start: 01/05/21 09:46 Freq: Status: Active Protocol: Document 01/07/21 09:51 MA (Rec: 01/07/21 10:31 MA [id number]) Physical Therapy Assessment Goals Three Impairment function-limiting pain Short Term Goal (STG) Pt will tolerate 90-degree squat without increase in baseline pain STG Duration 4 weeks - February 02, 2021 Virtual Assistant For Advertisers Goal (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 LTG Duration 2 months - March 07, 2021 Two Impairment ROM Correction Goal (LTG) Pt will increase AROM right knee to 0-150 for improved gait mechanics and return to prior level of function. LTG Duration 2 months - March 07, 2021 One Impairment edema Short Term Goal (STG) Circumferential measurements will be consistent side to side on two consecutive visits . STG Duration 4 weeks - February 02, 2021 Assessment Summary Assessment Karen's swelling in her R knee is minimal today. She has been doing her quad stretch at home while standing. Reviewed quad stretch supine, prone, and standing with pt able to bring her LLE to glute while standing but is 1 from glute with RLE. Pt describes feeling some tightness but no pain in her RLE during stretch. Educated pt on importance of stretching HS, calves, and quads before/after hiking, especially incline hikes. While in R SLS, pt has a hard time keeping pelvis level. Reviewed hip hikes and clamshells for strengthening glute med. and decreasing R knee pain. Pt would benefit from skilled PT to decrease swelling and pain in R knee and increase R hip strength for decreasing knee pain. Physical Therapy Plan Frequency and Duration Frequency of Treatment 1-2x/week Duration of Treatment 2 months Plan of Care Start Date 01/05/21 Plan of Care End Date 03/07/21 Therapeutic Interventions Therapeutic Interventions Balance Training,Gait Training ,Home Exercise Program,Joint Mobilizations,Manual Therapy, Neuromuscular Re-education, Orthotic/Prosthetic Management ,Patient/Caregiver Education, Self-Care/Home Management,Soft Tissue Mobilization,Taping, Therapeutic Activities, Therapeutic Exercises Modalities Cold Pack/Ice Massage, Ultrasound Next Visit Focus/Plan Next Note Type Treatment Note Next Visit Plan Review HEP and check pt's new knee brace she ordered for fit and compression managaement; manual therapy for edema management;
--- NOTE | 2021-01-12 12:25 | PT.OTN ---
Current Diagnoses Unspecified osteoarthritis, unspecified site (01/12/21) Effusion, right knee (01/12/21) Pain in unspecified knee (01/12/21) Difficulty in walking, not elsewhere classified (01/12/21) Physical Therapy Treatment Note PT-OP-A Visit Information Start: 01/05/21 09:46 Freq: Status: Active Protocol: Document 01/12/21 11:15 AW (Rec: 01/12/21 11:21 AW [id number]) Out-Patient Physical Therapy Visit Information Visit Information Visit Type Treatment Note Visit Start Time 10:30 Visit Stop Time 11:30 Total Visit Minutes 60 Visit Number 3 Evaluation Information Evaluation Date 01/05/21 PT-OP-B Current Condition Start: 01/05/21 09:46 Freq: Status: Active Protocol: Document 01/05/21 11:15 AW (Rec: 01/05/21 11:15 AW [id number]) Current Condition History of Current Condition Onset Date six weeks Current Complaints right knee effusion, pain History of Current Condition Six weeks ago, pt started to notice swelling around her right knee which got quite large. She went to ED on 12/10/20 and had an ultrasound to rule out DVT. Swelling has largely resolved but pt continues to report limited ROM, swelling, and pain. She has warm up symptoms in the back of the knee but notices pain diminishes with increased distance, time, or activity. She has been using a compression knee wrap for hiking which she thinks has helped to reduce the swelling. Not taking pain medication. Used ice in the beginning but has not since. Prior Treatments and Tests ED 12/10/20 ruled out DVT. Ultrasound report notes: 1. No evidence of DVT in visualized right lower extremity veins. 2. Fluid collection anterior to patella which may represent fluid distension of patella bursa secondary to bursitis, suggest clinical correlation. 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 Mildly reduced knee extension in mid stance phase of gait. Functional Limitations- Work/School Pain during and after driving. Functional Limitations- Recreation/ Swelling limits functional Hobbies squat for voiding in the [place] while hiking. Personal Factors Other Personal Factors That May Effect (+) positive association with Therapy/Recovery movement (+) active lifestyle PT-OP-C Subjective Start: 01/05/21 09:46 Freq: Status: Active Protocol: Document 01/12/21 11:15 AW (Rec: 01/12/21 11:21 AW [id number]) OP-PT Subjective Patient Comments Patient Comments Pt has been wearing compression sleeve on right knee during longer hikes. PT-OP-J Posture/Palpation/Skin Start: 01/05/21 09:46 Freq: Status: Active Protocol: Document 01/05/21 11:15 AW (Rec: 01/05/21 14:16 AW [email or web address]) Posture Evaluation Position Standing Evaluation View Lateral Head/C-Spine Posture Neutral Position Thorax Posture Neutral L-Spine Posture Flattened Shoulder Posture Neutral Pelvis Posture (R) Iliac Crest Superior Weight Distribution Decreased Wt.Bear on (R) Knee Posture (L) Neutral,(R) Neutral Foot Arch (L) High Arch,(R) High Arch Skin Assessment Edema Assessment R knee Edema Type Non-Pitting Comments patella: L 35.9 R 36.5 5 cm above: L 36.7 R 37.3 10 cm above: L 39.1 R 42.5 5 cm below: L 33.1 R 33.3 10 cm below: L 34.3 R 34.7 PT-OP-K Range of Motion Start: 01/05/21 09:46 Freq: Status: Active Protocol: Document 01/05/21 11:15 AW (Rec: 01/05/21 15:52 AW [email or web address]) Hip Goniometric Range of Motion Hip bilateral Hip ROM WFL Yes Testing Position Supine Hip ROM Limitations Comments No limitations Knee Goniometric Range of Motion Knee Left Knee ROM WFL Yes Patient Position Supine Flexion Active (degrees) 150 Comments lacking 1 degree extension Right Knee ROM WFL Yes Patient Position Supine Flexion Active (degrees) 140 Comments lacking 4 degrees extension Knee ROM Limitations Knee ROM Limitations Pain Comments PROM limited by guarding Ankle and Foot Goniometric Range of Motion Ankle and Foot Left Active Ankle/Foot ROM WFL Yes Right Active Ankle/Foot ROM WFL Yes PT-OP-L Special Tests Start: 01/05/21 09:46 Freq: Status: Active Protocol: Document 01/05/21 11:15 AW (Rec: 01/05/21 15:52 AW [email or web address]) Special Tests Knee Special Tests Susan's Test Results negative bilaterally Alex's Test Test Results positive bilaterally Paul Test Results positive bilaterally for tight IT band Comments mildly positive on right for shortened quadriceps Thessaly Test 20 Degrees Test Results negative bilaterally Patellar Grind Test Test Results reproduces pain right side PT-OP-M Strength Start: 01/05/21 09:46 Freq: Status: Active Protocol: Document 01/05/21 11:15 AW (Rec: 01/05/21 15:52 AW [email or web address]) Hip Strength Hip Manual Muscle Testing bilateral Flexion (L2) 4 Good Extension (S1) 4+ Good+ Abduction 4 Good Adduction 4+ Good+ External Rotation 4+ Good+ Internal Rotation 4+ Good+ Knee Strength Knee Manual Muscle Testing Left Flexion (S2) 4+ Good+ Extension (L3) 5 Normal Right Flexion (S2) 4 Good Extension (L3) 4+ Good+ Comments with guarding Ankle/Foot Strength Ankle and Foot Manual Muscle Testing Left Dorsiflexion (L4) 5 Normal Plantarflexion (S1) 5 Normal Inversion 4+ Good+ Eversion (S1) 4+ Good+ Right Dorsiflexion (L4) 5 Normal Plantarflexion (S1) 5 Normal Inversion 4+ Good+ Eversion (S1) 4+ Good+ PT-OP-Q Treatments Start: 01/05/21 09:46 Freq: Status: Active Protocol: Document 01/12/21 11:15 AW (Rec: 01/12/21 11:21 AW [id number]) Cardio Equipment Bicycle (Upright) Duration (Minutes) 5 Resistance 8 Seat Position 3 Other focus knee flexion Therapeutic Exercises Supine Exercises HS stretch Supine Exercise Name added cross body pull to incorporate IT stretch Side bilateral Reps/Minutes 30 sec ea Comments + HEP quad stretch Supine Exercise Name quad stretch Side bilateral Reps/Minutes 2 min Comments paul test position Prone Exercises quad stretch Prone Exercise Name quad stretch Side right Equipment Used strap Comments prone stretch Sidelying Exercises reverse clamshell Sidelying Exercise Name reverse clamshell Side bilateral Reps/Minutes 2x10 Comments added to HEP clamshells Side bilateral Resistance lvl2 TB Reps/Minutes 2x10 Comments added to HEP Standing Exercises TKE Standing Exercise Name TKE Side right Resistance level 2 Equipment Used TB Reps/Minutes 2x15 iso glute med at wall Standing Exercise Name iso glute med Side bilateral Reps/Minutes 3SH x 10 quad stretch Side bilateral Comments can get L heel to glute but R 1 from glute hip hike Side bilateral Equipment Used 4 box Reps/Minutes 2x10 Manual Therapy Treatment Joint Mobilizations Patella Joint R patella mobs Body Position Supine Reps/Duration 3 min 2 Joint R tibia Direction posterior glide Grade III Body Position Supine Reps/Duration 5 min Comments with active quad set; for improved extension Self-Care/Home Management Treatment Education Patient Education Home Exercise Program PT-OP-R Modalities Start: 01/05/21 09:46 Freq: Status: Active Protocol: Document 01/12/21 11:15 AW (Rec: 01/12/21 12:25 AW [email or web address]) Hot Pack/Cold Pack Treatment Cold Pack Location R knee Patient Position Hooklying Treatment Duration (minutes) 15 Patient Tolerance Good Comments cryocuff PT-OP-T Assessment and Plan Start: 01/05/21 09:46 Freq: Status: Active Protocol: Document 01/12/21 11:15 AW (Rec: 01/12/21 12:25 AW [email or web address]) Physical Therapy Assessment Impairments Impairments Balance,Edema,Functional Activities,Functional Mobility ,Gait,Pain,Posture,ROM,Soft Tissue Mobility,Strength Other Concerns Fall Risk low Goals Three Impairment function-limiting pain Short Term Goal (STG) Pt will tolerate 90-degree squat without increase in baseline pain STG Duration 4 weeks - February 02, 2021 Skilled Nursing Goal (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 LTG Duration 2 months - March 07, 2021 Two Impairment ROM Skilled Nursing Goal (LTG) Pt will increase AROM right knee to 0-150 for improved gait mechanics and return to prior level of function. LTG Duration 2 months - March 07, 2021 One Impairment edema Short Term Goal (STG) Circumferential measurements will be consistent side to side on two consecutive visits . STG Duration 4 weeks - February 02, 2021 Assessment Summary Assessment Pt has been wearing compression sleeve during exercise and reports no new swelling. Not measured today. Treatment today focused on knee ROM, muscle length, and lateral hip strength. Pt tolerated all well. Physical Therapy Plan Frequency and Duration Frequency of Treatment 1-2x/week Duration of Treatment 2 months Plan of Care Start Date 01/05/21 Plan of Care End Date 03/07/21 Therapeutic Interventions Therapeutic Interventions Balance Training,Gait Training ,Home Exercise Program,Joint Mobilizations,Manual Therapy, Neuromuscular Re-education, Orthotic/Prosthetic Management ,Patient/Caregiver Education, Self-Care/Home Management,Soft Tissue Mobilization,Taping, Therapeutic Activities, Therapeutic Exercises Next Visit Focus/Plan Next Note Type Treatment Note Next Visit Plan Review HEP; manual therapy for edema management and right knee ROM;
--- NOTE | 2021-01-17 17:30 | PT.OTN ---
Current Diagnoses Unspecified osteoarthritis, unspecified site (01/17/21) Effusion, right knee (01/17/21) Pain in unspecified knee (01/17/21) Difficulty in walking, not elsewhere classified (01/17/21) Physical Therapy Treatment Note PT-OP-A Visit Information Start: 01/05/21 09:46 Freq: Status: Active Protocol: Document 01/17/21 16:50 MA (Rec: 01/17/21 17:30 MA [id number]) Out-Patient Physical Therapy Visit Information Visit Information Visit Type Treatment Note Visit Start Time 16:45 Visit Stop Time 17:40 Total Visit Minutes 55 Visit Number 4 PT-OP-B Current Condition Start: 01/05/21 09:46 Freq: Status: Active Protocol: Document 01/05/21 11:15 AW (Rec: 01/05/21 11:15 AW [id number]) Current Condition History of Current Condition Onset Date six weeks Current Complaints right knee effusion, pain History of Current Condition Six weeks ago, pt started to notice swelling around her right knee which got quite large. She went to ED on 12/10/20 and had an ultrasound to rule out DVT. Swelling has largely resolved but pt continues to report limited ROM, swelling, and pain. She has warm up symptoms in the back of the knee but notices pain diminishes with increased distance, time, or activity. She has been using a compression knee wrap for hiking which she thinks has helped to reduce the swelling. Not taking pain medication. Used ice in the beginning but has not since. Prior Treatments and Tests ED 12/10/20 ruled out DVT. Ultrasound report notes: 1. No evidence of DVT in visualized right lower extremity veins. 2. Fluid collection anterior to patella which may represent fluid distension of patella bursa secondary to bursitis, suggest clinical correlation. 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 Mildly reduced knee extension in mid stance phase of gait. Functional Limitations- Work/School Pain during and after driving. Functional Limitations- Recreation/ Swelling limits functional Hobbies squat for voiding in the [place] while hiking. Personal Factors Other Personal Factors That May Effect (+) positive association with Therapy/Recovery movement (+) active lifestyle PT-OP-C Subjective Start: 01/05/21 09:46 Freq: Status: Active Protocol: Document 01/17/21 16:50 MA (Rec: 01/17/21 17:30 MA [id number]) OP-PT Subjective Patient Comments Patient Comments Pt arrives without compression sleeve. She states she is still getting swelling along anterior and lateral knee. She sees ortho tomorrow PT-OP-J Posture/Palpation/Skin Start: 01/05/21 09:46 Freq: Status: Active Protocol: Document 01/05/21 11:15 AW (Rec: 01/05/21 14:16 AW [email or web address]) Posture Evaluation Position Standing Evaluation View Lateral Head/C-Spine Posture Neutral Position Thorax Posture Neutral L-Spine Posture Flattened Shoulder Posture Neutral Pelvis Posture (R) Iliac Crest Superior Weight Distribution Decreased Wt.Bear on (R) Knee Posture (L) Neutral,(R) Neutral Foot Arch (L) High Arch,(R) High Arch Skin Assessment Edema Assessment R knee Edema Type Non-Pitting Comments patella: L 35.9 R 36.5 5 cm above: L 36.7 R 37.3 10 cm above: L 39.1 R 42.5 5 cm below: L 33.1 R 33.3 10 cm below: L 34.3 R 34.7 PT-OP-K Range of Motion Start: 01/05/21 09:46 Freq: Status: Active Protocol: Document 01/05/21 11:15 AW (Rec: 01/05/21 15:52 AW [email or web address]) Hip Goniometric Range of Motion Hip bilateral Hip ROM WFL Yes Testing Position Supine Hip ROM Limitations Comments No limitations Knee Goniometric Range of Motion Knee Left Knee ROM WFL Yes Patient Position Supine Flexion Active (degrees) 150 Comments lacking 1 degree extension Right Knee ROM WFL Yes Patient Position Supine Flexion Active (degrees) 140 Comments lacking 4 degrees extension Knee ROM Limitations Knee ROM Limitations Pain Comments PROM limited by guarding Ankle and Foot Goniometric Range of Motion Ankle and Foot Left Active Ankle/Foot ROM WFL Yes Right Active Ankle/Foot ROM WFL Yes PT-OP-L Special Tests Start: 01/05/21 09:46 Freq: Status: Active Protocol: Document 01/05/21 11:15 AW (Rec: 01/05/21 15:52 AW [email or web address]) Special Tests Knee Special Tests Susan's Test Results negative bilaterally Alex's Test Test Results positive bilaterally Paul Test Results positive bilaterally for tight IT band Comments mildly positive on right for shortened quadriceps Thessaly Test 20 Degrees Test Results negative bilaterally Patellar Grind Test Test Results reproduces pain right side PT-OP-M Strength Start: 01/05/21 09:46 Freq: Status: Active Protocol: Document 01/05/21 11:15 AW (Rec: 01/05/21 15:52 AW [email or web address]) Hip Strength Hip Manual Muscle Testing bilateral Flexion (L2) 4 Good Extension (S1) 4+ Good+ Abduction 4 Good Adduction 4+ Good+ External Rotation 4+ Good+ Internal Rotation 4+ Good+ Knee Strength Knee Manual Muscle Testing Left Flexion (S2) 4+ Good+ Extension (L3) 5 Normal Right Flexion (S2) 4 Good Extension (L3) 4+ Good+ Comments with guarding Ankle/Foot Strength Ankle and Foot Manual Muscle Testing Left Dorsiflexion (L4) 5 Normal Plantarflexion (S1) 5 Normal Inversion 4+ Good+ Eversion (S1) 4+ Good+ Right Dorsiflexion (L4) 5 Normal Plantarflexion (S1) 5 Normal Inversion 4+ Good+ Eversion (S1) 4+ Good+ PT-OP-Q Treatments Start: 01/05/21 09:46 Freq: Status: Active Protocol: Document 01/17/21 16:50 MA (Rec: 01/17/21 17:30 MA [id number]) Therapeutic Exercises Supine Exercises HS stretch Supine Exercise Name added cross body pull to incorporate IT stretch Side bilateral Reps/Minutes 60 sec ea Comments + HEP quad stretch Supine Exercise Name quad stretch Side bilateral Reps/Minutes 2 min Comments paul test position Sidelying Exercises reverse clamshell Sidelying Exercise Name reverse clamshell Side bilateral Reps/Minutes 2x10 Comments added to HEP clamshells Side bilateral Resistance lvl2 TB Reps/Minutes 2x10 Comments added to HEP Standing Exercises TKE Standing Exercise Name TKE Side right Resistance level 2 Equipment Used TB Reps/Minutes 2x15 iso glute med at wall Standing Exercise Name iso glute med Side bilateral Reps/Minutes 3SH x 10 hip hike Side bilateral Equipment Used 4 box Reps/Minutes 2x10 PT-OP-R Modalities Start: 01/05/21 09:46 Freq: Status: Active Protocol: Document 01/17/21 16:50 MA (Rec: 01/17/21 17:30 MA [id number]) Hot Pack/Cold Pack Treatment Cold Pack Location R knee Patient Position Hooklying Treatment Duration (minutes) 15 Patient Tolerance Good Comments cryocuff PT-OP-T Assessment and Plan Start: 01/05/21 09:46 Freq: Status: Active Protocol: Document 01/17/21 16:50 MA (Rec: 01/17/21 17:30 MA [id number]) Physical Therapy Assessment Goals Three Impairment function-limiting pain Short Term Goal (STG) Pt will tolerate 90-degree squat without increase in baseline pain STG Duration 4 weeks - February 02, 2021 Padded Products Finisher Goal (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 LTG Duration 2 months - March 07, 2021 Two Impairment ROM Retirement Goal (LTG) Pt will increase AROM right knee to 0-150 for improved gait mechanics and return to prior level of function. LTG Duration 2 months - March 07, 2021 One Impairment edema Short Term Goal (STG) Circumferential measurements will be consistent side to side on two consecutive visits . STG Duration 4 weeks - February 02, 2021 Assessment Summary Assessment Pt has no swelling today but states that she continues to have swelling some days on anterior and lateral sides of knee, especially on days she has guided tours. She can get to 145 degrees of knee flexion this session. Reviewed new HEP exercises with pt forgetting she had isometric glute med exercise. Pt now has no pain posteriorly but still is going to see ortho tomorrow for a second opinion. She feels it just helps ease her mind getting a second opinion despite increased ROM and decreased pain since starting therapy. Physical Therapy Plan Frequency and Duration Frequency of Treatment 1-2x/week Duration of Treatment 2 months Plan of Care Start Date 01/05/21 Plan of Care End Date 03/07/21 Therapeutic Interventions Therapeutic Interventions Balance Training,Gait Training ,Home Exercise Program,Joint Mobilizations,Manual Therapy, Neuromuscular Re-education, Orthotic/Prosthetic Management ,Patient/Caregiver Education, Self-Care/Home Management,Soft Tissue Mobilization,Taping, Therapeutic Activities, Therapeutic Exercises Next Visit Focus/Plan Next Note Type Treatment Note Next Visit Plan Review HEP; manual therapy for edema management and right knee ROM;
--- NOTE | 2021-01-20 10:36 | PT.OTN ---
Current Diagnoses Unspecified osteoarthritis, unspecified site (01/20/21) Effusion, right knee (01/20/21) Pain in unspecified knee (01/20/21) Difficulty in walking, not elsewhere classified (01/20/21) Physical Therapy Treatment Note PT-OP-A Visit Information Start: 01/05/21 09:46 Freq: Status: Active Protocol: Document 01/20/21 09:50 SP (Rec: 01/20/21 12:00 SP [id number]) Out-Patient Physical Therapy Visit Information Visit Information Visit Type Treatment Note Visit Start Time 09:50 Visit Stop Time 10:36 Total Visit Minutes 46 Visit Number 5 Number of SUPERINTENDENT PRESSURE Visits 1 Evaluation Information Evaluation Date 01/05/21 PT-OP-B Current Condition Start: 01/05/21 09:46 Freq: Status: Active Protocol: Document 01/05/21 11:15 AW (Rec: 01/05/21 11:15 AW [id number]) Current Condition History of Current Condition Onset Date six weeks Current Complaints right knee effusion, pain History of Current Condition Six weeks ago, pt started to notice swelling around her right knee which got quite large. She went to ED on 12/10/20 and had an ultrasound to rule out DVT. Swelling has largely resolved but pt continues to report limited ROM, swelling, and pain. She has warm up symptoms in the back of the knee but notices pain diminishes with increased distance, time, or activity. She has been using a compression knee wrap for hiking which she thinks has helped to reduce the swelling. Not taking pain medication. Used ice in the beginning but has not since. Prior Treatments and Tests ED 12/10/20 ruled out DVT. Ultrasound report notes: 1. No evidence of DVT in visualized right lower extremity veins. 2. Fluid collection anterior to patella which may represent fluid distension of patella bursa secondary to bursitis, suggest clinical correlation. 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 Mildly reduced knee extension in mid stance phase of gait. Functional Limitations- Work/School Pain during and after driving. Functional Limitations- Recreation/ Swelling limits functional Hobbies squat for voiding in the [place] while hiking. Personal Factors Other Personal Factors That May Effect (+) positive association with Therapy/Recovery movement (+) active lifestyle PT-OP-C Subjective Start: 01/05/21 09:46 Freq: Status: Active Protocol: Document 01/20/21 09:50 SP (Rec: 01/20/21 12:00 SP [id number]) OP-PT Subjective Patient Comments Patient Comments Pt stated L adductor> quad, ITB really tight and discomfort, doesn't seem to be letting up, compliant with stretching but unable to do paul stretch due to not having raised bed. PT-OP-J Posture/Palpation/Skin Start: 01/05/21 09:46 Freq: Status: Active Protocol: Document 01/05/21 11:15 AW (Rec: 01/05/21 14:16 AW [email or web address]) Posture Evaluation Position Standing Evaluation View Lateral Head/C-Spine Posture Neutral Position Thorax Posture Neutral L-Spine Posture Flattened Shoulder Posture Neutral Pelvis Posture (R) Iliac Crest Superior Weight Distribution Decreased Wt.Bear on (R) Knee Posture (L) Neutral,(R) Neutral Foot Arch (L) High Arch,(R) High Arch Skin Assessment Edema Assessment R knee Edema Type Non-Pitting Comments patella: L 35.9 R 36.5 5 cm above: L 36.7 R 37.3 10 cm above: L 39.1 R 42.5 5 cm below: L 33.1 R 33.3 10 cm below: L 34.3 R 34.7 PT-OP-K Range of Motion Start: 01/05/21 09:46 Freq: Status: Active Protocol: Document 01/05/21 11:15 AW (Rec: 01/05/21 15:52 AW [email or web address]) Hip Goniometric Range of Motion Hip bilateral Hip ROM WFL Yes Testing Position Supine Hip ROM Limitations Comments No limitations Knee Goniometric Range of Motion Knee Left Knee ROM WFL Yes Patient Position Supine Flexion Active (degrees) 150 Comments lacking 1 degree extension Right Knee ROM WFL Yes Patient Position Supine Flexion Active (degrees) 140 Comments lacking 4 degrees extension Knee ROM Limitations Knee ROM Limitations Pain Comments PROM limited by guarding Ankle and Foot Goniometric Range of Motion Ankle and Foot Left Active Ankle/Foot ROM WFL Yes Right Active Ankle/Foot ROM WFL Yes PT-OP-L Special Tests Start: 01/05/21 09:46 Freq: Status: Active Protocol: Document 01/05/21 11:15 AW (Rec: 01/05/21 15:52 AW [email or web address]) Special Tests Knee Special Tests Susan's Test Results negative bilaterally Alex's Test Test Results positive bilaterally Paul Test Results positive bilaterally for tight IT band Comments mildly positive on right for shortened quadriceps Thessaly Test 20 Degrees Test Results negative bilaterally Patellar Grind Test Test Results reproduces pain right side PT-OP-M Strength Start: 01/05/21 09:46 Freq: Status: Active Protocol: Document 01/05/21 11:15 AW (Rec: 01/05/21 15:52 AW [email or web address]) Hip Strength Hip Manual Muscle Testing bilateral Flexion (L2) 4 Good Extension (S1) 4+ Good+ Abduction 4 Good Adduction 4+ Good+ External Rotation 4+ Good+ Internal Rotation 4+ Good+ Knee Strength Knee Manual Muscle Testing Left Flexion (S2) 4+ Good+ Extension (L3) 5 Normal Right Flexion (S2) 4 Good Extension (L3) 4+ Good+ Comments with guarding Ankle/Foot Strength Ankle and Foot Manual Muscle Testing Left Dorsiflexion (L4) 5 Normal Plantarflexion (S1) 5 Normal Inversion 4+ Good+ Eversion (S1) 4+ Good+ Right Dorsiflexion (L4) 5 Normal Plantarflexion (S1) 5 Normal Inversion 4+ Good+ Eversion (S1) 4+ Good+ PT-OP-Q Treatments Start: 01/05/21 09:46 Freq: Status: Active Protocol: Document 01/20/21 09:50 SP (Rec: 01/20/21 12:00 SP [id number]) Therapeutic Exercises Supine Exercises adductor stretch Side bilateral Equipment Used strap Reps/Minutes 2 min Comments cued TA HS stretch Supine Exercise Name added cross body pull to incorporate IT stretch Side bilateral Reps/Minutes 60 sec ea Comments + HEP quad stretch Supine Exercise Name quad stretch Side bilateral Reps/Minutes 2 min Comments paul test position Prone Exercises quad stretch Prone Exercise Name quad stretch Side right Equipment Used strap, towel roll under thigh Reps/Minutes 30 Comments prone stretch not as effective as 1/2 knee lunge Standing Exercises adductor stretch Standing Exercise Name side lunge position L>R Reps/Minutes 30 x2 Comments good feedback response- has been trying this when out walking Other Exercises self STMs Other Exercise Name adductor Equipment Used racquetball at wall, proximal Reps/Minutes 4 min total Comments rolling stick sitting roll and rocking, pin supine MWM clamshell hip flexor/ adductor stretch Other Exercise Name 1/2 kneel lunge stretching Side bilateral Equipment Used pillow under knee Reps/Minutes 30 x2 Comments cued pelvic positioning needed and TA facilitation awareness Manual Therapy Treatment Soft Tissue Mobilization STMs Body Location L quad, adductor, HS, ITB Intensity/Depth Moderate Body Position Supine Comments manual and use of rolling pin roll/ rocking, sustained pressure on adductor with MWM clamshell PT-OP-R Modalities Start: 01/05/21 09:46 Freq: Status: Active Protocol: Document 01/17/21 16:50 MA (Rec: 01/17/21 17:30 MA [id number]) Hot Pack/Cold Pack Treatment Cold Pack Location R knee Patient Position Hooklying Treatment Duration (minutes) 15 Patient Tolerance Good Comments cryocuff PT-OP-T Assessment and Plan Start: 01/05/21 09:46 Freq: Status: Active Protocol: Document 01/20/21 09:50 SP (Rec: 01/20/21 12:00 SP [id number]) Physical Therapy Assessment Goals Four Impairment postural dysfunction LTG Duration 06/30/20 Three Impairment function-limiting pain Short Term Goal (STG) Pt will tolerate 90-degree squat without increase in baseline pain STG Duration 4 weeks - February 02, 2021 Lathe Mechanic Goal (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 LTG Duration 2 months - March 07, 2021 Two Impairment ROM Care Home Goal (LTG) Pt will increase AROM right knee to 0-150 for improved gait mechanics and return to prior level of function. LTG Duration 2 months - March 07, 2021 One Impairment edema Short Term Goal (STG) Circumferential measurements will be consistent side to side on two consecutive visits . STG Duration 4 weeks - February 02, 2021 Assessment Summary Assessment Tx focused on manual with education on self application at home and stretching to decrease adductor and quad/ hipflexor tightness with good feedback response. Reviewed stretching previously instructed with good form. Physical Therapy Plan Frequency and Duration Frequency of Treatment 1-2x/week Duration of Treatment 2 months Plan of Care Start Date 01/05/21 Plan of Care End Date 03/07/21 Therapeutic Interventions Therapeutic Interventions Balance Training,Gait Training ,Home Exercise Program,Joint Mobilizations,Manual Therapy, Neuromuscular Re-education, Orthotic/Prosthetic Management ,Patient/Caregiver Education, Self-Care/Home Management,Soft Tissue Mobilization,Taping, Therapeutic Activities, Therapeutic Exercises Next Visit Focus/Plan Next Note Type Treatment Note Next Visit Plan assess response to manual and self STMs MWM/ stick rolling/ tennis ball and stretching. Review HEP; continue manual therapy for edema management and right knee ROM;
--- NOTE | 2021-01-24 16:51 | PT.OTN ---
Current Diagnoses Unspecified osteoarthritis, unspecified site (01/24/21) Effusion, right knee (01/24/21) Pain in unspecified knee (01/24/21) Difficulty in walking, not elsewhere classified (01/24/21) Physical Therapy Treatment Note PT-OP-A Visit Information Start: 01/05/21 09:46 Freq: Status: Active Protocol: Document 01/24/21 09:56 SAK (Rec: 01/24/21 10:38 SAK [id number]) Out-Patient Physical Therapy Visit Information Visit Information Visit Type Treatment Note Visit Start Time 09:55 Visit Stop Time 10:41 Total Visit Minutes 46 Visit Number 6 Number of CAR ELECTRONICS INSTALLER Visits 0 Evaluation Information Evaluation Date 01/05/21 PT-OP-B Current Condition Start: 01/05/21 09:46 Freq: Status: Active Protocol: Document 01/05/21 11:15 AW (Rec: 01/05/21 11:15 AW [id number]) Current Condition History of Current Condition Onset Date six weeks Current Complaints right knee effusion, pain History of Current Condition Six weeks ago, pt started to notice swelling around her right knee which got quite large. She went to ED on 12/10/20 and had an ultrasound to rule out DVT. Swelling has largely resolved but pt continues to report limited ROM, swelling, and pain. She has warm up symptoms in the back of the knee but notices pain diminishes with increased distance, time, or activity. She has been using a compression knee wrap for hiking which she thinks has helped to reduce the swelling. Not taking pain medication. Used ice in the beginning but has not since. Prior Treatments and Tests ED 12/10/20 ruled out DVT. Ultrasound report notes: 1. No evidence of DVT in visualized right lower extremity veins. 2. Fluid collection anterior to patella which may represent fluid distension of patella bursa secondary to bursitis, suggest clinical correlation. 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 Mildly reduced knee extension in mid stance phase of gait. Functional Limitations- Work/School Pain during and after driving. Functional Limitations- Recreation/ Swelling limits functional Hobbies squat for voiding in the [place] while hiking. Personal Factors Other Personal Factors That May Effect (+) positive association with Therapy/Recovery movement (+) active lifestyle PT-OP-C Subjective Start: 01/05/21 09:46 Freq: Status: Active Protocol: Document 01/24/21 09:56 SAK (Rec: 01/24/21 10:38 SAK [id number]) OP-PT Subjective Patient Comments Patient Comments Knee is getting better, still some mild swelling but no pain . Persistant pain medial left thigh, new stretches didn't address, left side feels off . Tried rolling pin only at PT doesn't have at home. Most painful at night, makes sleep difficult PT-OP-J Posture/Palpation/Skin Start: 01/05/21 09:46 Freq: Status: Active Protocol: Document 01/05/21 11:15 AW (Rec: 01/05/21 14:16 AW [email or web address]) Posture Evaluation Position Standing Evaluation View Lateral Head/C-Spine Posture Neutral Position Thorax Posture Neutral L-Spine Posture Flattened Shoulder Posture Neutral Pelvis Posture (R) Iliac Crest Superior Weight Distribution Decreased Wt.Bear on (R) Knee Posture (L) Neutral,(R) Neutral Foot Arch (L) High Arch,(R) High Arch Skin Assessment Edema Assessment R knee Edema Type Non-Pitting Comments patella: L 35.9 R 36.5 5 cm above: L 36.7 R 37.3 10 cm above: L 39.1 R 42.5 5 cm below: L 33.1 R 33.3 10 cm below: L 34.3 R 34.7 PT-OP-K Range of Motion Start: 01/05/21 09:46 Freq: Status: Active Protocol: Document 01/05/21 11:15 AW (Rec: 01/05/21 15:52 AW [email or web address]) Hip Goniometric Range of Motion Hip bilateral Hip ROM WFL Yes Testing Position Supine Hip ROM Limitations Comments No limitations Knee Goniometric Range of Motion Knee Left Knee ROM WFL Yes Patient Position Supine Flexion Active (degrees) 150 Comments lacking 1 degree extension Right Knee ROM WFL Yes Patient Position Supine Flexion Active (degrees) 140 Comments lacking 4 degrees extension Knee ROM Limitations Knee ROM Limitations Pain Comments PROM limited by guarding Ankle and Foot Goniometric Range of Motion Ankle and Foot Left Active Ankle/Foot ROM WFL Yes Right Active Ankle/Foot ROM WFL Yes PT-OP-L Special Tests Start: 01/05/21 09:46 Freq: Status: Active Protocol: Document 01/05/21 11:15 AW (Rec: 01/05/21 15:52 AW [email or web address]) Special Tests Knee Special Tests Susan's Test Results negative bilaterally Alex's Test Test Results positive bilaterally Paul Test Results positive bilaterally for tight IT band Comments mildly positive on right for shortened quadriceps Thessaly Test 20 Degrees Test Results negative bilaterally Patellar Grind Test Test Results reproduces pain right side PT-OP-M Strength Start: 01/05/21 09:46 Freq: Status: Active Protocol: Document 01/05/21 11:15 AW (Rec: 01/05/21 15:52 AW [email or web address]) Hip Strength Hip Manual Muscle Testing bilateral Flexion (L2) 4 Good Extension (S1) 4+ Good+ Abduction 4 Good Adduction 4+ Good+ External Rotation 4+ Good+ Internal Rotation 4+ Good+ Knee Strength Knee Manual Muscle Testing Left Flexion (S2) 4+ Good+ Extension (L3) 5 Normal Right Flexion (S2) 4 Good Extension (L3) 4+ Good+ Comments with guarding Ankle/Foot Strength Ankle and Foot Manual Muscle Testing Left Dorsiflexion (L4) 5 Normal Plantarflexion (S1) 5 Normal Inversion 4+ Good+ Eversion (S1) 4+ Good+ Right Dorsiflexion (L4) 5 Normal Plantarflexion (S1) 5 Normal Inversion 4+ Good+ Eversion (S1) 4+ Good+ PT-OP-Q Treatments Start: 01/05/21 09:46 Freq: Status: Active Protocol: Document 01/24/21 09:56 SAK (Rec: 01/24/21 16:51 SAK [id number]) Therapeutic Exercises Supine Exercises adductor stretch Side bilateral Equipment Used manual Reps/Minutes 2 min Comments cued TA HS stretch Side bilateral Reps/Minutes 60 sec ea Prone Exercises quad stretch Prone Exercise Name quad stretch Side right Equipment Used strap, towel roll under thigh Reps/Minutes 30 Manual Therapy Treatment Soft Tissue Mobilization STMs Body Location L quad, adductor, HS, ITB Intensity/Depth Moderate Body Position Supine Comments manual and use of Theraband massage stick sustained pressure on adductor with MWM clahell PT-OP-R Modalities Start: 01/05/21 09:46 Freq: Status: Active Protocol: Document 01/24/21 09:56 SAK (Rec: 01/24/21 16:51 [email or web address] [id number]) Hot Pack/Cold Pack Treatment Hot Pack Location right adductor, IT band Patient Position Hooklying PT-OP-T Assessment and Plan Start: 01/05/21 09:46 Freq: Status: Active Protocol: Document 01/24/21 09:56 [facility] (Rec: 01/24/21 16:51 [email or web address] [id number]) Physical Therapy Assessment Goals Three Impairment function-limiting pain Short Term Goal (STG) Pt will tolerate 90-degree squat without increase in baseline pain STG Duration 4 weeks - February 02, 2021 Sports Agent Goal (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 LTG Duration 2 months - March 07, 2021 Two Impairment ROM Sports Agent Goal (LTG) Pt will increase AROM right knee to 0-150 for improved gait mechanics and return to prior level of function. LTG Duration 2 months - March 07, 2021 One Impairment edema Short Term Goal (STG) Circumferential measurements will be consistent side to side on two consecutive visits . STG Duration 4 weeks - February 02, 2021 Assessment Summary Assessment Patient compliance with self- massage low, good compliance with HEP. Knee pain much better though still some persistent swelling. Left medial thigh pain most bothersome, discussed may be due to compensation, also to pay attention to habitual positioning and movements. Physical Therapy Plan Frequency and Duration Frequency of Treatment 1-2x/week Duration of Treatment 2 months Plan of Care Start Date 01/05/21 Plan of Care End Date 03/07/21 Therapeutic Interventions Therapeutic Interventions Balance Training,Gait Training ,Home Exercise Program,Joint Mobilizations,Manual Therapy, Neuromuscular Re-education, Orthotic/Prosthetic Management ,Patient/Caregiver Education, Self-Care/Home Management,Soft Tissue Mobilization,Taping, Therapeutic Activities, Therapeutic Exercises Next Visit Focus/Plan Next Note Type Treatment Note Next Visit Plan Continue PT per POC, assess compliance to HEP and self- massage techniques as instructed.
--- NOTE | 2021-01-27 12:06 | PT.OTN ---
Current Diagnoses Unspecified osteoarthritis, unspecified site (01/27/21) Effusion, right knee (01/27/21) Pain in unspecified knee (01/27/21) Difficulty in walking, not elsewhere classified (01/27/21) Physical Therapy Treatment Note PT-OP-A Visit Information Start: 01/05/21 09:46 Freq: Status: Active Protocol: Document 01/27/21 08:16 SAK (Rec: 01/27/21 09:03 SAK [id number]) Out-Patient Physical Therapy Visit Information Visit Information Visit Type Treatment Note Visit Start Time 08:10 Visit Stop Time 09:05 Total Visit Minutes 55 Visit Number 7 Number of OUTSIDE SALES ACCOUNT EXECUTIVE Visits 0 Evaluation Information Evaluation Date 01/05/21 PT-OP-B Current Condition Start: 01/05/21 09:46 Freq: Status: Active Protocol: Document 01/05/21 11:15 AW (Rec: 01/05/21 11:15 AW [id number]) Current Condition History of Current Condition Onset Date six weeks Current Complaints right knee effusion, pain History of Current Condition Six weeks ago, pt started to notice swelling around her right knee which got quite large. She went to ED on 12/10/20 and had an ultrasound to rule out DVT. Swelling has largely resolved but pt continues to report limited ROM, swelling, and pain. She has warm up symptoms in the back of the knee but notices pain diminishes with increased distance, time, or activity. She has been using a compression knee wrap for hiking which she thinks has helped to reduce the swelling. Not taking pain medication. Used ice in the beginning but has not since. Prior Treatments and Tests ED 12/10/20 ruled out DVT. Ultrasound report notes: 1. No evidence of DVT in visualized right lower extremity veins. 2. Fluid collection anterior to patella which may represent fluid distension of patella bursa secondary to bursitis, suggest clinical correlation. 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 Mildly reduced knee extension in mid stance phase of gait. Functional Limitations- Work/School Pain during and after driving. Functional Limitations- Recreation/ Swelling limits functional Hobbies squat for voiding in the [place] while hiking. Personal Factors Other Personal Factors That May Effect (+) positive association with Therapy/Recovery movement (+) active lifestyle PT-OP-C Subjective Start: 01/05/21 09:46 Freq: Status: Active Protocol: Document 01/27/21 08:16 SAK (Rec: 01/27/21 09:03 SAK [id number]) OP-PT Subjective Patient Comments Patient Comments Pain sporadic adductors, stretches not getting to it. Standing, sitting, sleeping, activity doesn't seem to affect. 6/10 on pain scale, stabbing pain. Roller not helpful as worried about her position of her back while using muscle roller. Didn't try heat as recommended by PT. PT-OP-J Posture/Palpation/Skin Start: 01/05/21 09:46 Freq: Status: Active Protocol: Document 01/05/21 11:15 AW (Rec: 01/05/21 14:16 AW [email or web address]) Posture Evaluation Position Standing Evaluation View Lateral Head/C-Spine Posture Neutral Position Thorax Posture Neutral L-Spine Posture Flattened Shoulder Posture Neutral Pelvis Posture (R) Iliac Crest Superior Weight Distribution Decreased Wt.Bear on (R) Knee Posture (L) Neutral,(R) Neutral Foot Arch (L) High Arch,(R) High Arch Skin Assessment Edema Assessment R knee Edema Type Non-Pitting Comments patella: L 35.9 R 36.5 5 cm above: L 36.7 R 37.3 10 cm above: L 39.1 R 42.5 5 cm below: L 33.1 R 33.3 10 cm below: L 34.3 R 34.7 PT-OP-K Range of Motion Start: 01/05/21 09:46 Freq: Status: Active Protocol: Document 01/05/21 11:15 AW (Rec: 01/05/21 15:52 AW [email or web address]) Hip Goniometric Range of Motion Hip bilateral Hip ROM WFL Yes Testing Position Supine Hip ROM Limitations Comments No limitations Knee Goniometric Range of Motion Knee Left Knee ROM WFL Yes Patient Position Supine Flexion Active (degrees) 150 Comments lacking 1 degree extension Right Knee ROM WFL Yes Patient Position Supine Flexion Active (degrees) 140 Comments lacking 4 degrees extension Knee ROM Limitations Knee ROM Limitations Pain Comments PROM limited by guarding Ankle and Foot Goniometric Range of Motion Ankle and Foot Left Active Ankle/Foot ROM WFL Yes Right Active Ankle/Foot ROM WFL Yes PT-OP-L Special Tests Start: 01/05/21 09:46 Freq: Status: Active Protocol: Document 01/05/21 11:15 AW (Rec: 01/05/21 15:52 AW [email or web address]) Special Tests Knee Special Tests Susan's Test Results negative bilaterally Alex's Test Test Results positive bilaterally Paul Test Results positive bilaterally for tight IT band Comments mildly positive on right for shortened quadriceps Thessaly Test 20 Degrees Test Results negative bilaterally Patellar Grind Test Test Results reproduces pain right side PT-OP-M Strength Start: 01/05/21 09:46 Freq: Status: Active Protocol: Document 01/05/21 11:15 AW (Rec: 01/05/21 15:52 AW [email or web address]) Hip Strength Hip Manual Muscle Testing bilateral Flexion (L2) 4 Good Extension (S1) 4+ Good+ Abduction 4 Good Adduction 4+ Good+ External Rotation 4+ Good+ Internal Rotation 4+ Good+ Knee Strength Knee Manual Muscle Testing Left Flexion (S2) 4+ Good+ Extension (L3) 5 Normal Right Flexion (S2) 4 Good Extension (L3) 4+ Good+ Comments with guarding Ankle/Foot Strength Ankle and Foot Manual Muscle Testing Left Dorsiflexion (L4) 5 Normal Plantarflexion (S1) 5 Normal Inversion 4+ Good+ Eversion (S1) 4+ Good+ Right Dorsiflexion (L4) 5 Normal Plantarflexion (S1) 5 Normal Inversion 4+ Good+ Eversion (S1) 4+ Good+ PT-OP-Q Treatments Start: 01/05/21 09:46 Freq: Status: Active Protocol: Document 01/27/21 08:16 [facility] (Rec: 01/27/21 12:06 SAK [id number]) Cardio Equipment Recumbent Stepper (Sci-Fit) Duration (Minutes) 7 Resistance 2.0 Seat Position 10 Other emphasis on neutral LE alignment Therapeutic Exercises Supine Exercises SAQ Side bilateral Reps/Minutes 10x5 adductor stretch Side bilateral Equipment Used manual Reps/Minutes 2 min Comments cued TA Manual Therapy Treatment Soft Tissue Mobilization STMs Body Location L quad, adductor, HS, ITB Mobilization Type Instrument Assisted,Myofascial Release,Strumming Intensity/Depth Moderate Body Position Supine Taping 2 Body Location left adductors, medial quad, IT band Type of Tape kinesiotape Comments # I strips 1 Body Location right patella Treatment Focus decrease lateral glide Type of Tape Kinesio Tape Skin Inspection intact Comments I Y strip PT-OP-R Modalities Start: 01/05/21 09:46 Freq: Status: Active Protocol: Document 01/27/21 08:16 [facility] (Rec: 01/27/21 12:06 [facility] [id number]) Hot Pack/Cold Pack Treatment Hot Pack Location left adductor, IT band Patient Position Hooklying PT-OP-T Assessment and Plan Start: 01/05/21 09:46 Freq: Status: Active Protocol: Document 01/27/21 08:16 [facility] (Rec: 01/27/21 09:03 [facility] [id number]) Physical Therapy Assessment Goals Three Impairment function-limiting pain Short Term Goal (STG) Pt will tolerate 90-degree squat without increase in baseline pain STG Duration 4 weeks - February 02, 2021 Outreach Clinician Goal (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 LTG Duration 2 months - March 07, 2021 Two Impairment ROM Outreach Clinician Goal (LTG) Pt will increase AROM right knee to 0-150 for improved gait mechanics and return to prior level of function. LTG Duration 2 months - March 07, 2021 One Impairment edema Short Term Goal (STG) Circumferential measurements will be consistent side to side on two consecutive visits . STG Duration 4 weeks - February 02, 2021 Assessment Summary Assessment due to some persistent grinding in right knee and lateral patellar tracking, applied kinesiotape for patellar glide correction, and after soft tissue mobilization left adductors, quads, and IT band due to persistent pain applied kinesiotape for muscle inhibition. Patien instructed in SAQ for VMO strengthening and further closed chain will be done next session. Physical Therapy Plan Frequency and Duration Frequency of Treatment 1-2x/week Duration of Treatment 2 months Plan of Care Start Date 01/05/21 Plan of Care End Date 03/07/21 Therapeutic Interventions Therapeutic Interventions Balance Training,Gait Training ,Home Exercise Program,Joint Mobilizations,Manual Therapy, Neuromuscular Re-education, Orthotic/Prosthetic Management ,Patient/Caregiver Education, Self-Care/Home Management,Soft Tissue Mobilization,Taping, Therapeutic Activities, Therapeutic Exercises Next Visit Focus/Plan Next Note Type Treatment Note Next Visit Plan Assess response to PT session today and progress ther ex and manual techniques as indicated.
--- NOTE | 2021-02-01 16:03 | PT.OTN ---
Current Diagnoses Unspecified osteoarthritis, unspecified site (02/01/21) Effusion, right knee (02/01/21) Pain in unspecified knee (02/01/21) Difficulty in walking, not elsewhere classified (02/01/21) Physical Therapy Treatment Note PT-OP-A Visit Information Start: 01/05/21 09:46 Freq: Status: Active Protocol: Document 02/01/21 15:54 SAK (Rec: 02/01/21 16:03 SAK [id number]) Out-Patient Physical Therapy Visit Information Visit Information Visit Type Treatment Note Visit Start Time 11:20 Visit Stop Time 12:20 Total Visit Minutes 60 Visit Number 8 Evaluation Information Evaluation Date 01/05/21 PT-OP-B Current Condition Start: 01/05/21 09:46 Freq: Status: Active Protocol: Document 01/05/21 11:15 AW (Rec: 01/05/21 11:15 AW [id number]) Current Condition History of Current Condition Onset Date six weeks Current Complaints right knee effusion, pain History of Current Condition Six weeks ago, pt started to notice swelling around her right knee which got quite large. She went to ED on 12/10/20 and had an ultrasound to rule out DVT. Swelling has largely resolved but pt continues to report limited ROM, swelling, and pain. She has warm up symptoms in the back of the knee but notices pain diminishes with increased distance, time, or activity. She has been using a compression knee wrap for hiking which she thinks has helped to reduce the swelling. Not taking pain medication. Used ice in the beginning but has not since. Prior Treatments and Tests ED 12/10/20 ruled out DVT. Ultrasound report notes: 1. No evidence of DVT in visualized right lower extremity veins. 2. Fluid collection anterior to patella which may represent fluid distension of patella bursa secondary to bursitis, suggest clinical correlation. 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 Mildly reduced knee extension in mid stance phase of gait. Functional Limitations- Work/School Pain during and after driving. Functional Limitations- Recreation/ Swelling limits functional Hobbies squat for voiding in the [place]ra while hiking. Personal Factors Other Personal Factors That May Effect (+) positive association with Therapy/Recovery movement (+) active lifestyle PT-OP-C Subjective Start: 01/05/21 09:46 Freq: Status: Active Protocol: Document 02/01/21 15:54 SAK (Rec: 02/01/21 16:03 SAK [id number]) OP-PT Subjective Patient Comments Patient Comments Patient reports pain variable over the weekend, feels right knee still swollen, tight in back and catches in the front . Has a neoprene knee sleeve but hasn't worn. No ice or heat. Left hip adductorsstill bothersome though stabbing pain les frequent. PT-OP-J Posture/Palpation/Skin Start: 01/05/21 09:46 Freq: Status: Active Protocol: Document 01/05/21 11:15 AW (Rec: 01/05/21 14:16 AW [id number]) Posture Evaluation Position Standing Evaluation View Lateral Head/C-Spine Posture Neutral Position Thorax Posture Neutral L-Spine Posture Flattened Shoulder Posture Neutral Pelvis Posture (R) Iliac Crest Superior Weight Distribution Decreased Wt.Bear on (R) Knee Posture (L) Neutral,(R) Neutral Foot Arch (L) High Arch,(R) High Arch Skin Assessment Edema Assessment R knee Edema Type Non-Pitting Comments patella: L 35.9 R 36.5 5 cm above: L 36.7 R 37.3 10 cm above: L 39.1 R 42.5 5 cm below: L 33.1 R 33.3 10 cm below: L 34.3 R 34.7 PT-OP-K Range of Motion Start: 01/05/21 09:46 Freq: Status: Active Protocol: Document 01/05/21 11:15 AW (Rec: 01/05/21 15:52 AW [email or web address]) Hip Goniometric Range of Motion Hip bilateral Hip ROM WFL Yes Testing Position Supine Hip ROM Limitations Comments No limitations Knee Goniometric Range of Motion Knee Left Knee ROM WFL Yes Patient Position Supine Flexion Active (degrees) 150 Comments lacking 1 degree extension Right Knee ROM WFL Yes Patient Position Supine Flexion Active (degrees) 140 Comments lacking 4 degrees extension Knee ROM Limitations Knee ROM Limitations Pain Comments PROM limited by guarding Ankle and Foot Goniometric Range of Motion Ankle and Foot Left Active Ankle/Foot ROM WFL Yes Right Active Ankle/Foot ROM WFL Yes PT-OP-L Special Tests Start: 01/05/21 09:46 Freq: Status: Active Protocol: Document 01/05/21 11:15 AW (Rec: 01/05/21 15:52 AW [email or web address]) Special Tests Knee Special Tests Susan's Test Results negative bilaterally Alex's Test Test Results positive bilaterally Paul Test Results positive bilaterally for tight IT band Comments mildly positive on right for shortened quadriceps Thessaly Test 20 Degrees Test Results negative bilaterally Patellar Grind Test Test Results reproduces pain right side PT-OP-M Strength Start: 01/05/21 09:46 Freq: Status: Active Protocol: Document 01/05/21 11:15 AW (Rec: 01/05/21 15:52 AW [email or web address]) Hip Strength Hip Manual Muscle Testing bilateral Flexion (L2) 4 Good Extension (S1) 4+ Good+ Abduction 4 Good Adduction 4+ Good+ External Rotation 4+ Good+ Internal Rotation 4+ Good+ Knee Strength Knee Manual Muscle Testing Left Flexion (S2) 4+ Good+ Extension (L3) 5 Normal Right Flexion (S2) 4 Good Extension (L3) 4+ Good+ Comments with guarding Ankle/Foot Strength Ankle and Foot Manual Muscle Testing Left Dorsiflexion (L4) 5 Normal Plantarflexion (S1) 5 Normal Inversion 4+ Good+ Eversion (S1) 4+ Good+ Right Dorsiflexion (L4) 5 Normal Plantarflexion (S1) 5 Normal Inversion 4+ Good+ Eversion (S1) 4+ Good+ PT-OP-Q Treatments Start: 01/05/21 09:46 Freq: Status: Active Protocol: Document 02/01/21 15:54 SAK (Rec: 02/01/21 16:03 SAK [id number]) Cardio Equipment Treadmill Duration (Minutes) 5 Speed 2.4 Incline 0 Other gait evaluation; patient's phone to record all angles Manual Therapy Treatment Soft Tissue Mobilization STMs Body Location L quad, adductor, HS, ITB Mobilization Type Instrument Assisted,Myofascial Release,Strumming Intensity/Depth Moderate Body Position Supine Self-Care/Home Management Treatment Education Other Education gait biomechanics; reviewed video taken with patient phone , discussed importance of heel strike, gluteal activation, toe off. Examined bottom of patient's shoes; worn more laterally , no wearing under big toe. PT-OP-R Modalities Start: 01/05/21 09:46 Freq: Status: Active Protocol: Document 02/01/21 15:54 [facility] (Rec: 02/01/21 16:03 [facility] [id number]) Hot Pack/Cold Pack Treatment Hot Pack Location left adductor, IT band Patient Position Hooklying Cold Pack Location R knee Patient Position Hooklying Treatment Duration (minutes) 15 Patient Tolerance Good PT-OP-T Assessment and Plan Start: 01/05/21 09:46 Freq: Status: Active Protocol: Document 02/01/21 15:54 [facility] (Rec: 02/01/21 16:03 [facility] [id number]) Physical Therapy Assessment Goals Three Impairment function-limiting pain Short Term Goal (STG) Pt will tolerate 90-degree squat without increase in baseline pain STG Duration 4 weeks - February 02, 2021 Dragline Operator Helper Goal (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 LTG Duration 2 months - March 07, 2021 Two Impairment ROM [facility] Goal (LTG) Pt will increase AROM right knee to 0-150 for improved gait mechanics and return to prior level of function. LTG Duration 2 months - March 07, 2021 One Impairment edema Short Term Goal (STG) Circumferential measurements will be consistent side to side on two consecutive visits . STG Duration 4 weeks - February 02, 2021 Assessment Summary Assessment encouraged patient to wear neoprene sleeve right knee, instructed in single leg standing exercise for stability on one leg Physical Therapy Plan Frequency and Duration Frequency of Treatment 1-2x/week Duration of Treatment 2 months Plan of Care Start Date 01/05/21 Plan of Care End Date 03/07/21 Therapeutic Interventions Therapeutic Interventions Balance Training,Gait Training ,Home Exercise Program,Joint Mobilizations,Manual Therapy, Neuromuscular Re-education, Orthotic/Prosthetic Management ,Patient/Caregiver Education, Self-Care/Home Management,Soft Tissue Mobilization,Taping, Therapeutic Activities, Therapeutic Exercises Next Visit Focus/Plan Next Note Type Treatment Note Next Visit Plan Further VMO strengthening.
--- NOTE | 2021-02-03 12:23 | PT.OTN ---
Current Diagnoses Unspecified osteoarthritis, unspecified site (02/03/21) Effusion, right knee (02/03/21) Pain in unspecified knee (02/03/21) Difficulty in walking, not elsewhere classified (02/03/21) Physical Therapy Treatment Note PT-OP-A Visit Information Start: 01/05/21 09:46 Freq: Status: Active Protocol: Document 02/03/21 09:48 SAK (Rec: 02/03/21 10:31 SAK [id number]) Out-Patient Physical Therapy Visit Information Visit Information Visit Type Treatment Note Visit Start Time 09:49 Visit Stop Time 12:20 Total Visit Minutes 60 Visit Number 9 Evaluation Information Evaluation Date 01/05/21 PT-OP-B Current Condition Start: 01/05/21 09:46 Freq: Status: Active Protocol: Document 01/05/21 11:15 AW (Rec: 01/05/21 11:15 AW [id number]) Current Condition History of Current Condition Onset Date six weeks Current Complaints right knee effusion, pain History of Current Condition Six weeks ago, pt started to notice swelling around her right knee which got quite large. She went to ED on 12/10/20 and had an ultrasound to rule out DVT. Swelling has largely resolved but pt continues to report limited ROM, swelling, and pain. She has warm up symptoms in the back of the knee but notices pain diminishes with increased distance, time, or activity. She has been using a compression knee wrap for hiking which she thinks has helped to reduce the swelling. Not taking pain medication. Used ice in the beginning but has not since. Prior Treatments and Tests ED 12/10/20 ruled out DVT. Ultrasound report notes: 1. No evidence of DVT in visualized right lower extremity veins. 2. Fluid collection anterior to patella which may represent fluid distension of patella bursa secondary to bursitis, suggest clinical correlation. 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 Mildly reduced knee extension in mid stance phase of gait. Functional Limitations- Work/School Pain during and after driving. Functional Limitations- Recreation/ Swelling limits functional Hobbies squat for voiding in the [place] while hiking. Personal Factors Other Personal Factors That May Effect (+) positive association with Therapy/Recovery movement (+) active lifestyle PT-OP-C Subjective Start: 01/05/21 09:46 Freq: Status: Active Protocol: Document 02/03/21 09:48 SAK (Rec: 02/03/21 10:31 SAK [id number]) OP-PT Subjective Patient Comments Patient Comments Was hurting for 2 hrs last night, finally had to take Ibuprofen, able to sleep. Feels most helpful thing is soft tissue work on left thigh , slept well Sunday night with minimal to no pain after PT. Brought neoprene knee sleeve for PT evaluation of fit and compression PT-OP-J Posture/Palpation/Skin Start: 01/05/21 09:46 Freq: Status: Active Protocol: Document 01/05/21 11:15 AW (Rec: 01/05/21 14:16 AW [email or web address]) Posture Evaluation Position Standing Evaluation View Lateral Head/C-Spine Posture Neutral Position Thorax Posture Neutral L-Spine Posture Flattened Shoulder Posture Neutral Pelvis Posture (R) Iliac Crest Superior Weight Distribution Decreased Wt.Bear on (R) Knee Posture (L) Neutral,(R) Neutral Foot Arch (L) High Arch,(R) High Arch Skin Assessment Edema Assessment R knee Edema Type Non-Pitting Comments patella: L 35.9 R 36.5 5 cm above: L 36.7 R 37.3 10 cm above: L 39.1 R 42.5 5 cm below: L 33.1 R 33.3 10 cm below: L 34.3 R 34.7 PT-OP-K Range of Motion Start: 01/05/21 09:46 Freq: Status: Active Protocol: Document 01/05/21 11:15 AW (Rec: 01/05/21 15:52 AW [email or web address]) Hip Goniometric Range of Motion Hip bilateral Hip ROM WFL Yes Testing Position Supine Hip ROM Limitations Comments No limitations Knee Goniometric Range of Motion Knee Left Knee ROM WFL Yes Patient Position Supine Flexion Active (degrees) 150 Comments lacking 1 degree extension Right Knee ROM WFL Yes Patient Position Supine Flexion Active (degrees) 140 Comments lacking 4 degrees extension Knee ROM Limitations Knee ROM Limitations Pain Comments PROM limited by guarding Ankle and Foot Goniometric Range of Motion Ankle and Foot Left Active Ankle/Foot ROM WFL Yes Right Active Ankle/Foot ROM WFL Yes PT-OP-L Special Tests Start: 01/05/21 09:46 Freq: Status: Active Protocol: Document 01/05/21 11:15 AW (Rec: 01/05/21 15:52 AW [email or web address]) Special Tests Knee Special Tests Susan's Test Results negative bilaterally Alex's Test Test Results positive bilaterally Paul Test Results positive bilaterally for tight IT band Comments mildly positive on right for shortened quadriceps Thessaly Test 20 Degrees Test Results negative bilaterally Patellar Grind Test Test Results reproduces pain right side PT-OP-M Strength Start: 01/05/21 09:46 Freq: Status: Active Protocol: Document 01/05/21 11:15 AW (Rec: 01/05/21 15:52 AW [email or web address]) Hip Strength Hip Manual Muscle Testing bilateral Flexion (L2) 4 Good Extension (S1) 4+ Good+ Abduction 4 Good Adduction 4+ Good+ External Rotation 4+ Good+ Internal Rotation 4+ Good+ Knee Strength Knee Manual Muscle Testing Left Flexion (S2) 4+ Good+ Extension (L3) 5 Normal Right Flexion (S2) 4 Good Extension (L3) 4+ Good+ Comments with guarding Ankle/Foot Strength Ankle and Foot Manual Muscle Testing Left Dorsiflexion (L4) 5 Normal Plantarflexion (S1) 5 Normal Inversion 4+ Good+ Eversion (S1) 4+ Good+ Right Dorsiflexion (L4) 5 Normal Plantarflexion (S1) 5 Normal Inversion 4+ Good+ Eversion (S1) 4+ Good+ PT-OP-Q Treatments Start: 01/05/21 09:46 Freq: Status: Active Protocol: Document 02/03/21 09:48 SAK (Rec: 02/03/21 10:31 SAK [id number]) Therapeutic Exercises Supine Exercises bridge Reps/Minutes 10x SAQ Side bilateral Reps/Minutes 10x5 Comments slight ER of LE, possibly with towel roll squeeze Standing Exercises squats Reps/Minutes 10x Comments with ball squeeze Therapeutic Activity Therapeutic Activity knee sleeve assessment Comments good fit without pinching, mild compression Manual Therapy Treatment Soft Tissue Mobilization STMs Body Location L quad, adductor, HS, ITB Mobilization Type Instrument Assisted,Myofascial Release,Strumming Intensity/Depth Deep Body Position Supine Other Other Manual Treatments circumferential measurements mateo knees: right 37.5, left 37 .2 cm Self-Care/Home Management Treatment Education Other Education wear knee sleeve right, slight ER with SAQ to activate VMA, ball between knees for squat and possibly SAQ to activate VMO. See if can have friend help with massage of thigh using massage stick, continue ice/heat. PT-OP-R Modalities Start: 01/05/21 09:46 Freq: Status: Active Protocol: Document 02/03/21 09:48 [facility] (Rec: 02/03/21 10:31 [facility] [id number]) Hot Pack/Cold Pack Treatment Hot Pack Location left adductor, IT band Patient Position Hooklying Cold Pack Location R knee Patient Position Hooklying Treatment Duration (minutes) 15 Patient Tolerance Good PT-OP-T Assessment and Plan Start: 01/05/21 09:46 Freq: Status: Active Protocol: Document 02/03/21 09:48 [facility] (Rec: 02/03/21 10:31 [facility] [id number]) Physical Therapy Assessment Goals Three Impairment function-limiting pain Short Term Goal (STG) Pt will tolerate 90-degree squat without increase in baseline pain STG Duration 4 weeks - February 02, 2021 Shelter Goal (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 LTG Duration 2 months - March 07, 2021 Two Impairment ROM Shelter Goal (LTG) Pt will increase AROM right knee to 0-150 for improved gait mechanics and return to prior level of function. LTG Duration 2 months - March 07, 2021 One Impairment edema Short Term Goal (STG) Circumferential measurements will be consistent side to side on two consecutive visits . STG Duration 4 weeks - February 02, 2021 Assessment Summary Assessment circumferential measurements equal (within 5 cm) bilateral knees. Patient able to better feel VMO activation with slight ER right LE with SAQ, squats with ball squeeze, SLR with ball squeeze Physical Therapy Plan Frequency and Duration Frequency of Treatment 1-2x/week Duration of Treatment 2 months Plan of Care Start Date 01/05/21 Plan of Care End Date 03/07/21 Therapeutic Interventions Therapeutic Interventions Balance Training,Gait Training ,Home Exercise Program,Joint Mobilizations,Manual Therapy, Neuromuscular Re-education, Orthotic/Prosthetic Management ,Patient/Caregiver Education, Self-Care/Home Management,Soft Tissue Mobilization,Taping, Therapeutic Activities, Therapeutic Exercises Next Visit Focus/Plan Next Note Type Treatment Note Next Visit Plan Further VMO strengthening. update written HEP
--- NOTE | 2021-02-08 10:00 | PT.OTN ---
Current Diagnoses Unspecified osteoarthritis, unspecified site (02/08/21) Effusion, right knee (02/08/21) Pain in unspecified knee (02/08/21) Difficulty in walking, not elsewhere classified (02/08/21) Physical Therapy Treatment Note PT-OP-A Visit Information Start: 01/05/21 09:46 Freq: Status: Active Protocol: Document 02/08/21 10:00 AW (Rec: 02/08/21 10:41 AW [id number]) Out-Patient Physical Therapy Visit Information Visit Information Visit Type Treatment Note Visit Start Time 09:01 Visit Stop Time 10:00 Total Visit Minutes 59 Visit Number 10 Evaluation Information Evaluation Date 01/05/21 PT-OP-B Current Condition Start: 01/05/21 09:46 Freq: Status: Active Protocol: Document 01/05/21 11:15 AW (Rec: 01/05/21 11:15 AW [id number]) Current Condition History of Current Condition Onset Date six weeks Current Complaints right knee effusion, pain History of Current Condition Six weeks ago, pt started to notice swelling around her right knee which got quite large. She went to ED on 12/10/20 and had an ultrasound to rule out DVT. Swelling has largely resolved but pt continues to report limited ROM, swelling, and pain. She has warm up symptoms in the back of the knee but notices pain diminishes with increased distance, time, or activity. She has been using a compression knee wrap for hiking which she thinks has helped to reduce the swelling. Not taking pain medication. Used ice in the beginning but has not since. Prior Treatments and Tests ED 12/10/20 ruled out DVT. Ultrasound report notes: 1. No evidence of DVT in visualized right lower extremity veins. 2. Fluid collection anterior to patella which may represent fluid distension of patella bursa secondary to bursitis, suggest clinical correlation. 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 Mildly reduced knee extension in mid stance phase of gait. Functional Limitations- Work/School Pain during and after driving. Functional Limitations- Recreation/ Swelling limits functional Hobbies squat for voiding in the [place] while hiking. Personal Factors Other Personal Factors That May Effect (+) positive association with Therapy/Recovery movement (+) active lifestyle PT-OP-C Subjective Start: 01/05/21 09:46 Freq: Status: Active Protocol: Document 02/08/21 10:00 AW (Rec: 02/08/21 10:41 AW [id number]) OP-PT Subjective Patient Comments Patient Comments Pt rode her bike in today and has been using compression sleeve more frequently. She reports improving knee pain but continues to deal with left adductor pain PT-OP-J Posture/Palpation/Skin Start: 01/05/21 09:46 Freq: Status: Active Protocol: Document 01/05/21 11:15 AW (Rec: 01/05/21 14:16 AW [email or web address]) Posture Evaluation Position Standing Evaluation View Lateral Head/C-Spine Posture Neutral Position Thorax Posture Neutral L-Spine Posture Flattened Shoulder Posture Neutral Pelvis Posture (R) Iliac Crest Superior Weight Distribution Decreased Wt.Bear on (R) Knee Posture (L) Neutral,(R) Neutral Foot Arch (L) High Arch,(R) High Arch Skin Assessment Edema Assessment R knee Edema Type Non-Pitting Comments patella: L 35.9 R 36.5 5 cm above: L 36.7 R 37.3 10 cm above: L 39.1 R 42.5 5 cm below: L 33.1 R 33.3 10 cm below: L 34.3 R 34.7 PT-OP-K Range of Motion Start: 01/05/21 09:46 Freq: Status: Active Protocol: Document 01/05/21 11:15 AW (Rec: 01/05/21 15:52 AW [email or web address]) Hip Goniometric Range of Motion Hip bilateral Hip ROM WFL Yes Testing Position Supine Hip ROM Limitations Comments No limitations Knee Goniometric Range of Motion Knee Left Knee ROM WFL Yes Patient Position Supine Flexion Active (degrees) 150 Comments lacking 1 degree extension Right Knee ROM WFL Yes Patient Position Supine Flexion Active (degrees) 140 Comments lacking 4 degrees extension Knee ROM Limitations Knee ROM Limitations Pain Comments PROM limited by guarding Ankle and Foot Goniometric Range of Motion Ankle and Foot Left Active Ankle/Foot ROM WFL Yes Right Active Ankle/Foot ROM WFL Yes PT-OP-L Special Tests Start: 01/05/21 09:46 Freq: Status: Active Protocol: Document 01/05/21 11:15 AW (Rec: 01/05/21 15:52 AW [email or web address]) Special Tests Knee Special Tests Susan's Test Results negative bilaterally Alex's Test Test Results positive bilaterally Paul Test Results positive bilaterally for tight IT band Comments mildly positive on right for shortened quadriceps Thessaly Test 20 Degrees Test Results negative bilaterally Patellar Grind Test Test Results reproduces pain right side PT-OP-M Strength Start: 01/05/21 09:46 Freq: Status: Active Protocol: Document 01/05/21 11:15 AW (Rec: 01/05/21 15:52 AW [email or web address]) Hip Strength Hip Manual Muscle Testing bilateral Flexion (L2) 4 Good Extension (S1) 4+ Good+ Abduction 4 Good Adduction 4+ Good+ External Rotation 4+ Good+ Internal Rotation 4+ Good+ Knee Strength Knee Manual Muscle Testing Left Flexion (S2) 4+ Good+ Extension (L3) 5 Normal Right Flexion (S2) 4 Good Extension (L3) 4+ Good+ Comments with guarding Ankle/Foot Strength Ankle and Foot Manual Muscle Testing Left Dorsiflexion (L4) 5 Normal Plantarflexion (S1) 5 Normal Inversion 4+ Good+ Eversion (S1) 4+ Good+ Right Dorsiflexion (L4) 5 Normal Plantarflexion (S1) 5 Normal Inversion 4+ Good+ Eversion (S1) 4+ Good+ PT-OP-Q Treatments Start: 01/05/21 09:46 Freq: Status: Active Protocol: Document 02/08/21 10:00 AW (Rec: 02/08/21 10:41 AW [id number]) Therapeutic Exercises Supine Exercises straight leg raise Supine Exercise Name SLR Side bilateral Reps/Minutes 6 x 2 Comments with LE ER for VMO recruitment ; tiring; dc in favor of SAQ ITB stretch Supine Exercise Name ITB stretch Side bilateral Reps/Minutes 4 min Comments leg crossed over, pull down toward table bridge Resistance blue ball for knee alignment Reps/Minutes 10 x 2 Comments second set with ball, improved form SAQ Side bilateral Reps/Minutes 10x5 Comments slight ER of LE Standing Exercises squats Standing Exercise Name plie squats Reps/Minutes 10x Comments wide stance with turnout; added to HEP iso glute med at wall Standing Exercise Name iso glute med Side bilateral Reps/Minutes 3SH x 10 Comments for [facility] review Manual Therapy Treatment Soft Tissue Mobilization STMs Body Location L quad, adductor, HS, ITB Mobilization Type Instrument Assisted,Myofascial Release,Strumming Intensity/Depth Deep Body Position Supine Comments rolling pin and stainless steel tool for trigger point release Self-Care/Home Management Treatment Education Other Education continued to encourage to use compression sleeve during all activity PT-OP-R Modalities Start: 01/05/21 09:46 Freq: Status: Active Protocol: Document 02/08/21 10:00 AW (Rec: 02/08/21 10:41 AW [id number]) Hot Pack/Cold Pack Treatment Hot Pack Location left adductor, IT band Patient Position Hooklying Cold Pack Location R knee Patient Position Hooklying Treatment Duration (minutes) 15 Patient Tolerance Good PT-OP-T Assessment and Plan Start: 01/05/21 09:46 Freq: Status: Active Protocol: Document 02/08/21 10:00 AW (Rec: 02/08/21 10:47 AW [email or web address]) Physical Therapy Assessment Goals Three Impairment function-limiting pain Short Term Goal (STG) Pt will tolerate 90-degree squat without increase in baseline pain 02/08/21 - Pt tolerates wide stance squat to 90 degrees without increase in pain STG Duration 4 weeks - February 02, 2021 [employer] Goal (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 LTG Duration 2 months - March 07, 2021 Two Impairment ROM [employer] Goal (LTG) Pt will increase AROM right knee to 0-150 for improved gait mechanics and return to prior level of function. LTG Duration 2 months - March 07, 2021 One Impairment edema Short Term Goal (STG) Circumferential measurements will be consistent side to side on two consecutive visits . STG Duration 4 weeks - February 02, 2021 Assessment Summary Assessment Pt progressing toward goals but is hesitant to attempt full depth squat although she denies pain. Squat mechanics in wide stance with ER were good and added same to [facility] Physical Therapy Plan Frequency and Duration Frequency of Treatment 1-2x/week Duration of Treatment 2 months Plan of Care Start Date 01/05/21 Plan of Care End Date 03/07/21 Therapeutic Interventions Therapeutic Interventions Balance Training,Gait Training ,Home Exercise Program,Joint Mobilizations,Manual Therapy, Neuromuscular Re-education, Orthotic/Prosthetic Management ,Patient/Caregiver Education, Self-Care/Home Management,Soft Tissue Mobilization,Taping, Therapeutic Activities, Therapeutic Exercises Next Visit Focus/Plan Next Note Type Treatment Note Next Visit Plan Further VMO strengthening. update written HEP
--- NOTE | 2021-02-11 11:17 | PT.OTN ---
Current Diagnoses Unspecified osteoarthritis, unspecified site (02/11/21) Effusion, right knee (02/11/21) Pain in unspecified knee (02/11/21) Difficulty in walking, not elsewhere classified (02/11/21) Physical Therapy Treatment Note PT-OP-A Visit Information Start: 01/05/21 09:46 Freq: Status: Active Protocol: Document 02/11/21 10:26 MA (Rec: 02/11/21 11:16 MA [id number]) Out-Patient Physical Therapy Visit Information Visit Information Visit Type Treatment Note Visit Start Time 10:30 Visit Stop Time 11:30 Total Visit Minutes 60 Visit Number 11 Number of COMMUNICATION SPEC Visits 1 PT-OP-B Current Condition Start: 01/05/21 09:46 Freq: Status: Active Protocol: Document 01/05/21 11:15 AW (Rec: 01/05/21 11:15 AW [id number]) Current Condition History of Current Condition Onset Date six weeks Current Complaints right knee effusion, pain History of Current Condition Six weeks ago, pt started to notice swelling around her right knee which got quite large. She went to ED on 12/10/20 and had an ultrasound to rule out DVT. Swelling has largely resolved but pt continues to report limited ROM, swelling, and pain. She has warm up symptoms in the back of the knee but notices pain diminishes with increased distance, time, or activity. She has been using a compression knee wrap for hiking which she thinks has helped to reduce the swelling. Not taking pain medication. Used ice in the beginning but has not since. Prior Treatments and Tests ED 12/10/20 ruled out DVT. Ultrasound report notes: 1. No evidence of DVT in visualized right lower extremity veins. 2. Fluid collection anterior to patella which may represent fluid distension of patella bursa secondary to bursitis, suggest clinical correlation. 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 Mildly reduced knee extension in mid stance phase of gait. Functional Limitations- Work/School Pain during and after driving. Functional Limitations- Recreation/ Swelling limits functional Hobbies squat for voiding in the [place] while hiking. Personal Factors Other Personal Factors That May Effect (+) positive association with Therapy/Recovery movement (+) active lifestyle PT-OP-C Subjective Start: 01/05/21 09:46 Freq: Status: Active Protocol: Document 02/11/21 10:26 MA (Rec: 02/11/21 11:16 MA [id number]) OP-PT Subjective Patient Comments Patient Comments Pt walked to clinic. Pt continues to have pain on medial L leg PT-OP-J Posture/Palpation/Skin Start: 01/05/21 09:46 Freq: Status: Active Protocol: Document 01/05/21 11:15 AW (Rec: 01/05/21 14:16 AW [email or web address]) Posture Evaluation Position Standing Evaluation View Lateral Head/C-Spine Posture Neutral Position Thorax Posture Neutral L-Spine Posture Flattened Shoulder Posture Neutral Pelvis Posture (R) Iliac Crest Superior Weight Distribution Decreased Wt.Bear on (R) Knee Posture (L) Neutral,(R) Neutral Foot Arch (L) High Arch,(R) High Arch Skin Assessment Edema Assessment R knee Edema Type Non-Pitting Comments patella: L 35.9 R 36.5 5 cm above: L 36.7 R 37.3 10 cm above: L 39.1 R 42.5 5 cm below: L 33.1 R 33.3 10 cm below: L 34.3 R 34.7 PT-OP-K Range of Motion Start: 01/05/21 09:46 Freq: Status: Active Protocol: Document 01/05/21 11:15 AW (Rec: 01/05/21 15:52 AW [email or web address]) Hip Goniometric Range of Motion Hip bilateral Hip ROM WFL Yes Testing Position Supine Hip ROM Limitations Comments No limitations Knee Goniometric Range of Motion Knee Left Knee ROM WFL Yes Patient Position Supine Flexion Active (degrees) 150 Comments lacking 1 degree extension Right Knee ROM WFL Yes Patient Position Supine Flexion Active (degrees) 140 Comments lacking 4 degrees extension Knee ROM Limitations Knee ROM Limitations Pain Comments PROM limited by guarding Ankle and Foot Goniometric Range of Motion Ankle and Foot Left Active Ankle/Foot ROM WFL Yes Right Active Ankle/Foot ROM WFL Yes PT-OP-L Special Tests Start: 01/05/21 09:46 Freq: Status: Active Protocol: Document 01/05/21 11:15 AW (Rec: 01/05/21 15:52 AW [email or web address]) Special Tests Knee Special Tests Susan's Test Results negative bilaterally Alex's Test Test Results positive bilaterally Paul Test Results positive bilaterally for tight IT band Comments mildly positive on right for shortened quadriceps Thessaly Test 20 Degrees Test Results negative bilaterally Patellar Grind Test Test Results reproduces pain right side PT-OP-M Strength Start: 01/05/21 09:46 Freq: Status: Active Protocol: Document 01/05/21 11:15 AW (Rec: 01/05/21 15:52 AW [email or web address]) Hip Strength Hip Manual Muscle Testing bilateral Flexion (L2) 4 Good Extension (S1) 4+ Good+ Abduction 4 Good Adduction 4+ Good+ External Rotation 4+ Good+ Internal Rotation 4+ Good+ Knee Strength Knee Manual Muscle Testing Left Flexion (S2) 4+ Good+ Extension (L3) 5 Normal Right Flexion (S2) 4 Good Extension (L3) 4+ Good+ Comments with guarding Ankle/Foot Strength Ankle and Foot Manual Muscle Testing Left Dorsiflexion (L4) 5 Normal Plantarflexion (S1) 5 Normal Inversion 4+ Good+ Eversion (S1) 4+ Good+ Right Dorsiflexion (L4) 5 Normal Plantarflexion (S1) 5 Normal Inversion 4+ Good+ Eversion (S1) 4+ Good+ PT-OP-Q Treatments Start: 01/05/21 09:46 Freq: Status: Active Protocol: Document 02/11/21 10:26 MA (Rec: 02/11/21 11:16 MA [id number]) Therapeutic Exercises Standing Exercises squats Standing Exercise Name plie squats & neutral squats Reps/Minutes 4x10 Comments focusing on form adductor stretch Standing Exercise Name side lunge position L>R Reps/Minutes 30 x2 Comments good feedback response- has been trying this when out walking Other Exercises self STMs Other Exercise Name Quads, adductor, ITB Reps/Minutes 4 min total Comments Long sitting working on finding good position to not cause LBP Manual Therapy Treatment Soft Tissue Mobilization STMs Body Location L quad, adductor, HS, ITB Mobilization Type Myofascial Release,Rolling Intensity/Depth Deep Body Position Supine Comments rolling pin PT-OP-R Modalities Start: 01/05/21 09:46 Freq: Status: Active Protocol: Document 02/11/21 10:26 MA (Rec: 02/11/21 11:16 MA [id number]) Hot Pack/Cold Pack Treatment Hot Pack Location left adductor, IT band Patient Position Hooklying Cold Pack Location R knee Patient Position Hooklying Treatment Duration (minutes) 15 Patient Tolerance Good PT-OP-T Assessment and Plan Start: 01/05/21 09:46 Freq: Status: Active Protocol: Document 02/11/21 10:26 MA (Rec: 02/11/21 11:16 MA [id number]) Physical Therapy Assessment Goals Three Impairment function-limiting pain Short Term Goal (STG) Pt will tolerate 90-degree squat without increase in baseline pain 02/08/21 - Pt tolerates wide stance squat to 90 degrees without increase in pain STG Duration 4 weeks - February 02, 2021 Halfway Goal (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 LTG Duration 2 months - March 07, 2021 Two Impairment ROM Halfway Goal (LTG) Pt will increase AROM right knee to 0-150 for improved gait mechanics and return to prior level of function. LTG Duration 2 months - March 07, 2021 One Impairment edema Short Term Goal (STG) Circumferential measurements will be consistent side to side on two consecutive visits . STG Duration 4 weeks - February 02, 2021 Assessment Summary Assessment Pt is willing to work on squats today. Worked on squats both ER and in neutral today focusing on form and posture. Pt needs heavy cues to avoid extending lumbar spine when squatting. She has no pain ER or in neutral. Encouraged pt to buy mm roller to use at home and worked on finding best position for pt to roll without causing her LBP to flare up. best position is pt long sitting with opposite lower extremity hanging off table. Pt has only minor swelling on medial R knee today and is close to meeting all goals. Physical Therapy Plan Frequency and Duration Frequency of Treatment 1-2x/week Duration of Treatment 2 months Plan of Care Start Date 01/05/21 Plan of Care End Date 03/07/21 Therapeutic Interventions Therapeutic Interventions Balance Training,Gait Training ,Home Exercise Program,Joint Mobilizations,Manual Therapy, Neuromuscular Re-education, Orthotic/Prosthetic Management ,Patient/Caregiver Education, Self-Care/Home Management,Soft Tissue Mobilization,Taping, Therapeutic Activities, Therapeutic Exercises Next Visit Focus/Plan Next Note Type Treatment Note Next Visit Plan Further VMO strengthening. update written HEP
--- NOTE | 2021-02-15 10:30 | PT.OPDS ---
Current Diagnoses Unspecified osteoarthritis, unspecified site (02/15/21) Effusion, right knee (02/15/21) Pain in unspecified knee (02/15/21) Difficulty in walking, not elsewhere classified (02/15/21) Visit Care Team Role Provider Type Ralph Gotti DO Attending Provider Physician Family Provider Primary Care Provider Referring Provider Specialty: Family Practice Address: [address] [place] [address], [facility] Email: Visit Number Visit Number 122 Discharge Summary PT-OP-B Current Condition Start: 01/05/21 09:46 Freq: Status: Active Protocol: Document 01/05/21 11:15 AW (Rec: 01/05/21 11:15 AW [id number]) Current Condition History of Current Condition Onset Date six weeks Current Complaints right knee effusion, pain History of Current Condition Six weeks ago, pt started to notice swelling around her right knee which got quite large. She went to ED on 12/10/20 and had an ultrasound to rule out DVT. Swelling has largely resolved but pt continues to report limited ROM, swelling, and pain. She has warm up symptoms in the back of the knee but notices pain diminishes with increased distance, time, or activity. She has been using a compression knee wrap for hiking which she thinks has helped to reduce the swelling. Not taking pain medication. Used ice in the beginning but has not since. Prior Treatments and Tests ED 12/10/20 ruled out DVT. Ultrasound report notes: 1. No evidence of DVT in visualized right lower extremity veins. 2. Fluid collection anterior to patella which may represent fluid distension of patella bursa secondary to bursitis, suggest clinical correlation. 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 Mildly reduced knee extension in mid stance phase of gait. Functional Limitations- Work/School Pain during and after driving. Functional Limitations- Recreation/ Swelling limits functional Hobbies squat for voiding in the [place]ra while hiking. Personal Factors Other Personal Factors That May Effect (+) positive association with Therapy/Recovery movement (+) active lifestyle PT-OP-C Subjective Start: 01/05/21 09:46 Freq: Status: Active Protocol: Document 02/15/21 10:18 AW (Rec: 02/15/21 10:23 AW [id number]) OP-PT Subjective Patient Comments Patient Comments Pt rode her bike in today. Right knee is stable but left thigh pain persists. PT-OP-J Posture/Palpation/Skin Start: 01/05/21 09:46 Freq: Status: Active Protocol: Document 01/05/21 11:15 AW (Rec: 01/05/21 14:16 AW [email or web address]) Posture Evaluation Position Standing Evaluation View Lateral Head/C-Spine Posture Neutral Position Thorax Posture Neutral L-Spine Posture Flattened Shoulder Posture Neutral Pelvis Posture (R) Iliac Crest Superior Weight Distribution Decreased Wt.Bear on (R) Knee Posture (L) Neutral,(R) Neutral Foot Arch (L) High Arch,(R) High Arch Skin Assessment Edema Assessment R knee Edema Type Non-Pitting Comments patella: L 35.9 R 36.5 5 cm above: L 36.7 R 37.3 10 cm above: L 39.1 R 42.5 5 cm below: L 33.1 R 33.3 10 cm below: L 34.3 R 34.7 PT-OP-K Range of Motion Start: 01/05/21 09:46 Freq: Status: Active Protocol: Document 01/05/21 11:15 AW (Rec: 01/05/21 15:52 AW [email or web address]) Hip Goniometric Range of Motion Hip bilateral Hip ROM WFL Yes Testing Position Supine Hip ROM Limitations Comments No limitations Knee Goniometric Range of Motion Knee Left Knee ROM WFL Yes Patient Position Supine Flexion Active (degrees) 150 Comments lacking 1 degree extension Right Knee ROM WFL Yes Patient Position Supine Flexion Active (degrees) 140 Comments lacking 4 degrees extension Knee ROM Limitations Knee ROM Limitations Pain Comments PROM limited by guarding Ankle and Foot Goniometric Range of Motion Ankle and Foot Left Active Ankle/Foot ROM WFL Yes Right Active Ankle/Foot ROM WFL Yes PT-OP-L Special Tests Start: 01/05/21 09:46 Freq: Status: Active Protocol: Document 01/05/21 11:15 AW (Rec: 01/05/21 15:52 AW [email or web address]) Special Tests Knee Special Tests Susan's Test Results negative bilaterally Alex's Test Test Results positive bilaterally Paul Test Results positive bilaterally for tight IT band Comments mildly positive on right for shortened quadriceps Thessaly Test 20 Degrees Test Results negative bilaterally Patellar Grind Test Test Results reproduces pain right side PT-OP-M Strength Start: 01/05/21 09:46 Freq: Status: Active Protocol: Document 01/05/21 11:15 AW (Rec: 01/05/21 15:52 AW [email or web address]) Hip Strength Hip Manual Muscle Testing bilateral Flexion (L2) 4 Good Extension (S1) 4+ Good+ Abduction 4 Good Adduction 4+ Good+ External Rotation 4+ Good+ Internal Rotation 4+ Good+ Knee Strength Knee Manual Muscle Testing Left Flexion (S2) 4+ Good+ Extension (L3) 5 Normal Right Flexion (S2) 4 Good Extension (L3) 4+ Good+ Comments with guarding Ankle/Foot Strength Ankle and Foot Manual Muscle Testing Left Dorsiflexion (L4) 5 Normal Plantarflexion (S1) 5 Normal Inversion 4+ Good+ Eversion (S1) 4+ Good+ Right Dorsiflexion (L4) 5 Normal Plantarflexion (S1) 5 Normal Inversion 4+ Good+ Eversion (S1) 4+ Good+ PT-OP-T Assessment and Plan Start: 01/05/21 09:46 Freq: Status: Active Protocol: Document 02/15/21 10:18 AW (Rec: 02/15/21 10:29 AW [id number]) Physical Therapy Assessment Goals Three Impairment function-limiting pain Short Term Goal (STG) Pt will tolerate 90-degree squat without increase in baseline pain 02/08/21 - Pt tolerates wide stance squat to 90 degrees without increase in pain STG Duration 4 weeks - February 02, 2021 Care Home Goal (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 02/15/21 - Pt able to reach full depth with plie squat LTG Duration 2 months - March 07, 2021 Two Impairment ROM Care Home Goal (LTG) Pt will increase AROM right knee to 0-150 for improved gait mechanics and return to prior level of function. 02/15/21: 2-145 LTG Duration 2 months - March 07, 2021 One Impairment edema Short Term Goal (STG) Circumferential measurements will be consistent side to side on two consecutive visits . 02/15/21: Met - measurements stable and equal bilaterally. STG Duration 4 weeks - February 02, 2021 Assessment Summary Assessment Pt's right knee pain and swelling have resolved but she continues to have pain in her left inner thigh which she describes as sharp and intermittent and keeps her up at night. Explained to pt that her goals for right knee had been met and that she is appropriate for discharge. Pt had a referral for left thigh pain but it is . She will seek a new referral before returning to PT. Physical Therapy Plan Frequency and Duration Frequency of Treatment 1-2x/week Duration of Treatment 2 months Plan of Care Start Date 01/05/21 Plan of Care End Date 03/07/21 Therapeutic Interventions Therapeutic Interventions Balance Training,Gait Training ,Home Exercise Program,Joint Mobilizations,Manual Therapy, Neuromuscular Re-education, Orthotic/Prosthetic Management ,Patient/Caregiver Education, Self-Care/Home Management,Soft Tissue Mobilization,Taping, Therapeutic Activities, Therapeutic Exercises Modalities Cold Pack/Ice Massage, Ultrasound Other Therapeutic Interventions heat Discharge Physical Therapy Discharge Reasons Goals Met Discharge Comments Pt has met all goals related to right knee and is independent with HEP. She plans to seek an updated referral for her left thigh and return to therapy.
--- NOTE | 2021-02-22 15:33 | PT.OTRE ---
Current Diagnoses Unspecified osteoarthritis, unspecified site (02/22/21) Effusion, right knee (02/22/21) Pain in unspecified knee (02/22/21) Difficulty in walking, not elsewhere classified (02/22/21) Past Medical History (Last Reviewed 12/27/20 @ 18:38 by EVONNE Roberson) Cysts (Unknown) DDD (degenerative disc disease), lumbosacral Fatigue Hypoglycemia Increased appetite Left thigh pain Low back pain (Unknown) Lumbar radiculopathy, right Myalgia Right knee pain Sebaceous hyperplasia Spinal stenosis of lumbar region (Unknown) Spinal stenosis, lumbar region without neurogenic claudication Varicose veins of both lower extremities (Unknown) Vitamin D deficiency (~2013) Surgical History (Last Reviewed 12/27/20 @ 18:38 by EVONNE Roberson) History of surgical removal of ganglion cyst (07/2017) Hx of tonsillectomy (Unknown) Status post endovenous radiofrequency ablation of saphenous vein (2007) Visit Care Team Role Provider Type Ralph Gotti DO Attending Provider Physician Family Provider Primary Care Provider Referring Provider Specialty: [facility] Address: [address] [place] [address] Email: Physical Therapy Re-Evaluation PT-OP-A Visit Information Start: 01/05/21 09:46 Freq: Status: Active Protocol: Document 02/22/21 09:02 SAK (Rec: 02/22/21 09:46 SAK [id number]) Out-Patient Physical Therapy Visit Information Visit Information Visit Type Re-Evaluation Visit Start Time 09:03 Visit Stop Time 09:58 Total Visit Minutes 55 Visit Number 13 PT-OP-B Current Condition Start: 01/05/21 09:46 Freq: Status: Active Protocol: Document 01/05/21 11:15 AW (Rec: 01/05/21 11:15 AW [id number]) Current Condition History of Current Condition Onset Date six weeks Current Complaints right knee effusion, pain History of Current Condition Six weeks ago, pt started to notice swelling around her right knee which got quite large. She went to ED on 12/10/20 and had an ultrasound to rule out DVT. Swelling has largely resolved but pt continues to report limited ROM, swelling, and pain. She has warm up symptoms in the back of the knee but notices pain diminishes with increased distance, time, or activity. She has been using a compression knee wrap for hiking which she thinks has helped to reduce the swelling. Not taking pain medication. Used ice in the beginning but has not since. Prior Treatments and Tests ED 12/10/20 ruled out DVT. Ultrasound report notes: 1. No evidence of DVT in visualized right lower extremity veins. 2. Fluid collection anterior to patella which may represent fluid distension of patella bursa secondary to bursitis, suggest clinical correlation. 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 Mildly reduced knee extension in mid stance phase of gait. Functional Limitations- Work/School Pain during and after driving. Functional Limitations- Recreation/ Swelling limits functional Hobbies squat for voiding in the saavedra while hiking. Personal Factors Other Personal Factors That May Effect (+) positive association with Therapy/Recovery movement (+) active lifestyle PT-OP-C Subjective Start: 01/05/21 09:46 Freq: Status: Active Protocol: Document 02/22/21 09:02 SAK (Rec: 02/22/21 09:46 [facility] [id number]) OP-PT Subjective Patient Comments Patient Comments c/o Zinging pain left medial thigh proximally, though less frequently. Doesn't interrupt her sleep anymore. Random pain, not predictable. Doing HEP most days, though job as tourist escort which includes hiking tires her. No numbness or tingling. No giving out of leg. pain worst at night, wakes her up at times. Wants to know if able to do anything else for her left thigh. PT-OP-J Posture/Palpation/Skin Start: 01/05/21 09:46 Freq: Status: Active Protocol: Document 01/05/21 11:15 AW (Rec: 01/05/21 14:16 AW [id number]) Posture Evaluation Position Standing Evaluation View Lateral Head/C-Spine Posture Neutral Position Thorax Posture Neutral L-Spine Posture Flattened Shoulder Posture Neutral Pelvis Posture (R) Iliac Crest Superior Weight Distribution Decreased Wt.Bear on (R) Knee Posture (L) Neutral,(R) Neutral Foot Arch (L) High Arch,(R) High Arch Skin Assessment Edema Assessment R knee Edema Type Non-Pitting Comments patella: L 35.9 R 36.5 5 cm above: L 36.7 R 37.3 10 cm above: L 39.1 R 42.5 5 cm below: L 33.1 R 33.3 10 cm below: L 34.3 R 34.7 PT-OP-K Range of Motion Start: 01/05/21 09:46 Freq: Status: Active Protocol: Document 02/22/21 15:19 SAK (Rec: 02/22/21 15:33 SAK [id number]) Hip Goniometric Range of Motion Hip Measured in Degrees bilateral Hip ROM WFL Yes Testing Position Supine Knee Goniometric Range of Motion Knee Measured in Degrees Left Knee ROM WFL Yes Patient Position Supine Flexion Active (degrees) 150 Right Knee ROM WFL Yes Patient Position Supine Flexion Active (degrees) 150 PT-OP-L Special Tests Start: 01/05/21 09:46 Freq: Status: Active Protocol: Document 01/05/21 11:15 AW (Rec: 01/05/21 15:52 AW [id number]) Special Tests Knee Special Tests Susan's Test Results negative bilaterally Alex's Test Test Results positive bilaterally Paul Test Results positive bilaterally for tight IT band Comments mildly positive on right for shortened quadriceps Thessaly Test 20 Degrees Test Results negative bilaterally Patellar Grind Test Test Results reproduces pain right side PT-OP-M Strength Start: 01/05/21 09:46 Freq: Status: Active Protocol: Document 02/22/21 15:19 SAK (Rec: 02/22/21 15:33 SAK [id number]) Hip Strength Hip Manual Muscle Testing bilateral Flexion (L2) 4+ Good+ Extension (S1) 4+ Good+ Abduction 4 Good Adduction 5 Normal External Rotation 4+ Good+ Internal Rotation 5 Normal Knee Strength Knee Manual Muscle Testing Left Flexion (S2) 5 Normal Extension (L3) 5 Normal Right Flexion (S2) 5 Normal Extension (L3) 5 Normal PT-OP-Q Treatments Start: 01/05/21 09:46 Freq: Status: Active Protocol: Document 02/22/21 09:02 SAK (Rec: 02/22/21 09:46 SAK [id number]) Therapeutic Exercises Sidelying Exercises hip abduction Equipment Used wall Reps/Minutes 12x Sitting Exercises piriformis stretch Reps/Minutes 2x30 figure 4 stretch Reps/Minutes 2x30 Standing Exercises monster walks (side) Reps/Minutes 10x ea direction hip abduction Equipment Used L2 TB Reps/Minutes 10x Other Exercises self STMs Other Exercise Name Quads, adductor, ITB Side left Comments review: rolling pin, 2 different muscle rollers Manual Therapy Treatment Soft Tissue Mobilization STMs Body Location L quad, adductor, HS, ITB Mobilization Type Myofascial Release,Rolling Intensity/Depth Deep Body Position Supine PT-OP-R Modalities Start: 01/05/21 09:46 Freq: Status: Active Protocol: Document 02/22/21 15:19 SAK (Rec: 02/22/21 15:33 [facility] [id number]) Hot Pack/Cold Pack Treatment Hot Pack Location left adductor, IT band Patient Position Hooklying PT-OP-T Assessment and Plan Start: 01/05/21 09:46 Freq: Status: Active Protocol: Document 02/22/21 15:19 [facility] (Rec: 02/22/21 15:33 [facility] [id number]) Physical Therapy Assessment Goals Three Impairment function-limiting pain left thigh as high as 8/10 Machine Builder Goal (LTG) Decrease frequency and intensity of left thigh pain to infrequent and no greater than 2/10 LTG Duration 04/23/21 Two Impairment weakness left hip abd 4/5 [facility] Goal (LTG) Improve left hip abduction strength to 5/5 for mproved left LE function and activity tolerance LTG Duration 04/23/21 One Impairment inconsistent compliance with HEP, use of ice and heat [facility]ci Goal (LTG) Patient will be 75% compliant with HEP and use of ice and heat as indicated for decreased pain and improved function LTG Duration 04/23/21 Assessment Summary Assessment patient's medial left thigh pain appears possibly due to prior compensation due to left knee pain, as well as weakness in abductors, and habitual movement patterns. Evaluated her left thigh today and added ex to her HEP, and she was instructed in self- massage with use of muscle rollers as well as use of ice and/or heat. We plan to follow-up in 2-4 weeks to assess her progress and see if any further PT indicated beyond that 1 follow-up appointment. Physical Therapy Plan Frequency and Duration Frequency of Treatment 4 visits Duration of Treatment 2 months Plan of Care Start Date 02/22/21 Plan of Care End Date 04/23/21 Therapeutic Interventions Therapeutic Interventions Balance Training,Gait Training ,Home Exercise Program,Joint Mobilizations,Manual Therapy, Neuromuscular Re-education, Orthotic/Prosthetic Management ,Patient/Caregiver Education, Self-Care/Home Management,Soft Tissue Mobilization,Taping, Therapeutic Activities, Therapeutic Exercises Modalities Cold Pack/Ice Massage, Ultrasound Other Therapeutic Interventions heat Next Visit Focus/Plan Next Note Type Treatment Note Next Visit Plan Assess progress with HEP, self -massage, and use of ice and heat. Determine need for any further PT.
--- NOTE | 2021-02-22 15:33 | PT.OPPOC ---
Physical, Occupational & Speech Therapy At [facility] Current Diagnoses Unspecified osteoarthritis, unspecified site (02/22/21) Effusion, right knee (02/22/21) Pain in unspecified knee (02/22/21) Difficulty in walking, not elsewhere classified (02/22/21) Visit Care Team Role Provider Type Ralph Gotti DO Attending Provider Physician Family Provider Primary Care Provider Referring Provider Specialty: Family Practice Address: [address] [place] [address], [facility] Email: Plan Of Care PT-OP-T Assessment and Plan Start: 01/05/21 09:46 Freq: Status: Active Protocol: Document 02/22/21 15:19 SAK (Rec: 02/22/21 15:33 SAK [id number]) Physical Therapy Assessment Goals Three Impairment function-limiting pain left thigh as high as 8/10 Nursing Home Goal (LTG) Decrease frequency and intensity of left thigh pain to infrequent and no greater than 2/10 LTG Duration 04/23/21 Two Impairment weakness left hip abd 4/5 Sales Research Analyst Goal (LTG) Improve left hip abduction strength to 5/5 for mproved left LE function and activity tolerance LTG Duration 04/23/21 One Impairment inconsistent compliance with HEP, use of ice and heat Nursing Home Goal (LTG) Patient will be 75% compliant with HEP and use of ice and heat as indicated for decreased pain and improved function LTG Duration 04/23/21 Assessment Summary Assessment patient's medial left thigh pain appears possibly due to prior compensation due to left knee pain, as well as weakness in abductors, and habitual movement patterns. Evaluated her left thigh today and added ex to her HEP, and she was instructed in self- massage with use of muscle rollers as well as use of ice and/or heat. We plan to follow-up in 2-4 weeks to assess her progress and see if any further PT indicated beyond that 1 follow-up appointment. Physical Therapy Plan Frequency and Duration Frequency of Treatment 4 visits Duration of Treatment 2 months Plan of Care Start Date 02/22/21 Plan of Care End Date 04/23/21 Therapeutic Interventions Therapeutic Interventions Balance Training,Gait Training ,Home Exercise Program,Joint Mobilizations,Manual Therapy, Neuromuscular Re-education, Orthotic/Prosthetic Management ,Patient/Caregiver Education, Self-Care/Home Management,Soft Tissue Mobilization,Taping, Therapeutic Activities, Therapeutic Exercises Modalities Cold Pack/Ice Massage, Ultrasound Other Therapeutic Interventions heat Next Visit Focus/Plan Next Note Type Treatment Note Next Visit Plan Assess progress with HEP, self -massage, and use of ice and heat. Determine need for any further PT. Plan of Care Dates Plan of Care Start Date 02/22/21 Plan of Care End Date 04/23/21 Electronically Signed by: Nimisha Winchester, PT 02/22/21 [id number] Please Sign and Return: I have reviewed this Plan of Care and certify that the skilled therapy services above are required to meet the patient?s needs. Physician Signature Date Printed Name and Credentials Clinical Instructor Signature Printed Name and Credentials
--- NOTE | 2021-03-16 12:08 | PT.OTN ---
Current Diagnoses Unspecified osteoarthritis, unspecified site (03/16/21) Effusion, right knee (03/16/21) Pain in unspecified knee (03/16/21) Difficulty in walking, not elsewhere classified (03/16/21) Physical Therapy Treatment Note PT-OP-A Visit Information Start: 01/05/21 09:46 Freq: Status: Active Protocol: Document 03/16/21 11:16 SAK (Rec: 03/16/21 12:08 SAK [id number]) Out-Patient Physical Therapy Visit Information Visit Information Visit Type Treatment Note Visit Start Time 11:17 Visit Stop Time 12:15 Total Visit Minutes 58 Visit Number 14 PT-OP-B Current Condition Start: 01/05/21 09:46 Freq: Status: Active Protocol: Document 01/05/21 11:15 AW (Rec: 01/05/21 11:15 AW [id number]) Current Condition History of Current Condition Onset Date six weeks Current Complaints right knee effusion, pain History of Current Condition Six weeks ago, pt started to notice swelling around her right knee which got quite large. She went to ED on 12/10/20 and had an ultrasound to rule out DVT. Swelling has largely resolved but pt continues to report limited ROM, swelling, and pain. She has warm up symptoms in the back of the knee but notices pain diminishes with increased distance, time, or activity. She has been using a compression knee wrap for hiking which she thinks has helped to reduce the swelling. Not taking pain medication. Used ice in the beginning but has not since. Prior Treatments and Tests ED 12/10/20 ruled out DVT. Ultrasound report notes: 1. No evidence of DVT in visualized right lower extremity veins. 2. Fluid collection anterior to patella which may represent fluid distension of patella bursa secondary to bursitis, suggest clinical correlation. 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 Mildly reduced knee extension in mid stance phase of gait. Functional Limitations- Work/School Pain during and after driving. Functional Limitations- Recreation/ Swelling limits functional Hobbies squat for voiding in the saavedra while hiking. Personal Factors Other Personal Factors That May Effect (+) positive association with Therapy/Recovery movement (+) active lifestyle PT-OP-C Subjective Start: 01/05/21 09:46 Freq: Status: Active Protocol: Document 03/16/21 11:16 SAK (Rec: 03/16/21 12:08 SAK [id number]) OP-PT Subjective Patient Comments Patient Comments Left thigh pain less frequent and intense, 75% better. Doing pretty well with exercises especially clamshells, hamstring stretches, bridges. Forgets about hip abduction. Doing self massage, ordered massage stick. After a couple days of hike tours has full body aches but mostly legs, has to take a day off, to point of wanting to cry. Had magnesium oil recommended by software firmware engineer, has only used 1x so far. Also c/ o occasional persistent dizziness, uncertain of trigger. PT-OP-J Posture/Palpation/Skin Start: 01/05/21 09:46 Freq: Status: Active Protocol: Document 01/05/21 11:15 AW (Rec: 01/05/21 14:16 AW [id number]) Posture Evaluation Position Standing Evaluation View Lateral Head/C-Spine Posture Neutral Position Thorax Posture Neutral L-Spine Posture Flattened Shoulder Posture Neutral Pelvis Posture (R) Iliac Crest Superior Weight Distribution Decreased Wt.Bear on (R) Knee Posture (L) Neutral,(R) Neutral Foot Arch (L) High Arch,(R) High Arch Skin Assessment Edema Assessment R knee Edema Type Non-Pitting Comments patella: L 35.9 R 36.5 5 cm above: L 36.7 R 37.3 10 cm above: L 39.1 R 42.5 5 cm below: L 33.1 R 33.3 10 cm below: L 34.3 R 34.7 PT-OP-K Range of Motion Start: 01/05/21 09:46 Freq: Status: Active Protocol: Document 02/22/21 15:19 SAK (Rec: 02/22/21 15:33 SAK [id number]) Hip Goniometric Range of Motion Hip bilateral Hip ROM WFL Yes Testing Position Supine Knee Goniometric Range of Motion Knee Left Knee ROM WFL Yes Patient Position Supine Flexion Active (degrees) 150 Right Knee ROM WFL Yes Patient Position Supine Flexion Active (degrees) 150 PT-OP-L Special Tests Start: 01/05/21 09:46 Freq: Status: Active Protocol: Document 01/05/21 11:15 AW (Rec: 01/05/21 15:52 AW [id number]) Special Tests Knee Special Tests Susan's Test Results negative bilaterally Alex's Test Test Results positive bilaterally Paul Test Results positive bilaterally for tight IT band Comments mildly positive on right for shortened quadriceps Thessaly Test 20 Degrees Test Results negative bilaterally Patellar Grind Test Test Results reproduces pain right side PT-OP-M Strength Start: 01/05/21 09:46 Freq: Status: Active Protocol: Document 02/22/21 15:19 [facility] (Rec: 02/22/21 15:33 [facility] [id number]) Hip Strength Hip Manual Muscle Testing bilateral Flexion (L2) 4+ Good+ Extension (S1) 4+ Good+ Abduction 4 Good Adduction 5 Normal External Rotation 4+ Good+ Internal Rotation 5 Normal Knee Strength Knee Manual Muscle Testing Left Flexion (S2) 5 Normal Extension (L3) 5 Normal Right Flexion (S2) 5 Normal Extension (L3) 5 Normal PT-OP-Q Treatments Start: 01/05/21 09:46 Freq: Status: Active Protocol: Document 03/16/21 11:16 [facility] (Rec: 03/16/21 12:08 [facility] [id number]) Manual Therapy Treatment Soft Tissue Mobilization STMs Body Location L quad, adductor, HS, ITB Mobilization Type Instrument Assisted,Myofascial Release,Rolling Intensity/Depth Deep Body Position Supine Comments hooklying Self-Care/Home Management Treatment Education Other Education self-massage medial thigh, stretch before getting in car after a hike; reviewed quad, ham, HC, ITband, adductor, hip rotator stretches, elevate legs on wall after hikes. PT-OP-R Modalities Start: 01/05/21 09:46 Freq: Status: Active Protocol: Document 03/16/21 11:16 [facility] (Rec: 03/16/21 12:08 SAK [id number]) Hot Pack/Cold Pack Treatment Hot Pack Location left adductor, IT band, quads Patient Position Hooklying PT-OP-T Assessment and Plan Start: 01/05/21 09:46 Freq: Status: Active Protocol: Document 03/16/21 11:16 [facility] (Rec: 03/16/21 12:08 [facility] [id number]) Physical Therapy Assessment Goals Three Impairment function-limiting pain left thigh as high as 8/10 Music Librarian Goal (LTG) Decrease frequency and intensity of left thigh pain to infrequent and no greater than 2/10 LTG Duration 04/23/21 Two Impairment weakness left hip abd 4/5 Music Librarian Goal (LTG) Improve left hip abduction strength to 5/5 for mproved left LE function and activity tolerance LTG Duration 04/23/21 One Impairment inconsistent compliance with HEP, use of ice and heat Half-Way Goal (LTG) Patient will be 75% compliant with HEP and use of ice and heat as indicated for decreased pain and improved function LTG Duration 04/23/21 Assessment Summary Assessment Patient making good progress with decreasing pain, though not tolerating multiple days of leading hikes. Instructed to stretch after hike before getting in car, and elevate legs high on wall for 5-10 min after returning home. Also recommended baths with epsom salts but patient doesn't have bathtub. To continue with self-massage, remembering to do medial thigh; reviewed technique, and reviewed LE stretches. Patient demonstrated good understanding. Would benefit from follow-up in 2-3 weeks to assure continued progress and problem solve further issues, progress HEP as indicated. Patient in agreement. Physical Therapy Plan Frequency and Duration Frequency of Treatment 4 visits Duration of Treatment 2 months Plan of Care Start Date 02/22/21 Plan of Care End Date 04/23/21 Therapeutic Interventions Therapeutic Interventions Balance Training,Gait Training ,Home Exercise Program,Joint Mobilizations,Manual Therapy, Neuromuscular Re-education, Orthotic/Prosthetic Management ,Patient/Caregiver Education, Self-Care/Home Management,Soft Tissue Mobilization,Taping, Therapeutic Activities, Therapeutic Exercises Modalities Cold Pack/Ice Massage, Ultrasound Other Therapeutic Interventions heat Next Visit Focus/Plan Next Note Type Treatment Note Next Visit Plan Reassess left thigh pain, tolerance for multiple days of hikes, stretching and LE elevation. Schedule further PT visits as indicated.
== END | disposition home or self-care (01) ==
LOC: PHYS 01-05 10:15
PROVIDERS: Family Provider Family Medicine; PCP Family Medicine; Referring Provider Family Medicine; Visit Provider Family Medicine
DX: M25.461 Effusion, right knee (principal); M19.90 Unspecified osteoarthritis, unspecified site; M25.569 Pain in unspecified knee; R26.2 Difficulty in walking, not elsewhere classified
CPT/HCPCS: 97010; 97110; 97140; 97161; 97535

== ENCOUNTER → 2022-12-04 10:15 | Outpatient (CLI) | payer OTHER, MEDICAID, SELFPAY ==
--- NOTE | 2022-12-04 10:16 | DI.RAD.S_ITS ---
PROCEDURE: XR CERVICAL SPINE 2V OR 3V INDICATIONS: chronic neck pain, right-sided TECHNIQUE: 3 view(s) of the cervical spine were acquired. COMPARISON: [facility], RG, MRI C-SPINE W/WO CONTRAST, 06/17/2020, 15:58. [facility], , CERVICAL SPINE INTERLAMINAR, 08/29/2022, 15:12. FINDINGS: Bones: No fractures or dislocations to the C7 level. Grade 1 anterolisthesis of C5 on C6. The lateral masses of C1 appear intact on the odontoid view. No suspicious bony lesions. Degenerative disc disease, most pronounced and moderate at C5-C6. Bilateral facet arthropathy scattered in cervical spine. Soft tissues: No prevertebral soft tissue swelling. IMPRESSION: 1. Degenerative disc and facet disease, most pronounced at C5-C6. Dictated by: Seema Deleon M.D. on 12/04/2022 at 12:16 Approved by: Seema Deleon M.D. on 12/04/2022 at 12:18
== END ==
PROVIDERS: Family Provider Family Medicine; PCP Family Medicine; Referring Provider Family Medicine; Visit Provider Family Medicine
DX: M50.322 Other cervical disc degeneration at C5-C6 level (principal); M47.812 Spondylosis without myelopathy or radiculopathy, cervical region
CPT/HCPCS: 72040

== ENCOUNTER → 2023-01-05 15:31 | Outpatient (CLI) | payer OTHER, MEDICAID, SELFPAY ==
[2023-01-05 19:04] LABS: Add Manual Diff / Slide Review NO; Basophils Absolute Auto 0 /uL (0-100); Basophils Percent Auto 0.4 % (0-2); Eosinophils Absolute Auto 0 /uL (0-450); Eosinophils Percent Auto 0.4 % (2-4); Hematocrit 36.9 % (36-46); Hemoglobin 12.6 g/dL (12.0-16.0); Lymphocytes Absolute Auto 2100 /uL (1100-4500); Lymphocytes Percent Auto 56.8 % (25-40); Mean Corpuscular HGB Conc 34.1 % (30-36); Mean Corpuscular Hemoglobin 32.8 PG (26-34); Mean Corpuscular Volume 96.1 fL (80-100); Monocytes Absolute Auto 400 /uL (0-900); Monocytes Percent Auto 9.8 % (3-14); Neutrophils Absolute Auto 1200 /uL (1500-7000); Neutrophils Percent Auto 32.6 % (50-75); Platelet Count 167 X10^3/uL (150-400); Red Blood Cell Count 3.84 X10^6/uL (4.0-5.2); Red Cell Distribution Width 14.8 % (11.6-14.8); White Blood Cell Count 3.7 X10^3/uL (4.5-11.0)
[2023-01-05 19:21] LABS: Alanine Aminotransferase 34 IU/L (<35); Albumin 4.3 g/dL (3.5-5.0); Albumin Globulin Ratio 1.5 (1.0-2.8); Alkaline Phosphatase 68 U/L (38-126); Aspartate Aminotransferase 28 IU/L (14-36); BUN Creatinine Ratio 32.3 (6-22); Bilirubin Total 0.4 mg/dL (0.2-1.3); Blood Urea Nitrogen 21 mg/dL (7-17); Calcium 9.1 mg/dL (8.4-10.2); Carbon Dioxide 25 mmol/L (22-32); Chloride 103 mmol/L (98-107); Estimated Glomerular Filt Rate > 60 mL/min (>60); Globulin 2.9 g/dL (1.7-4.1); Glucose 78 mg/dL (70-100); HEMOLYSIS < 15 (0-50); Sodium 136 mmol/L (137-145); Total Protein 7.2 g/dL (6.3-8.2)
[2023-01-05 19:56] LABS: TSH w/ Reflex to FT4 1.51 uIU/mL (0.47-4.68)
== END ==
PROVIDERS: Family Provider Family Medicine; PCP Family Medicine; Referring Provider Family Medicine; Visit Provider Family Medicine
DX: D72.819 Decreased white blood cell count, unspecified (principal); L57.0 Actinic keratosis; R53.83 Other fatigue
CPT/HCPCS: 36415; 80053; 84443; 85025

== ENCOUNTER → 2023-03-28 08:43 | Outpatient (CLI) | payer OTHER, MEDICAID, SELFPAY ==
[2023-03-29 10:36] LABS: Fecal Immunochemical Test Negative (Negative)
== END ==
PROVIDERS: Family Provider Family Medicine; PCP Family Medicine; Referring Provider Family Medicine; Visit Provider Family Medicine
DX: Z12.11 Encounter for screening for malignant neoplasm of colon (principal)
CPT/HCPCS: 82274

== ENCOUNTER → 2023-03-28 09:00 | Oncology outpatient (ONC) | payer OTHER, MEDICAID, SELFPAY ==
--- NOTE | 2023-01-30 10:06 | ONC.MSW ---
Description: New Referral Navigation T/C Reason for Referral: Other specified metabolic disorders -Dr. Schofield Activity: Reviewed referral for medical status, acuity, and immediate needs. Called Dr. Schofield' nurse to clarify the diagnosis. 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 Forwarded to scheduling for next available, Dr. Frazier's schedule.
[2023-01-31 10:26] VITALS: BP 116/75; PULSE 64; RESP 16; TEMP 36.3; O2SAT 100
--- NOTE | 2023-01-31 10:40 | ONC.CONS ---
History of Present Illness - Data of Consult Primary Care Provider: Papo Schofield MD - Consult Narrative Reason for consult: Leukopenia Narrative: Karen Gallardo is a 57 year old female Referred for evaluation of leukopenia. Review of her white blood cell count and CBC shows that she has had a modest decrease in her white blood cell count over the last 18 months. This has ranged between 3.2 and 3.7 total white blood cell count. Her differential shows a relative lymphocytosis with 56% lymphocytes this is slightly elevated begun normal. The rest of her CBC is unremarkable with normal platelet count and hematocrit. Overall Karen states that she feels well and has good energy level she denies any fevers chills nausea vomiting headaches weight loss loss of appetite or lymphadenopathy. Bowel movements are stable and she reports no rashes recently. She denies any recent infections such as COVID or other respiratory infections in the last year. CC: Lester Frazier MD Home Medications and Allergies Home Medications Medication Instructions Recorded Confirmed Type ibuprofen 800 mg tablet 800 mg PO TID PRN pain #90 tabs 07/26/21 01/31/23 Rx hydroxyzine HCl 25 mg tablet 25 mg PO TID PRN anxiety #90 tabs 10/06/21 01/31/23 Rx Black Cohosh 80 mg See Rx Instructions PO .COMPLEX 12/23/21 01/31/23 History cholecalciferol (vitamin D3) 50 50 mcg PO DAILY 12/23/21 01/31/23 History mcg (2,000 unit) capsule Allergies Allergy/AdvReac Type Severity Reaction Status Date / Time No Known Drug Allergies Allergy Verified 01/08/23 13:37 Medical History - Medical, Surgical, Family History Medical History: Medical History (Last Updated 01/09/23 @ 17:25 by Nikki Aldridge DO) Cervical somatic dysfunction Cranial somatic dysfunction Cysts Onset Date: Unknown DDD (degenerative disc disease), lumbosacral Fatigue Hypoglycemia Increased appetite Lateral epicondylitis of both elbows Left thigh pain Low back pain Onset Date: Unknown Lumbar radiculopathy, right Myalgia Neck stiffness Right knee pain Sebaceous hyperplasia Spinal stenosis of lumbar region Onset Date: Unknown Spinal stenosis, lumbar region without neurogenic claudication Stiffness of right shoulder, not elsewhere classified Thoracic region somatic dysfunction Upper extremity somatic dysfunction Varicose veins of both lower extremities Onset Date: Unknown Vitamin D deficiency Onset Date: ~2013 Surgical History: Surgical History (Last Reviewed 03/28/21 @ 12:08 by EVONNE Roberson) History of surgical removal of ganglion cyst Onset Date: 07/2017 Hx of tonsillectomy Onset Date: Unknown Status post endovenous radiofrequency ablation of saphenous vein Onset Date: 2007 Family History: Family History (Last Reviewed 03/28/21 @ 12:08 by EVONNE Roberson) Mother Uterine cancer Father No problems noted. - Social History Smoking Status: Never smoker Review of Systems Constitutional: other (negative for unexpected weight change), no fever(s) Ears, nose, mouth, throat: no sore throat, no lump, no mass, no mouth sores Cardiovascular: no chest pain, no edema Respiratory: no shortness of breath, no cough Gastrointestinal: other (negative for blood in stool), no abdominal pain, no diarrhea Genitourinary: no dysuria, no hematuria Musculoskeletal: no abnormal gait, no back pain, no myalgias Integumentary: no rash, no itching Neurological: no abnormal gait, no dizziness, no headache(s) Hematologic/Lymphatic: no adenopathy Psychiatric: other (negative for decreased concentration), no anxiety Exam Vital signs: Vital Signs Temp Pulse Resp BP Pulse Ox 01/31/23 10:26 97.3 F L 64 16 116/75 100 Intake and Output 01/30/23 01/31/23 01/31/23 23:59 07:59 15:59 Other: Weight 70.9 kg Patient Weight 01/31/23 23:59 Weight 70.9 kg - Constitutional positive no acute distress, negative diaphoretic - Routine HEENT Exam Head: Present: normocephalic Eye: Present: PERRL (Conjunctivae normal) ENT: Present: mucous membranes moist - Routine Respiratory Exam Present: Clear to auscultation bilaterally. Absent: rales, respiratory distress, wheezes - Routine Cardiovascular Exam Present: RRR. Absent: murmur, irregular rhythm - Routine Abdominal Exam Present: soft. Absent: tenderness, distended, guarding - Routine Extremities Exam Present: full ROM. Absent: edema, tenderness (No Swelling) - Routine Skin Exam Present: dry, warm. Absent: lesions (No Bruising), jaundice - Routine Neurological Exam Present: alert, oriented X3. Absent: sensory deficit, motor deficit - Routine Psychiatric Exam Present: normal affect, normal thought process, cooperative. Absent: anxious, agitated Assessment and Plan (1) Leukopenia Status: Acute This is a very pleasant 57-year-old female referred for evaluation of leukopenia. Her white blood cell count has decreased over the last 18 months compared to prior studies. This is associated with slight lymphocytosis noted in differential. This raises the possibility of a lymphoproliferative disorder I will go and send flow cytometry for this as well. Additional tests will include serum protein electrophoresis, B12, folate and repeat CBC. Depending on these results further diagnosis test may be indicated. Clinically the patient is doing well has no evidence of adenopathy and her energy levels are good. Karen is agreeable to proceeding with these diagnostic steps and will return to clinic in 3-4 weeks to review results.
[2023-01-31 17:27] LABS: Add Manual Diff / Slide Review NO; Basophils Absolute Auto 0 /uL (0-100); Basophils Percent Auto 0.4 % (0-2); Eosinophils Absolute Auto 0 /uL (0-450); Eosinophils Percent Auto 0.7 % (2-4); Hematocrit 37.3 % (36-46); Hemoglobin 12.6 g/dL (12.0-16.0); Lymphocytes Absolute Auto 1900 /uL (1100-4500); Lymphocytes Percent Auto 61.4 % (25-40); Mean Corpuscular HGB Conc 33.9 % (30-36); Mean Corpuscular Hemoglobin 32.4 PG (26-34); Mean Corpuscular Volume 95.8 fL (80-100); Monocytes Absolute Auto 400 /uL (0-900); Monocytes Percent Auto 12.1 % (3-14); Neutrophils Absolute Auto 800 /uL (1500-7000); Neutrophils Percent Auto 25.4 % (50-75); Platelet Count 164 X10^3/uL (150-400); Red Blood Cell Count 3.89 X10^6/uL (4.0-5.2); Red Cell Distribution Width 14.7 % (11.6-14.8); White Blood Cell Count 3.1 X10^3/uL (4.5-11.0)
[2023-01-31 17:48] LABS: Alanine Aminotransferase 31 IU/L (<35); Albumin 4.3 g/dL (3.5-5.0); Albumin Globulin Ratio 1.4 (1.0-2.8); Alkaline Phosphatase 70 U/L (38-126); Aspartate Aminotransferase 26 IU/L (14-36); BUN Creatinine Ratio 24.7 (6-22); Bilirubin Total 0.3 mg/dL (0.2-1.3); Blood Urea Nitrogen 20 mg/dL (7-17); Calcium 9.4 mg/dL (8.4-10.2); Carbon Dioxide 28 mmol/L (22-32); Chloride 104 mmol/L (98-107); Estimated Glomerular Filt Rate > 60 mL/min (>60); Glucose 97 mg/dL (70-100); HEMOLYSIS < 15 (0-50); Sodium 137 mmol/L (137-145); Total Protein 7.3 g/dL (6.3-8.2)
[2023-01-31 18:54] LABS: Folate 15.6 ng/mL (2.76-20.0); Vitamin B12 558 pg/mL (239-931)
[2023-02-02 13:55] LABS: Albumin 3.8 g/dL (2.9-4.4); Alpha-1-Globulin 0.2 g/dL (0.0-0.4); Alpha-2-Globulin 0.5 g/dL (0.4-1.0); Gamma Globulin 1.2 g/dL (0.4-1.8); Protein, Total 6.8 g/dL (6.0-8.5)
[2023-02-28 15:38] VITALS: BP 129/80; PULSE 64; RESP 16; TEMP 36.3; O2SAT 100
--- NOTE | 2023-02-28 16:12 | ONC.PN ---
PN -Subjective - Date of Visit Date of visit: 02/28/23 Chief Complaint: Follow-up leukopenia Interval history: 57-year-old pleasant lady who was seen in initial consultation by Dr. Frazier on January 31, 2023. I am seeing her for the 1st time in follow-up since Dr. Frazier is no longer at the practice. An number of laboratory diagnostic workup were done to evaluate for mild leukopenia noted in her CBC at PCP office. Over the preceding 1-2 years her white count has been ranging around 3.2-3.7 with a relative suppression of neutrophils. This CBC of January 31, 2023 showed a white count of 3.1 with only 25% neutrophils translating into an ANC of only 800. Absolute lymphocyte count was normal with 1900 and no abnormal cells. Hemoglobin and platelets normal. CMP did not show any kidney or liver dysfunction. Vitamin B12, TSH and folic acid were normal. Serum protein electrophoresis negative for M spike Peripheral blood flow cytometry of January 31, 2023: No specific abnormality Myeloid series with mild immunophenotypic alterations with mild left-shifted maturation and a subset of granulocytes with mild loss of CD16 of unclear significance clinically. No atypical blasts or other cells no lymphoid abnormalities - ROS Constitutional ROS IM: no night sweats, no weight loss Gastrointestinal: no abdominal pain Home Medications and Allergies Home Medications Medication Instructions Recorded Confirmed Type ibuprofen 800 mg tablet 800 mg PO TID PRN pain #90 tabs 07/26/21 02/28/23 Rx Black Cohosh 80 mg See Rx Instructions PO .COMPLEX 12/23/21 02/28/23 History cholecalciferol (vitamin D3) 50 50 mcg PO DAILY 12/23/21 02/28/23 History mcg (2,000 unit) capsule Allergies Allergy/AdvReac Type Severity Reaction Status Date / Time No Known Drug Allergies Allergy Verified 01/31/23 16:28 Exam Vital signs: Vital Signs Temp Pulse Resp BP Pulse Ox 02/28/23 15:38 97.4 F L 64 16 129/80 100 Intake and Output 02/28/23 02/28/23 02/28/23 07:59 15:59 23:59 Other: Weight 71.4 kg Patient Weight 02/28/23 23:59 Weight 71.4 kg Narrative: Patient ambulatory and appears well in no apparent distress. No rash or edema. Results - Labs Laboratory Last Values WBC 3.1 X10^3/uL (4.5-11.0) L 01/31/23 16:37 RBC 3.89 X10^6/uL (4.0-5.2) L 01/31/23 16:37 Hgb 12.6 g/dL (12.0-16.0) 01/31/23 16:37 Hct 37.3 % (36-46) 01/31/23 16:37 MCV 95.8 fL (80-100) 01/31/23 16:37 MCH 32.4 PG (26-34) 01/31/23 16:37 MCHC 33.9 % (30-36) 01/31/23 16:37 RDW 14.7 % (11.6-14.8) 01/31/23 16:37 Plt Count 164 X10^3/uL (150-400) 01/31/23 16:37 Neut % (Auto) 25.4 % (50-75) L 01/31/23 16:37 Lymph % (Auto) 61.4 % (25-40) H 01/31/23 16:37 [place] % (Auto) 12.1 % (3-14) 01/31/23 16:37 Eos % (Auto) 0.7 % (2-4) L 01/31/23 16:37 Baso % (Auto) 0.4 % (0-2) 01/31/23 16:37 Neut # (Auto) 800 /uL (8561-8483) L 01/31/23 16:37 Lymph # (Auto) 1900 /uL (2598-3469) 01/31/23 16:37 [place] # (Auto) 400 /uL (0-900) 01/31/23 16:37 Eos # (Auto) 0 /uL (0-450) 01/31/23 16:37 Baso # (Auto) 0 /uL (0-100) 01/31/23 16:37 Sodium 137 mmol/L (137-145) 01/31/23 16:37 Potassium 4.0 mmol/L (3.4-5.1) 01/31/23 16:37 Chloride 104 mmol/L (98-107) 01/31/23 16:37 Carbon Dioxide 28 mmol/L (22-32) 01/31/23 16:37 BUN 20 mg/dL (7-17) H 01/31/23 16:37 Creatinine 0.81 mg/dL (0.52-1.04) 01/31/23 16:37 Estimated GFR > 60 mL/min (>60) 01/31/23 16:37 BUN/Creatinine Ratio 24.7 (6-22) H 01/31/23 16:37 Glucose 97 mg/dL (70-100) 01/31/23 16:37 Calcium 9.4 mg/dL (8.4-10.2) 01/31/23 16:37 Total Bilirubin 0.3 mg/dL (0.2-1.3) 01/31/23 16:37 AST 26 IU/L (14-36) 01/31/23 16:37 ALT 31 IU/L (<35) 01/31/23 16:37 Alkaline Phosphatase 70 U/L (38-126) 01/31/23 16:37 Total Protein 7.3 g/dL (6.3-8.2) 01/31/23 16:37 Total Protein (PEP) 6.8 g/dL (6.0-8.5) 01/31/23 16:37 Albumin 4.3 g/dL (3.5-5.0) 01/31/23 16:37 Albumin (PEP) 3.8 g/dL (2.9-4.4) 01/31/23 16:37 Globulin 3.0 g/dL (1.7-4.1) 01/31/23 16:37 Albumin/Globulin Ratio 1.4 (1.0-2.8) 01/31/23 16:37 Albumin/Globulin (PEP) 1.3 (0.7-1.7) 01/31/23 16:37 Ctjpe-6-Julsshdoa 0.2 g/dL (0.0-0.4) 01/31/23 16:37 Bopel-0-Ooaaatisz 0.5 g/dL (0.4-1.0) 01/31/23 16:37 Beta Globulins 1.1 g/dL (0.7-1.3) 01/31/23 16:37 Gamma Globulins 1.2 g/dL (0.4-1.8) 01/31/23 16:37 Gamma Glob/Tot Protein 3.0 g/dL (2.2-3.9) 01/31/23 16:37 M-Simone Not observed g/dL (Not Observed) 01/31/23 16:37 Vitamin B12 558 pg/mL (239-931) 01/31/23 16:37 Folate 15.6 ng/mL (2.76-20.0) 01/31/23 16:37 Leuk/Lymph Viability Not Reportable 01/31/23 16:37 Leuk/Lym Sample Descrip Comment (.) 01/31/23 16:37 Leuk/Lym Gating Strategy Not Reportable 01/31/23 16:37 Leuk/Lym Comment Comment (.) 01/31/23 16:37 Leuk/Lym Immunophen Prof Not Reportable 01/31/23 16:37 Leuk/Lym Phenotype Chart Not Reportable 01/31/23 16:37 L/L Sign Pathologist Comment (.) 01/31/23 16:37 CLL Flow Interpret Comment (.) 01/31/23 16:37 Leuk/Lymph Case # TNP 01/31/23 16:37 Leuk/Lymph Ind for Study Comment (.) 01/31/23 16:37 Leuk/Lymph Flow Com Comment (.) 01/31/23 16:37 CLL (FISH) Add Info TNP 01/31/23 16:37 CLL Prog Comp Assess Not Reportable 01/31/23 16:37 Ref Lab Notation Comment (.) 01/31/23 16:37 Assessment and Plan (1) Leukopenia Status: Acute This is a very pleasant 57-year-old female referred for evaluation of leukopenia. Her white blood cell count has decreased over the last 18 months compared to prior studies. This is associated with slight lymphocytosis noted in differential. However the patient's absolute lymphocyte count is perfectly normal with 1900 and she has a normal hemoglobin and platelet count. The leukopenia is mostly caused by neutropenia with an ANC of 800. B12 and folic acid were normal TSH normal SPEP negative for M spike. Flow cytometry of peripheral blood of January 31, 2023: No significant abnormality, nonspecific slight left shift maturation abnormality noted in myeloid precursors but again this is clinically indeterminate. Overall I am suspecting that this is a myelosuppressive/neutropenic side effects of the supplements she is taking with black cohosh mushroom extract which has been occasionally described in the literature. This supplement is commonly taken for menopausal symptoms and hot flashes. However it can have myelosuppressive toxicity. I suggested to repeat the CBC today as new baseline and asked her to discontinue black cohosh supplement starting tomorrow and come back in 4 weeks with repeat CBC. If there is an improvement trend of her neutrophil count between today and in 4 weeks off black cohosh than that will be diagnostically helpful and she should use alternative measures for treatment of hot flashes. We ordered follow-up in 4 weeks with labs. IA
[2023-02-28 16:24] LABS: Add Manual Diff / Slide Review NO; Basophils Absolute Auto 100 /uL (0-100); Basophils Percent Auto 1.5 % (0-2); Eosinophils Absolute Auto 0 /uL (0-450); Hematocrit 36.8 % (36-46); Hemoglobin 12.5 g/dL (12.0-16.0); Lymphocytes Absolute Auto 2100 /uL (1100-4500); Lymphocytes Percent Auto 55.8 % (25-40); Mean Corpuscular HGB Conc 34.1 % (30-36); Mean Corpuscular Volume 96.7 fL (80-100); Monocytes Absolute Auto 600 /uL (0-900); Monocytes Percent Auto 15.8 % (3-14); Neutrophils Absolute Auto 1000 /uL (1500-7000); Neutrophils Percent Auto 25.9 % (50-75); Platelet Count 183 X10^3/uL (150-400); Red Cell Distribution Width 15.3 % (11.6-14.8); White Blood Cell Count 3.8 X10^3/uL (4.5-11.0)
[2023-03-26 09:53] LABS: Add Manual Diff / Slide Review NO; Basophils Absolute Auto 0 /uL (0-100); Basophils Percent Auto 1.2 % (0-2); Eosinophils Absolute Auto 0 /uL (0-450); Eosinophils Percent Auto 0.5 % (2-4); Hematocrit 37.1 % (36-46); Hemoglobin 12.6 g/dL (12.0-16.0); Lymphocytes Absolute Auto 1700 /uL (1100-4500); Lymphocytes Percent Auto 62.3 % (25-40); Mean Corpuscular Hemoglobin 32.6 PG (26-34); Mean Corpuscular Volume 95.9 fL (80-100); Monocytes Absolute Auto 500 /uL (0-900); Monocytes Percent Auto 16.6 % (3-14); Neutrophils Absolute Auto 500 /uL (1500-7000); Neutrophils Percent Auto 19.4 % (50-75); Platelet Count 169 X10^3/uL (150-400); Red Blood Cell Count 3.87 X10^6/uL (4.0-5.2); Red Cell Distribution Width 15.6 % (11.6-14.8); White Blood Cell Count 2.8 X10^3/uL (4.5-11.0)
[2023-03-28 09:17] VITALS: BP 118/72; PULSE 66; RESP 16; TEMP 36.1; O2SAT 97
--- NOTE | 2023-03-28 09:53 | ONC.PN ---
PN -Subjective - Date of Visit Date of visit: 03/28/23 Chief Complaint: Follow-up leukopenia Interval history: Karen Gallardo is a very pleasant and healthy 57-year-old woman, whom I am seeing today regarding follow-up of neutropenia. She was initially seen by Dr. Frazier on 01/31/23 for evaluation of neutropenia. Her labs on that day included WBC 3.1, ANC 0.8, HGB 12.6, MCV 96, platelet count 164,000, normal LFTs, normal B12 and serum folate, M spike not detected, and flow cytometry of blood that showed myeloid series with mild immunophenotypic alterations, without atypical or increased blasts, and without atypical B-cell, NK cell or T cell populations. She came back for follow-up on 02/28/23, and on that date WBC was 3.8, ANC 1.0. She was advised to stop black cohosh, but I am her current labs on 03/26/2023, still show neutropenia, WBC 2.8, ANC 0.5, HGB 12.6, MCV 96, platelet count [id number]. She feels fine. She has no physical or constitutional symptoms. She is otherwise a very healthy woman, with no past medical history and does not take any prescription medications. She does not drink alcohol and has never Smoked. Home Medications and Allergies Home Medications Medication Instructions Recorded Confirmed Type ibuprofen 800 mg tablet 800 mg PO TID PRN pain #90 tabs 07/26/21 02/28/23 Rx cholecalciferol (vitamin D3) 50 50 mcg PO DAILY 12/23/21 02/28/23 History mcg (2,000 unit) capsule Allergies Allergy/AdvReac Type Severity Reaction Status Date / Time No Known Drug Allergies Allergy Verified 01/31/23 16:28 Exam Vital signs: Vital Signs Temp Pulse Resp BP Pulse Ox 03/28/23 09:17 97.0 F L 66 16 118/72 97 Intake and Output 03/27/23 03/28/23 03/28/23 23:59 07:59 15:59 Other: Weight 70.6 kg Patient Weight 03/28/23 23:59 Weight 70.6 kg Results - Labs Laboratory Last Values WBC 2.8 X10^3/uL (4.5-11.0) L 03/26/23 09:45 RBC 3.87 X10^6/uL (4.0-5.2) L 03/26/23 09:45 Hgb 12.6 g/dL (12.0-16.0) 03/26/23 09:45 Hct 37.1 % (36-46) 03/26/23 09:45 MCV 95.9 fL (80-100) 03/26/23 09:45 MCH 32.6 PG (26-34) 03/26/23 09:45 MCHC 34.0 % (30-36) 03/26/23 09:45 RDW 15.6 % (11.6-14.8) H 03/26/23 09:45 Plt Count 169 X10^3/uL (150-400) 03/26/23 09:45 Neut % (Auto) 19.4 % (50-75) L 03/26/23 09:45 Lymph % (Auto) 62.3 % (25-40) H 03/26/23 09:45 Florence % (Auto) 16.6 % (3-14) H 03/26/23 09:45 Eos % (Auto) 0.5 % (2-4) L 03/26/23 09:45 Baso % (Auto) 1.2 % (0-2) 03/26/23 09:45 Neut # (Auto) 500 /uL (0678-6688) L 03/26/23 09:45 Lymph # (Auto) 1700 /uL (4405-4511) 03/26/23 09:45 Florence # (Auto) 500 /uL (0-900) 03/26/23 09:45 Eos # (Auto) 0 /uL (0-450) 03/26/23 09:45 Baso # (Auto) 0 /uL (0-100) 03/26/23 09:45 Sodium 137 mmol/L (137-145) 01/31/23 16:37 Potassium 4.0 mmol/L (3.4-5.1) 01/31/23 16:37 Chloride 104 mmol/L (98-107) 01/31/23 16:37 Carbon Dioxide 28 mmol/L (22-32) 01/31/23 16:37 BUN 20 mg/dL (7-17) H 01/31/23 16:37 Creatinine 0.81 mg/dL (0.52-1.04) 01/31/23 16:37 Estimated GFR > 60 mL/min (>60) 01/31/23 16:37 BUN/Creatinine Ratio 24.7 (6-22) H 01/31/23 16:37 Glucose 97 mg/dL (70-100) 01/31/23 16:37 Calcium 9.4 mg/dL (8.4-10.2) 01/31/23 16:37 Total Bilirubin 0.3 mg/dL (0.2-1.3) 01/31/23 16:37 AST 26 IU/L (14-36) 01/31/23 16:37 ALT 31 IU/L (<35) 01/31/23 16:37 Alkaline Phosphatase 70 U/L (38-126) 01/31/23 16:37 Total Protein 7.3 g/dL (6.3-8.2) 01/31/23 16:37 Total Protein (PEP) 6.8 g/dL (6.0-8.5) 01/31/23 16:37 Albumin 4.3 g/dL (3.5-5.0) 01/31/23 16:37 Albumin (PEP) 3.8 g/dL (2.9-4.4) 01/31/23 16:37 Globulin 3.0 g/dL (1.7-4.1) 01/31/23 16:37 Albumin/Globulin Ratio 1.4 (1.0-2.8) 01/31/23 16:37 Albumin/Globulin (PEP) 1.3 (0.7-1.7) 01/31/23 16:37 Cavli-4-Qkczmqsuv 0.2 g/dL (0.0-0.4) 01/31/23 16:37 Jzmtp-9-Cgczdekbr 0.5 g/dL (0.4-1.0) 01/31/23 16:37 Beta Globulins 1.1 g/dL (0.7-1.3) 01/31/23 16:37 Gamma Globulins 1.2 g/dL (0.4-1.8) 01/31/23 16:37 Gamma Glob/Tot Protein 3.0 g/dL (2.2-3.9) 01/31/23 16:37 M-Simone Not observed g/dL (Not Observed) 01/31/23 16:37 Vitamin B12 558 pg/mL (239-931) 01/31/23 16:37 Folate 15.6 ng/mL (2.76-20.0) 01/31/23 16:37 Leuk/Lymph Viability Not Reportable 01/31/23 16:37 Leuk/Lym Sample Descrip Comment (.) 01/31/23 16:37 Leuk/Lym Gating Strategy Not Reportable 01/31/23 16:37 Leuk/Lym Comment Comment (.) 01/31/23 16:37 Leuk/Lym Immunophen Prof Not Reportable 01/31/23 16:37 Leuk/Lym Phenotype Chart Not Reportable 01/31/23 16:37 L/L Sign Pathologist Comment (.) 01/31/23 16:37 CLL Flow Interpret Comment (.) 01/31/23 16:37 Leuk/Lymph Case # TNP 01/31/23 16:37 Leuk/Lymph Ind for Study Comment (.) 01/31/23 16:37 Leuk/Lymph Flow Com Comment (.) 01/31/23 16:37 CLL (FISH) Add Info TNP 01/31/23 16:37 CLL Prog Comp Assess Not Reportable 01/31/23 16:37 Ref Lab Notation Comment (.) 01/31/23 16:37 Assessment and Plan (1) Leukopenia Status: Chronic This is a very pleasant 57-year-old woman with isolated neutropenia, current ANC 0.5, with normal hemoglobin, hematocrit, platelet count. Flow cytometry showed mild phenotypic abnormalities in myeloid series. This further raises possibility of MDS or other bone marrow diseases. I recommend a bone marrow biopsy. We will set this up in about 3-4 weeks at [facility] (formerly [facility])[3].
--- NOTE | 2023-03-28 09:57 | ONC.SCHED ---
Transfer of Care: This has been emailed to for them to send records to Dr. Santoyo at [facility].
== END ==
PROVIDERS: Internal Medicine Hematology & Oncology; Internal Medicine Medical Oncology; Family Provider Family Medicine; PCP Family Medicine; Referring Provider Family Medicine; Visit Provider Internal Medicine Hematology & Oncology
DX: D72.819 Decreased white blood cell count, unspecified (principal); Z12.11 Encounter for screening for malignant neoplasm of colon
CPT/HCPCS: 36415; 80053; 82274; 82607; 82746; 84155; 84165; 85025; 88184; 99204; 99214; 99215

== ENCOUNTER → 2023-04-13 13:24 | Outpatient (CLI) | payer OTHER, MEDICAID, SELFPAY ==
[2023-04-13 14:33] LABS: Erythrocyte Sedimentation Rate 9 MM/HR (0-20)
[2023-04-13 15:03] LABS: C-Reactive Protein Quant < 0.5 mg/dL (<1.0)
[2023-04-16 19:14] LABS: ANA Screen, IFA Negative (.)
[2023-04-17 16:18] LABS: CCP Antibodies IgG/IgA 5 units (0-19)
== END ==
PROVIDERS: Family Provider Family Medicine; PCP Family Medicine; Referring Provider Family Medicine; Visit Provider Family Medicine
DX: G89.29 Other chronic pain (principal); M51.37 Other intervertebral disc degeneration, lumbosacral region; M54.2 Cervicalgia; R53.83 Other fatigue; R68.89 Other general symptoms and signs; R76.8 Other specified abnormal immunological findings in serum
CPT/HCPCS: 36415; 85651; 86038; 86140; 86200; 86430

== ENCOUNTER → 2023-05-22 09:56 | Outpatient (CLI) | payer OTHER, MEDICAID, SELFPAY ==
[2023-05-22 11:33] LABS: Influenza A - CEPHEID Flu A NEGATIVE (NEGATIVE); Influenza B - CEPHEID Flu B NEGATIVE (NEGATIVE); Respiratory Syncytial Virus Negative (Negative)
[2023-05-22 12:51] LABS: COVID-19 CEPHEID 4-PLEX PCR POSITIVE (Negative)
== END ==
PROVIDERS: Family Provider Family Medicine; PCP Family Medicine; Visit Provider Student in an Organized Health Care Education/Training Program
DX: J02.9 Acute pharyngitis, unspecified (principal); R52 Pain, unspecified
CPT/HCPCS: 0241U; 87070; 87880

== ENCOUNTER → 2023-07-31 08:39 | Outpatient (CLI) | payer OTHER, MEDICAID, SELFPAY ==
[2023-07-31 10:13] LABS: Add Manual Diff / Slide Review NO; Basophils Absolute Auto 0 /uL (0-100); Basophils Percent Auto 1.5 % (0-2); Eosinophils Absolute Auto 0 /uL (0-450); Eosinophils Percent Auto 0.3 % (2-4); Hematocrit 36.3 % (36-46); Hemoglobin 12.2 g/dL (12.0-16.0); Lymphocytes Absolute Auto 1800 /uL (1100-4500); Mean Corpuscular HGB Conc 33.7 % (30-36); Monocytes Absolute Auto 400 /uL (0-900); Monocytes Percent Auto 13.6 % (3-14); Neutrophils Absolute Auto 700 /uL (1500-7000); Neutrophils Percent Auto 24.6 % (50-75); Platelet Count 140 X10^3/uL (150-400); Red Blood Cell Count 3.71 X10^6/uL (4.0-5.2); Red Cell Distribution Width 16.3 % (11.6-14.8)
[2023-07-31 10:19] LABS: INR 1.1 (0.9-1.3); Prothrombin Time 12.3 SECONDS (9.4-12.5)
[2023-07-31 10:22] LABS: PTT Partial Thromboplastin Tim 25 SECONDS (25.1-36.5)
[2023-07-31 10:37] LABS: Glucose 65 mg/dL (70-100)
[2023-07-31 10:47] LABS: Erythrocyte Sedimentation Rate 8 MM/HR (0-20)
== END ==
PROVIDERS: Family Provider Family Medicine; PCP Family Medicine; Referring Provider Family Medicine; Visit Provider Family Medicine
DX: H57.9 Unspecified disorder of eye and adnexa (principal); D64.9 Anemia, unspecified; H34.8312 Tributary (branch) retinal vein occlusion, right eye, stable
CPT/HCPCS: 36415; 82947; 85025; 85610; 85651; 85730

== ENCOUNTER 2023-09-25 15:15 | Outpatient (RCR) | payer OTHER, MEDICAID, SELFPAY ==
--- NOTE | 2023-08-28 16:16 | PT.OIE ---
Current Diagnoses Muscle weakness (generalized) (08/28/23) Other specified disorders of muscle (08/28/23) Uterovaginal prolapse, unspecified (08/28/23) Past Medical History (Last Reviewed 05/22/23 @ 10:26 by Shanelle Atkins PA-C) Cervical somatic dysfunction Cranial somatic dysfunction Cysts (Unknown) DDD (degenerative disc disease), lumbosacral Fatigue Hypoglycemia Increased appetite Lateral epicondylitis of both elbows Left thigh pain Low back pain (Unknown) Lumbar radiculopathy, right Myalgia Neck stiffness Right knee pain Sebaceous hyperplasia Spinal stenosis of lumbar region (Unknown) Spinal stenosis, lumbar region without neurogenic claudication Stiffness of right shoulder, not elsewhere classified Thoracic region somatic dysfunction Upper extremity somatic dysfunction Varicose veins of both lower extremities (Unknown) Vitamin D deficiency (~2013) Past Surgical History (Last Reviewed 05/22/23 @ 10:26 by Shanelle Atkins PA-C) History of surgical removal of ganglion cyst (07/2017) Hx of tonsillectomy (Unknown) Status post endovenous radiofrequency ablation of saphenous vein (2007) Visit Care Team Role Provider Type Papo Schofield MD Attending Provider Physician Family Provider Primary Care Provider Referring Provider Specialty: Family Practice Address: [address] [place] [address], [facility] Email: [email or web address] Physical Therapy Initial Evaluation PT-OP-A Visit Information Start: 08/28/23 13:31 Freq: Status: Active Protocol: Document 08/28/23 13:45 [facility] (Rec: 08/28/23 14:38 [facility] [id number]) Out-Patient Physical Therapy Visit Information Visit Information Visit Type Initial Evaluation Visit Start Time 13:45 Visit Stop Time 14:30 Total Visit Minutes 45 Visit Number 1 Evaluation Information Evaluation Date 08/28/23 PT-OP-B Current Condition Start: 08/28/23 13:31 Freq: Status: Active Protocol: Document 08/28/23 13:45 [facility] (Rec: 08/28/23 14:38 [facility] [id number]) Current Condition History of Current Condition History of Current Condition pt notes she feels lax in her abdominals and pelvic floor approx about 2 months and feels like her posture is forward. 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 No hx of childbirths PT-OP-F Manual Assessment Start: 08/28/23 16:10 Freq: Status: Active Protocol: Document 08/28/23 13:45 [facility] (Rec: 08/28/23 16:11 [facility] [id number]) Manual Assessments Soft Tissue Assessment Soft Tissue Mobility Assessment fascial tightness over the diaphragm and upper obliques PT-OP-I Pelvic Floor Start: 08/28/23 13:31 Freq: Status: Active Protocol: Document 08/28/23 13:45 [facility] (Rec: 08/28/23 16:10 [facility] [id number]) Pelvic Floor Assessment Urine Pelvic Floor Surgery No Urinary Symptoms Falling Out Feeling/Heavy Other Urinary Symptoms pt describes laxity in her pelvic floor as well as abdominal wall Leaks Per Day 0 Voiding Frequency every 2 hours Nocturia 1 Pelvic Clock Pelvic Clock 3-6 Guarding Pelvic Clock 6-9 Guarding Pelvic Clock Other pt has difficulty fully relaxing the posterior wall of the pelvic floor, she needed cues to facilitate the anterior pelvic floor but she was able to with verbal cueing . Prolapse Uterine Prolapse Grade 1 Contraction Ability Voluntary Contraction Moderate Voluntary Relaxation Moderate Manual Muscle Testing Left 3 Manual Muscle Testing Right 3 Manual Muscle Testing Anterior 3 Manual Muscle Testing Posterior 3 Muscle Endurance (Seconds) 8 Comments Pelvic Floor Comments Karen fatigues more with repetitive pelvic floor contractions PT-OP-J Posture/Palpation/Skin Start: 08/28/23 13:31 Freq: Status: Active Protocol: Document 08/28/23 13:45 [facility] (Rec: 08/28/23 16:12 [facility] [id number]) Posture Evaluation Position Standing Evaluation View Lateral Shoulder Posture (L) Rounded,(R) Rounded Comments Posture Comments pt tends to flex forward hinging at the upper abdominal wall which can create a downward pressure on the pelvic organs PT-OP-Q Treatments Start: 08/28/23 13:31 Freq: Status: Active Protocol: Document 08/28/23 13:45 [facility] (Rec: 08/28/23 14:38 [facility] [id number]) Therapeutic Exercises Supine Exercises standing hip flexor stretch in a lunge position Reps/Minutes hold x 1 min pelvic floor long holds Reps/Minutes hold x 10 seconds relax x 10 seconds iliopsoas stretch in shey test position Reps/Minutes hold 1-2 min PT-OP-T Assessment and Plan Start: 08/28/23 13:31 Freq: Status: Active Protocol: Document 08/28/23 13:45 [facility] (Rec: 08/28/23 16:10 [facility] [id number]) Physical Therapy Assessment Rehab Potential Rehabilitation Potential Excellent Evaluation Complexity Number of Personal Factors/Comorbidities 0 Number of Body Systems Impaired 1-2 Clinical Presentation at Evaluation Stable Impairments Impairments Activity Tolerance,Posture, Soft Tissue Mobility,Strength, Tone Other Impairments pelvic laxity and pressurem grade 1 uterine prolapse Goals One Impairment Karen has chief complaints of pelvic laxity and pressure worse in the past 2 months Short Term Goal (STG) Karen is educated on pelvic decompressive exercises to decrease strain on the pelvic organs STG Duration 4 weeks Mcfp Goal (LTG) Karen reports a overall reduction in s/o pelvic laxity and pressure LTG Duration 12 weeks Three Impairment Postural habits and tightness of the upper abdominal wall add to pelvic pressure and heaviness Short Term Goal (STG) Karen is educated on anterior chest stretching and postural strengthening exercises to decrease downward pressure on the pelvic organs STG Duration 4 weeks Two Impairment Decreased pelvic floor endurance Short Term Goal (STG) Karen is able to sustain a pelvic floor contraction in supine x 10 seconds STG Duration 4 weeks Livestock Sales Representative Goal (LTG) Karen is able to sustain a pelvic floor contraction in standing x 5 seconds LTG Duration 12 weeks Assessment Summary Assessment Karen is a 58 year old female referred to PT for pelvic floor strengthening due to feeling laxity in her lower abdominal wall and pelvic floor. This has been worsening the past couple of months. She notes she is trying to do kegels but hasn't noted a change. 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 She finds herself in a forward posture often. Karen denies any urinary leakage at this time but due to the feeling of laxity she wants to strengthen her pelvic floor to prevent any further weakness and urinary leakage With exam today there is a grade 1 uterine prolapse noted which may be contributing to feeling of pressure and laxity . She is able to contract all hawkins of her levator ani but does fatigue with long sustained pelvic floor contraction. She presents with tightness of the left iliopsoas muscles as compared to her right side and reports she does have SI joint issues she needs aligned. 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 This forward posture and upper abdominal wall tightness can contribute to downward pressure on her pelvic organs. Treatment will emphasize postural modifications, postural strengthening, pelvic floor endurance training and core stabilization exercises. Physical Therapy Plan Frequency and Duration Frequency of Treatment 1x/Week Duration of treatment (weeks) 12 Plan of Care Start Date 08/28/23 Plan of Care End Date 11/20/23 Therapeutic Interventions Therapeutic Interventions Home Exercise Program,Manual Therapy,Neuromuscular Re- education,Self-Care/Home Management,Therapeutic Exercises Modalities Biofeedback Next Visit Focus/Plan Next Note Type Treatment Note Next Visit Plan Begin EMG biofeedback next visit for pelvic floor endurance training, review hip stretches and begin postural stabilization exercises
--- NOTE | 2023-08-28 16:16 | PT.OPPOC ---
Physical, Occupational & Speech Therapy At [facility] Current Diagnoses Muscle weakness (generalized) (08/28/23) Other specified disorders of muscle (08/28/23) Uterovaginal prolapse, unspecified (08/28/23) Visit Care Team Role Provider Type Papo Schofield MD Attending Provider Physician Family Provider Primary Care Provider Referring Provider Specialty: Family Practice Address: [address] [place] [address] Email: [email or web address] Plan Of Care PT-OP-T Assessment and Plan Start: 08/28/23 13:31 Freq: Status: Active Protocol: Document 08/28/23 13:45 [facility] (Rec: 08/28/23 16:10 [facility] [id number]) Physical Therapy Assessment Rehab Potential Rehabilitation Potential Excellent Evaluation Complexity Number of Personal Factors/Comorbidities 0 Number of Body Systems Impaired 1-2 Clinical Presentation at Evaluation Stable Impairments Impairments Activity Tolerance,Posture, Soft Tissue Mobility,Strength, Tone Other Impairments pelvic laxity and pressure grade 1 uterine prolapse Goals One Impairment Karen has chief complaints of pelvic laxity and pressure worse in the past 2 months Short Term Goal (STG) Karen is educated on pelvic decompression exercises to decrease strain on the pelvic organs STG Duration 4 weeks Alf Goal (LTG) Karen reports a overall reduction in s/o pelvic laxity and pressure LTG Duration 12 weeks Three Impairment Postural habits and tightness of the upper abdominal wall add to pelvic pressure and heaviness Short Term Goal (STG) Karen is educated on anterior chest stretching and postural strengthening exercises to decrease downward pressure on the pelvic organs STG Duration 4 weeks Two Impairment Decreased pelvic floor endurance Short Term Goal (STG) Karen is able to sustain a pelvic floor contraction in supine x 10 seconds STG Duration 4 weeks Family Practice Doctor Goal (LTG) Karen is able to sustain a pelvic floor contraction in standing x 5 seconds LTG Duration 12 weeks Assessment Summary Assessment Karen is a 58 year old female referred to PT for pelvic floor strengthening due to feeling laxity in her lower abdominal wall and pelvic floor. This has been worsening the past couple of months. She notes she is trying to do kegels but hasn't noted a change. 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 She finds herself in a forward posture often. Karen denies any urinary leakage at this time but due to the feeling of laxity she wants to strengthen her pelvic floor to prevent any further weakness and urinary leakage With exam today there is a grade 1 uterine prolapse noted which may be contributing to feeling of pressure and laxity . She is able to contract all hawkins of her levator ani but does fatigue with long sustained pelvic floor contraction. She presents with tightness of the left iliopsoas muscles as compared to her right side and reports she does have SI joint issues she needs aligned. 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 This forward posture and upper abdominal wall tightness can contribute to downward pressure on her pelvic organs. Treatment will emphasize postural modifications, postural strengthening, pelvic floor endurance training and core stabilization exercises. Physical Therapy Plan Frequency and Duration Frequency of Treatment 1x/Week Duration of treatment (weeks) 12 Plan of Care Start Date 08/28/23 Plan of Care End Date 11/20/23 Therapeutic Interventions Therapeutic Interventions Home Exercise Program,Manual Therapy,Neuromuscular Re- education,Self-Care/Home Management,Therapeutic Exercises Modalities Biofeedback Next Visit Focus/Plan Next Note Type Treatment Note Next Visit Plan Begin EMG biofeedback next visit for pelvic floor endurance training, review hip stretches and begin postural stabilization exercises Plan of Care Dates Plan of Care Start Date 08/28/23 Plan of Care End Date 11/20/23 Electronically Signed by: Erika Villatoro, PT 08/28/23 2947 If you are in agreement with this Plan of Care, please return a signed and dated copy. I have reviewed this Plan of Care and certify that the skilled therapy services above are required to meet the patient?s needs. Physician Signature Date Printed Name and Credentials Clinical Instructor Signature Printed Name and Credentials
--- NOTE | 2023-09-06 15:36 | PT.OTN ---
Current Diagnoses Muscle weakness (generalized) (09/06/23) Other specified disorders of muscle (09/06/23) Uterovaginal prolapse, unspecified (09/06/23) Physical Therapy Treatment Note PT-OP-A Visit Information Start: 08/28/23 13:31 Freq: Status: Active Protocol: Document 09/06/23 14:33 [facility] (Rec: 09/06/23 15:35 [facility] [id number]) Out-Patient Physical Therapy Visit Information Visit Information Visit Type Treatment Note Visit Start Time 14:30 Visit Stop Time 15:15 Total Visit Minutes 45 Visit Number 2 PT-OP-B Current Condition Start: 08/28/23 13:31 Freq: Status: Active Protocol: Document 08/28/23 13:45 [facility] (Rec: 08/28/23 14:38 [facility] [id number]) Current Condition History of Current Condition History of Current Condition pt notes she feels lax in her abdominals and pelvic floor approx about 2 months and feels like her posture is forward. 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 No hx of childbirths PT-OP-C Subjective Start: 08/28/23 13:31 Freq: Status: Active Protocol: Document 09/06/23 14:33 [facility] (Rec: 09/06/23 15:35 [facility] [id number]) OP-PT Subjective Patient Comments Patient Comments Karen notes she has been working on her stretches PT-OP-F Manual Assessment Start: 08/28/23 16:10 Freq: Status: Active Protocol: Document 08/28/23 13:45 [facility] (Rec: 08/28/23 16:11 [facility] [id number]) Manual Assessments Soft Tissue Assessment Soft Tissue Mobility Assessment fascial tightness over the diaphragm and upper obliques PT-OP-I Pelvic Floor Start: 08/28/23 13:31 Freq: Status: Active Protocol: Document 08/28/23 13:45 [facility] (Rec: 08/28/23 16:10 [facility] [id number]) Pelvic Floor Assessment Urine Pelvic Floor Surgery No Urinary Symptoms Falling Out Feeling/Heavy Other Urinary Symptoms pt describes laxity in her pelvic floor as well as abdominal wall Leaks Per Day 0 Voiding Frequency every 2 hours Nocturia 1 Pelvic Clock Pelvic Clock 3-6 Guarding Pelvic Clock 6-9 Guarding Pelvic Clock Other pt has difficulty fully relaxing the posterior wall of the pelvic floor, she needed cues to facilitate the anterior pelvic floor but she was able to with verbal cueing . Prolapse Uterine Prolapse Grade 1 Contraction Ability Voluntary Contraction Moderate Voluntary Relaxation Moderate Manual Muscle Testing Left 3 Manual Muscle Testing Right 3 Manual Muscle Testing Anterior 3 Manual Muscle Testing Posterior 3 Muscle Endurance (Seconds) 8 Comments Pelvic Floor Comments Karen fatigues more with repetitive pelvic floor contractions PT-OP-J Posture/Palpation/Skin Start: 08/28/23 13:31 Freq: Status: Active Protocol: Document 08/28/23 13:45 [facility] (Rec: 08/28/23 16:12 [facility] [id number]) Posture Evaluation Position Standing Evaluation View Lateral Shoulder Posture (L) Rounded,(R) Rounded Comments Posture Comments pt tends to flex forward hinging at the upper abdominal wall which can create a downward pressure on the pelvic organs PT-OP-Q Treatments Start: 08/28/23 13:31 Freq: Status: Active Protocol: Document 09/06/23 14:33 [facility] (Rec: 09/06/23 15:35 [facility] [id number]) Therapeutic Exercises Supine Exercises roll outs with theraband Reps/Minutes 2 x 10 reps ball squeeze Supine Exercise Name ball squeeze with pelvic floor contraction Reps/Minutes 5 sec x 10 sec hold Comments 27.2 uv average standing hip flexor stretch in a lunge position Reps/Minutes hold x 1 min pelvic floor long holds Reps/Minutes hold x 10 seconds relax x 10 seconds Comments 22.9 and max 59.6 Other Exercises quadruped cat cow Reps/Minutes x 10 reps PT-OP-T Assessment and Plan Start: 08/28/23 13:31 Freq: Status: Active Protocol: Document 09/06/23 14:33 [facility] (Rec: 09/06/23 15:35 [facility] [id number]) Physical Therapy Assessment Assessment Summary Assessment Karen was started on EMG biofeedback today for pelvic floor strengtheing. She initially started with the vaginal sensor however this was painful for her to insert so we switched to the rectal sensor to use vaginally. She tolerated this well. I also added in hip ER/IR and cat cow to start decreasing low back tension. Physical Therapy Plan Frequency and Duration Frequency of Treatment 1x/Week Duration of treatment (weeks) 12 Plan of Care Start Date 08/28/23 Plan of Care End Date 11/20/23 Therapeutic Interventions Therapeutic Interventions Home Exercise Program,Manual Therapy,Neuromuscular Re- education,Self-Care/Home Management,Therapeutic Exercises Modalities Biofeedback Next Visit Focus/Plan Next Note Type Treatment Note Next Visit Plan Review HEP and progress strengthening, begin with TA beatrice in supine
--- NOTE | 2023-09-25 16:28 | PT.OTN ---
Current Diagnoses Muscle weakness (generalized) (09/25/23) Other specified disorders of muscle (09/25/23) Uterovaginal prolapse, unspecified (09/25/23) Physical Therapy Treatment Note PT-OP-A Visit Information Start: 08/28/23 13:31 Freq: Status: Active Protocol: Document 09/25/23 15:20 [facility] (Rec: 09/25/23 16:28 [facility] [id number]) Out-Patient Physical Therapy Visit Information Visit Information Visit Type Treatment Note Visit Start Time 15:20 Visit Stop Time 14:05 Total Visit Minutes 45 Visit Number 3 PT-OP-B Current Condition Start: 08/28/23 13:31 Freq: Status: Active Protocol: Document 08/28/23 13:45 [facility] (Rec: 08/28/23 14:38 [facility] [id number]) Current Condition History of Current Condition History of Current Condition pt notes she feels lax in her abdominals and pelvic floor approx about 2 months and feels like her posture is forward. 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 No hx of childbirths PT-OP-C Subjective Start: 08/28/23 13:31 Freq: Status: Active Protocol: Document 09/25/23 15:20 [facility] (Rec: 09/25/23 16:28 [facility] [id number]) OP-PT Subjective Patient Comments Patient Comments Karen still feels that the laxity is there but she is working on her exercises at home and has been working on her posture PT-OP-F Manual Assessment Start: 08/28/23 16:10 Freq: Status: Active Protocol: Document 08/28/23 13:45 [facility] (Rec: 08/28/23 16:11 [facility] [id number]) Manual Assessments Soft Tissue Assessment Soft Tissue Mobility Assessment fascial tightness over the diaphragm and upper obliques PT-OP-I Pelvic Floor Start: 08/28/23 13:31 Freq: Status: Active Protocol: Document 08/28/23 13:45 [facility] (Rec: 08/28/23 16:10 [facility] [id number]) Pelvic Floor Assessment Urine Pelvic Floor Surgery No Urinary Symptoms Falling Out Feeling/Heavy Other Urinary Symptoms pt describes laxity in her pelvic floor as well as abdominal wall Leaks Per Day 0 Voiding Frequency every 2 hours Nocturia 1 Pelvic Clock Pelvic Clock 3-6 Guarding Pelvic Clock 6-9 Guarding Pelvic Clock Other pt has difficulty fully relaxing the posterior wall of the pelvic floor, she needed cues to facilitate the anterior pelvic floor but she was able to with verbal cueing . Prolapse Uterine Prolapse Grade 1 Contraction Ability Voluntary Contraction Moderate Voluntary Relaxation Moderate Manual Muscle Testing Left 3 Manual Muscle Testing Right 3 Manual Muscle Testing Anterior 3 Manual Muscle Testing Posterior 3 Muscle Endurance (Seconds) 8 Comments Pelvic Floor Comments Karen fatigues more with repetitive pelvic floor contractions PT-OP-J Posture/Palpation/Skin Start: 08/28/23 13:31 Freq: Status: Active Protocol: Document 08/28/23 13:45 [facility] (Rec: 08/28/23 16:12 [facility] [id number]) Posture Evaluation Position Standing Evaluation View Lateral Shoulder Posture (L) Rounded,(R) Rounded Comments Posture Comments pt tends to flex forward hinging at the upper abdominal wall which can create a downward pressure on the pelvic organs PT-OP-Q Treatments Start: 08/28/23 13:31 Freq: Status: Active Protocol: Document 09/25/23 15:20 [facility] (Rec: 09/25/23 16:28 [facility] [id number]) Therapeutic Exercises Supine Exercises bridges with ball squeeze Reps/Minutes x 10 reps TA with SLR Reps/Minutes x10 reps each leg Sidelying Exercises sidelying hip abduction Reps/Minutes 2 x 10 reps sidelying clam shell Reps/Minutes 2 x 10 reps Other Exercises modified down dog Comments hold 1-2 min hands on back of couch bird dog Reps/Minutes x 10 reps quadruped TA Reps/Minutes x 10 reps quadruped cat cow Reps/Minutes x 10 reps PT-OP-T Assessment and Plan Start: 08/28/23 13:31 Freq: Status: Active Protocol: Document 09/25/23 15:20 [facility] (Rec: 09/25/23 16:28 [facility] [id number]) Physical Therapy Assessment Goals One Impairment Karen has chief complaints of pelvic laxity and pressure worse in the past 2 months Short Term Goal (STG) Karen is educated on pelvic decompressive exercises to decrease strain on the pelvic organs GOAL MET STG Duration 4 weeks Client Services Coordinator Goal (LTG) Karen reports a overall reduction in s/o pelvic laxity and pressure LTG Duration 12 weeks Three Impairment Postural habits and tightness of the upper abdominal wall add to pelvic pressure and heaviness Short Term Goal (STG) Karen is educated on anterior chest stretching and postural strengthening exercises to decrease downward pressure on the pelvic organs GOAL MET STG Duration 4 weeks Two Impairment Decreased pelvic floor endurance Short Term Goal (STG) Karen is able to sustain a pelvic floor contraction in supine x 10 seconds excellent progress STG Duration 4 weeks Intermediate Goal (LTG) Karen is able to sustain a pelvic floor contraction in standing x 5 seconds good progress LTG Duration 12 weeks Assessment Summary Assessment Time was spent today reviewing exercises and progressing core exercises. Karen would like to save her remaining PT visits incase she needs them later in the year and will be discharged at this time. She demonstrates improved awareness of her pelvic floor and lower abdominals as well as how posture plays a roll with downward pressure. Physical Therapy Plan Discharge Physical Therapy Discharge Reasons Patient Request Discharge Comments Karen would like to save her remaining PT visits incase she needs them later in the year
== END 2023-09-27 10:10 | disposition home or self-care (01) ==
LOC: PHYS 15:15
PROVIDERS: Family Provider Family Medicine; PCP Family Medicine; Referring Provider Family Medicine; Visit Provider Family Medicine
DX: M62.89 Other specified disorders of muscle (principal); N81.4 Uterovaginal prolapse, unspecified; M62.81 Muscle weakness (generalized)
CPT/HCPCS: 97110; 97161

== ENCOUNTER → 2023-12-28 16:27 | Outpatient (CLI) | payer OTHER, MEDICAID, SELFPAY ==
--- NOTE | 2023-12-28 16:28 | DI.RAD.S_ITS ---
PROCEDURE: XR LUMBAR SPINE MIN 4V INDICATIONS: LOW BACK PAIN TECHNIQUE: 5 views of the lumbar spine were acquired, including bilateral oblique views. COMPARISON: [facility], , L-SPINE 2-3 VIEWS, 11/29/2016, 12:47. FINDINGS: Bones: 5 nonrib-bearing vertebrae are present. Slight leftward curvature of the lumbar spine, centered at L3, more pronounced from prior. Moderate disc height loss at all levels, most pronounced at L2-3. Facet arthrosis of L3 through S1. Soft tissues: Overlying bowel gas pattern is normal. No suspicious soft tissue calcifications. Oblique images: No pars defects. IMPRESSION: Moderate, multilevel degenerative disc disease and lower lumbar facet arthrosis, progressed since 2017. Dictated by: Rich Rosas M.D. on 12/28/2023 at 17:02 Approved by: Rich Rosas M.D. on 12/28/2023 at 17:03
--- NOTE | 2023-12-28 16:28 | DI.RAD.S_ITS ---
PROCEDURE: XR HIP W PEL IF DONE JEREMY MIN 4V INDICATIONS: BILAT HIP PAIN TECHNIQUE: AP pelvis with lateral view(s) of the bilateral hip(s). COMPARISON: [facility], , [id number] W PEL IF PERFORMED, 01/18/2016, 8:30. FINDINGS: Bones: No fractures or dislocations. Pelvic ring appears intact. No suspicious bony lesions. Mild nonuniform joint space narrowing with osteophytic lipping of the acetabuli. Soft tissues: The visualized bowel gas pattern is normal. No suspicious soft tissue calcifications. IMPRESSION: Mild bilateral hip osteoarthritis. Dictated by: Rich Rosas M.D. on 12/28/2023 at 17:03 Approved by: Rich Rosas M.D. on 12/28/2023 at 17:03
== END ==
PROVIDERS: Family Provider Family Medicine; PCP Family Medicine; Referring Provider Anesthesiology; Visit Provider Anesthesiology
DX: M48.061 Spinal stenosis, lumbar region without neurogenic claudication (principal); M51.36 Other intervertebral disc degeneration, lumbar region; M47.816 Spondylosis without myelopathy or radiculopathy, lumbar region; M47.817 Spondylosis without myelopathy or radiculopathy, lumbosacral region; M16.0 Bilateral primary osteoarthritis of hip; M25.551 Pain in right hip; M25.552 Pain in left hip
CPT/HCPCS: 72110; 73522

== ENCOUNTER → 2024-01-22 07:14 | Outpatient (CLI) | payer OTHER, MEDICAID, SELFPAY ==
[2024-01-23 07:36] LABS: C Peptide 2.4 ng/mL (1.1-4.4); Insulin Level Total 7.7 uIU/mL (2.6-24.9)
== END ==
PROVIDERS: Family Provider Family Medicine; PCP Family Medicine; Referring Provider Internal Medicine; Visit Provider Internal Medicine
DX: R68.81 Early satiety (principal)
CPT/HCPCS: 36415; 83525; 84681

== ENCOUNTER → 2024-01-23 16:53 | Outpatient (CLI) | payer OTHER, MEDICAID, SELFPAY ==
--- NOTE | 2024-01-23 16:54 | DI.MG.S_ITS ---
BILATERAL DIGITAL SCREENING MAMMOGRAM 3D/2D WITH CAD: 01/23/2024 CLINICAL: Routine screening. Comparison is made to exams dated: 03/03/2022 mammogram, 03/17/2020 mammogram, 01/09/2019 mammogram, and 01/05/2018 mammogram - [facility]. Both breasts are heterogeneously dense, which may obscure small masses (category c / 51-75% glandular tissue). Current study was also evaluated with a Computer Aided Detection (CAD) system. No significant masses, calcifications, or other findings are seen in either breast. There has been no significant interval change. IMPRESSION: NEGATIVE There is no mammographic evidence of malignancy. A 1 year screening mammogram is recommended. Based on the Tyrer Cuzick model (a risk assessment model) the patient's lifetime risk is 11.3% and her 10 year risk is 4.4%. According to the ACR, ACS, and NCCN guidelines, an annual breast MRI exam along with mammogram is recommended if the patient's lifetime risk is 20% or greater. This exam was interpreted at Station ID: [id number]. NOTE: For mammograms, a report in lay terms will be sent to the patient. Approximately 15% of breast malignancies will not be visualized mammographically. In the management of a palpable breast mass, a negative mammogram must not discourage biopsy of a clinically suspicious lesion. Electronically Signed By: Pj alcocer/loy:01/24/2024 07:49:12 letter sent: Normal Exam ACR BI-RADS Category 1: Negative [id number]
== END ==
LOC: MAMMO 16:54
PROVIDERS: Family Provider Family Medicine; PCP Family Medicine; Referring Provider Family Medicine; Visit Provider Family Medicine
DX: Z12.31 Encounter for screening mammogram for malignant neoplasm of breast (principal); R92.333 Mammographic heterogeneous density, bilateral breasts
CPT/HCPCS: 77063; 77067

== ENCOUNTER → 2024-04-29 07:08 | Outpatient (CLI) | payer OTHER, MEDICAID, SELFPAY ==
[2024-04-29 08:30] LABS: Alanine Aminotransferase 38 IU/L (<35); Albumin 4.2 g/dL (3.5-5.0); Albumin Globulin Ratio 1.5 (1.0-2.8); Alkaline Phosphatase 60 U/L (38-126); Aspartate Aminotransferase 30 IU/L (14-36); BUN Creatinine Ratio 28.6 (6-22); Bilirubin Total 0.5 mg/dL (0.2-1.3); Blood Urea Nitrogen 18 mg/dL (7-17); Calcium 9.2 mg/dL (8.4-10.2); Carbon Dioxide 27 mmol/L (22-32); Chloride 106 mmol/L (98-107); Cholesterol 211 mg/dL (140-199); Estimated Glomerular Filt Rate > 60 mL/min (>60); Globulin 2.8 g/dL (1.7-4.1); Glucose 90 mg/dL (80-110); HDL Cholesterol 62 mg/dL (40-60); HEMOLYSIS < 15 (0-50); LDL Cholesterol Calculated 133 mg/dL (<100); Potassium 4.5 mmol/L (3.4-5.1); Sodium 139 mmol/L (137-145); Triglycerides 79 mg/dL (35-150)
[2024-04-29 08:34] LABS: High Sensitivity CRP - Cardiac 0.4 mg/L (1.0-3.0)
[2024-04-29 08:45] LABS: Add Manual Diff / Slide Review YES; Hematocrit 38.5 % (36-46); Hemoglobin 12.7 g/dL (12.0-16.0); Mean Corpuscular HGB Conc 32.9 % (30-36); Mean Corpuscular Hemoglobin 31.9 PG (26-34); Mean Corpuscular Volume 96.8 fL (80-100); Platelet Count 138 X10^3/uL (150-400); Red Blood Cell Count 3.98 X10^6/uL (4.0-5.2); Red Cell Distribution Width 18.3 % (11.6-14.8); White Blood Cell Count 3.1 X10^3/uL (4.5-11.0)
[2024-04-29 09:05] LABS: Neutrophils Absolute Manual 403 /uL (3000-5900); Total Cells Counted 100
[2024-04-29 09:06] LABS: Anisocytosis 1+; Ovalocytes 1+
== END ==
PROVIDERS: Family Provider Family Medicine; PCP Family Medicine; Referring Provider Family Medicine; Visit Provider Family Medicine
DX: D72.819 Decreased white blood cell count, unspecified (principal); E16.2 Hypoglycemia, unspecified; E78.5 Hyperlipidemia, unspecified
CPT/HCPCS: 36415; 80053; 80061; 85007; 85025; 86140

== ENCOUNTER → 2024-09-06 11:39 | Outpatient (CLI) | payer OTHER, SELFPAY | PROVIDERS: Family Provider Family Medicine; PCP Family Medicine; Referring Provider Nurse Practitioner Family; Visit Provider Nurse Practitioner Family | DX: R30.0 Dysuria (principal) | CPT/HCPCS: 87077; 87086 ==

== ENCOUNTER → 2024-09-14 15:33 | Outpatient (CLI) | payer OTHER, SELFPAY | PROVIDERS: Family Provider Family Medicine; PCP Family Medicine; Visit Provider Registered Nurse | DX: R10.9 Unspecified abdominal pain (principal) | CPT/HCPCS: 81002; 87077; 87086; 87186 ==

== ENCOUNTER → 2024-09-19 16:39 | Outpatient (CLI) | payer OTHER, SELFPAY ==
[2024-09-19 18:12] LABS: Bacteria Urine Few (2-10); Culture Indicated Urine Cult Not Indicated; RBC Urine 0-1/HPF (0-5/HPF); Squamous Epithelial Cell Urine 1-5 /HPF (0-5/HPF); Urine Volume 10mL (spun); WBC Urine 0-1/HPF (0-5/HPF)
== END ==
PROVIDERS: Family Provider Family Medicine; PCP Family Medicine; Referring Provider Family Medicine; Visit Provider Family Medicine
DX: N89.8 Other specified noninflammatory disorders of vagina (principal); M54.2 Cervicalgia; G89.29 Other chronic pain; G47.00 Insomnia, unspecified; F41.9 Anxiety disorder, unspecified; R30.0 Dysuria; N39.0 Urinary tract infection, site not specified; M51.379 Other intervertebral disc degeneration, lumbosacral region without mention of lumbar back pain or lower extremity pain
CPT/HCPCS: 81015; 87086; 87210

== ENCOUNTER → 2024-09-23 15:42 | Outpatient (CLI) | payer OTHER, SELFPAY ==
[2024-09-23 17:23] LABS: Bilirubin Urine UA NEGATIVE (NEGATIVE); Color Urine UA YELLOW; Glucose Urine UA NEGATIVE (Negative); Ketones Urine UA NEGATIVE (NEGATIVE); Leukocyte Esterase Urine UA NEGATIVE (NEGATIVE); Nitrite Urine UA POSITIVE (Negative); Occult Blood Urine UA NEGATIVE (Negative); Protein Urine UA NEGATIVE (Negative); Specific Gravity Urine UA 1.025 (1.000-1.035); Urobilinogen Urine UA 0.2 E.U./dL (0.2)
[2024-09-23 17:26] LABS: Appearance Urine UA SL CLOUDY
[2024-09-23 17:27] LABS: Bacteria Urine Moderate (10-30); Culture Indicated Urine Specimen Cultured; RBC Urine None Seen (0-5/HPF); Squamous Epithelial Cell Urine 0-1 /HPF (0-5/HPF); Urine Volume 10mL (spun); WBC Urine 1-5/HPF (0-5/HPF)
== END ==
PROVIDERS: Family Provider Family Medicine; PCP Family Medicine; Referring Provider Family Medicine; Visit Provider Family Medicine
DX: R30.0 Dysuria (principal); R35.0 Frequency of micturition
CPT/HCPCS: 81001; 87077; 87086; 87186

== ENCOUNTER → 2024-11-11 15:11 | Outpatient (CLI) | payer OTHER, SELFPAY ==
[2024-11-11 16:26] LABS: Alanine Aminotransferase 29 IU/L (<35); Albumin 4.3 g/dL (3.5-5.0); Albumin Globulin Ratio 1.5 (1.0-2.8); Alkaline Phosphatase 68 U/L (38-126); Aspartate Aminotransferase 28 IU/L (14-36); BUN Creatinine Ratio 25.9 (6-22); Bilirubin Total 0.5 mg/dL (0.2-1.3); Blood Urea Nitrogen 21 mg/dL (7-17); Calcium 9.6 mg/dL (8.4-10.2); Carbon Dioxide 26 mmol/L (22-32); Chloride 104 mmol/L (98-107); Estimated Glomerular Filt Rate > 60 mL/min (>60); Globulin 2.9 g/dL (1.7-4.1); Glucose 92 mg/dL (80-110); HEMOLYSIS < 15 (0-50); Potassium 4.1 mmol/L (3.4-5.1); Sodium 137 mmol/L (137-145); Total Protein 7.2 g/dL (6.3-8.2)
== END ==
LOC: LAB 15:12
PROVIDERS: Family Provider Family Medicine; PCP Family Medicine; Referring Provider Family Medicine; Visit Provider Family Medicine
DX: Z79.890 Hormone replacement therapy (principal)
CPT/HCPCS: 36415; 80053; 82670

== ENCOUNTER → 2025-02-20 16:50 | Outpatient (CLI) | payer OTHER, SELFPAY ==
--- NOTE | 2025-02-20 16:51 | DI.MG.S_ITS ---
MM screening mammo BI: 02/20/2025. BI-RADS: 1 CLINICAL: 59-year old female for bilateral screening mammogram. Tyrer-Cuzick lifetime risk of 11.0%. No personal or first-degree family history of breast cancer. PRIOR EXAMS 01/23/2024, 03/03/2022, 03/17/2020, 01/09/2019, 01/05/2018, 12/25/2016, 12/11/2016, 10/18/2015. MAMMOGRAPHY TECHNIQUE: 2D and 3D (tomosynthesis) digital mammographic views obtained, with additional images as needed for full coverage. Current study was also evaluated with a Computer Aided Detection (CAD) system. DENSITY C. The breasts are heterogeneously dense, which may obscure small masses. MAMMOGRAPHY FINDINGS Bilateral: No suspicious mass, asymmetry, microcalcification, or other abnormality seen. IMPRESSION: * No evidence of malignancy. RECOMMENDATIONS Bilateral * Annual screening mammography. OVERALL ASSESSMENT CATEGORY BI-RADS-1: Negative. The [employer] recommends annual screening mammography beginning at age 40 for women with average risk of breast cancer. ELECTRONICALLY SIGNED: Carlitos Barrett M.D. on 02/23/2025 at 04:48:06 PM PT Interpreting Station ID: [id number]
== END ==
PROVIDERS: Family Provider Family Medicine; PCP Family Medicine; Referring Provider Family Medicine; Visit Provider Family Medicine
DX: Z12.31 Encounter for screening mammogram for malignant neoplasm of breast (principal); R92.333 Mammographic heterogeneous density, bilateral breasts
CPT/HCPCS: 77063; 77067

== ENCOUNTER → 2025-05-11 07:21 | Outpatient (CLI) | payer OTHER, SELFPAY ==
[2025-05-11 08:31] LABS: Hematocrit 39.0 % (36-46); Hemoglobin 12.9 g/dL (12.0-16.0); Mean Corpuscular HGB Conc 33.2 % (30-36); Mean Corpuscular Hemoglobin 31.7 PG (26-34); Mean Corpuscular Volume 95.6 fL (80-100); Platelet Count 122 X10^3/uL (150-400)
[2025-05-11 08:33] LABS: Add Manual Diff / Slide Review YES
[2025-05-11 08:49] LABS: Anisocytosis 1+; Atypical Lymphocytes Percent 15.0 %; Lymphocytes Percent Manual 59.0 % (25-45); Monocytes Percent Manual 18.0 % (2-11); Neutrophils Absolute Manual 272 /uL (3000-5900); Poikilocytosis 1+; Segmented Neutrophils Percent 8.0 % (38-70); Total Cells Counted 100
[2025-05-11 09:04] LABS: Alanine Aminotransferase 32 IU/L (<35); Albumin 4.1 g/dL (3.5-5.0); Albumin Globulin Ratio 1.3 (1.0-2.8); Alkaline Phosphatase 58 U/L (38-126); Blood Urea Nitrogen 20 mg/dL (7-17); Calcium 9.0 mg/dL (8.4-10.2); Carbon Dioxide 27 mmol/L (22-32); Chloride 105 mmol/L (98-107); Cholesterol 211 mg/dL (140-199); Estimated Glomerular Filt Rate > 60 mL/min (>60); Globulin 3.2 g/dL (1.7-4.1); Glucose 84 mg/dL (70-99); HDL Cholesterol 62 mg/dL (40-60); HEMOLYSIS < 15 (0-50); Potassium 4.8 mmol/L (3.4-5.1); Sodium 137 mmol/L (137-145); Total Protein 7.3 g/dL (6.3-8.2); Triglycerides 81 mg/dL (35-150)
[2025-05-12 03:40] LABS: CRP, High Sensitivity 0.50 mg/L (0.00-3.00)
== END ==
PROVIDERS: Family Provider Family Medicine; PCP Family Medicine; Referring Provider Family Medicine; Visit Provider Family Medicine
DX: E78.5 Hyperlipidemia, unspecified (principal); D72.819 Decreased white blood cell count, unspecified
CPT/HCPCS: 36415; 80053; 80061; 85007; 85025; 86140

== ENCOUNTER → 2025-05-15 11:07 | Outpatient (CLI) | payer OTHER, SELFPAY | PROVIDERS: Family Provider Family Medicine; PCP Family Medicine; Referring Provider Family Medicine; Visit Provider Family Medicine | DX: L98.9 Disorder of the skin and subcutaneous tissue, unspecified (principal) | CPT/HCPCS: 82274 ==

== ENCOUNTER → 2025-05-26 10:15 | Outpatient (CLI) | payer OTHER, SELFPAY ==
--- NOTE | 2025-05-26 10:17 | DI.RAD.S_ITS ---
PROCEDURE: XR DEXA AXIAL SKELETON INDICATIONS: postmenopause COMPARISON: [facility], , DEXA AXIAL SKELETON, 12/11/2016, 16:24. FINDINGS: Lumbar Spine: Bone mineral density 0.982 g/cm2, T score -0.6, decreased by 12.7 percent. Left Femoral Neck: Bone mineral density 0.671 g/cm2, T score -1.6. Left Hip: Bone mineral density 0.742 g/cm2, T score -1.6, decreased by 12.1 percent. Fracture Risk Calculation (when applicable): 10-year fracture risk of a major osteoporotic fracture 8.7 percent and of a hip fracture 0.8 percent. (T score greater or equal to -1.0 to: NORMAL) (T score from -1.1 to -2.4: OSTEOPENIA) (T score less than or equal to -2.5: OSTEOPOROSIS) IMPRESSION: Low bone mineral density (osteopenia) by WHO classification. Follow-up guidelines as follows: Osteoporosis: Consider a repeat DEXA and Vertebral Fracture Assessment (VFA) exam in 2 years or sooner if medically necessary, to reassess this patient's status. Osteopenia: Consider a repeat DEXA in 2-3 years to reassess this patient's status, or if there is a new clinical indication. Normal: Consider a repeat DEXA in 5 years or sooner, or if there is a new clinical indication. All treatment decisions require clinical judgment and consideration of individual patient factors, including patient preferences, comorbidities, previous drug use, risk factors not captured in the FRAX model (e.g., frailty, falls, vitamin D deficiency, increased bone turnover, interval significant decline in bone density ) and possible under- or over-estimation of fracture risk by FRAX. In addition, the NOF Guide recommends that FDA-approved medical therapies be considered in postmenopausal women and men age >= 50 years with a: * Hip or vertebral (clinical or morphometric) fracture * T-score of <=-2.5 at the spine or hip * Ten-year fracture probability by FRAX of >= 3% for hip fracture or >=20% for major osteoporotic fracture. Dictated by: Hardik Corcoran M.D. on 05/26/2025 at 13:10 Approved by: Hardik Corcoran M.D. on 05/26/2025 at 13:12
== END ==
PROVIDERS: Family Provider Family Medicine; PCP Family Medicine; Referring Provider Family Medicine; Visit Provider Family Medicine
DX: M85.852 Other specified disorders of bone density and structure, left thigh (principal); Z79.890 Hormone replacement therapy
CPT/HCPCS: 77080